=== PATIENT | male | born 1980 | race Caucasian/White ===

== ENCOUNTER 2022-09-30 13:14 | Day surgery (SDC) | payer BC, SELFPAY ==
--- NOTE | 2022-09-26 14:10 | HO.ANESPROP2 ---
Documented by User: Anabella Winston NP 09/26/22 14:11 HPI - Anesthesia Eval Consult details Narrative: 42yo M for Upper Endoscopy and Colonoscopy [facility] Past Medical History Medical History (Updated 09/26/22 @ 14:12 by Allison Barrera, JANE) Anemia Anxiety Asthma EtOH dependence GERD (gastroesophageal reflux disease) Substance abuse Social History Social History (Updated 09/26/22 @ 14:11 by Allison Barrera, JANE) Patient Tobacco Use Status: Never used Tobacco Use of substances other than those prescribed or required for medical reasons: Yes Substance Use Type: Marijuana Substance Use Type Other:: 2 days ago marijuana, years ago former cocaine Substance Use Frequency: Daily Substance Use Frequency Other:: cocaine in past last about 2 years ago Are you DNR?: No Advance Directives: No Advance Directives Information Provided: Yes Meds Allergies Allergy/AdvReac Type Severity Reaction Status Date / Time No Known Allergies Allergy Unverified 09/24/22 12:27 Home Medications Medication Instructions Recorded Confirmed Last Taken Type fluoxetine 40 mg capsule 1 cap PO DAILY 09/26/22 09/26/22 09/30/22 History naltrexone 50 mg tablet 1 tab PO DAILY 09/26/22 09/26/22 09/30/22 History omeprazole 20 mg capsule,delayed 1 cap PO DAILY 09/26/22 09/26/22 09/30/22 History release quetiapine 50 mg tablet 1 tab PO BID 09/26/22 09/26/22 09/30/22 History simvastatin 40 mg tablet 1 tab PO BEDTIME 09/26/22 09/26/22 09/30/22 History Exam Exam Date and Time: September 26, 2022 141 Assessment and Plan Assessment Anesthesia Assessment: Chart Reviewed Documented by User: Reji Ferguson MD 09/30/22 14:18 [facility] Past Medical History Medical History (Updated 09/26/22 @ 14:12 by Allison Barrera RN) Anemia Anxiety Asthma EtOH dependence GERD (gastroesophageal reflux disease) Substance abuse Family History Family history of problems with anesthesia: No Surgical History History of Problems with Anesthesia: No Social History Social History (Updated 09/26/22 @ 14:11 by Allison Barrera RN) Patient Tobacco Use Status: Never used Tobacco Use of substances other than those prescribed or required for medical reasons: Yes Substance Use Type: Marijuana Substance Use Type Other:: 2 days ago marijuana, years ago former cocaine Substance Use Frequency: Daily Substance Use Frequency Other:: cocaine in past last about 2 years ago Are you DNR?: No Advance Directives: No Advance Directives Information Provided: Yes Meds Allergies Allergy/AdvReac Type Severity Reaction Status Date / Time No Known Allergies Allergy Unverified 09/24/22 12:27 Home Medications Medication Instructions Recorded Confirmed Last Taken Type fluoxetine 40 mg capsule 1 cap PO DAILY 09/26/22 09/26/22 09/30/22 History naltrexone 50 mg tablet 1 tab PO DAILY 09/26/22 09/26/22 09/30/22 History omeprazole 20 mg capsule,delayed 1 cap PO DAILY 09/26/22 09/26/22 09/30/22 History release quetiapine 50 mg tablet 1 tab PO BID 09/26/22 09/26/22 09/30/22 History simvastatin 40 mg tablet 1 tab PO BEDTIME 09/26/22 09/26/22 09/30/22 History Exam Airway Mallampati Class: III TM Dist: >3cm Neck ROM: Full Loose/Missing/Broken Teeth: No Heart: rrr Lungs: clear Assessment and Plan Final Anesthetic Review Family History of Problems with Anesthesia: No History of Problems with Anesthesia: No NPO: Yes ASA Class: II Final Preanesthetic Review: No Changes in Pt Med Stat, Meds/Allgs Chart Reviewed, Consent Obtained/Reviewed and Anes Risks/Benef Reviewed Patient Risk: Intermediate Procedure Risk: Low Anesthetic Plan Anesthetic Plan: MAC: Disposition: Standard PACU
[2022-09-30 13:41] VITALS: BMI 40.8
[2022-09-30 13:48] VITALS: BMI 40.8
[2022-09-30 13:53] VITALS: BP 150/77; PULSE 78; RESP 18; TEMP 36.5; O2SAT 98
[2022-09-30 13:55] LABS: Phencyclidine Screen Urine Not Detected (Not Detect)
[2022-09-30 14:00] LABS: Amphetamine Screen Urine Not Detected (Not Detect); Barbiturates, Urine Not Detected (Not Detect); Benzodiazepines Screen Urine Not Detected (Not Detect); Cannabinoid Screen Urine POSITIVE (Not Detect); Cocaine Screen Urine Not Detected (Not Detect); Fentanyl, urine Not Detected (Not Detect); Opiate Screen Urine Not Detected (Not Detect)
--- NOTE | 2022-09-30 14:09 | MHC.SHP ---
Pre-Procedural Eval Section A Date of Service: 09/30/22 Section B Chief Complaint: Anemia, unspecified, Details of Present Illness: 42-year-old gentleman with previous medical history of alcohol use disorder, who was referred by his primary care provider for iron deficiency anemia. He is here for upper endoscopy and colonoscopy for evaluation. Labs not available for review. No abdominal pain, nausea, vomiting, unintentional weight loss. No melena or hematochezia. No family history of colon cancer. Patient does report chronic diarrhea which he describes as 2-3 loose bowel movements every day. Relevant Social History: Other (specify) (Marijuana) Present Medications: see Short Stay Collaborative assessment History of Previous Operations: No relevant previous surgery Allergies: Allergies Allergy/AdvReac Type Severity Reaction Status Date / Time No Known Allergies Allergy Unverified 09/24/22 12:27 Review of Systems Review of Systems Comment: Ten point ROS negative except as noted above Exam Exam Comment: Gen appear: No acute distress, well nourished HEENT: no icterus Chest: No overt resp distress Abd: soft, nontender, nondistended Psych: Stable affect, answering questions appropriately Neuro: A/Ox3 noted to move all extremities spontaneously Ext: no peripheral edema Plan I have reviewed the history and physical and performed a pertinent physical examination on my patient. No changes have occurred unless specified. Time Spent With Patient Time: Total time managing care of this patient today ____ minutes.
[2022-09-30] MEDS: Lactated Ringers 1,000 ML 100 ML IVCONT (14:12)
--- NOTE | 2022-09-30 14:16 | P.OP_ITS ---
Operative Note Operative Note Date of Service: 09/30/22 Narrative: Procedure:?Esophagogastroduodenoscopy and Colonoscopy Indication:?Iron deficiency anemia Endoscopist:?Deidre Thomas MD Anesthesia Provider:?Dr Reji Ferguson Anesthesia type:?MAC Instrument:?Olympus GIF-H190 and PCF-H190L ?? EGD Procedure:?? The procedure, indications, preparation and potential complications were reviewed with the patient, who indicated understanding and gave written informed consent to proceed. A physical exam was performed. The endoscope was introduced through the mouth, and advanced to the second part of duodenum. The mucosa was carefully examined on slow withdrawal of the endoscope. The patient tolerated the procedure well. There were no immediate complications.? ? EGD Findings:? * Esophagus:? Normal mucosa noted in the entire esophagus. The Z line was at 39 cm. * Stomach:? Normal mucosa was noted in the stomach. Random cold forceps gastric biopsies were taken to rule out H Pylori infection.? * Duodenum:? Normal mucosa was noted in the whole of the examined duodenum. Cold forceps biopsies were taken from duodenal bulb and second portion of the duodenum to rule out celiac sprue. Colonoscopy Procedure:? The patient was then turned for the colonoscopy. A digital rectal exam was performed which was normal. The colonoscope was then inserted through the anus and advanced through the colon to the cecum at 110 cm. The appendiceal orifice and ileocecal valve was identified.? Mucosa was carefully examined under high definition white light as the instrument was slowly withdrawn in a retrograde panoramic fashion. Retroflexion was performed in rectum. The procedure was not difficult. There were no immediate obvious complications. The quality of the prep was BBPS:2+2+3 = inadequate Withdrawal time 8 minutes. 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 Scope traversed beyond this to the appendiceal orifice. The ileocecal valve itself was strictured and scope could not be traversed into the terminal ileum. The terminal ileum visualised from the IC valve appeared fibrotic with blunt vili. Cold forceps biopsies were taken from the terminal ileum, ileocecal valve and around the IC valve. Random cold forceps biopsies were taken from right and left side of the colon. Protruding lesions: * Medium internal hemorrhoids stigmata of recent bleeding.? Impression:? * Normal esophagus (biopsy) * Normal stomach (biopsy) * Normal duodenum (biopsy) * Ulcerated and stenotic IC valve (biopsy) * Abnormal terminal ileum mucosa (biopsy) * Remaining colon mucosa endoscopically normal (biopsy) Recommendations:?? * Ddx include NSAID related diaphragmatic stricture vs Crohns ileitis. * Check NSAID hx * Labs ordered * Follow biopsy results. * Depending on results of biopsy, may need CTE * Follow up in GI office as scheduled * Avoid NSAIDs. Above has been reviewed with the patient. Relevant educational hand outs were provided at discharge.?
[2022-09-30 15:15] VITALS: BP 109/76; PULSE 77; RESP 14; TEMP 36.4; O2SAT 94
[2022-09-30 15:30] VITALS: BP 125/74; PULSE 70; RESP 16; TEMP 36.4; O2SAT 97
== END 2022-09-30 15:54 | disposition home or self-care (01) ==
PROVIDERS: Nurse Practitioner; PCP Internal Medicine; Visit Provider Internal Medicine
PROC: (CPT 45380; principal; 2022-09-30 15:40)
DX: D50.9 Iron deficiency anemia, unspecified (principal); K63.3 Ulcer of intestine; K52.9 Noninfective gastroenteritis and colitis, unspecified; K64.8 Other hemorrhoids; K29.50 Unspecified chronic gastritis without bleeding; K56.699 Other intestinal obstruction unspecified as to partial versus complete obstruction; K21.9 Gastro-esophageal reflux disease without esophagitis; F10.20 Alcohol dependence, uncomplicated; F12.90 Cannabis use, unspecified, uncomplicated; Z79.899 Other long term (current) drug therapy
CPT/HCPCS: 45380; 43239; 80307; 88305; 88342

== ENCOUNTER 2022-10-31 14:47 | Outpatient (REF) | payer BC, SELFPAY ==
[2022-10-31 16:15] LABS: Hematocrit 36.2 % (42.0-52.0); Hemoglobin 10.8 g/dl (14.0-18.0); Mean Corpuscular HGB Conc 29.8 g/dl (31.0-36.0); Mean Corpuscular Hemoglobin 22.8 pg (27.0-33.0); Mean Corpuscular Volume 76.5 fL (80.0-98.0); Mean Platelet Volume 8.9 fL (9.4-12.4); Platelet Count 454 X10*3/uL (160-400); Red Blood Count 4.73 X10*6/uL (4.60-5.80); Red Cell Distribution Width 15.9 % (11.0-16.0); White Blood Count 10.9 X10*3/uL (4.8-10.8)
[2022-10-31 16:20] LABS: Prothrombin Time 11.6 SEC (10.0-13.1)
[2022-10-31 17:05] LABS: Alanine Aminotransferase 13 U/L (0-40); Albumin Level 4.1 g/dL (3.5-5.0); Alkaline Phosphatase 73 U/L (39-117); Anion Gap 12 (12-20); Aspartate Amino Transferase 16 U/L (5-37); Bilirubin Total 0.3 mg/dL (0.0-1.0); Blood Urea Nitrogen 12 mg/dL (9-16); Calcium 9.5 mg/dL (8.4-10.2); Carbon Dioxide 26 mmol/L (22-29); Chloride 104 mmol/L (96-108); Estimated Glomerular Filt Rate > 60; Glucose Random 86 mg/dL (60-115); Iron 19 mcg/dL (45-160); Percent Iron Saturation 5 % (15-50); Potassium 4.2 mmol/L (3.3-5.1); Sodium 138 mmol/L (135-145); Total Iron Binding Capacity 350 mcg/dL (228-428); Unsaturated Iron Binding 331 ug/dL
[2022-10-31 17:19] LABS: Ferritin 24 ng/mL (20-250); Folate 14.3 ng/mL (> or = 4.0); Vitamin B12 500 pg/mL (200-900); Vitamin D 25-OH Total 27.9 ng/mL (>30)
[2022-11-02 19:04] LABS: TS Negative Control Passed; TS Panel A 0; TS Panel B 1; TS Positive Control Passed; TSpotTB Negative (Negative)
[2022-11-03 04:31] LABS: HBc Num1 0.06 S/CO (0.00-0.79); HBsAGNum1 0.24 S/CO (0.00-0.99); HIV AB/AG Nonreactive (Nonreactive); HIV Num 1 0.09 S/CO (0.00-0.99); Hepatitis A Antibody IgG Nonreactive (Nonreactive); Hepatitis B Core Antibody Nonreactive (Nonreactive); Hepatitis B Surface Antigen Negative (Negative); ~HepC Num1 0.14 S/CO (0.00-0.79); ~Hepatitis A Antibody IgG 0.32 S/CO (0.00-0.99); ~Hepatitis B Surface Antibody NONREACTIVE (Nonreactive); ~Hepatitis C Antibody Nonreactive (Nonreactive)
[2022-11-03 19:29] LABS: Immunoglobulin A 326 mg/dL (47-310); Immunoglobulin G 1019 mg/dL (600-1640); Immunoglobulin M 91 mg/dL (50-300)
[2022-11-03 21:19] LABS: Transglutaminase IgA <1.0 U/mL
[2022-11-05 20:48] LABS: Immunoglobulin E 262 kU/L (<OR=114)
[2022-11-09 13:43] LABS: TPMT Activity 24
== END 2022-10-31 14:48 | disposition home or self-care (01) ==
LOC: HO.LAB 14:47
PROVIDERS: PCP Internal Medicine; Visit Provider Internal Medicine
DX: Z11.4 Encounter for screening for human immunodeficiency virus [HIV] (principal); K52.9 Noninfective gastroenteritis and colitis, unspecified; R85.7 Abnormal histological findings in specimens from digestive organs and abdominal cavity
CPT/HCPCS: 36415; 80053; 82306; 82607; 82657; 82728; 82746; 82784; 82785; 83540; 85027; 85610; 86140; 86364; 86481; 86704; 86706; 86708; 86803; 87340; 87389

== ENCOUNTER 2022-11-18 15:17 | Outpatient (REF) | payer BC, SELFPAY ==
[2022-11-18 17:35] LABS: Hematocrit 37.1 % (42.0-52.0); Hemoglobin 10.9 g/dl (14.0-18.0); Mean Corpuscular HGB Conc 29.4 g/dl (31.0-36.0); Mean Corpuscular Hemoglobin 22.3 pg (27.0-33.0); Mean Platelet Volume 8.9 fL (9.4-12.4); Platelet Count 461 X10*3/uL (160-400); Red Blood Count 4.88 X10*6/uL (4.60-5.80); Red Cell Distribution Width 16.1 % (11.0-16.0); White Blood Count 10.8 X10*3/uL (4.8-10.8)
[2022-11-18 17:55] LABS: Alanine Aminotransferase 13 U/L (0-40); Albumin Level 4.1 g/dL (3.5-5.0); Alkaline Phosphatase 72 U/L (39-117); Anion Gap 16 (12-20); Aspartate Amino Transferase 17 U/L (5-37); Bilirubin Total 0.3 mg/dL (0.0-1.0); Blood Urea Nitrogen 12 mg/dL (9-16); Calcium 9.6 mg/dL (8.4-10.2); Carbon Dioxide 25 mmol/L (22-29); Chloride 102 mmol/L (96-108); Estimated Glomerular Filt Rate > 60; Glucose Random 78 mg/dL (60-115); Iron 18 mcg/dL (45-160); Percent Iron Saturation 5 % (15-50); Potassium 4.3 mmol/L (3.3-5.1); Sodium 139 mmol/L (135-145); Total Iron Binding Capacity 348 mcg/dL (228-428); Total Protein 7.1 g/dL (6.5-8.0); Unsaturated Iron Binding 330 ug/dL
== END 2022-11-18 15:18 | disposition home or self-care (01) ==
LOC: HO.LAB 15:17
PROVIDERS: PCP Internal Medicine; Visit Provider Internal Medicine
DX: K52.9 Noninfective gastroenteritis and colitis, unspecified (principal); R85.7 Abnormal histological findings in specimens from digestive organs and abdominal cavity; K64.9 Unspecified hemorrhoids
CPT/HCPCS: 36415; 80053; 81479; 82397; 83520; 83540; 85027; 86140; 88346; 88350

== ENCOUNTER 2022-12-02 08:16 | Outpatient (REF) | payer BC, SELFPAY ==
--- NOTE | ~2022-12-02 | CT_ITS ---
EXAMINATION: CT ENTEROGRAPHY ABDOMEN AND PELVIS WITH CONTRAST CLINICAL INFORMATION: K52.9 - Noninfective gastroenteritis and colitis, unspecified COMPARISON: None TECHNIQUE: Study performed with oral Breeza (1500 mL). The patient was injected with 85 mL Omnipaque 350 intravenous contrast which was administered without adverse effect. Coronal and sagittal reformatted images were obtained at the technologist's workstation. Coronal 3-D maximum intensity projection reformatted images are also generated on the CT workstation and uploaded to PACS. This CT examination was performed using dose optimization techniques as appropriate, variously including the following: *Automated exposure control *Adjustment of mA and/or kV according to patient size (this includes techniques or standardized protocols for targeted exams where dose is matched to indication/reason for exam; i.e. extremities or head) *Use of iterative reconstruction technique DLP: 783 mGy-cm FINDINGS: LUNG BASES: The visualized lung bases are unremarkable. LIVER, GALLBLADDER, AND BILIARY TREE: The liver is normal in size, shape, and attenuation. No focal hepatic lesion or biliary ductal dilatation is present. The gallbladder is unremarkable with no evidence of radiopaque gallstones, gallbladder wall thickening, or obvious pericholecystic inflammatory changes. PANCREAS: Normal in size and contour and attenuation. No ductal dilatation. SPLEEN: Upper limits of normal size, 12.6 cm. ADRENAL GLANDS: Normal. KIDNEYS AND URETERS: The kidneys are normal in size, shape, and attenuation. No hydronephrosis, hydroureter, or calculi seen. No perinephric stranding. BLADDER: Unremarkable. GASTROINTESTINAL TRACT: There is subtle mild circumferential wall thickening and accentuated submucosal fat long segment mid to distal ileum at least 20 cm in length. Loops are well . There is no pneumatosis or fistula or stricture. No proximal obstruction. There may be mild short segment mid jejunal wall thickening left abdomen. The remainder of the large and small bowel appear normal. Rectum unremarkable. Normal appendix. There is small sliding hiatal hernia. No ascites or fluid collection. ABDOMINAL WALL: There is a mesh anterior abdomen. There is a fat-containing umbilical hernia measuring approximately 3.5 cm. Borderline fat-containing inguinal hernias. LYMPH NODES: There is scattered mesenteric adenopathy central right mesentery, largest node approximately 1 cm. Enlarged portal caval node measures 1.6 cm short axis. No retroperitoneal, deep pelvic or inguinal lymphadenopathy. VASCULAR: Unremarkable. PELVIC VISCERA: Unremarkable. OSSEUS STRUCTURES: No acute bony abnormality. Scattered Schmorl's nodes thoracic and lumbar spine. There is subtle fine irregular contours of the SI joints suspicious for mild sacroiliitis. Hardware in left hip. CT/CT enterography IMPRESSION: -Mild circumferential wall thickening and accentuated submucosal fat mid to distal ileum at least 20 cm in length. Question mild short segment mid jejunal wall thickening. -No proximal obstruction, pneumatosis, fistula, or stricture. No ascites or fluid collection. -Mild right mesenteric adenopathy. Prominent portal caval node. -Fat-containing umbilical hernia 3.5 cm. -Findings suspicious for mild bilateral sacroiliitis.
[2022-12-02] MEDS: Sorbitol/Mannit/Xanth Imaging 500 ML LIQUID 1500 ML PO (09:55)
[2022-12-02] MEDS: iohexoL 350 MG/ML 100 ML INFUS..BTL IV (09:55)
== END 2022-12-02 08:17 | disposition home or self-care (01) ==
LOC: HO.CT 08:16
PROVIDERS: Visit Provider Internal Medicine
DX: K52.9 Noninfective gastroenteritis and colitis, unspecified (principal)
CPT/HCPCS: 74177; Q9967

== ENCOUNTER 2022-12-12 07:08 | Outpatient (REF) | payer BC, SELFPAY ==
[2022-12-19 19:34] LABS: Calprotectin, Fecal 1710 mcg/g
== END 2022-12-12 07:09 | disposition home or self-care (01) ==
LOC: HO.LNP 07:08
PROVIDERS: Visit Provider Internal Medicine
DX: K52.9 Noninfective gastroenteritis and colitis, unspecified (principal)
CPT/HCPCS: 83993

== ENCOUNTER → 2022-12-15 15:05 | Outpatient (BNVA) | payer BC, SELFPAY | PROVIDERS: PCP Internal Medicine; Referring Provider Internal Medicine; Visit Provider Surgery | DX: K64.9 Unspecified hemorrhoids (principal) | CPT/HCPCS: 46600 ==

== ENCOUNTER → 2023-01-02 16:13 | Outpatient (BNVA) | payer BC, SELFPAY | PROVIDERS: PCP Internal Medicine; Visit Provider Internal Medicine | DX: Z13.89 Encounter for screening for other disorder (principal) ==

== ENCOUNTER 2023-01-23 12:34 | Outpatient (REF) | payer BC, SELFPAY ==
[2023-01-23 13:21] LABS: Hematocrit 42.5 % (42.0-52.0); Hemoglobin 12.7 g/dl (14.0-18.0); Mean Corpuscular HGB Conc 29.9 g/dl (31.0-36.0); Mean Corpuscular Hemoglobin 24.6 pg (27.0-33.0); Mean Corpuscular Volume 82.2 fL (80.0-98.0); Mean Platelet Volume 9.3 fL (9.4-12.4); Platelet Count 383 X10*3/uL (160-400); Red Blood Count 5.17 X10*6/uL (4.60-5.80); Red Cell Distribution Width 16.7 % (11.0-16.0); White Blood Count 10.7 X10*3/uL (4.8-10.8)
[2023-01-23 13:43] LABS: C Reactive Protein 3.31 mg/dL (< or = 0.50); Iron 25 mcg/dL (45-160); Percent Iron Saturation 7 % (15-50); Total Iron Binding Capacity 345 mcg/dL (228-428); Unsaturated Iron Binding 320 ug/dL
[2023-01-23 14:00] LABS: Ferritin 28 ng/mL (20-250)
== END 2023-01-23 12:35 | disposition home or self-care (01) ==
LOC: HO.LAB 12:34
PROVIDERS: PCP Internal Medicine; Visit Provider Internal Medicine
DX: K52.9 Noninfective gastroenteritis and colitis, unspecified (principal); K90.9 Intestinal malabsorption, unspecified
CPT/HCPCS: 36415; 82728; 83540; 85027; 86140

== ENCOUNTER 2023-01-26 10:15 | Outpatient (REF) | payer BC, SELFPAY ==
[2023-02-01 23:48] LABS: Calprotectin, Fecal 1210 mcg/g
== END 2023-01-26 10:16 | disposition home or self-care (01) ==
LOC: HO.LNP 10:15
PROVIDERS: Visit Provider Internal Medicine
DX: K52.9 Noninfective gastroenteritis and colitis, unspecified (principal)
CPT/HCPCS: 83993

== ENCOUNTER 2023-04-09 13:05 | Day surgery (SDC) | payer BC, SELFPAY ==
[2023-02-10 10:40] VITALS: BMI 40.6
[2023-04-09 13:13] VITALS: BMI 39.5
[2023-04-09 13:17] VITALS: BMI 39.5
[2023-04-09 13:19] VITALS: BP 121/82; PULSE 82; RESP 18; TEMP 36.7; O2SAT 95
--- NOTE | 2023-04-09 13:43 | MHC.SHP ---
Pre-Procedural Eval Section A Date of Service: 04/09/23 Section B Chief Complaint: Colitis Details of Present Illness: Medical History Anemia Anxiety Asthma EtOH dependence GERD (gastroesophageal reflux disease) Morbid obesity Substance abuse Surgical History H/O colonoscopy H/O knee surgery History of carpal tunnel surgery History of esophagogastroduodenoscopy (EGD) History of hip surgery Family History Maternal Grandmother Skin cancer Maternal Grandfather Prostate cancer Paternal Grandfather Lung cancer Father Cancer Present Medications: see Short Stay Collaborative assessment Allergies: Allergies Allergy/AdvReac Type Severity Reaction Status Date / Time No Known Allergies Allergy Unverified 12/15/22 15:17 Review of Systems Review of Systems Comment: 10 point ROS negative Exam Exam Comment: Gen appear: No acute distress HEENT: no icterus Chest: No overt resp distress Abd: soft, nontender, nondistended Psych: Stable affect, answering questions appropriately Neuro: A/Ox3 noted to move all extremities spontaneously Ext: no peripheral edema Plan I have reviewed the history and physical and performed a pertinent physical examination on my patient. No changes have occurred unless specified. Time Spent With Patient Time: Total time managing care of this patient today ____ minutes.
--- NOTE | 2023-04-09 13:45 | W.PM.OPN ---
Operative Note Operative Note Date of Service: 04/09/23 Narrative: Procedure:?Esophagogastroduodenoscopy and colonoscopy Endoscopist:?Deidre Thomas MD Indication:?Anemia, enteritis r/o crohns Anesthesia Provider:?Dr Aydee Villagomez Anesthesia Type:?MAC Instrument:?Olympus GIF-H190, PCF-190L EGD Procedure:?? The procedure, indications, preparation and potential complications were reviewed with the patient, who indicated understanding and gave written informed consent to proceed. A physical exam was performed. The endoscope was introduced through the mouth, and advanced to the proximal jejunum. The mucosa was carefully examined on slow withdrawal of the endoscope. The patient tolerated the procedure well and there were no immediate complications. EGD Findings:? Esophagus:? Normal mucosa noted in the entire esophagus. The Z line is at 40 cm. Stomach:? Normal gastric mucosa. Duodenum:? Normal duodenal mucosa to the extent visualised. Cold forceps biopsies were taken from the duodenal bulb and second portion of the duodenum. Jejunum: Proximal jejunum appeared normal and no obvious narrowing or inflammation noted. Cold forceps biopsies were taken to r/o crohns. Colonoscopy Procedure:? The patient was then turned for the colonoscopy. A digital rectal exam was performed which was abnormal for external hemorrhoids and ? pramod anal fistula.?A distal attachment cap was affixed to the tip of the scope and the colonoscope was then inserted through the anus and advanced through the colon to the cecum at 75 cm. Appendiceal orifice and ileocecal valve were identified. Mucosa was carefully examined under high definition white light as the instrument was slowly withdrawn in a retrograde panoramic fashion. Retroflexion was performed in rectum. The procedure was not difficult. There were no immediate obvious complications. The quality of the prep was BBPS: 3+2+3 = adequate Withdrawal time: 25 minutes Limitations: No limitation. Findings: Mucosa: Normal mucosa to cecum. The ileocecal valve was stenosed and scope could not be traversed through it. Purulent discharge was flowing freely out of it. Using a wire guided colonic balloon, the IC valve was dilated to 8 mm. Due to significant resistance and bleeding with dilation to 8 mm, decision was made to not dilate further. Post dilation, we could peek into terminal ileum which appeared erythematous and ulcerated. Cold forceps biopsies were taken from T.I and IC valve as well as from remaining colon and rectum. Protruding lesions: Medium internal hemorrhoids without stigmata of recent bleeding. Impression: 1. Normal esophagus 2. Normal stomach 3. Normal duodenum (biopsy) 4. Normal proximal jejunum (biopsy) 5. Stenosed IC valve (biopsy, dilation) 6. Terminal ileitis (biopsy) 7. Colon mucosa normal to cecum (biopsy) 8. Internal and external hemorrhoids 9. Perianal fistula Recommendations:?? Await biopsy results As clinical appearance most consistent with crohn's disease, will start prednisone 60mg PO once daily x 14 days, followed by a taper. Pt will likely need anti-TNF therapy Repeat colo can be considered depending on response to therapy in 3 months for further dilation of ICV stenosis
--- NOTE | 2023-04-09 15:02 | HO.ANESPROP2 ---
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 (Acute) Bleeding hemorrhoid (Acute) Morbid obesity (Acute) Past Medical History Medical History Anemia Anxiety Asthma EtOH dependence GERD (gastroesophageal reflux disease) Morbid obesity Substance abuse Family History Family History Maternal Grandmother Skin cancer Maternal Grandfather Prostate cancer Paternal Grandfather Lung cancer Father Cancer Family history of problems with anesthesia: No Surgical History Surgical History (Updated 02/10/23 @ 10:35 by Sola Avalos RN) H/O colonoscopy H/O knee surgery History of carpal tunnel surgery History of esophagogastroduodenoscopy (EGD) History of hip surgery History of Problems with Anesthesia: No Social History Social History Alcohol intake: former Year quit: 2021 Patient Tobacco Use Status: Never used Tobacco Use of substances other than those prescribed or required for medical reasons: Yes Substance Use Type: Marijuana Substance Use Type Other:: daily, yesterday smoked 2 joints Are you DNR?: No Advance Directives: No Advance Directives Information Provided: Yes Meds Allergies Allergy/AdvReac Type Severity Reaction Status Date / Time No Known Allergies Allergy Unverified 12/15/22 15:17 Active Medications: Current Medications Lactated Ringer's (Lr) 1,000 mls @ 50 mls/hr IVCONT .Q20H ANNA Last Admin: 04/09/23 13:31 Dose: 50 mls/hr Home Medications Medication Instructions Recorded Confirmed Last Taken Type fluoxetine 40 mg capsule 1 cap PO DAILY 09/26/22 04/09/23 04/09/23 History naltrexone 50 mg tablet 1 tab PO DAILY 09/26/22 04/09/23 04/09/23 History omeprazole 20 mg capsule,delayed 1 cap PO DAILY 09/26/22 04/09/23 04/09/23 History release quetiapine 50 mg tablet 1 tab PO BID 09/26/22 04/09/23 04/09/23 History simvastatin 40 mg tablet 1 tab PO BEDTIME 09/26/22 04/09/23 09/30/22 History acetaminophen 650 mg 650 mg PO Q12H 10/31/22 04/09/23 Unknown History tablet,extended release (Tylenol Arthritis Pain) Exam Exam Date and Time: April 09, 2023 1502 Height,Weight and Vital Signs: Height 5 ft 10 in Weight 124.738 kg Last Vital Signs Temp 98.0 F 04/09/23 13:19 Pulse 82 04/09/23 13:19 Resp 18 04/09/23 13:19 BP 121/82 04/09/23 13:19 Pulse Ox 95 04/09/23 13:19 O2 Del Method Room Air 04/09/23 13:19 Assessment and Plan Assessment Anesthesia Assessment: Anesthesia Plan Discussed and Chart Reviewed Final Anesthetic Review Family History of Problems with Anesthesia: No History of Problems with Anesthesia: No NPO: Yes ASA Class: III Final Preanesthetic Review: No Changes in Pt Med Stat, Meds/Allgs Chart Reviewed, Consent Obtained/Reviewed and Anes Risks/Benef Reviewed Patient Risk: Intermediate Procedure Risk: Low Anesthetic Plan Anesthetic Plan: MAC: Disposition: Standard PACU
[2023-04-09 15:30] VITALS: BP 120/71; PULSE 79; RESP 16; TEMP 36.1; O2SAT 96
[2023-04-09 15:45] VITALS: BP 117/66; PULSE 74; RESP 18; TEMP 36.8; O2SAT 97
== END 2023-04-09 16:15 | disposition home or self-care (01) ==
PROVIDERS: PCP Internal Medicine; Visit Provider Internal Medicine
PROC: (CPT 45386; principal; 2023-04-09 14:50)
DX: K50.012 Crohn's disease of small intestine with intestinal obstruction (principal); D64.9 Anemia, unspecified; K64.4 Residual hemorrhoidal skin tags; K64.8 Other hemorrhoids; K60.3 Anal fistula; J45.909 Unspecified asthma, uncomplicated
CPT/HCPCS: 45386; 45380; 43239; 88305; C1726

== ENCOUNTER 2023-04-15 13:35 | Outpatient (AMB) | payer BC, SELFPAY ==
--- NOTE | 2023-04-15 13:45 | A.OFFVIS_ITS ---
Intake Vital Signs 04/15/23 13:46 Height 5 ft 10 in Weight 279 lb 15.793 oz BMI 40.2 BP 134/72 Blood Pressure Location Lt brachial Position Sitting Pulse 75 Intake Visit Reasons: S/P double; Dr. Thomas Intake Note: Cornelius presents in the office as a follow up to his procedures. CC: No concerns 0 here for the results. 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 EGD/colo 09/30/22: Impression:? * Normal esophagus (biopsy) * Normal stomach (biopsy) * Normal duodenum (biopsy) * Ulcerated and stenotic IC valve (biopsy) * Abnormal terminal ileum mucosa (biopsy) * Remaining colon mucosa endoscopically normal (biopsy) Path: A.? Duodenum, biopsy:? Duodenal mucosa with mild villous blunting and patchy increased intraepithelial lymphocytes (see comment). B.? Stomach, biopsy:? Gastric antral and body mucosa with mild chronic inactive gastritis; negative for Helicobacter pylori, intestinal metaplasia and dysplasia. C.? Ileocecal valve, biopsy:? Active ileitis with moderate activity and mucosal erosion (see comment). D.? Terminal ileum, biopsy:? Active ileitis with mild activity (see comment). E.? Colon, ascending, biopsy:? Active colitis with mild activity (see comment). F.? Colon, right side, biopsy:? Colonic mucosa within normal limits; negative for active, chronic or microscopic colitis.? G.? Colon, left side, biopsy:? Colonic mucosa within normal limits; negative for active, chronic or microscopic colitis.? H.? Rectum, biopsy:? Colonic mucosa within normal limits; negative for active, chronic or microscopic colitis. COMMENT (A): ? These findings raise the possibility of celiac disease; however other pathologic processes, ?including H. pylori gastritis, peptic duodenitis, food allergies other than celiac disease, tropical sprue, viral enteritis, injury caused by drugs, autoimmune enteropathy, immunodeficiencies and Crohn's disease can induce intraepithelial lymphocytosis with or without associated architectural changes. In many cases no definite cause is identified. Clinical and serological correlation is recommended. COMMENT (C-E):? Neither granulomas nor evidence of definitive chronic mucosal injury is seen. The differential diagnosis includes infection, drug/medication effect and early idiopathic inflammatory bowel disease. Clinical correlation is advised. 10/31/22 Today, patient reports that despite stopping naproxen almost 3 months ago, he continues to have diarrhea which is often dark/black colored. Only utilizes Tylenol for pain control now. Reports taking omeprazole. Otherwise, no abdominal pain, nausea, vomiting, changes in appetite or unintent ional weight loss. No family history of inflammatory bowel disease or autoimmune conditions. No personal history of frequent respiratory or GI infections. 11/18/22: Reports seeing rectal bleeding more frequently, every time he wipes which then continues for a while before stopping itself. Not particularly painful to defecate, but did initially have a bruising like pressure. CT was ordered at the last visit, patient has still not heard from Radiology. Promethius Panel: consistent with Crohn's. 12/02/22: CTE: -Mild circumferential wall thickening and accentuated submucosal fat mid to distal ileum at least 20 cm in length. Question mild short segment mid jejunal wall thickening. -No proximal obstruction, pneumatosis, fistula, or stricture. No ascites or fluid collection. -Mild right mesenteric adenopathy. Prominent portal caval node. -Fat-containing umbilical hernia 3.5 cm. -Findings suspicious for mild bilateral sacroiliitis. 01/02/23: Started prednisone 40mg on 12/15 and took it for 2 weeks. Currently on 30mg dosing and to go down to 20mg on Thursday. Thinks may be has 30-50% had improvement in symptoms. Diarrhea frequency has decreased from 4 BMs a day to 2BMs per day. No abdominal pain anymore. Stools are still loose but brown. Rectal pressure has improved. 02/06/23: Was seen in [facility] [place] [facility] for L sided perianal abscess for which he underwent I&D at bedside. 04/09/23: EGD/colo: 1. Normal esophagus 2. Normal stomach 3. Normal duodenum (biopsy) 4. Normal proximal jejunum (biopsy) 5. Stenosed IC valve (biopsy, dilation) 6. Terminal ileitis (biopsy) 7. Colon mucosa normal to cecum (biopsy) 8. Internal and external hemorrhoids 9. Perianal fistula Recommendations:?? * Await biopsy results * As clinical appearance most consistent with crohn's disease, will start prednisone 60mg PO once daily x 14 days, followed by a taper. * Pt will likely need anti-TNF therapy * Repeat colo can be considered depending on response to therapy in 3 months for further dilation of ICV stenosis Path: A.? Jejunum, proximal, biopsy:? Small bowel mucosa with no specific change; no enteritis, granulomas or dysplasia.? B.? Duodenum, biopsy:? Duodenal mucosa with focally blunted villi and no active inflammation or granulomas; cannot exclude a nonspecific duodenitis.? C.? Terminal ileum, biopsy:? Chronic active ileitis with focal ulcer; no granulomas or dysplasia (see comment). D.? Ileocecal valve, biopsy:? Active erosive enteritis/colitis; no granulomas or dysplasia (see comment).? E.? Colon, right, biopsy:? Colonic mucosa with minor crypt distortion, focal hyperplastic changes and lymphoid aggregate; no colitis, granulomas or dysplasia. F.? Colon, left, biopsy:? Colonic mucosa with minimal hyperplastic changes; no colitis, granulomas or dysplasia.? G.? Colon, rectum, biopsy:? Colonic mucosa with minimal hyperplastic changes and two actively inflamed crypts with adjacent mucosal microgranuloma; negative for dysplasia (see comment).? 04/15/23: Was started on prednisone 60mg PO based on endoscopic appearance which he started taking on 04/10/23. Pre-endoscopy was having up to 5 loose BMs per day. Now frequency has reduced to 2 BMs per day albeit still loose. BMs are brown without blood in it. Night time sx +. No urgency. Tenesmus + . No abd pain. Does report hip and knee pains. [facility] Medical History Anemia Anxiety Asthma EtOH dependence GERD (gastroesophageal reflux disease) Morbid obesity Substance abuse Surgical History H/O colonoscopy H/O knee surgery History of carpal tunnel surgery History of esophagogastroduodenoscopy (EGD) History of hip surgery Family History Maternal Grandmother Skin cancer Maternal Grandfather Prostate cancer Paternal Grandfather Lung cancer Father Cancer Social History Alcohol intake: former Year quit: 2021 Patient Tobacco Use Status: Never used Tobacco Substance Use Type: Marijuana Review of Systems Const All systems reviewed & are unremarkable except as noted in HPI and below Physical Exam Vital Signs: Last Vital Signs Pulse 75 04/15/23 13:46 BP 134/72 04/15/23 13:46 BMI result Body Mass Index 40.2 Gen appear: NAD HEENT: nonicteric, no cervical lymphadenopathy Chest: CTA CVS: Regular S1/S2 Abd: soft, nontender, nondistended, bowel sounds + Ext: no peripheral edema Neuro: A/Ox3, noted to move all extremities spontaneously Psych: interacting appropriately Assessment & Plan Assessment & Plan (1) Crohn's disease: Code(s): K50.90 - Crohn's disease, unspecified, without complications (2) Bilateral sacroiliitis: Code(s): M46.1 - Sacroiliitis, not elsewhere classified (3) Diarrhea: Code(s): R19.7 - Diarrhea, unspecified (4) Perianal abscess: Code(s): K61.0 - Anal abscess Plan Discussed with the patient that clinical impression consistent with crohns with ileoanal involvement. No definitive chronic injury noted in colon endoscopically or histologically. Given the penetrating and stricturing phenotype would recommend treatment with anti-TNF specifically remicade, in combination with Azathioprine as immunomodulator. Biologic discussion: I have discussed the risks and benefits of starting anti- TNF therapy specifically infliximab with the patient, including the risk of NOT using this therapy (uncontrolled disease) and possible alternative therapies that may not be as effective. Risks reviewed included slight increased risk of malignancy and infection and possibility of infusion reactions/allergies or autoimmune-like conditions triggered by infusions. Reviewed the need for up to date vaccinations (and avoidance of live vaccines), and need for annual skin exams. - Disease and therapy: Stricturing crohns diseae - Fecal calpro: 1210 from January 2023. - Cont Prednisone 60mg x 2 weeks total (i.e till 04/24/23) followed by taper of 10mg per week - Infliximab PA requested - Infliximab 10mg/kg to be given at 0,2,6 weeks followed by q8w. - TPMT ordered in anticipation of starting combination therapy with Azathioprine - Extensive counseling for biologic initiation, administration and monitoring done as above. - Nutrition: Has evidence of ileal disease. Iron and B12 check ordered. - Immunization: Reinforced need to keep up to date with vaccinations and to avoid live vaccines. - Bone Health: Check Vit D level given ongoing steroid use and small bowel involvement. - Cancer prevention: IBD dysplasia: colonoscopy due in N/A - dx last week. Sun safety discussed. ? 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 Referral to Rheum placed for evaluation of sacroiliitis. Pt was informed that infliximab will help with the arthritis as well. Close follow up in 4 weeks. Orders: Orders Calprotectin, Fecal Today K50.90 - Crohn's disease, unspecified, without complications Vitamin B12 and Folate Today K50.90 - Crohn's disease, unspecified, without complications Comprehensive Met. Panel Today K50.90 - Crohn's disease, unspecified, without complications C Reactive Protein Today K50.90 - Crohn's disease, unspecified, without complications Ferritin Today K50.90 - Crohn's disease, unspecified, without complications IRON PROFILE Today K50.90 - Crohn's disease, unspecified, without complications Thiopurine Methyltransferase Today K50.90 - Crohn's disease, unspecified, without complications Vitamin D 25-OH Total Today K50.90 - Crohn's disease, unspecified, without complications Complete Blood Count no Diff Today K50.90 - Crohn's disease, unspecified, without complications Referrals Rheumatology Referral K50.90 - Crohn's disease, unspecified, without complications, M46.1 - Sacroiliitis, not elsewhere classified Medications: New prednisone orally as directed; Take 5 pills x 1 week Take 4 pills x 1 week Take 3 pills x 1 week Take 2 pills x 1 week Take 1 pills x 1 week 105 tabs 0RF Coding Level of Care Code Est Pt Level 5 (03062) Diagnoses Crohn's disease K50.90 Bilateral sacroiliitis M46.1 Diarrhea R19.7 Perianal abscess K61.0
[2023-04-15 13:46] VITALS: BP 134/72; PULSE 75; BMI 40.2
== END 2023-04-15 15:28 | disposition home or self-care (01) ==
PROVIDERS: PCP Internal Medicine; Visit Provider Internal Medicine
DX: K50.90 Crohn's disease, unspecified, without complications (principal); M46.1 Sacroiliitis, not elsewhere classified; R19.7 Diarrhea, unspecified; K61.0 Anal abscess
CPT/HCPCS: 99214

== ENCOUNTER → 2023-04-15 13:35 | Outpatient (BNVA) | payer BC, SELFPAY | PROVIDERS: PCP Internal Medicine; Visit Provider Internal Medicine ==

== ENCOUNTER 2023-05-06 12:38 | Outpatient (REF) | payer BC, SELFPAY | END 2023-05-06 12:39 | disposition home or self-care (01) | LOC: HO.MDS 12:38 | PROVIDERS: Visit Provider Internal Medicine | DX: K50.80 Crohn's disease of both small and large intestine without complications (principal) | CPT/HCPCS: 96365; 96366; J1745 ==

== ENCOUNTER 2023-05-22 08:06 | Outpatient (REF) | payer BC, SELFPAY | END 2023-05-22 08:07 | disposition home or self-care (01) | LOC: HO.MDS 08:06 | PROVIDERS: Visit Provider Internal Medicine | DX: K50.90 Crohn's disease, unspecified, without complications (principal) | CPT/HCPCS: 96413; 96415; J1745 ==

== ENCOUNTER 2023-05-25 15:46 | Outpatient (AMB) | payer BC, SELFPAY ==
--- NOTE | 2023-05-25 15:49 | A.OFFVIS_ITS ---
Intake Vital Signs 05/25/23 15:51 Height 5 ft 10 in Weight 286 lb 9.615 oz BMI 41.1 BP 126/79 Blood Pressure Location Lt brachial Position Sitting Pulse 71 Intake Visit Reasons: 4 week follow up Intake Note: Cornelius presents in the office as a 4 week follow up. CC: He states that he is not having any concerns at this time. Store Specialist Required: No Allergies No Known Allergies Allergy (Unverified 05/25/23 15:51) HPI HPI Comments History of Present Illness Details This is a 42-year-old gentleman with arthritis for which he was on NSAIDs [facility], who is following up for iron deficiency anemia and ileitis. EGD/colo 09/30/22: Impression:? * Normal esophagus (biopsy) * Normal stomach (biopsy) * Normal duodenum (biopsy) * Ulcerated and stenotic IC valve (biopsy) * Abnormal terminal ileum mucosa (biopsy) * Remaining colon mucosa endoscopically normal (biopsy) Path: A.? Duodenum, biopsy:? Duodenal mucosa with mild villous blunting and patchy increased intraepithelial lymphocytes (see comment). B.? Stomach, biopsy:? Gastric antral and body mucosa with mild chronic inactive gastritis; negative for Helicobacter pylori, intestinal metaplasia and dysplasia. C.? Ileocecal valve, biopsy:? Active ileitis with moderate activity and mucosal erosion (see comment). D.? Terminal ileum, biopsy:? Active ileitis with mild activity (see comment). E.? Colon, ascending, biopsy:? Active colitis with mild activity (see comment). F.? Colon, right side, biopsy:? Colonic mucosa within normal limits; negative for active, chronic or microscopic colitis.? G.? Colon, left side, biopsy:? Colonic mucosa within normal limits; negative for active, chronic or microscopic colitis.? H.? Rectum, biopsy:? Colonic mucosa within normal limits; negative for active, chronic or microscopic colitis. COMMENT (A): ? These findings raise the possibility of celiac disease; however other pathologic processes, ?including H. pylori gastritis, peptic duodenitis, food allergies other than celiac disease, tropical sprue, viral enteritis, injury caused by drugs, autoimmune enteropathy, immunodeficiencies and Crohn's disease can induce intraepithelial lymphocytosis with or without associated architectural changes. In many cases no definite cause is identified. Clinical and serological correlation is recommended. COMMENT (C-E):? Neither granulomas nor evidence of definitive chronic mucosal injury is seen. The differential diagnosis includes infection, drug/medication effect and early idiopathic inflammatory bowel disease. Clinical correlation is advised. 10/31/22 Today, patient reports that despite stopping naproxen almost 3 months ago, he continues to have diarrhea which is often dark/black colored. Only utilizes Tylenol for pain control now. Reports taking omeprazole. Otherwise, no abdominal pain, nausea, vomiting, changes in appetite or unintentional weight loss. No family history of inflammatory bowel disease or autoimmune conditions. No personal history of frequent respiratory or GI infections. 11/18/22: Reports seeing rectal bleeding more frequently, every time he wipes which then continues for a while before stopping itself. Not particularly painful to defecate, but did initially have a bruising like pressure. CT was ordered at the last visit, patient has still not heard from Radiology. Promethius Panel: consistent with Crohn's. 12/02/22: CTE: -Mild circumferential wall thickening and accentuated submucosal fat mid to distal ileum at least 20 cm in length. Question mild short segment mid jejunal wall thickening. -No proximal obstruction, pneumatosis, fistula, or stricture. No ascites or fluid collection. -Mild right mesenteric adenopathy. Prominent portal caval node. -Fat-containing umbilical hernia 3.5 cm. -Findings suspicious for mild bilateral sacroiliitis. 01/02/23: Started prednisone 40mg on 12/15 and took it for 2 weeks. Currently on 30mg dosing and to go down to 20mg on Thursday. Thinks may be has 30-50% had improvement in symptoms. Diarrhea frequency has decreased from 4 BMs a day to 2BMs per day. No abdominal pain anymore. Stools are still loose but brown. Rectal pressure has improved. 02/06/23: Was [place] [facility] [place] L sided perianal abscess for which he underwent I&D at bedside. 04/09/23: EGD/colo: 1. Normal esophagus 2. Normal stomach 3. Normal duodenum (biopsy) 4. Normal proximal jejunum (biopsy) 5. Stenosed IC valve (biopsy, dilation) 6. Terminal ileitis (biopsy) 7. Colon mucosa normal to cecum (biopsy) 8. Internal and external hemorrhoids 9. Perianal fistula Recommendations:?? * Await biopsy results * As clinical appearance most consistent with crohn's disease, will start prednisone 60mg PO once daily x 14 days, followed by a taper. * Pt will likely need anti-TNF therapy * Repeat colo can be considered depending on response to therapy in 3 months for further dilation of ICV stenosis Path: A.? Jejunum, proximal, biopsy:? Small bowel mucosa with no specific change; no enteritis, granulomas or dysplasia.? B.? Duodenum, biopsy:? Duodenal mucosa with focally blunted villi and no active inflammation or granulomas; cannot exclude a nonspecific duodenitis.? C.? Terminal ileum, biopsy:? Chronic active ileitis with focal ulcer; no granul omas or dysplasia (see comment). D.? Ileocecal valve, biopsy:? Active erosive enteritis/colitis; no granulomas or dysplasia (see comment).? E.? Colon, right, biopsy:? Colonic mucosa with minor crypt distortion, focal hyperplastic changes and lymphoid aggregate; no colitis, granulomas or dysplasia. F.? Colon, left, biopsy:? Colonic mucosa with minimal hyperplastic changes; no colitis, granulomas or dysplasia.? G.? Colon, rectum, biopsy:? Colonic mucosa with minimal hyperplastic changes and two actively inflamed crypts with adjacent mucosal microgranuloma; negative for dysplasia (see comment).? 04/15/23: Was started on prednisone 60mg PO based on endoscopic appearance which he started taking on 04/10/23. Pre-endoscopy was having up to 5 loose BMs per day. Now frequency has reduced to 2 BMs per day albeit still loose. BMs are brown without blood in it. Night time sx +. No urgency. Tenesmus + . No abd pain. Does report hip and knee pains. 05/25/23: s/p x2 doses of infliximab loadin05/08/23, 05/22/23. Next dose due on 07/03. Reports some improvement in consistency of stool, now formed. However still has 3-4BMs/day. Blood intermittently, most recently over the weekend. Continues to report bilateral hip and knee pain. Seeing Rheum in Jul. Completing pred taper and on 10mg dose this week. Missed doing labs last visit so TPMT not available. [facility] Medical History Anemia Anxiety Asthma EtOH dependence GERD (gastroesophageal reflux disease) Morbid obesity Substance abuse Surgical History H/O colonoscopy H/O knee surgery History of carpal tunnel surgery History of esophagogastroduodenoscopy (EGD) History of hip surgery Family History Maternal Grandmother Skin cancer Maternal Grandfather Prostate cancer Paternal Grandfather Lung cancer Father Cancer Social History Alcohol intake: former Year quit: 2021 Patient Tobacco Use Status: Never used Tobacco Substance Use Type: Marijuana Review of Systems Const All systems reviewed & are unremarkable except as noted in HPI and below Physical Exam Vital Signs: Last Vital Signs Pulse 71 05/25/23 15:51 BP 126/79 05/25/23 15:51 BMI result Body Mass Index 41.1 Gen appear: NAD HEENT: nonicteric, no cervical lymphadenopathy Chest: CTA CVS: Regular S1/S2 Abd: soft, nontender, nondistended, bowel sounds + Ext: no peripheral edema Neuro: A/Ox3, noted to move all extremities spontaneously Psych: interacting appropriately Assessment & Plan Assessment & Plan (1) Crohn's disease: Code(s): K50.90 - Crohn's disease, unspecified, without complications (2) Bilateral sacroiliitis: Code(s): M46.1 - Sacroiliitis, not elsewhere classified (3) Diarrhea: Code(s): R19.7 - Diarrhea, unspecified (4) Perianal abscess: Code(s): K61.0 - Anal abscess Plan Discussed with the patient that clinical impression consistent with crohns with ileoanal involvement. Given the penetrating and stricturing phenotype would recommend treatment with anti-TNF specifically remicade, in combination with Azathioprine as immunomodulator. 04/15/23: Biologic discussion: I have discussed the risks and benefits of starting anti-TNF therapy specifically infliximab with the patient, including the risk of NOT using this therapy (uncontrolled disease) and possible alternative therapies that may not be as effective. Risks reviewed included slight increased risk of malignancy and infection and possibility of infusion reactions/allergies or autoimmune-like conditions triggered by infusions. Reviewed the need for up to date vaccinations (and avoidance of live vaccines), and need for annual skin exams. - Disease and therapy: Stricturing crohns diseae - Fecal calpro: 1210 from January 2023. Repeat ordered. - Cont Prednisone as per taper - Continue Infliximab 10mg/kg loading followed by maintenance as per schedule - TPMT ordered and pending - Start Azathioprine 50mg PO once daily - Check CBC and LFTs in 2 weeks and adjust as needed based on results + TPMT - Will need labs including CRP, fecal calpro, infliximab drug and Ab level BEFORE first maintenance dose i.e after completing induction (due around 09/04) - Nutrition: Has evidence of ileal disease. Iron and B12 check ordered. - Immunization: Reinforced need to keep up to date with vaccinations and to avoid live vaccines. - Bone Health: Check Vit D level given ongoing steroid use and small bowel involvement. - Cancer prevention: IBD dysplasia: colonoscopy due in N/A - dx last week. Sun safety discussed. ? 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 Referral to Rheum placed for evaluation of sacroiliitis and due to see them in Jul. Pt was informed that infliximab will help with the arthritis as well. Follow up in 6 weeks. Medications: New azathioprine 50 mg PO DAILY 90 tabs 0RF Coding Level of Care Code Est Pt Level 5 (45179) Diagnoses Crohn's disease K50.90 Bilateral sacroiliitis M46.1 Diarrhea R19.7 Perianal abscess K61.0
[2023-05-25 15:51] VITALS: BP 126/79; PULSE 71; BMI 41.1
== END 2023-05-25 16:30 | disposition home or self-care (01) ==
PROVIDERS: PCP Internal Medicine; Visit Provider Internal Medicine
DX: K50.90 Crohn's disease, unspecified, without complications (principal); M46.1 Sacroiliitis, not elsewhere classified; R19.7 Diarrhea, unspecified; K61.0 Anal abscess
CPT/HCPCS: 99214

== ENCOUNTER → 2023-05-25 15:46 | Outpatient (BNVA) | payer BC, SELFPAY | PROVIDERS: PCP Internal Medicine; Visit Provider Internal Medicine ==

== ENCOUNTER 2023-05-30 10:17 | Outpatient (REF) | payer BC, SELFPAY ==
[2023-05-30 11:04] LABS: Hematocrit 42.1 % (42.0-52.0); Hemoglobin 13.1 g/dl (14.0-18.0); Mean Corpuscular HGB Conc 31.1 g/dl (31.0-36.0); Mean Corpuscular Hemoglobin 26.6 pg (27.0-33.0); Mean Corpuscular Volume 85.4 fL (80.0-98.0); Mean Platelet Volume 9.3 fL (9.4-12.4); Platelet Count 304 X10*3/uL (160-400); Red Blood Count 4.93 X10*6/uL (4.60-5.80); Red Cell Distribution Width 15.9 % (11.0-16.0); White Blood Count 8.3 X10*3/uL (4.8-10.8)
[2023-05-30 12:09] LABS: Alanine Aminotransferase 18 U/L (0-40); Albumin Level 3.9 g/dL (3.5-5.0); Alkaline Phosphatase 54 U/L (39-117); Anion Gap 10 (12-20); Aspartate Amino Transferase 18 U/L (5-37); Bilirubin Total 0.4 mg/dL (0.0-1.0); Blood Urea Nitrogen 12 mg/dL (9-16); C Reactive Protein 0.88 mg/dL (< or = 0.50); Calcium 9.3 mg/dL (8.4-10.2); Carbon Dioxide 29 mmol/L (22-29); Chloride 106 mmol/L (96-108); Estimated Glomerular Filt Rate > 60; Glucose Random 81 mg/dL (60-115); Iron 44 mcg/dL (45-160); Percent Iron Saturation 13 % (15-50); Potassium 4.1 mmol/L (3.3-5.1); Sodium 141 mmol/L (135-145); Total Iron Binding Capacity 326 mcg/dL (228-428); Total Protein 6.7 g/dL (6.5-8.0); Unsaturated Iron Binding 282 ug/dL
[2023-05-30 12:23] LABS: Ferritin 31 ng/mL (20-250); Vitamin D 25-OH Total 27.8 ng/mL (>30)
[2023-05-30 12:37] LABS: Folate 19.9 ng/mL (> or = 4.0); Vitamin B12 549 pg/mL (200-900)
[2023-06-06 23:33] LABS: TPMT Activity 17
== END 2023-05-30 10:18 | disposition home or self-care (01) ==
LOC: HO.LAB 10:17
PROVIDERS: PCP Internal Medicine; Visit Provider Internal Medicine
DX: K50.90 Crohn's disease, unspecified, without complications (principal)
CPT/HCPCS: 36415; 80053; 82306; 82607; 82657; 82728; 82746; 83540; 85027; 86140

== ENCOUNTER 2023-06-03 08:09 | Outpatient (REF) | payer BC, SELFPAY ==
[2023-06-08 19:28] LABS: Calprotectin, Fecal 1180 mcg/g
== END 2023-06-03 08:10 | disposition home or self-care (01) ==
LOC: HO.LNP 08:09
PROVIDERS: Visit Provider Internal Medicine
DX: K50.90 Crohn's disease, unspecified, without complications (principal)
CPT/HCPCS: 83993

== ENCOUNTER 2023-07-01 12:12 | Outpatient (REF) | payer BC, SELFPAY ==
[2023-07-01 12:35] LABS: Hematocrit 43.4 % (42.0-52.0); Hemoglobin 13.9 g/dl (14.0-18.0); Mean Corpuscular Hemoglobin 27.3 pg (27.0-33.0); Mean Corpuscular Volume 85.3 fL (80.0-98.0); Mean Platelet Volume 9.6 fL (9.4-12.4); Platelet Count 353 X10*3/uL (160-400); Red Blood Count 5.09 X10*6/uL (4.60-5.80); Red Cell Distribution Width 14.4 % (11.0-16.0); White Blood Count 8.5 X10*3/uL (4.8-10.8)
[2023-07-01 13:08] LABS: Alanine Aminotransferase 13 U/L (0-40); Albumin Level 4.3 g/dL (3.5-5.0); Alkaline Phosphatase 74 U/L (39-117); Aspartate Amino Transferase 22 U/L (5-37); Bilirubin Direct 0.1 mg/dL (0.0-0.5); Bilirubin Total 0.4 mg/dL (0.0-1.0); C Reactive Protein 2.08 mg/dL (< or = 0.50); Total Protein 7.8 g/dL (6.5-8.0)
== END 2023-07-01 12:13 | disposition home or self-care (01) ==
LOC: HO.MDS 12:12
PROVIDERS: PCP Internal Medicine; Visit Provider Internal Medicine
DX: K50.90 Crohn's disease, unspecified, without complications (principal); K52.9 Noninfective gastroenteritis and colitis, unspecified
CPT/HCPCS: 36415; 80076; 85027; 86140; 96365; 96366; J1745

== ENCOUNTER 2023-07-08 08:30 | Outpatient (REF) | payer BC, SELFPAY ==
[2023-07-11 16:58] LABS: HLA B27 Negative (Negative)
== END 2023-07-08 08:31 | disposition home or self-care (01) ==
LOC: HO.XRAY 08:30
PROVIDERS: PCP Internal Medicine; Visit Provider Student in an Organized Health Care Education/Training Program
DX: K50.90 Crohn's disease, unspecified, without complications (principal); M46.1 Sacroiliitis, not elsewhere classified; R19.7 Diarrhea, unspecified; K61.0 Anal abscess; M45.0 Ankylosing spondylitis of multiple sites in spine; Z79.899 Other long term (current) drug therapy
CPT/HCPCS: 36415; 72202; 73564; 86812

== ENCOUNTER 2023-07-08 08:30 | Outpatient (AMB) | payer BC, SELFPAY ==
--- NOTE | 2023-07-08 08:41 | MHC.OFFVIS ---
Intake Vital Signs 07/08/23 08:42 Height 5 ft 10 in Weight 284 lb 9.868 oz BMI 40.8 BP 122/84 Blood Pressure Location Rt brachial Position Sitting Pulse 84 Pulse Source Pulse Oximeter Temp 98.2 F Temp Source Skin Pulse Oximetry (%) 95 Intake Visit Reasons: Sacroiliitis Intake Note: New pt presents today for consult. C/o pain in hips, knees and hands. 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 Accompanied by: Self / Same As Patient Allergies No Known Allergies Allergy (Unverified 07/08/23 08:45) Medication List - Last Reconciled 07/08/23 by Noris Paul MD acetaminophen ER (Tylenol Arthritis Pain) 650 mg PO Q12H azathioprine 50 mg PO DAILY fluoxetine 1 cap PO DAILY infliximab 10 mg IV Q8W loratadine (Claritin) 10 mg PO DAILY magnesium 250 mg PO DAILY naltrexone 1 tab PO DAILY omeprazole 20 mg PO DAILY 30 days quetiapine 1 tab PO BID simvastatin 1 tab PO BEDTIME HPI HPI Comments History of Present Illness Details This is a 43-year-old male who was referred for evaluation of sacroiliitis. Patient stated that he was found to have anemia by his PCP and was referred to Gastroenterology early in the year. Patient had a colonoscopy and was found to have Crohn's colitis and was started on Remicade. He completed the loading doses of Remicade 10 mg per kg. He will be on Remicade 10 milligrams/kg every 8 weeks. He is also on azathioprine. Incidentally his CT enterography showed bilateral sacroiliitis. Patient stated that at age 16 he had left hip surgery, (to stabilize the hip.) He was doing well for a few years however over the last 5-10 years has been having bilateral hip pain, buttock pain and knee pain. He also had bilateral ACL surgeries years ago. 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 He has been taking Aleve twice a day for at least 3 years for his joint pain. States that his hands are sore all the time but not stiff or swollen. He denies any history suggestive of uveitis. Denies any rashes. He is unaware of any family history of autoimmune rheumatic disease. Denies any history of DVT/PE [facility] Medical History Morbid obesity GERD (gastroesophageal reflux disease) Anxiety Substance abuse EtOH dependence Anemia Asthma Surgical History History of esophagogastroduodenoscopy (EGD) History of carpal tunnel surgery H/O knee surgery History of hip surgery H/O colonoscopy Family History Maternal Grandmother Skin cancer Maternal Grandfather Prostate cancer Paternal Grandfather Lung cancer Father Cancer Mother Cancer Other Family history of hepatitis Social History Alcohol intake: former Year quit: 2021 Patient Tobacco Use Status: Never used Tobacco Substance Use Type: Marijuana Current occupational status: employed 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 Review of Systems Const Reports fatigue and Reports weakness GI Reports diarrhea Musc Reports arthralgias Skin/Breast Reports system reviewed and no additional complaints, except as documented Neuro Reports weakness Endo Reports fatigue Physical Exam Vital Signs: Last Vital Signs Temp 98.2 F 07/08/23 08:42 Pulse 84 07/08/23 08:42 BP 122/84 07/08/23 08:42 Pulse Ox 95 07/08/23 08:42 BMI result Body Mass Index 40.8 Const General: cooperative, healthy appearing and comfortable Nutritional Appearance: obese morbidly obese Orientation/consciousness: patient oriented x3 Limitations: no limitations HEENT Head: Yes normocephalic and Yes atraumatic Mouth: moist mucous membranes Resp Effort & Inspection: normal respiratory effort and able to speak in complete sentences Auscultation: clear to auscultation bilaterally Cardio Rate: regular rate Rhythm: regular rhythm GI Inspection: No distended Palpation (GI): Soft to palpation and nontender Skin General skin exam: no rashes or lesions noted Neuro General: patient oriented x3 Extrem Other: No active synovitis Florinda test 10-13.5 cm Normal lateral flexion test Negative Fabere test bilaterally Negative straight leg raise test bilaterally Assessment & Plan Assessment & Plan (1) Bilateral sacroiliitis: Code(s): M46.1 - Sacroiliitis, not elsewhere classified Plan: This is a 43-year-old male recently diagnosed with Crohn's colitis presents for evaluation of bilateral sacroiliitis. Incidentally his CT enterography showed bilateral sacroiliitis. Patient just completed the loading dose of Remicade 10 mg/kg and will be on Remicade 10 mg/kg every 8 weeks prescribed by Gastroenterology. He is also on azathioprine 50 mg daily. There are no features suggestive of psoriasis, uveitis Will check bilateral SI joint x-rays, check an HLA B27. Likely treatment for Crohn's colitis will cover sacroiliitis. (2) Bilateral knee pain: Code(s): M25.561 - Pain in right knee; M25.562 - Pain in left knee Qualifiers: Chronicity: chronic Qualified Code(s): M25.561 - Pain in right knee; M25.562 - Pain in left knee; G89.29 - Other chronic pain Plan: Check bilateral knee x-rays Plan I spent 46 minutes reviewing patient's chart, evaluating patient, ordering diagnostic workup, counseling patient and documenting in the chart Orders: Orders XR knee standing BI Today M25.561 - Pain in right knee, M25.562 - Pain in left knee, M46.1 - Sacroiliitis, not elsewhere classified XR sacroiliac joint min 3V Today M46.1 - Sacroiliitis, not elsewhere classified XR knee LT 3V Today M25.561 - Pain in right knee, M25.562 - Pain in left knee, M46.1 - Sacroiliitis, not elsewhere classified XR knee RT 3V Today M25.561 - Pain in right knee, M25.562 - Pain in left knee, M46.1 - Sacroiliitis, not elsewhere classified HLA B27 Today M46.1 - Sacroiliitis, not elsewhere classified Coding Level of Care Code New Pt Level 4 (85554) Diagnoses Bilateral sacroiliitis M46.1 Chronic pain of both knees M25.561; M25.562; G89.29 Chronicity: chronic
[2023-07-08 08:42] VITALS: BP 122/84; PULSE 84; TEMP 36.8; O2SAT 95; BMI 40.8
== END 2023-07-08 09:17 | disposition home or self-care (01) ==
PROVIDERS: PCP Internal Medicine; Visit Provider Student in an Organized Health Care Education/Training Program
DX: M46.1 Sacroiliitis, not elsewhere classified (principal); M25.561 Pain in right knee; M25.562 Pain in left knee; G89.29 Other chronic pain
CPT/HCPCS: 99204

== ENCOUNTER 2023-07-08 10:21 | Outpatient (AMB) | payer BC, SELFPAY ==
--- NOTE | 2023-07-08 10:29 | A.OFFVIS_ITS ---
Intake Vital Signs 07/08/23 10:33 Height 5 ft 10 in Weight 282 lb 3.067 oz BMI 40.5 BP 118/72 Blood Pressure Location Lt brachial Position Sitting Pulse 72 Intake Visit Reasons: 6 week follow up Intake Note: Cornelius presents in the office as a 6 week follow up. CC: He states that he is not having any concerns today. 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 EGD/colo 09/30/22: Impression:? * Normal esophagus (biopsy) * Normal stomach (biopsy) * Normal duodenum (biopsy) * Ulcerated and stenotic IC valve (biopsy) * Abnormal terminal ileum mucosa (biopsy) * Remaining colon mucosa endoscopically normal (biopsy) Path: A.? Duodenum, biopsy:? Duodenal mucosa with mild villous blunting and patchy increased intraepithelial lymphocytes (see comment). B.? Stomach, biopsy:? Gastric antral and body mucosa with mild chronic inactive gastritis; negative for Helicobacter pylori, intestinal metaplasia and dysplasia. C.? Ileocecal valve, biopsy:? Active ileitis with moderate activity and mucosal erosion (see comment). D.? Terminal ileum, biopsy:? Active ileitis with mild activity (see comment). E.? Colon, ascending, biopsy:? Active colitis with mild activity (see comment). F.? Colon, right side, biopsy:? Colonic mucosa within normal limits; negative for active, chronic or microscopic colitis.? G.? Colon, left side, biopsy:? Colonic mucosa within normal limits; negative for active, chronic or microscopic colitis.? H.? Rectum, biopsy:? Colonic mucosa within normal limits; negative for active, chronic or microscopic colitis. COMMENT (A): ? These findings raise the possibility of celiac disease; however other pathologic processes, ?including H. pylori gastritis, peptic duodenitis, food allergies other than celiac disease, tropical sprue, viral enteritis, injury caused by drugs, autoimmune enteropathy, immunodeficiencies and Crohn's disease can induce intraepithelial lymphocytosis with or without associated architectural changes. In many cases no definite cause is identified. Clinical and serological correlation is recommended. COMMENT (C-E):? Neither granulomas nor evidence of definitive chronic mucosal injury is seen. The differential diagnosis includes infection, drug/medication effect and early idiopathic inflammatory bowel disease. Clinical correlation is advised. 10/31/22 Today, patient reports that despite stopping naproxen almost 3 months ago, he continues to have diarrhea which is often dark/black colored. Only utilizes Tylenol for pain control now. Reports taking omeprazole. Otherwise, no abdominal pain, nausea, vomiting, changes in appetite or unintentional weight loss. No family history of inflammatory bowel disease or autoimmune conditions. No personal history of frequent respiratory or GI infections. 11/18/22: Reports seeing rectal bleeding more frequently, every time he wipes which then continues for a while before stopping itself. Not particularly painful to defecate, but did initially have a bruising like pressure. CT was ordered at the last visit, patient has still not heard from Radiology. Promethius Panel: consistent with Crohn's. 12/02/22: CTE: -Mild circumferential wall thickening an d accentuated submucosal fat mid to distal ileum at least 20 cm in length. Question mild short segment mid jejunal wall thickening. -No proximal obstruction, pneumatosis, f istula, or stricture. No ascites or fluid collection. -Mild right mesenteric adenopathy. Promi nent portal caval node. -Fat-containing umbilical hernia 3.5 cm. -Findings suspicious for mild bilateral sacroiliitis. 01/02/23: Started prednisone 40mg on 12/15 and took it for 2 weeks. Currently on 30mg dosing and to go down to 20mg on Thursday. Thinks may be has 30-50% had improvement in symptoms. Diarrhea frequency has decreased from 4 BMs a day to 2BMs per day. No abdominal pain anymore. Stools are still loose but brown. Rectal pressure has improved. 02/06/23: Was seen in [facility] ER for L sided perianal abscess for which he underwent I&D at bedside. 04/09/23: EGD/colo: 1. Normal esophagus 2. Normal stomach 3. Normal duodenum (biopsy) 4. Normal proximal jejunum (biopsy) 5. Stenosed IC valve (biopsy, dilation) 6. Terminal ileitis (biopsy) 7. Colon mucosa normal to cecum (biopsy) 8. Internal and external hemorrhoids 9. Perianal fistula Recommendations:?? * Await biopsy results * As clinical appearance most consistent with crohn's disease, will start prednisone 60mg PO once daily x 14 days, followed by a taper. * Pt will likely need anti-TNF therapy * Repeat colo can be considered depending on response to therapy in 3 months for further dilation of ICV stenosis Path: A.? Jejunum, proximal, biopsy:? Small bowel mucosa with no specific change; no enteritis, granulomas or dysplasia.? B.? Duodenum, biopsy:? Duodenal mucosa with focally blunted villi and no active inflammation or granulomas; cannot exclude a nonspecific duodenitis.? C.? Terminal ileum, biopsy:? Chronic active ileitis with focal ulcer; no granulomas or dysplasia (see comment). D.? Ileocecal valve, biopsy:? Active erosive enteritis/colitis; no granulomas or dysplasia (see comment).? E.? Colon, right, biopsy:? Colonic mucosa with minor crypt distortion, focal hyperplastic changes and lymphoid aggregate; no colitis, granulomas or dysplasia. F.? Colon, left, biopsy:? Colonic mucosa with minimal hyperplastic changes; no colitis, granulomas or dysplasia.? G.? Colon, rectum, biopsy:? Colonic mucosa with minimal hyperplastic changes and two actively inflamed crypts with adjacent mucosal microgranuloma; negative for dysplasia (see comment).? 04/15/23: Was started on prednisone 60mg PO based on endoscopic appearance which he started taking on 04/10/23. Pre-endoscopy was having up to 5 loose BMs per day. Now frequency has reduced to 2 BMs per day albeit still loose. BMs are brown without blood in it. Night time sx +. No urgency. Tenesmus + . No abd pain. Does report hip and knee pains. 05/25/23: s/p x2 doses of infliximab loadin05/08/23, 05/22/23. Next dose due on 07/03. Reports some improvement in consistency of stool, now formed. However still has 3-4BMs/day. Blood intermittently, most recently over the weekend. Continues to report bilateral hip and knee pain. Seeing Rheum in Jul. Completing pred taper and on 10mg dose this week. Missed doing labs last visit so TPMT not available. 07/08/23: Comes in for follow up. Clinically doing much better than before. No abd pain. Stool frequency has improved to 1-2 per day and consistency now mostly Gladstone scale 5. Does not report blood in stool. No urgency. No night time sx. Pred taper was completed end of May. Infliximab loading completed 07/01. First maintenance dose due 08/26. Had planned for TDM however unfortunately infliximab drug and Ab monitoring NOT covered by his insurance. Has been seen by Rheum for sacroilitis. Will cont tx with infliximab as above. IBD summary: Type: Stricturing Crohns Location: Ileoanal Age/year of diagnosis: 2024 Previous medications: Prednisone 04/2023-05/2023 Current medications: Infliximab 10mg/kg Induction: 05/08/23-07/01/23. First maintenance dose 08/26/23. Prev surgeries: None Recent endoscopy: 04/09/23: EGD/colo: Stenosed IC valve (dilated), terminal ileitis. Normal colon mucosa except rectum. EIM: Bilateral sacroiliitis. [facility] Medical History Morbid obesity GERD (gastroesophageal reflux disease) Anxiety Substance abuse EtOH dependence Anemia Asthma Surgical History History of esophagogastroduodenoscopy (EGD) History of carpal tunnel surgery H/O knee surgery History of hip surgery H/O colonoscopy Family History Maternal Grandmother Skin cancer Maternal Grandfather Prostate cancer Paternal Grandfather Lung cancer Father Cancer Mother Cancer Other Family history of hepatitis Social History Alcohol intake: former Year quit: 2021 Patient Tobacco Use Status: Never used Tobacco Substance Use Type: Marijuana Current occupational status: employed 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 Review of Systems Const All systems reviewed & are unremarkable except as noted in HPI and below Physical Exam Vital Signs: Last Vital Signs Pulse 72 07/08/23 10:33 BP 118/72 07/08/23 10:33 BMI result Body Mass Index 40.5 Gen appear: NAD HEENT: nonicteric, no cervical lymphadenopathy Chest: CTA CVS: Regular S1/S2 Abd: soft, nontender, nondistended, bowel sounds + Ext: no peripheral edema Neuro: A/Ox3, noted to move all extremities spontaneously Psych: interacting appropriately Assessment & Plan Assessment & Plan (1) Crohn's disease: Code(s): K50.90 - Crohn's disease, unspecified, without complications (2) Bilateral sacroiliitis: Code(s): M46.1 - Sacroiliitis, not elsewhere classified (3) Diarrhea: Code(s): R19.7 - Diarrhea, unspecified (4) Perianal abscess: Code(s): K61.0 - Anal abscess Plan Discussed with the patient that clinical impression consistent with crohns with ileoanal involvement. Given the penetrating and stricturing phenotype would recommend treatment with anti-TNF specifically remicade, in combination with Azathioprine as immunomodulator. 04/15/23: Biologic discussion: I have discussed the risks and benefits of starting anti-TNF therapy specifically infliximab with the patient, including the risk of NOT using this therapy (uncontrolled disease) and possible alternative therapies that may not be as effective. Risks reviewed included slight increased risk of malignancy and infection and possibility of infusion reactions/allergies or autoimmune-like conditions triggered by infusions. Reviewed the need for up to date vaccinations (and avoidance of live vaccines), and need for annual skin exams. - Disease and therapy: Stricturing crohns disease. Fecal calpro: 1210 from January 2023. CRP back up to 2.0 - Continue Infliximab 10mg/kg maintenance as per schedule - As above, inf drug and Ab monitoring not covered by insurance so will check CRP and fecal calpro as trough 2-3 days before next dose i.e week of 08/24. >If CRP and fecal calpro high: will increase azathioprine to 100 +/- inflix to q4w and repeat levels after 2 infusions. >If CRP and fecal calpro normal: no change. - Check CBC and LFTs for monitoring on infliximab and azathiopurine - Nutrition: Has evidence of ileal disease. Ferritin and B12 normal. - Immunization: Reinforced need to keep up to date with vaccinations including Flu and covid boosters; and to avoid live vaccines. - Bone Health: Vit D supplement Rxed since levels cont to be low based on most recent labs. - Cancer prevention: IBD dysplasia: colonoscopy due in N/A. Sun safety d iscussed. ? - EIM: Bilateral sacroiliitis. Tx of crohns as above + seeing Rheum. Follow up in 4 months Orders: Orders Complete Blood Count Auto Diff 08/24/23 K50.90 - Crohn's disease, unspecified, without complications Comprehensive Met. Panel 08/24/23 K50.90 - Crohn's disease, unspecified, without complications Medications: New cholecalciferol (vitamin D3) 1,250 mcg PO QWEEK 4 caps 0RF Coding Level of Care Code Est Pt Level 5 (06630) Diagnoses Crohn's disease K50.90 Bilateral sacroiliitis M46.1 Diarrhea R19.7 Perianal abscess K61.0
[2023-07-08 10:33] VITALS: BP 118/72; PULSE 72; BMI 40.5
== END 2023-07-08 11:18 | disposition home or self-care (01) ==
PROVIDERS: PCP Internal Medicine; Visit Provider Internal Medicine
DX: K50.90 Crohn's disease, unspecified, without complications (principal); M46.1 Sacroiliitis, not elsewhere classified; R19.7 Diarrhea, unspecified; K61.0 Anal abscess
CPT/HCPCS: 99214

== ENCOUNTER 2023-08-11 08:16 | Outpatient (AMB) | payer BC, SELFPAY ==
[2023-08-11 08:21] VITALS: BP 130/76; PULSE 70; TEMP 36.4; O2SAT 96; BMI 41.1
--- NOTE | 2023-08-11 08:21 | MHC.OFFVIS ---
Intake Vital Signs 08/11/23 08:21 Height 5 ft 10 in Weight 286 lb 2.56 oz BMI 41.1 BP 130/76 Blood Pressure Location Rt brachial Position Sitting Pulse 70 Pulse Source Pulse Oximeter Temp 97.5 F Temp Source Skin Pulse Oximetry (%) 96 Intake Visit Reasons: Sacroiliitis Intake Note: Pt last seen 07/08/23, presents today for follow up and test results. 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 Accompanied by: Self / Same As Patient Allergies No Known Allergies Allergy (Unverified 08/11/23 08:22) Medication List - Last Reconciled 08/11/23 by Noris Paul MD acetaminophen ER (Tylenol Arthritis Pain) 650 mg PO Q12H azathioprine 50 mg PO DAILY cholecalciferol (vitamin D3) 1,250 mcg PO QWEEK fluoxetine 1 cap PO DAILY infliximab 10 mg IV Q8W loratadine (Claritin) 10 mg PO DAILY magnesium 250 mg PO DAILY naltrexone 1 tab PO DAILY omeprazole 20 mg PO DAILY 30 days quetiapine 1 tab PO BID simvastatin 1 tab PO BEDTIME HPI HPI Comments History of Present Illness Details 43-year-old male with Crohn's colitis and sacroiliitis returns for follow-up. On Remicade and azathioprine managed by Gastroenterology. 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 He denies any skin rashes or eye inflammation Initial history: This is a 43-year-old male who was referred for evaluation of sacroiliitis. Patient stated that he was found to have anemia by his PCP and was referred to Gastroenterology early in the year. Patient had a colonoscopy and was found to have Crohn's colitis and was started on Remicade. He completed the loading doses of Remicade 10 mg per kg. He will be on Remicade 10 milligrams/kg every 8 weeks. He is also on azathioprine. Incidentally his CT enterography showed bilateral sacroiliitis. Patient stated that at age 16 he had left hip surgery, (to stabilize the hip.) He was doing well for a few years however over the last 5-10 years has been having bilateral hip pain, buttock pain and knee pain. He also had bilateral ACL surgeries years ago. 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 He has been taking Aleve twice a day for at least 3 years for his joint pain. States that his hands are sore all the time but not stiff or swollen. He denies any history suggestive of uveitis. Denies any rashes. He is unaware of any family history of autoimmune rheumatic disease. Denies any history of DVT/PE [facility] Medical History Morbid obesity GERD (gastroesophageal reflux disease) Anxiety Substance abuse EtOH dependence Anemia Asthma Surgical History History of esophagogastroduodenoscopy (EGD) History of carpal tunnel surgery H/O knee surgery History of hip surgery H/O colonoscopy Family History Maternal Grandmother Skin cancer Maternal Grandfather Prostate cancer Paternal Grandfather Lung cancer Father Cancer Mother Cancer Other Family history of hepatitis Social History Alcohol intake: former Year quit: 2021 Patient Tobacco Use Status: Never used Tobacco Substance Use Type: Marijuana Current occupational status: employed 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 Review of Systems Musc Reports arthralgias Skin/Breast Reports system reviewed and no additional complaints, except as documented Physical Exam Vital Signs: Last Vital Signs Temp 97.5 F 08/11/23 08:21 Pulse 70 08/11/23 08:21 BP 130/76 08/11/23 08:21 Pulse Ox 96 08/11/23 08:21 BMI result Body Mass Index 41.1 Const General: cooperative, healthy appearing and comfortable Nutritional Appearance: obese morbidly obese Orientation/consciousness: patient oriented x3 Limitations: no limitations HEENT Head: Yes normocephalic and Yes atraumatic Resp Effort & Inspection: normal respiratory effort and able to speak in complete sentences Skin General skin exam: no rashes or lesions noted Neuro General: patient oriented x3 Extrem Other: No active synovitis Assessment & Plan Assessment & Plan (1) Bilateral sacroiliitis: Code(s): M46.1 - Sacroiliitis, not elsewhere classified Plan: This is a 43-year-old male recently diagnosed with Crohn's colitis presents for evaluation of bilateral sacroiliitis. Incidentally his CT enterography showed bilateral sacroiliitis. He is HLA B27 negative. He is on azathioprine 50 mg daily and Remicade 10 milligram/kilogram every 8 weeks. There are no features suggestive of psoriasis, uveitis. I do not see any active inflammatory arthritis upon my evaluation today. I explained to patient that likely did treatment for Crohn's colitis will cover sacroiliitis. Discussed with patient the symptoms and signs that should prompt a call to our office, such as swollen joints, skin rashes, eye inflammation,...etc Follow-up in 1 year (2) Bilateral knee pain: Code(s): M25.561 - Pain in right knee; M25.562 - Pain in left knee Qualifiers: Chronicity: chronic Qualified Code(s): M25.561 - Pain in right knee; M25.562 - Pain in left knee; G89.29 - Other chronic pain Plan: Mild bilateral knee OA. Not significantly symptomatic per patient Plan I spent 16 minutes reviewing patient's chart, evaluating patient, counseling patient and documenting in the chart Coding Level of Care Code Est Pt Level 3 (99420) Diagnoses Bilateral sacroiliitis M46.1 Chronic pain of both knees M25.561; M25.562; G89.29 Chronicity: chronic
== END 2023-08-11 08:34 | disposition home or self-care (01) ==
PROVIDERS: PCP Internal Medicine; Visit Provider Student in an Organized Health Care Education/Training Program
DX: M46.1 Sacroiliitis, not elsewhere classified (principal); M25.561 Pain in right knee; M25.562 Pain in left knee; G89.29 Other chronic pain
CPT/HCPCS: 99213

== ENCOUNTER → 2023-08-11 08:16 | Outpatient (BNVA) | payer BC, SELFPAY | PROVIDERS: PCP Internal Medicine; Visit Provider Student in an Organized Health Care Education/Training Program ==

== ENCOUNTER 2023-08-24 15:59 | Outpatient (REF) | payer BC, SELFPAY ==
[2023-08-24 16:13] LABS: MANUAL DIFF FLAG NO
[2023-08-24 16:35] LABS: Basophils Percent Auto 0.4 % (0-2); Eosinophils Absolute Auto 0.2 X10*3/uL (0.0-0.4); Eosinophils Percent Auto 1.7 % (0-4); Hematocrit 40.2 % (42.0-52.0); Hemoglobin 12.7 g/dl (14.0-18.0); Imm Gran Abs Auto 0.06 X10*3/uL (0.00-0.03); Imm Gran Pct Auto 0.6 % (0.0-0.4); Lymphocytes Absolute Auto 2.1 X10*3/uL (1.2-4.9); Lymphocytes Percent Auto 21.4 % (20-40); Mean Corpuscular HGB Conc 31.6 g/dl (31.0-36.0); Mean Corpuscular Volume 85.5 fL (80.0-98.0); Mean Platelet Volume 9.9 fL (9.4-12.4); Monocytes Absolute Auto 0.7 X10*3/uL (0.1-1.2); Monocytes Percent Auto 7.1 % (2-11); Neutrophils Absolute Auto 6.6 x10*3/uL (2.0-8.3); Neutrophils Percent Auto 68.8 % (45-73); Platelet Count 324 X10*3/uL (160-400); Red Cell Distribution Width 12.8 % (11.0-16.0); White Blood Count 9.6 X10*3/uL (4.8-10.8)
[2023-08-24 17:08] LABS: Alanine Aminotransferase 15 U/L (0-40); Albumin Level 4.4 g/dL (3.5-5.0); Alkaline Phosphatase 75 U/L (39-117); Anion Gap 12 (12-20); Aspartate Amino Transferase 19 U/L (5-37); Bilirubin Total 0.4 mg/dL (0.0-1.0); Blood Urea Nitrogen 10 mg/dL (9-16); C Reactive Protein 1.18 mg/dL (< or = 0.50); Calcium 9.7 mg/dL (8.4-10.2); Carbon Dioxide 30 mmol/L (22-29); Chloride 104 mmol/L (96-108); Estimated Glomerular Filt Rate > 60; Glucose Random 92 mg/dL (60-115); Potassium 4.2 mmol/L (3.3-5.1); Sodium 142 mmol/L (135-145); Total Protein 7.5 g/dL (6.5-8.0)
== END 2023-08-24 16:00 | disposition home or self-care (01) ==
LOC: HO.LAB 15:59
PROVIDERS: PCP Internal Medicine; Visit Provider Internal Medicine
DX: K50.90 Crohn's disease, unspecified, without complications (principal)
CPT/HCPCS: 36415; 80053; 80230; 82542; 85025; 86140

== ENCOUNTER 2023-08-25 08:14 | Outpatient (REF) | payer BC, SELFPAY ==
[2023-09-01 20:33] LABS: Calprotectin, Fecal 2840 mcg/g
== END 2023-08-25 08:15 | disposition home or self-care (01) ==
LOC: HO.LNP 08:14
PROVIDERS: Visit Provider Internal Medicine
DX: K50.90 Crohn's disease, unspecified, without complications (principal)
CPT/HCPCS: 83993

== ENCOUNTER 2023-08-26 06:57 | Outpatient (REF) | payer BC, SELFPAY | END 2023-08-26 06:58 | disposition home or self-care (01) | LOC: HO.MDS 06:57 | PROVIDERS: Visit Provider Internal Medicine Infectious Disease | DX: K50.80 Crohn's disease of both small and large intestine without complications (principal) | CPT/HCPCS: 96365; 96366; J1745 ==

== ENCOUNTER 2023-10-23 08:08 | Outpatient (REF) | payer BC, SELFPAY | END 2023-10-23 08:09 | disposition home or self-care (01) | LOC: HO.MDS 08:08 | PROVIDERS: Visit Provider Internal Medicine | DX: K50.90 Crohn's disease, unspecified, without complications (principal) | CPT/HCPCS: 96365; 96366; J1745 ==

== ENCOUNTER 2023-11-11 10:53 | Outpatient (REF) | payer BC, SELFPAY ==
[2023-11-11 11:41] LABS: Hematocrit 41.8 % (42.0-52.0); Hemoglobin 13.7 g/dl (14.0-18.0); Mean Corpuscular HGB Conc 32.8 g/dl (31.0-36.0); Mean Corpuscular Volume 82.4 fL (80.0-98.0); Mean Platelet Volume 9.3 fL (9.4-12.4); Platelet Count 316 X10*3/uL (160-400); Red Blood Count 5.07 X10*6/uL (4.60-5.80); Red Cell Distribution Width 13.9 % (11.0-16.0); White Blood Count 7.9 X10*3/uL (4.8-10.8)
[2023-11-11 12:49] LABS: Alanine Aminotransferase 22 U/L (0-40); Albumin Level 4.3 g/dL (3.5-5.0); Alkaline Phosphatase 67 U/L (39-117); Anion Gap 14 (12-20); Aspartate Amino Transferase 37 U/L (5-37); Bilirubin Total 0.5 mg/dL (0.0-1.0); Blood Urea Nitrogen 14 mg/dL (9-16); C Reactive Protein 0.81 mg/dL (< or = 0.50); Calcium 9.8 mg/dL (8.4-10.2); Carbon Dioxide 26 mmol/L (22-29); Chloride 104 mmol/L (96-108); Estimated Glomerular Filt Rate > 60; Glucose Random 106 mg/dL (60-115); Iron 86 mcg/dL (45-160); Percent Iron Saturation 22 % (15-50); Sodium 140 mmol/L (135-145); Total Iron Binding Capacity 387 mcg/dL (228-428); Total Protein 7.5 g/dL (6.5-8.0); Unsaturated Iron Binding 301 ug/dL
[2023-11-11 13:10] LABS: Folate 12.8 ng/mL (> or = 4.0); Vitamin B12 455 pg/mL (200-900)
[2023-11-11 14:23] LABS: Ferritin 25 ng/mL (20-250)
== END 2023-11-11 10:54 | disposition home or self-care (01) ==
LOC: HO.LAB 10:53
PROVIDERS: PCP Internal Medicine; Visit Provider Internal Medicine
DX: K50.90 Crohn's disease, unspecified, without complications (principal); M46.1 Sacroiliitis, not elsewhere classified; R19.7 Diarrhea, unspecified; K61.0 Anal abscess
CPT/HCPCS: 36415; 80053; 82306; 82607; 82728; 82746; 83540; 85027; 86140

== ENCOUNTER 2023-11-11 10:53 | Outpatient (AMB) | payer BC, SELFPAY ==
--- NOTE | 2023-11-11 10:55 | A.OFFVIS_ITS ---
Intake Vital Signs 11/11/23 10:59 Height 5 ft 10 in Weight 282 lb 3.067 oz BMI 40.5 BP 155/89 H Blood Pressure Location Lt radial Position Sitting Pulse 88 Intake Visit Reasons: 4 monht follow up Intake Note: Patient here for 4m f/u. Last visit 07-08-23. Rx for Vitamin D3 completed. 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 EGD/colo 09/30/22: Impression:? * Normal esophagus (biopsy) * Normal stomach (biopsy) * Normal duodenum (biopsy) * Ulcerated and stenotic IC valve (biopsy) * Abnormal terminal ileum mucosa (biopsy) * Remaining colon mucosa endoscopically normal (biopsy) Path: A.? Duodenum, biopsy:? Duodenal mucosa with mild villous blunting and patchy increased intraepithelial lymphocytes (see comment). B.? Stomach, biopsy:? Gastric antral and body mucosa with mild chronic inactive gastritis; negative for Helicobacter pylori, intestinal metaplasia and dysplasia. C.? Ileocecal valve, biopsy:? Active ileitis with moderate activity and mucosal erosion (see comment). D.? Terminal ileum, biopsy:? Active ileitis with mild activity (see comment). E.? Colon, ascending, biopsy:? Active colitis with mild activity (see comment). F.? Colon, right side, biopsy:? Colonic mucosa within normal limits; negative for active, chronic or microscopic colitis.? G.? Colon, left side, biopsy:? Colonic mucosa within normal limits; negative for active, chronic or microscopic colitis.? H.? Rectum, biopsy:? Colonic mucosa within normal limits; negative for active, chronic or microscopic colitis. COMMENT (A): ? These findings raise the possibility of celiac disease; however other pathologic processes, ?including H. pylori gastritis, peptic duodenitis, food allergies other than celiac disease, tropical sprue, viral enteritis, injury caused by drugs, autoimmune enteropathy, immunodeficiencies and Crohn's disease can induce intraepithelial lymphocytosis with or without associated architectural changes. In many cases no definite cause is identified. Clinical and serological correlation is recommended. COMMENT (C-E):? Neither granulomas nor evidence of definitive chronic mucosal injury is seen. The differential diagnosis includes infection, drug/medication effect and early idiopathic inflammatory bowel disease. Clinical correlation is advised. 10/31/22 Today, patient reports that despite stopping naproxen almost 3 months ago, he continues to have diarrhea which is often dark/black colored. Only utilizes Tylenol for pain control now. Reports taking omeprazole. Otherwise, no abdominal pain, nausea, vomiting, changes in appetite or unintentional weight loss. No family history of inflammatory bowel disease or autoimmune conditions. No personal history of frequent respiratory or GI infections. 11/18/22: Reports seeing rectal bleeding more frequently, every time he wipes which then continues for a while before stopping itself. Not particularly painful to defecate, but did initially have a bruising like pressure. CT was ordered at the last visit, patient has still not heard from Radiology. Promethius Panel: consistent with Crohn's. 12/02/22: CTE: -Mild circumferential wall thickening an d accentuated submucosal fat mid to distal ileum at least 20 cm in length. Question mild short segment mid jejunal wall thickening. -No proximal obstruction, pneumatosis, f istula, or stricture. No ascites or fluid collection. -Mild right mesenteric adenopathy. Promi nent portal caval node. -Fat-containing umbilical hernia 3.5 cm. -Findings suspicious for mild bilateral sacroiliitis. 01/02/23: Started prednisone 40mg on 12/15 and took it for 2 weeks. Currently on 30mg dosing and to go down to 20mg on Thursday. Thinks may be has 30-50% had improvement in symptoms. Diarrhea frequency has decreased from 4 BMs a day to 2BMs per day. No abdominal pain anymore. Stools are still loose but brown. Rectal pressure has improved. 02/06/23: Was seen in [facility] [place] [facility] for L sided perianal abscess for which he underwent I&D at bedside. 04/09/23: EGD/colo: 1. Normal esophagus 2. Normal stomach 3. Normal duodenum (biopsy) 4. Normal proximal jejunum (biopsy) 5. Stenosed IC valve (biopsy, dilation) 6. Terminal ileitis (biopsy) 7. Colon mucosa normal to cecum (biopsy) 8. Internal and external hemorrhoids 9. Perianal fistula Recommendations:?? * Await biopsy results * As clinical appearance most consistent with crohn's disease, will start prednisone 60mg PO once daily x 14 days, followed by a taper. * Pt will likely need anti-TNF therapy * Repeat colo can be considered depending on response to therapy in 3 months for further dilation of ICV stenosis Path: A.? Jejunum, proximal, biopsy:? Small bowel mucosa with no specific change; no enteritis, granulomas or dysplasia.? B.? Duodenum, biopsy:? Duodenal mucosa with focally blunted villi and no active inflammation or granulomas; cannot exclude a nonspecific duodenitis.? C.? Terminal ileum, biopsy:? Chronic active ileitis with focal ulcer; no granulomas or dysplasia (see comment). D.? Ileocecal valve, biopsy:? Active erosive enteritis/colitis; no granulomas or dysplasia (see comment).? E.? Colon, right, biopsy:? Colonic mucosa with minor crypt distortion, focal hyperplastic changes and lymphoid aggregate; no colitis, granulomas or dysplasia. F.? Colon, left, biopsy:? Colonic mucosa with minimal hyperplastic changes; no colitis, granulomas or dysplasia.? G.? Colon, rectum, biopsy:? Colonic mucosa with minimal hyperplastic changes and two actively inflamed crypts with adjacent mucosal microgranuloma; negative for dysplasia (see comment).? 04/15/23: Was started on prednisone 60mg PO based on endoscopic appearance which he started taking on 04/10/23. Pre-endoscopy was having up to 5 loose BMs per day. Now frequency has reduced to 2 BMs per day albeit still loose. BMs are brown without blood in it. Night time sx +. No urgency. Tenesmus + . No abd pain. Does report hip and knee pains. 05/25/23: s/p x2 doses of infliximab loadin05/08/23, 05/22/23. Next dose due on 07/03. Reports some improvement in consistency of stool, now formed. However still has 3-4BMs/day. Blood intermittently, most recently over the weekend. Continues to report bilateral hip and knee pain. Seeing Rheum in Jul. Completing pred taper and on 10mg dose this week. Missed doing labs last visit so TPMT not available. 07/08/23: Comes in for follow up. Clinically doing much better than before. No abd pain. Stool frequency has improved to 1-2 per day and consistency now mostly [place] scale 5. Does not report blood in stool. No urgency. No night time sx. Pred taper was completed end of May. Infliximab loading completed 07/01. First maintenance dose due 08/26. Had planned for TDM however unfortunately infliximab drug and Ab monitoring NOT covered by his insurance. Has been seen by Rheum for sacroilitis. Will cont tx with infliximab as above. 11/11/23: Does not report a lot of symptom burden, however unfortunately inflammatory markers have worsened from before. This is despite having adequate infliximab levels of 9 with 0 antibody. Patient also reports ? perianal abscess around 3 weeks ago that drained spontaneously and has now resolved. IBD summary: Type: Stricturing Crohns Location: Ileoanal Age/year of diagnosis: 2024 Previous medications: Prednisone 04/2023-05/2023 Current medications: Infliximab 10mg/kg Induction: 05/08/23-07/01/23. First maintenance dose 08/26/23. Prev surgeries: None Recent endoscopy: 04/09/23: EGD/colo: Stenosed IC valve (dilated), terminal ileitis. Normal colon mucosa except rectum. EIM: Bilateral sacroiliitis. [facility] Medical History Morbid obesity GERD (gastroesophageal reflux disease) Anxiety Substance abuse EtOH dependence Anemia Asthma Surgical History History of esophagogastroduodenoscopy (EGD) History of carpal tunnel surgery H/O knee surgery History of hip surgery H/O colonoscopy Family History Maternal Grandmother Skin cancer Maternal Grandfather Prostate cancer Paternal Grandfather Lung cancer Father Cancer Mother Cancer Other Family history of hepatitis Social History Alcohol intake: former Year quit: 2021 Patient Tobacco Use Status: Never used Tobacco Substance Use Type: Marijuana Current occupational status: employed 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 Physical Exam Vital Signs: Last Vital Signs Pulse 88 11/11/23 10:59 BP 155/89 H 11/11/23 10:59 BMI result Body Mass Index 40.5 Gen appear: NAD HEENT: nonicteric, no cervical lymphadenopathy Chest: CTA CVS: Regular S1/S2 Abd: soft, nontender, nondistended, bowel sounds + Ext: no peripheral edema Neuro: A/Ox3, noted to move all extremities spontaneously Psych: interacting appropriately Assessment & Plan Assessment & Plan (1) Crohn's disease: Code(s): K50.90 - Crohn's disease, unspecified, without complications (2) Bilateral sacroiliitis: Code(s): M46.1 - Sacroiliitis, not elsewhere classified (3) Diarrhea: Code(s): R19.7 - Diarrhea, unspecified (4) Perianal abscess: Code(s): K61.0 - Anal abscess Plan Patient's clinical symptomatology seems to be in congruent to biochemical markers, as fecal calprotectin is now >2000 despite adequate infliximab levels. Will recheck CRP and fecal caliber again today, his last ones are >3m ago. If persistently up, will favor switching out of class to Stelara or Skyrizi Will check with Rheumatology if one favored over the other given underlying bilateral sacroiliitis. Previously: Discussed with the patient that clinical impression consistent with crohns with ileoanal involvement. Given the penetrating and stricturing phenotype would recommend treatment with anti-TNF specifically remicade, in combination with Azathioprine as immunomodulator. 04/15/23: Biologic discussion: I have discussed the risks and benefits of starting anti-TNF therapy specifically infliximab with the patient, including the risk of NOT using this therapy (uncontrolled disease) and possible alternative therapies that may not be as effective. Risks reviewed included slight increased risk of malignancy and infection and possibility of infusion reactions/allergies or autoimmune-like conditions triggered by infusions. Reviewed the need for up to date vaccinations (and avoidance of live vaccines), and need for annual skin exams. - Disease and therapy: Stricturing crohns disease. Fecal calpro: 2840 from Aug 2023. IFX 9.1, ATI <3. - Continue Infliximab 10mg/kg for now - Recheck CRP and fecal franci. If high, will Rx pred until switched out of class - Msg sent to rheum for ? Stelara vs Skyrizi - Nutrition: Has evidence of ileal disease. Ferritin and B12 check ordered. - Immunization: Reinforced need to keep up to date with vaccinations including Flu and covid boosters; and to avoid live vaccines. - Bone Health: Cont Vit D supplement. Recheck levels. - Cancer prevention: IBD dysplasia: colonoscopy due in N/A. Sun safety discussed. ? - EIM: Bilateral sacroiliitis. Tx of crohns as above + seeing Rheum. Follow up in 8 weeks Orders: Orders Calprotectin, Fecal Today K50.90 - Crohn's disease, unspecified, without complications Complete Blood Count no Diff Today K50.90 - Crohn's disease, unspecified, without complications Ferritin Today K50.90 - Crohn's disease, unspecified, without complications IRON PROFILE Today K50.90 - Crohn's disease, unspecified, without complications Vitamin B12 and Folate Today K50.90 - Crohn's disease, unspecified, without complications Vitamin D 25-OH Total Today K50.90 - Crohn's disease, unspecified, without complications C Reactive Protein Today K50.90 - Crohn's disease, unspecified, without complications Comprehensive Met. Panel Today K50.90 - Crohn's disease, unspecified, without complications Coding Level of Care Code Est Pt Level 5 (35966) Diagnoses Crohn's disease K50.90 Bilateral sacroiliitis M46.1 Diarrhea R19.7 Perianal abscess K61.0
[2023-11-11 10:59] VITALS: BP 155/89; PULSE 88; BMI 40.5
== END 2023-11-11 11:19 | disposition home or self-care (01) ==
PROVIDERS: PCP Internal Medicine; Visit Provider Internal Medicine
DX: K50.90 Crohn's disease, unspecified, without complications (principal); K61.0 Anal abscess; M46.1 Sacroiliitis, not elsewhere classified
CPT/HCPCS: 99214

== ENCOUNTER 2023-11-16 08:10 | Outpatient (REF) | payer BC, SELFPAY ==
[2023-11-23 01:48] LABS: Calprotectin, Fecal 550 mcg/g
== END 2023-11-16 08:11 | disposition home or self-care (01) ==
LOC: HO.LNP 08:10
PROVIDERS: Visit Provider Internal Medicine
DX: K50.90 Crohn's disease, unspecified, without complications (principal)
CPT/HCPCS: 83993

== ENCOUNTER 2023-12-09 14:49 | Outpatient (AMB) | payer BC, SELFPAY ==
--- NOTE | 2023-12-09 15:02 | A.OFFVIS_ITS ---
Intake Vital Signs 12/09/23 15:03 Height 5 ft 10 in Weight 277 lb 12.519 oz BMI 39.9 BP 118/75 Blood Pressure Location Lt brachial Position Sitting Pulse 83 Intake Visit Reasons: Follow up Cronh's Intake Note: Cornelius presents in the office as a follow up to his Crohns. CC: He states that he is supposed to be starting a new medication but he has a few questions regarding it. 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 EGD/colo 09/30/22: Impression:? * Normal esophagus (biopsy) * Normal stomach (biopsy) * Normal duodenum (biopsy) * Ulcerated and stenotic IC valve (biopsy) * Abnormal terminal ileum mucosa (biopsy) * Remaining colon mucosa endoscopically normal (biopsy) Path: A.? Duodenum, biopsy:? Duodenal mucosa with mild villous blunting and patchy increased intraepithelial lymphocytes (see comment). B.? Stomach, biopsy:? Gastric antral and body mucosa with mild chronic inactive gastritis; negative for Helicobacter pylori, intestinal metaplasia and dysplasia. C.? Ileocecal valve, biopsy:? Active ileitis with moderate activity and mucosal erosion (see comment). D.? Terminal ileum, biopsy:? Active ileitis with mild activity (see comment). E.? Colon, ascending, biopsy:? Active colitis with mild activity (see comment). F.? Colon, right side, biopsy:? Colonic mucosa within normal limits; negative for active, chronic or microscopic colitis.? G.? Colon, left side, biopsy:? Colonic mucosa within normal limits; negative for active, chronic or microscopic colitis.? H.? Rectum, biopsy:? Colonic mucosa within normal limits; negative for active, chronic or microscopic colitis. COMMENT (A): ? These findings raise the possibility of celiac disease; however other pathologic processes, ?including H. pylori gastritis, peptic duodenitis, food allergies other than celiac disease, tropical sprue, viral enteritis, i njury caused by drugs, autoimmune enteropathy, immunodeficiencies and Crohn's disease can induce intraepithelial lymphocytosis with or without associated architectural changes. In many cases no definite cause is identified. Clinical and serological correlation is recommended. COMMENT (C-E):? Neither granulomas nor evidence of definitive chronic mucosal injury is seen. The differential diagnosis includes infection, drug/medication effect and early idiopathic inflammatory bowel disease. Clinical correlation is advised. 10/31/22 Today, patient reports that despite stopping naproxen almost 3 months ago, he continues to have diarrhea which is often dark/black colored. Only utilizes Tylenol for pain control now. Reports taking omeprazole. Otherwise, no abdominal pain, nausea, vomiting, changes in appetite or unintentional weight loss. No family history of inflammatory bowel disease or autoimmune conditions. No personal history of frequent respiratory or GI infections. 11/18/22: Reports seeing rectal bleeding more frequently, every time he wipes which then continues for a while before stopping itself. Not particularly painful to defecate, but did initially have a bruising like pressure. CT was ordered at the last visit, patient has still not heard from Radiology. Promethius Panel: consistent with Crohn's. 12/02/22: CTE: -Mild circumferential wall thickening an d accentuated submucosal fat mid to distal ileum at least 20 cm in length. Question mild short segment mid jejunal wall thickening. -No proximal obstruction, pneumatosis, f istula, or stricture. No ascites or fluid collection. -Mild right mesenteric adenopathy. Promi nent portal caval node. -Fat-containing umbilical hernia 3.5 cm. -Findings suspicious for mild bilateral sacroiliitis. 01/02/23: Started prednisone 40mg on 12/15 and took it for 2 weeks. Currently on 30mg dosing and to go down to 20mg on Thursday. Thinks may be has 30-50% had improvement in symptoms. Diarrhea frequency has decreased from 4 BMs a day to 2BMs per day. No abdominal pain anymore. Stools are still loose but brown. Rectal pressure has improved. 02/06/23: Was [place] [facility] [place] for L sided perianal abscess for which he underwent I&D at bedside. 04/09/23: EGD/colo: 1. Normal esophagus 2. Normal stomach 3. Normal duodenum (biopsy) 4. Normal proximal jejunum (biopsy) 5. Stenosed IC valve (biopsy, dilation) 6. Terminal ileitis (biopsy) 7. Colon mucosa normal to cecum (biopsy) 8. Internal and external hemorrhoids 9. Perianal fistula Recommendations:?? * Await biopsy results * As clinical appearance most consistent with crohn's disease, will start prednisone 60mg PO once daily x 14 days, followed by a taper. * Pt will likely need anti-TNF therapy * Repeat colo can be considered depending on response to therapy in 3 months for further dilation of ICV stenosis Path: A.? Jejunum, proximal, biopsy:? Small bowel mucosa with no specific change; no enteritis, granulomas or dysplasia.? B.? Duodenum, biopsy:? Duodenal mucosa with focally blunted villi and no active inflammation or granulomas; cannot exclude a nonspecific duodenitis.? C.? Terminal ileum, biopsy:? Chronic active ileitis with focal ulcer; no granulomas or dysplasia (see comment). D.? Ileocecal valve, biopsy:? Active erosive enteritis/colitis; no granulomas or dysplasia (see comment).? E.? Colon, right, biopsy:? Colonic mucosa with minor crypt distortion, focal hyperplastic changes and lymphoid aggregate; no colitis, granulomas or dysplasia. F.? Colon, left, biopsy:? Colonic mucosa with minimal hyperplastic changes; no colitis, granulomas or dysplasia.? G.? Colon, rectum, biopsy:? Colonic mucosa with minimal hyperplastic changes and two actively inflamed crypts with adjacent mucosal microgranuloma; negative for dysplasia (see comment).? 04/15/23: Was started on prednisone 60mg PO based on endoscopic appearance which he star romelia taking on 04/10/23. Pre-endoscopy was having up to 5 loose BMs per day. Now frequency has reduced to 2 BMs per day albeit still loose. BMs are brown without blood in it. Night time sx +. No urgency. Tenesmus + . No abd pain. Does report hip and knee pains. 05/25/23: s/p x2 doses of infliximab loadin05/08/23, 05/22/23. Next dose due on 07/03. Reports some improvement in consistency of stool, now formed. However still has 3-4BMs/day. Blood intermittently, most recently over the weekend. Continues to report bilateral hip and knee pain. Seeing Rheum in Jul. Completing pred taper and on 10mg dose this week. Missed doing labs last visit so TPMT not available. 07/08/23: Comes in for follow up. Clinically doing much better than before. No abd pain. Stool frequency has improved to 1-2 per day and consistency now mostly [place] scale 5. Does not report blood in stool. No urgency. No night time sx. Pred taper was completed end of May. Infliximab loading completed 07/01. First maintenance dose due 08/26. Had planned for TDM however unfortunately infliximab drug and Ab monitoring NOT covered by his insurance. Has been seen by Rheum for sacroilitis. Will cont tx with infliximab as above. 11/11/23: Does not report a lot of symptom burden, however unfortunately inflammatory markers have worsened from before. This is despite having adequate infliximab levels of 9 with 0 antibody. Patient also reports ? perianal abscess around 3 weeks ago that drained spontaneously and has now resolved. 12/09/23: Here for follow up. Does not think x1 week of pred made too much of a difference. Therapy options reviewed with her cardiograph operator and recommendation for rinvoq. Pt otherwise with unchanged sx including intermittent soft stools 1- 2 times a day. No blood or urgency. IBD summary: Type: Stricturing Crohns Location: Ileoanal Age/year of diagnosis: 2024 Previous medications: Prednisone 04/2023-05/2023 Current medications: Infliximab 10mg/kg Induction: 05/08/23-07/01/23. First maintenance dose 08/26/23. Prev surgeries: None Recent endoscopy: 04/09/23: EGD/colo: Stenosed IC valve (dilated), terminal ileitis. Normal colon mucosa except rectum. EIM: Bilateral sacroiliitis. [facility] Medical History Morbid obesity GERD (gastroesophageal reflux disease) Anxiety Substance abuse EtOH dependence Anemia Asthma Surgical History History of esophagogastroduodenoscopy (EGD) History of carpal tunnel surgery H/O knee surgery History of hip surgery H/O colonoscopy Family History Maternal Grandmother Skin cancer Maternal Grandfather Prostate cancer Paternal Grandfather Lung cancer Father Cancer Mother Cancer Other Family history of hepatitis Social History Alcohol intake: former Year quit: 2021 Patient Tobacco Use Status: Never used Tobacco Substance Use Type: Marijuana Current occupational status: employed 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 Review of Systems Const All systems reviewed & are unremarkable except as noted in HPI and below Physical Exam Vital Signs: Last Vital Signs Pulse 83 12/09/23 15:03 BP 118/75 12/09/23 15:03 BMI result Body Mass Index 39.9 Assessment & Plan Assessment & Plan (1) Crohn's disease: Code(s): K50.90 - Crohn's disease, unspecified, without complications (2) Bilateral sacroiliitis: Code(s): M46.1 - Sacroiliitis, not elsewhere classified (3) Diarrhea: Code(s): R19.7 - Diarrhea, unspecified (4) Perianal abscess: Code(s): K61.0 - Anal abscess Plan Penetrating and stricturing crohns with ileoanal involvement. Non response to infliximab despite good drug levels. Fecal calpro in 500s. Will switch to Rinvoq. Extensive counseling including risk for cardiac events, clots, infections and malignancy such as lymphoma. Reviewed the need for up to date vaccinations (and avoidance of live vaccines), and need for annual skin exams. Previously: Discussed with the patient that clinical impression consistent with crohns with ileoanal involvement. Given the penetrating and stricturing phenotype would recommend treatment with anti-TNF specifically remicade, in combination with Azathioprine as immunomodulator. 04/15/23: Biologic discussion: I have discussed the risks and benefits of starting anti-TNF therapy specifically infliximab with the patient, including the risk of NOT using this therapy (uncontrolled disease) and possible alternative therapies that may not be as effective. Risks reviewed included s light increased risk of malignancy and infection and possibility of infusion reactions/allergies or autoimmune-like conditions triggered by infusions. Reviewed the need for up to date vaccinations (and avoidance of live vaccines), and need for annual skin exams. - Disease and therapy: Stricturing crohns disease. Fecal calpro: 550 from 11/16/23. IFX 9.1, ATI <3. - Switch to Rinvoq 45mg PO x 12 weeks followed by maintenance dosing - CBC and LFTs in 4 weeks after starting rinvoq - Check CRP, fecal calpro at 12 weeks - Lipid profile at 12 weeks - STOP infliximab and azathioprine - Nutrition: Normal iron, B12 and folate - Immunization: Reinforced need to keep up to date with vaccinations including Flu and covid boosters; and to avoid live vaccines. - Bone Health: Low Vit D 11/2023. On Vit D supplements currently. - Cancer prevention: IBD dysplasia: colonoscopy due in N/A. Sun safety discussed. ? - EIM: Bilateral sacroiliitis. Tx of crohns as above + seeing Rheum. Follow up in 12 weeks ? Medications: Discontinued prednisone Discontinued Reason: Doctor's Order 40 mg (2 x 20 mg) PO DAILY 7 days 14 tabs 0RF Coding Level of Care Code Est Pt Level 5 (00204) Diagnoses Crohn's disease K50.90 Bilateral sacroiliitis M46.1 Diarrhea R19.7 Perianal abscess K61.0
[2023-12-09 15:03] VITALS: BP 118/75; PULSE 83; BMI 39.9
== END 2023-12-09 16:07 | disposition home or self-care (01) ==
PROVIDERS: PCP Internal Medicine; Visit Provider Internal Medicine
DX: K50.90 Crohn's disease, unspecified, without complications (principal); M46.1 Sacroiliitis, not elsewhere classified; R19.7 Diarrhea, unspecified; K61.0 Anal abscess
CPT/HCPCS: 99214

== ENCOUNTER → 2023-12-09 14:49 | Outpatient (BNVA) | payer BC, SELFPAY | PROVIDERS: PCP Internal Medicine; Visit Provider Internal Medicine ==

== ENCOUNTER 2024-01-11 15:19 | Outpatient (REF) | payer BC, SELFPAY ==
[2024-01-11 16:24] LABS: Hemoglobin 14.2 g/dl (14.0-18.0); Mean Corpuscular HGB Conc 35.5 g/dl (31.0-36.0); Mean Corpuscular Hemoglobin 30.6 pg (27.0-33.0); Mean Corpuscular Volume 86.2 fL (80.0-98.0); Mean Platelet Volume 9.8 fL (9.4-12.4); Platelet Count 430 X10*3/uL (160-400); Red Blood Count 4.64 X10*6/uL (4.60-5.80); Red Cell Distribution Width 14.3 % (11.0-16.0); White Blood Count 12.7 X10*3/uL (4.8-10.8)
[2024-01-11 17:02] LABS: Alanine Aminotransferase 19 U/L (0-40); Albumin Level 4.2 g/dL (3.5-5.0); Alkaline Phosphatase 65 U/L (39-117); Aspartate Amino Transferase 23 U/L (5-37); Bilirubin Direct 0.3 mg/dL (0.0-0.5); Bilirubin Total 0.4 mg/dL (0.0-1.0); Total Protein 7.2 g/dL (6.5-8.0)
== END 2024-01-11 15:20 | disposition home or self-care (01) ==
LOC: HO.LAB 15:19
PROVIDERS: PCP Internal Medicine Medical Oncology; Visit Provider Internal Medicine
DX: K50.90 Crohn's disease, unspecified, without complications (principal)
CPT/HCPCS: 36415; 80076; 85027

== ENCOUNTER 2024-03-03 10:55 | Outpatient (REF) | payer BC, SELFPAY ==
[2024-03-03 11:36] LABS: Hematocrit 37.7 % (42.0-52.0); Hemoglobin 12.6 g/dl (14.0-18.0); Mean Corpuscular HGB Conc 33.4 g/dl (31.0-36.0); Mean Corpuscular Hemoglobin 29.7 pg (27.0-33.0); Mean Corpuscular Volume 88.9 fL (80.0-98.0); Mean Platelet Volume 9.3 fL (9.4-12.4); Platelet Count 389 X10*3/uL (160-400); Red Blood Count 4.24 X10*6/uL (4.60-5.80); Red Cell Distribution Width 14.4 % (11.0-16.0); White Blood Count 7.4 X10*3/uL (4.8-10.8)
[2024-03-03 12:24] LABS: Alanine Aminotransferase 20 U/L (0-40); Albumin Level 4.1 g/dL (3.5-5.0); Alkaline Phosphatase 67 U/L (39-117); Aspartate Amino Transferase 26 U/L (5-37); Bilirubin Direct 0.1 mg/dL (0.0-0.5); Bilirubin Total 0.3 mg/dL (0.0-1.0); Cholesterol 173 mg/dL (<200); HDL Cholesterol 49 mg/dL (>40); LDL Cholesterol Calculated 91 mg/dL (<100); Total Protein 7.1 g/dL (6.5-8.0); Triglycerides 167 mg/dL (<150)
== END 2024-03-03 10:56 | disposition home or self-care (01) ==
LOC: HO.LAB 10:55
PROVIDERS: Visit Provider Internal Medicine
DX: K50.90 Crohn's disease, unspecified, without complications (principal)
CPT/HCPCS: 36415; 80061; 80076; 85027

== ENCOUNTER 2024-03-10 07:31 | Outpatient (REF) | payer BC, SELFPAY ==
[2024-03-16 20:43] LABS: Calprotectin, Fecal 2730 mcg/g
== END 2024-03-10 07:32 | disposition home or self-care (01) ==
LOC: HO.LNP 07:31
PROVIDERS: Visit Provider Internal Medicine
DX: K50.90 Crohn's disease, unspecified, without complications (principal)
CPT/HCPCS: 83993

== ENCOUNTER → 2024-03-14 12:50 | Outpatient (BNVA) | payer BC, SELFPAY | PROVIDERS: PCP Internal Medicine; Visit Provider Internal Medicine ==

== ENCOUNTER 2024-03-14 12:51 | Outpatient (AMB) | payer BC, SELFPAY ==
--- NOTE | 2024-03-14 12:51 | MHC.OFFVIS ---
Vital Signs 03/14/24 12:52 Height 5 ft 10 in Weight 268 lb 15.423 oz BMI 38.6 BP 110/69 Blood Pressure Location Lt brachial Position Sitting Pulse 81 Intake Visit Reasons: 2 month follow up crohns 30 mins Intake Note: Cornelius presents in the office as a 2 month follow up for Crohns. CC: States that he is not having any concerns at this time. Pesticide Use Medical Coordinator Required: No Allergies No Known Allergies Allergy (Unverified 03/14/24 12:55) HPI Comments Details: This is a 42-year-old gentleman with arthritis for which he was on NSAIDs intermediate, who is following up for iron deficiency anemia and ileitis. EGD/colo 09/30/22: Impression:? Normal esophagus (biopsy) Normal stomach (biopsy) Normal duodenum (biopsy) Ulcerated and stenotic IC valve (biopsy) Abnormal terminal ileum mucosa (biopsy) Remaining colon mucosa endoscopically normal (biopsy) Path: A.? Duodenum, biopsy:? Duodenal mucosa with mild villous blunting and patchy increased intraepithelial lymphocytes (see comment). B.? Stomach, biopsy:? Gastric antral and body mucosa with mild chronic inactive gastritis; negative for Helicobacter pylori, intestinal metaplasia and dysplasia. C.? Ileocecal valve, biopsy:? Active ileitis with moderate activity and mucosal erosion (see comment). D.? Terminal ileum, biopsy:? Active ileitis with mild activity (see comment). E.? Colon, ascending, biopsy:? Active colitis with mild activity (see comment). F.? Colon, right side, biopsy:? Colonic mucosa within normal limits; negative for active, chronic or microscopic colitis.? G.? Colon, left side, biopsy:? Colonic mucosa within normal limits; negative for active, chronic or microscopic colitis.? H.? Rectum, biopsy:? Colonic mucosa within normal limits; negative for active, chronic or microscopic colitis. COMMENT (A): ? These findings raise the possibility of celiac disease; however other pathologic processes, ?including H. pylori gastritis, peptic duodenitis, food allergies other than celiac disease, tropical sprue, viral enteritis, injury caused by drugs, autoimmune enteropathy, immunodeficiencies and Crohn's disease can induce intraepithelial lymphocytosis with or without associated architectural changes. In many cases no definite cause is identified. Clinical and serological correlation is recommended. COMMENT (C-E):? Neither granulomas nor evidence of definitive chronic mucosal injury is seen. The differential diagnosis includes infection, drug/medication effect and early idiopathic inflammatory bowel disease. Clinical correlation is advised. 10/31/22 Today, patient reports that despite stopping naproxen almost 3 months ago, he continues to have diarrhea which is often dark/black colored. Only utilizes Tylenol for pain control now. Reports taking omeprazole. Otherwise, no abdominal pain, nausea, vomiting, changes in appetite or unintentional weight loss. No family history of inflammatory bowel disease or autoimmune conditions. No personal history of frequent respiratory or GI infections. 11/18/22: Reports seeing rectal bleeding more frequently, every time he wipes which then continues for a while before stopping itself. Not particularly painful to defecate, but did initially have a bruising like pressure. CT was ordered at the last visit, patient has still not heard from Radiology. [facility] Panel: consistent with Crohn's. 12/02/22: CTE: -Mild circumferential wall thickening and accentuated submucosal fat mid to distal ileum at least 20 cm in length. Question mild short segment mid jejunal wall thickening. -No proximal obstruction, pneumatosis, fistula, or stricture. No ascites or fluid collection. -Mild right mesenteric adenopathy. Prominent portal caval node. -Fat-containing umbilical hernia 3.5 cm. -Findings suspicious for mild bilateral sacroiliitis. 01/02/23: Started prednisone 40mg on 12/15 and took it for 2 weeks. Currently on 30mg dosing and to go down to 20mg on Thursday. Thinks may be has 30-50% had improvement in symptoms. Diarrhea frequency has decreased from 4 BMs a day to 2BMs per day. No abdominal pain anymore. Stools are still loose but brown. Rectal pressure has improved. 02/06/23: Was seen in [facility] for L sided perianal abscess for which he underwent I&D at bedside. 04/09/23: EGD/colo: 1. Normal esophagus 2. Normal stomach 3. Normal duodenum (biopsy) 4. Normal proximal jejunum (biopsy) 5. Stenosed IC valve (biopsy, dilation) 6. Terminal ileitis (biopsy) 7. Colon mucosa normal to cecum (biopsy) 8. Internal and external hemorrhoids 9. Perianal fistula Recommendations:?? Await biopsy results As clinical appearance most consistent with crohn's disease, will start prednisone 60mg PO once daily x 14 days, followed by a taper. Pt will likely need anti-TNF therapy Repeat colo can be considered depending on response to therapy in 3 months for further dilation of ICV stenosis Path: A.? Jejunum, proximal, biopsy:? Small bowel mucosa with no specific change; no enteritis, granulomas or dysplasia.? B.? Duodenum, biopsy:? Duodenal mucosa with focally blunted villi and no active inflammation or granulomas; cannot exclude a nonspecific duodenitis.? C.? Terminal ileum, biopsy:? Chronic active ileitis with focal ulcer; no granulomas or dysplasia (see comment). D.? Ileocecal valve, biopsy:? Active erosive enteritis/colitis; no granulomas or dysplasia (see comment).? E.? Colon, right, biopsy:? Colonic mucosa with minor crypt distortion, focal hyperplastic changes and lymphoid aggregate; no colitis, granulomas or dysplasia. F.? Colon, left, biopsy:? Colonic mucosa with minimal hyperplastic changes; no colitis, granulomas or dysplasia.? G.? Colon, rectum, biopsy:? Colonic mucosa with minimal hyperplastic changes and two actively inflamed crypts with adjacent mucosal microgranuloma; negative for dysplasia (see comment).? 04/15/23: Was started on prednisone 60mg PO based on endoscopic appearance which he started taking on 04/10/23. Pre-endoscopy was having up to 5 loose BMs per day. Now frequency has reduced to 2 BMs per day albeit still loose. BMs are brown without blood in it. Night time sx +. No urgency. Tenesmus + . No abd pain. Does report hip and knee pains. 05/25/23: s/p x2 doses of infliximab loadin05/08/23, 05/22/23. Next dose due on 07/03. Reports some improvement in consistency of stool, now formed. However still has 3-4BMs/day. Blood intermittently, most recently over the weekend. Continues to report bilateral hip and knee pain. Seeing Rheum in Jul. Completing pred taper and on 10mg dose this week. Missed doing labs last visit so TPMT not available. 07/08/23: Comes in for follow up. Clinically doing much better than before. No abd pain. Stool frequency has improved to 1-2 per day and consistency now mostly [place] scale 5. Does not report blood in stool. No urgency. No night time sx. Pred taper was completed end of May. Infliximab loading completed 07/01. First maintenance dose due 08/26. Had planned for TDM however unfortunately infliximab drug and Ab monitoring NOT covered by his insurance. Has been seen by Rheum for sacroilitis. Will cont tx with infliximab as above. 11/11/23: Does not report a lot of symptom burden, however unfortunately inflammatory markers have worsened from before. This is despite having adequate infliximab levels of 9 with 0 antibody. Patient also reports ? perianal abscess around 3 weeks ago that drained spontaneously and has now resolved. 12/09/23: Here for follow up. Does not think x1 week of pred made too much of a difference. Therapy options reviewed with his business information consultant and recommendation for rinvoq. Pt otherwise with unchanged sx including intermittent soft stools 1-2 times a day. No blood or urgency. 03/14/24: Here for 3 month follow up. Pt is on 45 mg dosing. Per records obtained from pharmacy Rinvoq 45 was first dispensed on 12/08/23 and therefore should have completed induction dosing on 03/09 however pt is not sure when he actually started the 45mg dosing and may have started it towards the end of December. Has formed BMs 1-2/day. No abd pain. No blood in stool. Reports had perianal abscess last month which just spontaneously drained and resolved. Didnt need any systemic ABx for it. IBD summary: Type: Stricturing Crohns Location: Ileoanal Age/year of diagnosis: 2024 Previous medications: Prednisone 04/2023-05/2023. Infliximab 10mg/kg started May 2024 but due to primary non-response switched to Rinvoq after 2 maintenance doses in December 2023. Current medications: Rinvoq 45mg PO - due to complete induction soon and will then transition to 30mg. Prev surgeries: None Recent endoscopy: 04/09/23: EGD/colo: Stenosed IC valve (dilated), terminal ileitis. Normal colon mucosa except rectum. EIM: Bilateral sacroiliitis. [facility] Medical History Morbid obesity GERD (gastroesophageal reflux disease) Anxiety Substance abuse EtOH dependence Anemia Asthma Surgical History History of esophagogastroduodenoscopy (EGD) History of carpal tunnel surgery H/O knee surgery History of hip surgery H/O colonoscopy Family History Maternal Grandmother Skin cancer Maternal Grandfather Prostate cancer Paternal Grandfather Lung cancer Father Cancer Mother Cancer Other Family history of hepatitis Social History Alcohol intake: former Year quit: 2021 Patient Tobacco Use Status: Never used Tobacco Substance Use Type: Marijuana Current occupational status: employed 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 Review of Systems Const All systems reviewed & are unremarkable except as noted in HPI and below Physical Exam Vital Signs: Last Vital Signs Pulse 81 03/14/24 12:52 BP 110/69 03/14/24 12:52 BMI result Body Mass Index 38.6 No apparent distress Nonicteric Abdomen soft, nondistended Alert and oriented x3, normal gait Assessment & Plan Assessment & Plan (1) Crohn's disease: Code(s): K50.90 - Crohn's disease, unspecified, without complications Category: Medical (2) Bilateral sacroiliitis: Code(s): M46.1 - Sacroiliitis, not elsewhere classified Category: Medical (3) Diarrhea: Code(s): R19.7 - Diarrhea, unspecified Category: Medical (4) Perianal abscess: Code(s): K61.0 - Anal abscess Category: Medical Plan Penetrating and stricturing crohns with ileoanal involvement. Non response to infliximab despite good drug levels. Fecal calpro in 500s. Rinvoq started December 2023. Extensive counseling including risk for cardiac events, clots, infections and malignancy such as lymphoma. Reviewed the need for up to date vaccinations (and avoidance of live vaccines), and need for annual skin exams. Previously: Discussed with the patient that clinical impression consistent with crohns with ileoanal involvement. Given the penetrating and stricturing phenotype would recommend treatment with anti-TNF specifically remicade, in combination with Azathioprine as immunomodulator. 04/15/23: Biologic discussion: I have discussed the risks and benefits of starting anti-TNF therapy specifically infliximab with the patient, including the risk of NOT using this therapy (uncontrolled disease) and possible alternative therapies that may not be as effective. Risks reviewed included slight increased risk of malignancy and infection and possibility of infusion reactions/allergies or autoimmune-like conditions triggered by infusions. Reviewed the need for up to date vaccinations (and avoidance of live vaccines), and need for annual skin exams. - Disease and therapy: Stricturing crohns disease. Fecal calpro: 550 from 11/16/23. ?? pramod-anal abscess vs fistula - Pt to confirm the start date of Rinvoq 45mg PO as needs to complete 12 weeks of induction followed by maintenance 30 mg dosing. - Fecal calpro submitted 03/10 results pending. - Lipid profile satisfactory - MRI pelvis ordered for ?perianal involvement. - Nutrition: Normal iron, B12 and folate. Due for recheck, orders placed. - Immunization: Reinforced need to keep up to date with vaccinations including Flu and covid boosters; and to avoid live vaccines. - Bone Health: Low Vit D 11/2023. On Vit D supplements currently. Due for recheck, orders placed. - Cancer prevention: IBD dysplasia: colonoscopy due in N/A. Sun safety discussed. ? - EIM: Bilateral sacroiliitis. Tx of crohns as above + seeing Rheum. Follow up in 3 months Orders: Orders Complete Blood Count no Diff 3 Months K50.90 - Crohn's disease, unspecified, without complications, K52.9 - Noninfective gastroenteritis and colitis, unspecified Comprehensive Met. Panel 3 Months K50.90 - Crohn's disease, unspecified, without complications, K52.9 - Noninfective gastroenteritis and colitis, unspecified Ferritin 3 Months K50.90 - Crohn's disease, unspecified, without complications, K52.9 - Noninfective gastroenteritis and colitis, unspecified Vitamin D 25-OH Total 3 Months K50.90 - Crohn's disease, unspecified, without complications, K52.9 - Noninfective gastroenteritis and colitis, unspecified MR pelvis wo/w con 03/14/24 K61.0 - Anal abscess IRON PROFILE 3 Months K50.90 - Crohn's disease, unspecified, without complications, K52.9 - Noninfective gastroenteritis and colitis, unspecified Vitamin B12 and Folate 3 Months K50.90 - Crohn's disease, unspecified, without complications, K52.9 - Noninfective gastroenteritis and colitis, unspecified C Reactive Protein 3 Months K50.90 - Crohn's disease, unspecified, without complications, K52.9 - Noninfective gastroenteritis and colitis, unspecified Calprotectin, Fecal 3 Months K50.90 - Crohn's disease, unspecified, without complications, K52.9 - Noninfective gastroenteritis and colitis, unspecified Coding Level of Care Code Est Pt Level 5 (81495) Diagnoses Crohn's disease K50.90 Bilateral sacroiliitis M46.1 Diarrhea R19.7 Perianal abscess K61.0
[2024-03-14 12:52] VITALS: BP 110/69; PULSE 81; BMI 38.6
== END 2024-03-14 13:26 | disposition home or self-care (01) ==
PROVIDERS: PCP Internal Medicine; Visit Provider Internal Medicine
DX: K50.90 Crohn's disease, unspecified, without complications (principal); R19.7 Diarrhea, unspecified; K61.0 Anal abscess; M46.1 Sacroiliitis, not elsewhere classified
CPT/HCPCS: 99214

== ENCOUNTER 2024-04-25 14:43 | Outpatient (REF) | payer BC, SELFPAY ==
--- NOTE | ~2024-04-25 | MR_ITS ---
EXAMINATION: MRI PELVIS WITH AND WITHOUT CONTRAST CLINICAL INFORMATION: Reason for Exam K61.0 - Anal abscess COMPARISON: CT enterography 11/24/2022 TECHNIQUE: Multiple routine MRI sequences through the pelvis were obtained before and after the uneventful administration of 10 mL of Gadavist gadolinium-based IV contrast. FINDINGS: GASTROINTESTINAL TRACT: Technically limited evaluation for perianal fistula as no T2 axial spin echo sequences or fat-suppressed coronal and sagittal sequences were obtained. There is a T2 hypointense superficial perianal fistula which does not definitively appear to communicate with the anal canal originating anterior inferior to the distal aspect of the anal canal and tracking posterior medially to the medial gluteal fold with possible minimal enhancement with signal suggestive of scar. No navneet T2 bright signal or perianal abscess. VASCULAR: Unremarkable. LYMPH NODES/PERITONEUM: No lymphadenopathy. FREE FLUID: None. BLADDER: Unremarkable. PELVIC VISCERA: Unremarkable. OSSEOUS STRUCTURES: Suspect cortical erosions along the sacroiliac joints which could be seen in the setting of sacroiliitis. Susceptibility artifact from left hip ORIF which obscures evaluation of the left hemipelvis. MR/MR pelvis wo/w con IMPRESSION: 1. Technically limited evaluation. There is a T2 hypointense superficial perianal fistula which does not definitively appear to communicate with the anal canal originating anterior inferior to the distal aspect of the anal canal and tracking posterior medially to the medial gluteal fold with possible minimal enhancement with signal characteristics suggestive of scar. No navneet T2 bright signal or perianal abscess. 2. Suspect cortical erosions along the sacroiliac joints which could be seen in the setting of sacroiliitis.
[2024-04-25] MEDS: gadobutroL 10 ML VIAL IVPUSH (16:04)
== END 2024-04-25 14:44 | disposition home or self-care (01) ==
LOC: HO.MRI 14:43
PROVIDERS: PCP Internal Medicine; Visit Provider Internal Medicine
DX: K61.0 Anal abscess (principal)
CPT/HCPCS: 72197; A9585

== ENCOUNTER 2024-09-12 12:20 | Outpatient (AMB) | payer BC, SELFPAY ==
--- NOTE | 2024-09-12 12:33 | A.OFFVIS_ITS ---
Vital Signs 09/12/24 12:37 Height 5 ft 10 in Weight 263 lb BMI 37.7 BP 128/81 Blood Pressure Location Lt brachial Position Sitting Pulse 68 Intake Visit Reasons: crohns Intake Note: Patient follow up for Crohns diseases. Patient cc: diarrhea on and off, denies any other GI issues. 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 Recap: - Initially seen in Sep 2022 for EGD/colo booked directly for iron deficiency anemia and blood in stool. Had inflammed T.I and ICV on colo but bx bx negative for chronic colitis or ileitis. This was therefore presumed be to NSAID related injury in the context of naproxen overuse. - However pt then cont'd to have intermittent melena despite stopping naproxen. [facility] panel was done early 2022 which was consistent with Crohn's. - This prompted a CTE 12/02/22 for further small bowel eval that showed distal ileal and jejunal involevement. Pt was started on pred and a repeat endoscopic eval was done 04/09/23 which showed ileitis and proctitis with granuloma confirming crohns. - Pt was started on infliximab fall 2022 but unfortunately was primary non- responder based on drug and Ab testing 09/2023. 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 - Started on Rinvoq induction 12/2023 and transitioned to maintenance in summer 2023. Last seen in office 03/14/24 when he was doing well with formed BMs. Had another episode of rectal discharge which self limiting. An MRI pelvis was ordered for pramod-anal involvement. 09/12/24: Seen in follow up after a hiatus. Unfortunately lost his son earlier this year so missed a follow up with me. No abd pain, still has 2-3 loose BMs at least 50% of time. Occ bleeding. Continues on Rinvoq 30. Labs due but did not remember to do these. --- IBD summary: Type: Stricturing Crohns Location: Ileoanal Age/year of diagnosis: 2024 Previous medications: Prednisone 04/2023-05/2023. Infliximab 10mg/kg started May 2024 but due to primary non-response switched to Rinvoq after 2 maintenance doses in December 2023. Current medications: Rinvoq 45mg PO - due to complete induction soon and will then transition to 30mg. Prev surgeries: None Recent endoscopy: 04/09/23: EGD/colo: Stenosed IC valve (dilated), terminal ileitis. Normal colon mucosa except rectum. Recent imagin04/25/24: MRI pelvis: pramod-anal fistula vs sinus tract. 12/02/22: CTE: mid jejunal and distal ileum wall thickening EIM: Bilateral sacroiliitis. (sees Rheum) [facility] Medical History Morbid obesity GERD (gastroesophageal reflux disease) Anxiety Substance abuse EtOH dependence Anemia Asthma Surgical History History of esophagogastroduodenoscopy (EGD) History of carpal tunnel surgery H/O knee surgery History of hip surgery H/O colonoscopy Family History Maternal Grandmother Skin cancer Maternal Grandfather Prostate cancer Paternal Grandfather Lung cancer Father Cancer Mother Cancer Other Family history of hepatitis Social History Alcohol intake: former Year quit: 2021 Patient Tobacco Use Status: Never used Tobacco Substance Use Type: Marijuana Current occupational status: employed 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 Review of Systems Const All systems reviewed & are unremarkable except as noted in HPI and below Physical Exam Vital Signs: No apparent distress Nonicteric Abdomen soft, nondistended Alert and oriented x3, normal gait Assessment & Plan Assessment & Plan (1) Crohn's disease: Code(s): K50.90 - Crohn's disease, unspecified, without complications Category: Medical (2) Bilateral sacroiliitis: Code(s): M46.1 - Sacroiliitis, not elsewhere classified Category: Medical (3) Diarrhea: Code(s): R19.7 - Diarrhea, unspecified Category: Medical (4) Perianal abscess: Code(s): K61.0 - Anal abscess Category: Medical (5) Perianal fistula: Code(s): K60.3 - Anal fistula Category: Medical (6) Ileitis: Code(s): K52.9 - Noninfective gastroenteritis and colitis, unspecified Category: Medical (7) Ileocecal valve stenosis: Code(s): K63.89 - Other specified diseases of intestine Category: Medical Plan #Penetrating and stricturing crohns with ileoanal involvement. -Non response to infliximab despite good drug levels. Fecal calpro in 500s. -Rinvoq started December 2023. (Extensive counseling including risk for cardiac events, clots, infections and malignancy such as lymphoma. Reviewed the need for up to date vaccinations (and avoidance of live vaccines), and need for annual skin exams.) Difficult to say if current increased frequency in BMs reflects a flare of IBD vs stress related gut changes as pt still grieving his 20 y.o son. Will get repeat labs including CRP and fecal calpro; as well as CTE to help assess. Pt also due for nutrition labs. - Disease and therapy: Stricturing crohns disease. pramod-anal fistula - Cont Rinvoq 30 mg once daily - CBC, CMP, fecal calpro and CRP - Lipid profile - CT enterography - If has active inflammation based on above, will need a switch again, as already on higher dose of Rinvoq. - Will also review timing of repeat colo based on above. - Surg appt also made today (Dr Sandoval) for anal fistula - Nutrition: Iron B12 and folate orders placed. - Immunization: Reinforced need to keep up to date with vaccinations including Flu and covid boosters; and to avoid live vaccines. - Bone Health: Low Vit D 11/2023. On Vit D supplements currently. Due for recheck, orders placed. - Cancer prevention: IBD dysplasia: colonoscopy due in N/A. Sun safety discussed. ? - EIM: Bilateral sacroiliitis. Tx of crohns as above + seeing Rheum. Follow up in 3 months Orders: Orders Complete Blood Count no Diff Today K50.90 - Crohn's disease, unspecified, without complications, K60.3 - Anal fistula Calprotectin, Fecal Today K50.90 - Crohn's disease, unspecified, without complications, K60.3 - Anal fistula Vitamin B12 and Folate Today K50.90 - Crohn's disease, unspecified, without complications, K60.3 - Anal fistula Vitamin D 25-OH Total Today K50.90 - Crohn's disease, unspecified, without complications, K60.3 - Anal fistula Lipid Panel Today K50.90 - Crohn's disease, unspecified, without complications Comprehensive Met. Panel Today K50.90 - Crohn's disease, unspecified, without complications, K60.3 - Anal fistula C Reactive Protein Today K50.90 - Crohn's disease, unspecified, without complications, K60.3 - Anal fistula IRON PROFILE Today K50.90 - Crohn's disease, unspecified, without complications, K60.3 - Anal fistula Ferritin Today K50.90 - Crohn's disease, unspecified, without complications, K60.3 - Anal fistula CT enterography Today K50.90 - Crohn's disease, unspecified, without complications Medications: Changed From upadacitinib ER (Rinvoq) 45 mg PO DAILY To upadacitinib ER 30 mg PO DAILY 90 days 90 tabs 1RF Coding Level of Care Code Est Pt Level 5 (72439) Complex EM visit Add On G2211 Diagnoses Crohn's disease K50.90 Bilateral sacroiliitis M46.1 Diarrhea R19.7 Perianal abscess K61.0 Perianal fistula K60.3 Ileitis K52.9 Ileocecal valve stenosis K63.89
[2024-09-12 12:37] VITALS: BP 128/81; PULSE 68; BMI 37.7
--- OUTSIDE RECORDS SUMMARY | 2024-09-14 15:25 | XMS_ITS | Patient Health Record ---
Author Organization [facility] Address [address] [place] [address] Care Team Providers Care Iron Assorter Name Role Phone MACHELLE PEREZ Primary Care Provider [phone] Allergies No Known Allergies Reason For Referral No Information Medications Medication SIG (Take, Route, Frequency, Duration) Notes Start Date End Date Status ProAir HFA 108 (90 Base) MCG/ACT 2 puffs as needed Inhalation every 4 hrs for 90 days prn 04/26/2018 Not-Taking Phentermine HCl 37.500 1 capsule Orally Once a day for 30 Not-Taking Aleve 220 MG Oral for 0 TAKE 1 TABLET 3 TIMES DAILY NEEDED. 07/23/2015 Not-Taking ALPRAZolam 1 MG 1 tablet Orally Twice a day for 30 days 09/13/2019 Not-Taking Phentermine HCl 37.5 MG TAKE 1 TABLET BY MOUTH EVERY DAY for 60 05/19/2022 Not-Taking Losartan Potassium-HCTZ 100-12.5 MG 1 tablet Orally Once a day for 90 days Not-Taking inFLIXimab 100 MG . Intravenous EVERY 8 WEEKS Active Indomethacin 50 MG 1 capsule with food or milk Orally Twice a day for 14 days prn Not-Taking FLUoxetine HCl 40 MG 1 capsule Orally Once a day for 90 days Active ALPRAZolam 0.5 mg 330 11/10/2019 Not-Ivan ing Simvastatin 40 MG TAKE 1 TABLET BY MOUTH EVERY DAY IN THE EVENING for 90 Active ALPRAZolam 1 MG 1 tablet Orally Twice a day prn for 30 days 11/10/2019 Not-Taking Omeprazole 20 MG TAKE 1 CAPSULE BY MOUTH EVERY DAY for 90 Active Folic Acid 1 MG 1 tablet Orally Once a day for 90 Not-Taking Naltrexone HCl 50 MG TAKE 1 TABLET BY MOUTH EVERY DAY for 90 Active Venlafaxine HCl 100 MG 1 tablet with food Orally Twice a day for 30 day(s) 06/02/2019 Not-Taking Ranitidine HCl 300 MG 1 capsule at bedtime Orally Once a day for 90 days 11/05/2016 Not-Taking Levaquin 500 MG 1 tablet Orally Once a day for 10 day(s) 09/11/2020 Not-Taking Fish Oil 1000 MG Oral Daily for 0 TAKE 1 CAPSULE DAILY. 07/23/2015 Active Peterson Carbonate ER 300 MG 1 tablet at bedtime Orally Once a day for 30 day(s) 11/14/2019 Not-Taking SEROquel 50 MG 1 tablet Orally bid for 90 days Active Venlafaxine HCl ER 150 mg starte d at [facility] 11/05/2019 Not-Taking Claritin 10 MG Oral Daily for 0 TAKE 1 TABLET DAILY. 07/23/2015 Active Immunizations Vaccine Route Administration Date Status Comme nts Td (adult) preservative free IM Intramuscular 10/05/2015 Administered done in [place] [facility] about 3 years ago Social History Tobacco Use: Social History Observation Description Date Details (start date - stop date) Never Smoker NA - NA Tobacco Use/Smoking Question Answer Notes Are you a nonsmoker Additional Findings: Tobacco Non-User Current no n-smoker Alcohol Screen (Audit-C) Question Answer Notes Did you have a drink contain ing alcohol in the past year? Yes How often did you have a dri nk containing alcohol in the past year? 4 or more times a week (4 points) How many drinks did you have on a typical day when you were drinking in the past year? 3 or 4 drinks (1 point) How often did you have 6 or more drinks on one occasion in the past year? Monthly (2 points) Points 7 Interpretation Positive Tobacco use other than smoking: Question Answer Notes Are you an other tobacco user? No Section Notes: EDUCATION: [place] in 1995 FAMILY HISTORY: Born and raised in . . Father Rashad Modi dies at age 67 yr. Disabled from back pain Was in [facility] and Had metastatic small cell cancer. 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 Has one older brother Rashad Modi 41 yr Lives in [facility] with 2 kids. Sees him couple times a week Big. One older sister Betsey Modi 44 yr single. Stay at home.brenda in [place] 2 sons Jordi and Mariusz. Close to her Sees her twice a week. Happy childhood. No sports except on the streets Good childhood MARITAL HISTORY Left house at age 16 yrs Met his and lived with her for 11 years Got 10 years ago. 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 Had coccaine and percocet habits Stopped recently 2 yrs ago Went for therapy and counselling. He threatened to leave her.Has 2 children #Cornelius 16 yr good student Graduated from [employer] Wants to be an acid tank liner Now working for a [employer] company. #Abdelrahman 13 yr Plays hockey and lacrosse Goes to [employer] Lives at [address] in for 13 years Bought it 11 more years to go. Good relation with children They did know about his drugs !Oldest son now knows. Relationship with is better. 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 EDUCATION: [place] in 1995 FAMILY HISTORY: Born and raised in . . Father Rashad Modi dies at age 67 yr. Disabled from back pain Was in [place] and Had metastatic small cell cancer. 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 Has one older brother Rashad Modi 41 yr Lives in [facility] with 2 kids. Sees him couple times a week Big. One older sister Betsey Modi 44 yr single. Stay at home.brenda in [place] 2 sons Jordi and Mariusz. Close to her Sees her twice a week. Happy childhood. No sports except on the streets Good childhood MARITAL HISTORY Left house at age 16 yrs Met his and lived with her for 11 years Got 10 years ago. 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 Had coccaine and percocet habits Stopped recently 2 yrs ago Went for therapy and counselling. He threatened to leave her.Has 2 children #Cornelius 16 yr good student Graduated from [employer] Wants to be an acid tank liner Now working for a [employer] company. #Abdelrahman 13 yr Plays hockey and lacrosse Goes to [employer] [employer] Lives at [address] in for 13 years Bought it 11 more years to go. Good relation with children They did know about his drugs !Oldest son now knows. Relationship with is better. 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 EDUCATION: [place] in 1995 FAMILY HISTORY: Born and raised in . . Father Rashad Modi dies at age 67 yr. Disabled from back pain Was in [facility] and Had metastatic small cell cancer. 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 Has one older brother Rashad Modi 41 yr [facility] 2 kids. Sees him couple times a week Big. One older sister Betsey Modi 44 yr single. Stay at home.brenda in [place] 2 sons Jordi and Mariusz. Close to her Sees her twice a week. Happy childhood. No sports except on the streets Good childhood MARITAL HISTORY Left house at age 16 yrs Met his and lived with her for 11 years Got 10 years ago. 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 Had coccaine and percocet habits Stopped recently 2 yrs ago Went for therapy and counselling. 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 #Abdelrahman 13 yr Plays hockey and lacrosse Goes to [facility] [employer] Lives at [address] in for 13 years Bought it 11 more years to go. Good relation with children They did know about his drugs !Oldest son now knows. Relationship with is better. 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 EDUCATION: [place] in 1995 FAMILY HISTORY: Born and raised in . . Father Rashad Modi dies at age 67 yr. Disabled from back pain Was in [facility] and Had metastatic small cell cancer. 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 Has one older brother Rashad Modi 41 yr Lives in [facility] with 2 kids. Sees him couple times a week Big. One older sister Betsey Modi 44 yr single. Stay at home.brenda in [place] 2 sons Jordi and Mariusz. Close to her Sees her twice a week. Happy childhood. No sports except on the streets Good childhood MARITAL HISTORY Left house at age 16 yrs Met his and lived with her for 11 years Got 10 years ago. 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 Had coccaine and percocet habits Stopped recently 2 yrs ago Went for therapy and counselling. 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 #Abdelrahman 13 yr Plays hockey and lacrosse Goes to [facility] [employer] Lives at [address] in for 13 years Bought it 11 more years to go. Good relation with children They did know about his drugs !Oldest son now knows. Relationship with is better. 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 EDUCATION: [place] in 1995 FAMILY HISTORY: Born and raised in . . Father Rashad Modi dies at age 67 yr. Disabled from back pain Was in [facility] and Had metastatic small cell cancer. 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 Has one older brother Rashad Modi 41 yr Lives in [place] Artistic Director with 2 kids. Sees him couple times a week Big. One older sister Betsey Modi 44 yr single. Stay at home.brenda in [place] 2 sons Jordi and Mariusz. Close to her Sees her twice a week. Happy childhood. No sports except on the streets Good childhood MARITAL HISTORY Left house at age 16 yrs Met his and lived with her for 11 years Got 10 years ago. 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 Had coccaine and percocet habits Stopped recently 2 yrs ago Went for therapy and counselling. He threatened to leave her.Has 2 children Rubin 16 yr good student Graduated from [employer] Wants to be an acid tank liner Now working for a [employer] company. Slime 13 yr Plays hockey and lacrosse Goes to [facility] [employer] Lives at [address] in for 13 years Bought it 11 more years to go. Good relation with children They did know about his drugs !Oldest son now knows. Relationship with is better. 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 EDUCATION: [place] in 1995 FAMILY HISTORY: Born and raised in . . Father Rashad Modi dies at age 67 yr. Disabled from back pain Was in [employer] Had metastatic small cell cancer. 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 Has one older brother Rashad Modi 41 yr Lives in [place] Artistic Director with 2 kids. Sees him couple times a week Big. One older sister Betsey Modi 44 yr single. Stay at home.brenda in [place] 2 sons Jordi and Mariusz. Close to her Sees her twice a week. Happy childhood. No sports except on the streets Good childhood MARITAL HISTORY Left house at age 16 yrs Met his and lived with her for 11 years Got 10 years ago. 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 Had coccaine and percocet habits Stopped recently 2 yrs ago Went for therapy and counselling. He threatened to leave her.Has 2 children #Cornelius 16 yr good student Graduated from [employer] Wants to be an acid tank liner Now working for a [employer] company. #Abdelrahman 13 yr Plays hockey and lacrosse Goes to [facility] [employer] Lives at [address] in for 13 years Bought it 11 more years to go. Good relation with children They did know about his drugs !Oldest son now knows. Relationship with is better. 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 EDUCATION: [place] in 1995 FAMILY HISTORY: Born and raised in . . Father Rashad Modi dies at age 67 yr. Disabled from back pain Was in [employer] Had metastatic small cell cancer. 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 Has one older brother Rashad Modi 41 yr Lives in [facility] with 2 kids. Sees him couple times a week Big. One older sister Betsey Modi 44 yr single. Stay at home.brenda in [place] 2 sons Jordi and Mariusz. Close to her Sees her twice a week. Happy childhood. No sports except on the streets Good childhood MARITAL HISTORY Left house at age 16 yrs Met his and lived with her for 11 years Got 10 years ago. 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 Had coccaine and percocet habits Stopped recently 2 yrs ago Went for therapy and counselling. He threatened to leave her.Has 2 children #Cornelius 16 yr good student Graduated from [employer] Wants to be an acid tank liner Now working for a [employer] company. #Abdelrahman 13 yr Plays hockey and lacrosse Goes to [facility] Lives at [address] in for 13 years Bought it 11 more years to go. Good relation with children They did know about his drugs !Oldest son now knows. Relationship with is better. 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 EDUCATION: [place] in 1995 FAMILY HISTORY: Born and raised in . . Father Rashad Modi dies at age 67 yr. Disabled from back pain Was in [place] and Had metastatic small cell cancer. 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 Has one older brother Rashad Modi 41 yr Lives in [facility] with 2 kids. Sees him couple times a week Big. One older sister Betsey Modi 44 yr single. Stay at home.brenda in [place] 2 sons Jordi and Mariusz. Close to her Sees her twice a week. Happy childhood. No sports except on the streets Good childhood MARITAL HISTORY Left house at age 16 yrs Met his and lived with her for 11 years Got 10 years ago. 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 Had coccaine and percocet habits Stopped recently 2 yrs ago Went for therapy and counselling. He threatened to leave her.Has 2 children #Cornelius 16 yr good student Graduated from [employer] Wants to be an acid tank liner Now working for a [employer] company. #Abdelrahman 13 yr Plays hockey and lacrosse Goes to [facility] Lives at [address] in for 13 years Bought it 11 more years to go. Good relation with children They did know about his drugs !Oldest son now knows. Relationship with is better. 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 EDUCATION: [place] in 1995 FAMILY HISTORY: Born and raised in . . Father Rashad Modi dies at age 67 yr. Disabled from back pain Was in [facility] and Had metastatic small cell cancer. 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 Has one older brother Rashad Modi 41 yr Lives in [place] Artistic Director with 2 kids. Sees him couple times a week Big. One older sister Betsey Modi 44 yr single. Stay at home.brenda in [place] 2 sons Jordi and Mariusz. Close to her Sees her twice a week. Happy childhood. No sports except on the streets Good childhood MARITAL HISTORY Left house at age 16 yrs Met his and lived with her for 11 years Got 10 years ago. 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 Had coccaine and percocet habits Stopped recently 2 yrs ago Went for therapy and counselling. 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 #Abdelrahman 13 yr Plays hockey and lacrosse Goes to [facility] [employer] Lives at [address] in for 13 years Bought it 11 more years to go. Good relation with children They did know about his drugs !Oldest son now knows. Relationship with is better. 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 EDUCATION: [place] in [place] FAMILY HISTORY: Born and raised in . . Father Rashad Modi dies at age 67 yr. Disabled from back pain Was in [facility] and Had metastatic small cell cancer. 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 Has one older brother Rashad Modi 41 yr Lives in [facility] with 2 kids. Sees him couple times a week Big. One older sister Betsey Modi 44 yr single. Stay at home.brenda in [place] 2 sons Jordi and Mariusz. Close to her Sees her twice a week. Happy childhood. No sports except on the streets Good childhood MARITAL HISTORY Left house at age 16 yrs Met his and lived with her for 11 years Got 10 years ago. 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 Had coccaine and percocet habits Stopped recently 2 yrs ago Went for therapy and counselling. 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 #Abdelrahman 13 yr Plays hockey and lacrosse Goes to [facility] Lives at [address] in for 13 years Bought it 11 more years to go. Good relation with children They did know about his drugs !Oldest son now knows. Relationship with is better. 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 EDUCATION: [place] in 1995 FAMILY HISTORY: Born and raised in . . Father Rashad Modi dies at age 67 yr. Disabled from back pain Was in [facility] and Had metastatic small cell cancer. 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 Has one older brother Rashad Modi 41 yr Lives in [facility] with 2 kids. Sees him couple times a week Big. One older sister Betsey Modi 44 yr single. Stay at home.brenda in [place] 2 sons Jordi and Mariusz. Close to her Sees her twice a week. Happy childhood. No sports except on the streets Good childhood MARITAL HISTORY Left house at age 16 yrs Met his and lived with her for 11 years Got 10 years ago. 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 Had coccaine and percocet habits Stopped recently 2 yrs ago Went for therapy and counselling. 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 #Abdelrahman 13 yr Plays hockey and lacrosse Goes to [facility] [employer] Lives at [address] in for 13 years Bought it 11 more years to go. Good relation with children They did know about his drugs !Oldest son now knows. Relationship with is better. 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 EDUCATION: [place] in [place] FAMILY HISTORY: Born and raised in . . Father Rashad Modi dies at age 67 yr. Disabled from back pain Was in [facility] and Had metastatic small cell cancer. 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 Has one older brother Rashad Modi 41 yr Lives in [facility] with 2 kids. Sees him couple times a week Big. One older sister Betsey Modi 44 yr single. Stay at home.brenda in [place] 2 sons Jordi and Mariusz. Close to her Sees her twice a week. Happy childhood. No sports except on the streets Good childhood MARITAL HISTORY Left house at age 16 yrs Met his and lived with her for 11 years Got 10 years ago. 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 Had coccaine and percocet habits Stopped recently 2 yrs ago Went for therapy and counselling. He threatened to leave her.Has 2 children #Cornelius 16 yr good student Graduated from [employer] Wants to be an acid tank liner Now working for a [employer] company. #Abdelrahman 13 yr Plays hockey and lacrosse Goes to [employer] Lives at [address] [facility] in for 13 years Bought it 11 more years to go. Good relation with children They did know about his drugs !Oldest son now knows. Relationship with is better. 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 EDUCATION: [place] in 1995 FAMILY HISTORY: Born and raised in . . Father Rashad Modi dies at age 67 yr. Disabled from back pain Was in [employer] Had metastatic small cell cancer. 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 Has one older brother Rashad Modi 41 yr Lives in [place] Artistic Director with 2 kids. Sees him couple times a week Big. One older sister Betsey Modi 44 yr single. Stay at home.brenda in [place] 2 sons Jordi and Mariusz. Close to her Sees her twice a week. Happy childhood. No sports except on the streets Good childhood MARITAL HISTORY Left house at age 16 yrs Met his and lived with her for 11 years Got 10 years ago. 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 Had coccaine and percocet habits Stopped recently 2 yrs ago Went for therapy and counselling. He threatened to leave her.Has 2 children #Cornelius 16 yr good student Graduated from [employer] Wants to be an acid tank liner Now working for a [employer] company. #Abdelrahman 13 yr Plays hockey and lacrosse Goes to [employer] [employer] Lives at [address] [facility] in for 13 years Bought it 11 more years to go. Good relation with children They did know about his drugs !Oldest son now knows. Relationship with is better. 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 EDUCATION: [place] in 1995 FAMILY HISTORY: Born and raised in . . Father Rashad Modi dies at age 67 yr. Disabled from back pain Was in [employer] Had metastatic small cell cancer. 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 Has one older brother Rashad Modi 41 yr Lives in [place] Artistic Director with 2 kids. Sees him couple times a week Big. One older sister Betsey Modi 44 yr single. Stay at home.brenda in [place] 2 sons Jordi and Mariusz. Close to her Sees her twice a week. Happy childhood. No sports except on the streets Good childhood MARITAL HISTORY Left house at age 16 yrs Met his and lived with her for 11 years Got 10 years ago. 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 Had coccaine and percocet habits Stopped recently 2 yrs ago Went for therapy and counselling. He threatened to leave her.Has 2 children #Cornelius 16 yr good student Graduated from [employer] Wants to be an acid tank liner Now working for a [employer] company. #Abdelrahman 13 yr Plays hockey and lacrosse Goes to [employer] [employer] Lives at [address] [facility] in for 13 years Bought it 11 more years to go. Good relation with children They did know about his drugs !Oldest son now knows. Relationship with is better. 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 EDUCATION: [place] in 1995 FAMILY HISTORY: Born and raised in . . Father Rashad Modi 67 yr. Disabled from back pain Was in [employer] Just got 1 year to live as he has metastatic small cell cancer. 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 Has one older brother Rashad Modi 39 yr Lives in [facility] with 2 kids. Sees him couple times a week Big. One older sister Betsey Modi 41 yr single. Stay at home mother Lives in [place] 2 sons Jordi and Mariusz. Close to her Sees her twice a week. Happy childhood. No sports except on the streets Good childhood MARITAL HISTORY Left house at age 16 yrs Met his and lived with her for 11 years Got 7 years ago. 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 Had coccaine and percocet habits Stopped recently 6 months ago Goes for therapy and counselling. He threatened to leave her.Has 2 children #Cornelius 13 yr good student Plays sports Goes to [employer] #Abdelrahman 10 yr Plays hockey and lacrosse Goes to [employer]. Lives at [address] [place] [address] in for 13 years Bought it 9 more years to go. Good relation with children They did know about his drugs !Oldest son now knows. Relationship with is better. 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 EDUCATION: [place] in 1995 FAMILY HISTORY: Born and raised in . . Father Rashad Modi dies at age 67 yr. Disabled from back pain Was in [facility] and Had metastatic small cell cancer. 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 Has one older brother Rashad Modi 41 yr Lives in [facility] with 2 kids. Sees him couple times a week Big. One older sister Betsey oMdi 44 yr single. Stay at home.brenda in [place] 2 sons Jordi and Mariusz. Close to her Sees her twice a week. Happy childhood. No sports except on the streets Good childhood MARITAL HISTORY Left house at age 16 yrs Met his and lived with her for 11 years Got 10 years ago. 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 Had coccaine and percocet habits Stopped recently 2 yrs ago Went for therapy and counselling. 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 #Abdelrahman 13 yr Plays hockey and lacrosse Goes to [employer] [employer] Lives at [address] [facility] in for 13 years Bought it 11 more years to go. Good relation with children They did know about his drugs !Oldest son now knows. Relationship with is better. 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 EDUCATION: [place] in 1995 FAMILY HISTORY: Born and raised in . . Father Rashad Modi dies at age 67 yr. Disabled from back pain Was in [facility] and Had metastatic small cell cancer. 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 Has one older brother Rashad Modi 41 yr Lives in [facility] with 2 kids. Sees him couple times a week Big. One older sister Betsey Modi 44 yr single. Stay at home.brenda in [place] 2 sons Jordi and Mariusz. Close to her Sees her twice a week. Happy childhood. No sports except on the streets Good childhood MARITAL HISTORY Left house at age 16 yrs Met his and lived with her for 11 years Got 10 years ago. 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 Had coccaine and percocet habits Stopped recently 2 yrs ago Went for therapy and counselling. 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 #Abdelrahman 13 yr Plays hockey and lacrosse Goes to [facility] [employer] Lives at [address] in for 13 years Bought it 11 more years to go. Good relation with children They did know about his drugs !Oldest son now knows. Relationship with is better. 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 EDUCATION: [place] in [place] FAMILY HISTORY: Born and raised in . . Father Rashad Modi dies at age 67 yr. Disabled from back pain Was in [facility] and Had metastatic small cell cancer. 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 Has one older brother Rashad Modi 41 yr Lives in [place] Artistic Director with 2 kids. Sees him couple times a week Big. One older sister Betsey Modi 44 yr single. Stay at home.brenda in [place] 2 sons Jordi and Mariusz. Close to her Sees her twice a week. Happy childhood. No sports except on the streets Good childhood MARITAL HISTORY Left house at age 16 yrs Met his and lived with her for 11 years Got 10 years ago. 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 Had coccaine and percocet habits Stopped recently 2 yrs ago Went for therapy and counselling. 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 #Abdelrahman 13 yr Plays hockey and lacrosse Goes to [facility] [employer] [employer] Lives at [address] in for 13 years Bought it 11 more years to go. Good relation with children They did know about his drugs !Oldest son now knows. Relationship with is better. 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 EDUCATION: [place] in [place] FAMILY HISTORY: Born and raised in . . Father Rashad Modi dies at age 67 yr. Disabled from back pain Was in [employer] and Had metastatic small cell cancer. 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 Has one older brother Rashad Modi 41 yr Lives in [place] Artistic Director with 2 kids. Sees him couple times a week Big. One older sister Betsey Modi 44 yr single. Stay at home.brenda in [place] 2 sons Jordi and Mariusz. Close to her Sees her twice a week. Happy childhood. No sports except on the streets Good childhood MARITAL HISTORY Left house at age 16 yrs Met his and lived with her for 11 years Got 10 years ago. 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 Had coccaine and percocet habits Stopped recently 2 yrs ago Went for therapy and counselling. 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 #Abdelrahman 13 yr Plays hockey and lacrosse Goes to [facility] Lives at [address] [facility] in for 13 years Bought it 11 more years to go. Good relation with children They did know about his drugs !Oldest son now knows. Relationship with is better. 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 EDUCATION: [place] in 1995 FAMILY HISTORY: Born and raised in . . Father Rashad Modi dies at age 67 yr. Disabled from back pain Was in [employer] Had metastatic small cell cancer. 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 Has one older brother Rashad Modi 41 yr Lives in [place] Artistic Director with 2 kids. Sees him couple times a week Big. One older sister Betsey Modi 44 yr single. Stay at home.brenda in [place] 2 sons Jordi and Mariusz. Close to her Sees her twice a week. Happy childhood. No sports except on the streets Good childhood MARITAL HISTORY Left house at age 16 yrs Met his and lived with her for 11 years Got 10 years ago. 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 Had coccaine and percocet habits Stopped recently 2 yrs ago Went for therapy and counselling. He threatened to leave her.Has 2 children #Cornelius 16 yr good student Graduated from [employer] Wants to be an acid tank liner Now working for a [employer] company. #Abdelrahman 13 yr Plays hockey and lacrosse Goes to [facility] [employer] Lives at [address] [facility] in for 13 years Bought it 11 more years to go. Good relation with children They did know about his drugs !Oldest son now knows. Relationship with is better. 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 EDUCATION: [place] in 1995 FAMILY HISTORY: Born and raised in . . Father Rashad Modi dies at age 67 yr. Disabled from back pain Was in [employer] Had metastatic small cell cancer. 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 Has one older brother Rashad Modi 41 yr Lives in [facility] with 2 kids. Sees him couple times a week Big. One older sister Betsey Modi 44 yr single. Stay at home.brenda in [place] 2 sons Jordi and Mariusz. Close to her Sees her twice a week. Happy childhood. No sports except on the streets Good childhood MARITAL HISTORY Left house at age 16 yrs Met his and lived with her for 11 years Got 10 years ago. 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 Had coccaine and percocet habits Stopped recently 2 yrs ago Went for therapy and counselling. He threatened to leave her.Has 2 children #Cornelius 16 yr good student Graduated from [employer] Wants to be an acid tank liner Now working for a [employer] company. #Abdelrahman 13 yr Plays hockey and lacrosse Goes to [facility] Lives at [facility] in for 13 years Bought it 11 more years to go. Good relation with children They did know about his drugs !Oldest son now knows. Relationship with is better. 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 EDUCATION: [place] in [place] FAMILY HISTORY: Born and raised in . . Father Rashad Modi dies at age 67 yr. Disabled from back pain Was in [employer] and Had metastatic small cell cancer. 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 Has one older brother Rashad Modi 41 yr Lives in [facility] with 2 kids. Sees him couple times a week Big. One older sister Betsey Modi 44 yr single. Stay at home.brenda in [place] 2 sons Jordi and Mariusz. Close to her Sees her twice a week. Happy childhood. No sports except on the streets Good childhood MARITAL HISTORY Left house at age 16 yrs Met his and lived with her for 11 years Got 10 years ago. 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 Had coccaine and percocet habits Stopped recently 2 yrs ago Went for therapy and counselling. He threatened to leave her.Has 2 children #Cornelius 16 yr good student Graduated from [employer] Wants to be an acid tank liner Now working for a [employer] company. #Abdelrahman 13 yr Plays hockey and lacrosse Goes to [facility] [facility] [employer] Lives at [facility] in for 13 years Bought it 11 more years to go. Good relation with children They did know about his drugs !Oldest son now knows. Relationship with is better. 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 EDUCATION: [place] in [place] FAMILY HISTORY: Born and raised in . . Father Rashad Modi dies at age 67 yr. Disabled from back pain Was in [facility] and Had metastatic small cell cancer. 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 Has one older brother Rashad Modi 41 yr Lives in [facility] with 2 kids. Sees him couple times a week Big. One older sister Betsey Modi 44 yr single. Stay at home.brenda in [place] 2 sons Jordi and Mariusz. Close to her Sees her twice a week. Happy childhood. No sports except on the streets Good childhood MARITAL HISTORY Left house at age 16 yrs Met his and lived with her for 11 years Got 10 years ago. 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 Had coccaine and percocet habits Stopped recently 2 yrs ago Went for therapy and counselling. He threatened to leave her.Has 2 children #Cornelius 16 yr good student Graduated from [employer] Wants to be an acid tank liner Now working for a [employer] company. #Abdelrahman 13 yr Plays hockey and lacrosse Goes to [employer] [facility] [employer] Lives at [address] [facility] in for 13 years Bought it 11 more years to go. Good relation with children They did know about his drugs !Oldest son now knows. Relationship with is better. 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 EDUCATION: [place] in [place] FAMILY HISTORY: Born and raised in . . Father Rashad Modi dies at age 67 yr. Disabled from back pain Was in [facility] and Had metastatic small cell cancer. 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 Has one older brother Rashad Modi 41 yr [facility] 2 kids. Sees him couple times a week Big. One older sister Betsey Modi 44 yr single. Stay at home.brenda in [place] 2 sons Jordi and Mariusz. Close to her Sees her twice a week. Happy childhood. No sports except on the streets Good childhood MARITAL HISTORY Left house at age 16 yrs Met his and lived with her for 11 years Got 10 years ago. 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 Had coccaine and percocet habits Stopped recently 2 yrs ago Went for therapy and counselling. 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 #Abdelrahman 13 yr Plays hockey and lacrosse Goes to [employer] [facility] [employer] Lives at [address] [facility] in for 13 years Bought it 11 more years to go. Good relation with children They did know about his drugs !Oldest son now knows. Relationship with is better. 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 EDUCATION: [place] in [place] FAMILY HISTORY: Born and raised in . . Father Rashad Modi dies at age 67 yr. Disabled from back pain Was in [facility] and Had metastatic small cell cancer. 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 Has one older brother Rashad Modi 41 yr Lives in [facility] with 2 kids. Sees him couple times a week Big. One older sister Betsey Modi 44 yr single. Stay at home.brenda in [place] 2 sons Jordi and Mariusz. Close to her Sees her twice a week. Happy childhood. No sports except on the streets Good childhood MARITAL HISTORY Left house at age 16 yrs Met his and lived with her for 11 years Got 10 years ago. 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 Had coccaine and percocet habits Stopped recently 2 yrs ago Went for therapy and counselling. 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 #Abdelrahman 13 yr Plays hockey and lacrosse Goes to [employer] Lives at [address] in for 13 years Bought it 11 more years to go. Good relation with children They did know about his drugs !Oldest son now knows. Relationship with is better. 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 EDUCATION: [place] in 1995 FAMILY HISTORY: Born and raised in . . Father Rashad Modi dies at age 67 yr. Disabled from back pain Was in [facility] and Had metastatic small cell cancer. 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 Has one older brother Rashad Modi 41 yr Lives in [facility] with 2 kids. Sees him couple times a week Big. One older sister Betsey Modi 44 yr single. Stay at home.brenda in [place] 2 sons Jordi and Mariusz. Close to her Sees her twice a week. Happy childhood. No sports except on the streets Good childhood MARITAL HISTORY Left house at age 16 yrs Met his and lived with her for 11 years Got 10 years ago. 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 Had coccaine and percocet habits Stopped recently 2 yrs ago Went for therapy and counselling. He threatened to leave her.Has 2 children Rubin 16 yr good student Graduated from [employer] Wants to be an acid tank liner Now working for a [employer] company. Slime 13 yr Plays hockey and lacrosse Goes to [facility] Lives at [address] in for 13 years Bought it 11 more years to go. Good relation with children They did know about his drugs !Oldest son now knows. Relationship with is better. 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 EDUCATION: [place] in 1995 FAMILY HISTORY: Born and raised in . . Father Rashad Modi dies at age 67 yr. Disabled from back pain Was in [facility] and Had metastatic small cell cancer. 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 Has one older brother Rashad Modi 41 yr Lives in [facility] with 2 kids. Sees him couple times a week Big. One older sister Betsey Modi 44 yr single. Stay at home.brenda in [place] 2 sons Jordi and Mariusz. Close to her Sees her twice a week. Happy childhood. No sports except on the streets Good childhood MARITAL HISTORY Left house at age 16 yrs Met his and lived with her for 11 years Got 10 years ago. 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 Had coccaine and percocet habits Stopped recently 2 yrs ago Went for therapy and counselling. He threatened to leave her.Has 2 children Rubin 16 yr good student Graduated from [employer] Wants to be an acid tank liner Now working for a [employer] company. #Abdelrahman 13 yr Plays hockey and lacrosse Goes to [facility] [employer] Lives at [address] [facility] in for 13 years Bought it 11 more years to go. Good relation with children They did know about his drugs !Oldest son now knows. Relationship with is better. 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 EDUCATION: [place] in 1995 FAMILY HISTORY: Born and raised in . . Father Rashad Modi dies at age 67 yr. Disabled from back pain Was in [employer] Had metastatic small cell cancer. 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 Has one older brother Rashad Modi 41 yr Lives in [place] Artistic Director with 2 kids. Sees him couple times a week Big. One older sister Betsey Modi 44 yr single. Stay at home.brenda in [place] 2 sons Jordi and Mariusz. Close to her Sees her twice a week. Happy childhood. No sports except on the streets Good childhood MARITAL HISTORY Left house at age 16 yrs Met his and lived with her for 11 years Got 10 years ago. 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 Had coccaine and percocet habits Stopped recently 2 yrs ago Went for therapy and counselling. He threatened to leave her.Has 2 children #Cornelius 16 yr good student Graduated from [employer] Wants to be an acid tank liner Now working for a [employer] company. #Abdelrahman 13 yr Plays hockey and lacrosse Goes to [facility] Lives at [address] [facility] in for 13 years Bought it 11 more years to go. Good relation with children They did know about his drugs !Oldest son now knows. Relationship with is better. 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 EDUCATION: [place] in 1995 FAMILY HISTORY: Born and raised in . . Father Rashad Modi dies at age 67 yr. Disabled from back pain Was in [employer] Had metastatic small cell cancer. 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 Has one older brother Rashad Modi 41 yr Lives in [facility] with 2 kids. Sees him couple times a week Big. One older sister Betsey Modi 44 yr single. Stay at home.brenda in [place] 2 sons Jordi and Mariusz. Close to her Sees her twice a week. Happy childhood. No sports except on the streets Good childhood MARITAL HISTORY Left house at age 16 yrs Met his Sraah and lived with her for 11 years Got 10 years ago. 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 Had coccaine and percocet habits Stopped recently 2 yrs ago Went for therapy and counselling. He threatened to leave her.Has 2 children #Cornelius 16 yr good student Graduated from [employer] Wants to be an acid tank liner Now working for a [employer] company. #Abdelrahman 13 yr Plays hockey and lacrosse Goes to [facility] Lives at [address] [facility] in for 13 years Bought it 11 more years to go. Good relation with children They did know about his drugs !Oldest son now knows. Relationship with is better. 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 EDUCATION: [place] in 1995 FAMILY HISTORY: Born and raised in . . Father Rashad Modi dies at age 67 yr. Disabled from back pain Was in [place] and Had metastatic small cell cancer. 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 Has one older brother Rashad Modi 41 yr Lives in [facility] with 2 kids. Sees him couple times a week Big. One older sister Betsey Modi 44 yr single. Stay at home.brenda in [place] 2 sons Jordi and Mraiusz. Close to her Sees her twice a week. Happy childhood. No sports except on the streets Good childhood MARITAL HISTORY Left house at age 16 yrs Met his and lived with her for 11 years Got 10 years ago. 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 Had coccaine and percocet habits Stopped recently 2 yrs ago Went for therapy and counselling. He threatened to leave her.Has 2 children #Cornelius 16 yr good student Graduated from [employer] Wants to be an acid tank liner Now working for a [employer] company. #Abdelrahman 13 yr Plays hockey and lacrosse Goes to [facility] [employer] Lives at [address] [facility] in for 13 years Bought it 11 more years to go. Good relation with children They did know about his drugs !Oldest son now knows. Relationship with is better. 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 EDUCATION: [place] in [place] FAMILY HISTORY: Born and raised in . . Father Rashad Modi dies at age 67 yr. Disabled from back pain Was in [facility] and Had metastatic small cell cancer. 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 Has one older brother Rashad Modi 41 yr Lives in [place] Artistic Director with 2 kids. Sees him couple times a week Big. One older sister Betsey Modi 44 yr single. Stay at home.brenda in [place] 2 sons Jordi and Mariusz. Close to her Sees her twice a week. Happy childhood. No sports except on the streets Good childhood MARITAL HISTORY Left house at age 16 yrs Met his and lived with her for 11 years Got 10 years ago. 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 Had coccaine and percocet habits Stopped recently 2 yrs ago Went for therapy and counselling. 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 #Abdelrahman 13 yr Plays hockey and lacrosse Goes to [facility] [employer] Lives at [address] in for 13 years Bought it 11 more years to go. Good relation with children They did know about his drugs !Oldest son now knows. Relationship with is better. 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 EDUCATION: [place] in [place] FAMILY HISTORY: Born and raised in . . Father Rashad Modi dies at age 67 yr. Disabled from back pain Was in [facility] and Had metastatic small cell cancer. 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 Has one older brother Rashad Modi 41 yr Lives in [facility] with 2 kids. Sees him couple times a week Big. One older sister Betsey Modi 44 yr single. Stay at home.brenda in [place] 2 sons Jordi and Mariusz. Close to her Sees her twice a week. Happy childhood. No sports except on the streets Good childhood MARITAL HISTORY Left house at age 16 yrs Met his and lived with her for 11 years Got 10 years ago. 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 Had coccaine and percocet habits Stopped recently 2 yrs ago Went for therapy and counselling. 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 #Abdelrahman 13 yr Plays hockey and lacrosse Goes to [facility] Lives at [address] in for 13 years Bought it 11 more years to go. Good relation with children They did know about his drugs !Oldest son now knows. Relationship with is better. 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 EDUCATION: [place] in [place] FAMILY HISTORY: Born and raised in . . Father Rashad Modi dies at age 67 yr. Disabled from back pain Was in [facility] and Had metastatic small cell cancer. 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 Has one older brother Rashad Modi 41 yr Lives in [facility] with 2 kids. Sees him couple times a week Big. One older sister Betsey Modi 44 yr single. Stay at home.brenda in [place] 2 sons oJrdi and Mariusz. Close to her Sees her twice a week. Happy childhood. No sports except on the streets Good childhood MARITAL HISTORY Left house at age 16 yrs Met his and lived with her for 11 years Got 10 years ago. 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 Had coccaine and percocet habits Stopped recently 2 yrs ago Went for therapy and counselling. He threatened to leave her.Has 2 children #Cornelius 16 yr good student Graduated from [employer] Wants to be an acid tank liner Now working for a [employer] company. #Abdelrahman 13 yr Plays hockey and lacrosse Goes to [facility] [employer] Lives at [address] in for 13 years Bought it 11 more years to go. Good relation with children They did know about his drugs !Oldest son now knows. Relationship with is better. 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 EDUCATION: [place] in [place] FAMILY HISTORY: Born and raised in . . Father Rashad Modi dies at age 67 yr. Disabled from back pain Was in [employer] Had metastatic small cell cancer. 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 Has one older brother Rashad Modi 41 yr Lives in [place] Artistic Director with 2 kids. Sees him couple times a week Big. One older sister Betsey Modi 44 yr single. Stay at home.brenda in [place] 2 sons Jordi and Mariusz. Close to her Sees her twice a week. Happy childhood. No sports except on the streets Good childhood MARITAL HISTORY Left house at age 16 yrs Met his and lived with her for 11 years Got 10 years ago. 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 Had coccaine and percocet habits Stopped recently 2 yrs ago Went for therapy and counselling. He threatened to leave her.Has 2 children #Cornelius 16 yr good student Graduated from [employer] Wants to be an acid tank liner Now working for a [employer] company. #Abdelrahman 13 yr Plays hockey and lacrosse Goes to [facility] Lives at [address] [facility] in for 13 years Bought it 11 more years to go. Good relation with children They did know about his drugs !Oldest son now knows. Relationship with is better. 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 EDUCATION: [place] in [place] FAMILY HISTORY: Born and raised in . . Father Rashad Modi 67 yr. Disabled from back pain Was in [place] [employer] Just got 1 year to live as he has metastatic small cell cancer. 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 Has one older brother Rashad Modi 39 yr Lives in [facility] with 2 kids. Sees him couple times a week Big. One older sister Betsey Modi 41 yr single. Stay at home mother Lives in [place] 2 sons Jordi and Mariusz. Close to her Sees her twice a week. Happy childhood. No sports except on the streets Good childhood MARITAL HISTORY Left house at age 16 yrs Met his and lived with her for 11 years Got 7 years ago. 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 Had coccaine and percocet habits Stopped recently 6 months ago Goes for therapy and counselling. He threatened to leave her.Has 2 children #Cornelius 13 yr good student Plays sports Goes to [employer] #Abdelrahman 10 yr Plays hockey and lacrosse Goes to [employer]. Lives at [address] [place] [address] in for 13 years Bought it 9 more years to go. Good relation with children They did know about his drugs !Oldest son now knows. Relationship with is better. 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 EDUCATION: [place] in [place] FAMILY HISTORY: Born and raised in . . Father Rashad Modi dies at age 67 yr. Disabled from back pain Was in [facility] and Had metastatic small cell cancer. 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 Has one older brother Rashad Modi 41 yr Lives in [facility] with 2 kids. Sees him couple times a week Big. One older sister Betsey Modi 44 yr single. Stay at home.brenda in [place] 2 sons Jordi and Mariusz. Close to her Sees her twice a week. Happy childhood. No sports except on the streets Good childhood MARITAL HISTORY Left house at age 16 yrs Met his and lived with her for 11 years Got 10 years ago. 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 Had coccaine and percocet habits Stopped recently 2 yrs ago Went for therapy and counselling. He threatened to leave her.Has 2 children #Cornelius 16 yr good student Graduated from [employer] Wants to be an acid tank liner Now working for a [employer] company. #Abdelrahman 13 yr Plays hockey and lacrosse Goes to [facility] [facility] [employer] Lives at [address] [facility] in for 13 years Bought it 11 more years to go. Good relation with children They did know about his drugs !Oldest son now knows. Relationship with is better. 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 EDUCATION: [place] in [place] FAMILY HISTORY: Born and raised in . . Father Rashad Modi dies at age 67 yr. Disabled from back pain Was in [facility] and Had metastatic small cell cancer. 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 Has one older brother Rashad Modi 41 yr Lives in [place] Artistic Director with 2 kids. Sees him couple times a week Big. One older sister Betsey Modi 44 yr single. Stay at home.brenda in [place] 2 sons Jordi and Mariusz. Close to her Sees her twice a week. Happy childhood. No sports except on the streets Good childhood MARITAL HISTORY Left house at age 16 yrs Met his and lived with her for 11 years Got 10 years ago. 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 Had coccaine and percocet habits Stopped recently 2 yrs ago Went for therapy and counselling. He threatened to leave her.Has 2 children #Cornelius 16 yr good student Graduated from [employer] Wants to be an acid tank liner Now working for a [employer] company. #Abdelrahman 13 yr Plays hockey and lacrosse Goes to [facility] [employer] Lives at [address] [facility] in for 13 years Bought it 11 more years to go. Good relation with children They did know about his drugs !Oldest son now knows. Relationship with is better. 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 EDUCATION: [place] in [place] FAMILY HISTORY: Born and raised in . . Father Rashad Modi 67 yr. Disabled from back pain Was in [place] and Just got 1 year to live as he has metastatic small cell cancer. 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 Has one older brother Rashad Modi 39 yr Lives in [facility] with 2 kids. Sees him couple times a week Big. One older sister Betsey Modi 41 yr single. Stay at home mother Lives in [place] 2 sons Jordi and Mariusz. Close to her Sees her twice a week. Happy childhood. No sports except on the streets Good childhood MARITAL HISTORY Left house at age 16 yrs Met his and lived with her for 11 years Got 7 years ago. 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 Had coccaine and percocet habits Stopped recently 6 months ago Goes for therapy and counselling. He threatened to leave her.Has 2 children #Cornelius 13 yr good student Plays sports Goes to [employer] [employer] #Abdelrahman 10 yr Plays hockey and lacrosse Goes to [employer]. Lives at [address] [place] [address] in for 13 years Bought it 9 more years to go. Good relation with children They did know about his drugs !Oldest son now knows. Relationship with is better. 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 Told to restart using it and recheck , Snoring less. 06/02/19 May not need ity as states he is not snoring much woith the weight loss Will do a retrial of sleep study later 06/30/19 reports he doesnt snore much May not need the CPAP 07/23/21 not using cpap, will rerefer to sleep medicine for evaluation Problem 691604677 Ventral hernia without obstruction or gangrene (K43.9) Active confirmed 7 yrs ago [place] jean baptiste had one in same place. 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 and children noticed it Had a long discussion and counselling and will change to Venlafaxine 100 mg Will see him after 4 weeks and adjust dose as needed 06/30/19 Doing better Will increase Venlafaxine 100 mg to BID Problem 94618696 Hyperlipidemia (E78.5) Active confirmed Good control 06/02/19 Will get labs today Problem 153856009 Morbid obesity (E66.01) Active confirmed Weighs 298 lbs Weighed 322 at last visit.Sent for weight reduction to Dr Koch Did the classes, instructor private and qualified. Did not go back for surgery. Thinking about it. 01/28/19 Weight 306 lbs.Will give trial of phentertmiine 06/02/19 Lost 38 lbs because of his habit change and using phentermine Congratulated him Goal is another 20 lbs. Will continue phentermine for another3 months 06/30/19 Lost another 10 lbs. 12..23 Weighs 283 lbs Unable to lose despite portion control and proper food Will trial with phentermine and write for eze Problem Iron deficiency anemia due to chronic blood loss (819878323) Iron deficiency anemia due to chronic blood loss (D50.0) Active confirmed 09/23/22 Will need urgent Colonoscopy and EGD Will refer to Dr Anaya Martinez at [facility]. Refused LAUREL in office as he is getting a colonoscopy. Problem 73630484 HTN (hypertension) (I10) Active confirmed Was on no meds Diastolic HTN Agrees to start on Lisinopril 10/12.5 mg Doing well on it. However his tickling cough could be a sise efeect Willl stop it and start LOsartan HCTZ 100/12.5 06/02/10 Doing well Will continue 06/30/19 Lost 48 lbs getting dizzy on standing up suddenly. Will stop Losartan and see him in 6 weeks Problem 644930904 Dental abscess (K04.7) Active confirmed May have otitis media and sinusitis or dental abscess Reluctant to go to ED Will add Levaquin to cover all bases Problem 307857396 Onychomycosis (B35.1) Active confirmed Will refer to Kun Schwartz Problem 0909202 Chronic alcoholism (F10.20) Active confirmed 08/07/22 Using Naltrexone for 3 weeks Doing well Has been sober since then Will continue to refill Naltrexone Problem 31116158 Chronic obstructive pulmonary disease, unspecified COPD type (J44.9) Active confirmed Non smoker Saw Dr Delarosa Told he had asthma . Had sleep study which was positive Uses CPAP intermittently Has a hard time to use it. Had it 8 months ago Uses Symbicort in am 06/02/19 Inhaler costs $60 copay. Since he lost weight and doeasnt snore as much I told him he can stop the symbicort for now Problem Pain in left foot (613915926156049 ) Left foot pain (M79.672) Active confirmed 09/23/22 I thin k it is from flat foot Told to use insole and the see a service bar cashier if not better Saw Moise 2 yrs ago for right toe nail fungus Gave him arches Wore it Worn out Problem Rheumatoid arthritis (24533465) Rheumatoid arthritis (M06.9) Active confirmed 05/26/23 Seen on MRI abdomen s Referred to see Assembled Wood Products Repairer on Jul 06, 2023 at [facility] [place] Infiximab is helping (Remicaid) Problem 27357277 Costochondritis , acute (M94.0) Active confirmed Problem Crohn's disease of small intestine (72149714) Crohns disease of small intestine with complication (K50.019) Active confirmed 05/26/[address] Deidre Thomas after Colonoscopy and EGD ,. Put on Remicaid infusion on 05/08/23 Had 2 infusions so far Next 06/20 and then every 8 weeks Had colonoscopy and EGD again last month Saw her yesterday and gave him a new prescription to take and has to monitor after 2 weeks Problem 348829466 Balance disorder (R26.89) Active confirmed Will get an MRI . May have intracranial patholgy causing outburst of violent behaviour, fall, gait instability and change in affect noticed by his family Will plan to get an EEG after that Will hold off all medications for now and see him after 2 days 11/10/19 Waiting to get the MRI. reports he gets easily irritated. Had a fall yesterday in the dining room Didnt get hurt Told to use the alprazolam prn To be kept with . Problem 710098442 Hospital discharge follow-up (Z09) Active confirmed 10/01/20 Ad[facility] to 09/05/20 and treated with IV antibiotics for cellulitis face Meds reviewed and reconciled Problem Essential hypertension (38414151) HTN (hypertension), benign (I10) Active confirmed Problem General examination of patient (307227400) Routine medical exam (Z00.00) Active confirmed Problem 143782566 Blurred vision, bilateral (H53.8) Active confirmed Started 4 month s ago Will send to Dr Alexander Problem 277462854 Alcohol abuse counseling and surveillance (Z71.41) Active confirmed Fell off the wagon Back at the [facility] at [place] . Going to meetings Saw psychiatrist Dr Bertrand 11/21/19 Will follow up with therapist for counselling Wants to see me after a week Spent over 30 minutes in todays meeting Problem 59693920705538 Acute left ankle pain (M25.572) Active confirmed Problem 5885620 Fall, subsequent encounter (W19.XXXD) Active confirmed Problem 906802030 Grade II hemorrhoids (K64.1) Active confirmed Problem 65758405 Alcoholism in recovery (F10.21) Active confirmed Going for 20 weeks sessions at [facility] Also going to start on AA meetings after [place]. Doing well Has alprazolam on hand Taking Venlafaxine 05/23/21 Last visit with Psychiatrist PUBLIC SERVICE REPRESENTATIVE was with Denisa Banerjee 2 months ago. [facility] Missed the video call Has to make the appointment 07/22/21 drinks once in a while. can not say what causes him to increase alcohol. will call [facility] for f/u, number given 07/24/22 Unable to find a psychiatrist Will refer to Dr Patty Nicolas, Dr Loving and Dr Shira Woodward Gave him their phone numbers to contact Problem 816194289 History of violent behavior (Z87.898) Active confirmed Problem 676696813 Crohn's disease involving terminal ileum (K50.00) Active confirmed Encounters Encounter Location Date Provider Diagnosis [address] [place] [address] 09/29/2023 MACHELLE PEREZ Plan Of Treatment Pending Test Test Name Order Date Iron and TIBC 08/07/2022 Urinalysis, Complete 10/26/2017 CBC With Differential/Platelet Reticulocyte Count 09/08/2023 Lipid Panel 09/08/2023 Lipid Panel 05/26/2023 Lipid Panel 07/24/2022 Lipid Panel 10/26/2017 Chem-Comprehensive 07/24/2022 Chem-Comprehensive 09/08/2023 Chem-Comprehensive 05/26/2023 CBC 09/08/2023 CBC WITH AUTO DIFF 10/26/2017 COMPREHENSIVE METABOLIC PANEL 10/26/2017 COMPREHENSIVE METABOLIC PANEL 07/26/2018 CBC (COMPLETE BLOOD COUNT) 07/24/2022 CBC (COMPLETE BLOOD COUNT) 01/28/2023 COMPREHENSIVE METABOLIC PANEL 01/28/2023 FOLATE, RBC 01/28/2023 IRON AND TIBC 09/08/2023 IRON AND TIBC 01/28/2023 LIPID PANEL 01/28/2023 PSA, SCREEN 09/08/2023 RETICULOCYTE COUNT 01/28/2023 TSH 01/28/2023 URINALYSIS, COMPLETE 01/28/2023 VITAMIN B12 01/28/2023 Urinalysis, Complete 06/23/2017 Lipid Panel 06/23/2017 CBC 06/23/2017 Chem-Comprehensive 06/23/2017 Future Test Test Name Order Date PSA, total 09/22/2017 Insurance Providers Payer Name Payer Address Payer Phone Subscriber Number Group Number Insured Name Patient Relationship to Insured Coverage Start Date Coverage End Date [employer] and [facility] [address] [place] [address] [id number] Cornelius Modi Self - patient is the insured Medical (General) History Medical History History ICD Code , History of alcoholism Bipolar Disorder with histor y of hospitalisation . Getting counselling from Emma Dotson [facility] On Seroquel and Fluoxetine Obesity Weighs 275 lbs Obstructive Sleep Apnea Has CPAP Hx of Seizures Had EEG by Dr Jony díaz bnormality Alcohol related Facial Cellulitis Hospitalized at [facility] to 09/15/20 IV antibiotics Hypertension Observed during hospitalization in Sep 2020 Didnt come to my office for face to face follow up Iron Deficiency Anemia Crohns Ileitis Had colonosco py and biopsy by Dr Deidre Thomas Put on high dose steroid taper Hemorrhoids Saw surgeon Dr Dheeraj vazquez [place] [facility] Not a source of blood lost No surgery indicated Surgical History Surgery Date(Month/Year) Hip Surgery ORIF 1994 Right Knee Arthroscopy With Medial Meniscus Repair, Later meniscus and ACL repair July 2016 Left knee ACL reepair 2001 By Josh Or mickey 2001 Ventral Hernia Repair with mesh Dr Mohit Koch Oct 2017 EGD and Colonoscopy by Dr Deidre Thomas at [facility] Hospitalization History Reason Date(Month/Year) [facility] for facial cellulit is and HTN Failed treatment wit Azithro and Levaqui. CT face done Treated with Unasyn 09/12/20
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
--- OUTSIDE RECORDS SUMMARY | 2024-09-14 15:25 | XMS_ITS ---
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 Generated for Paul key/Arabella/eTransmitting on:?09/14/2024 03:24 PM EST
--- OUTSIDE RECORDS SUMMARY | 2024-09-14 15:25 | XMS_ITS ---
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 Supervisor Name Role Phone SHIVAM WALLACE Primary Care Provider Allergies No Known Allergies Results Component Value Reference Range Notes CBC Reviewed date:05/27/2023 11:34:58 PM Interpretation: Performing Lab: Notes/Report: Original Ordering Provider: SHIVAM WALLACE MD [employer], a member of [address] [address] Accounts Receivable Representative - Yoly Chappell MD WBC 12.0 4.8-10.8 x10-3/uL RBC 4.9 4.5-5.5 x10-6/uL HEMOGLOBIN 13.2 13.5-17.5 g/dL HEMATOCRIT 41.4 42-54 % MCV 85.2 79-98 fL MCH 27.2 27-32 pg MCHC 31.9 32-37 g/dL RDW 16.7 11-15 % PLT COUNT 379 130-400 x10-3/uL MEAN PLATELET VOLUME 9.8 7-11 fL NRBC % AUTO 0.0 <1 % NRBC # AUTO 0.00 <0.1 x10-3/uL REASON FOR VISIT 4 mo follow up, LABS DUE, EKG DUE AT ANNUAL Medications Medication SIG (Take, Route, Frequency, Duration) Notes Start Date End Date Status Phentermine HCl 37.500 1 capsule Orally Once a day for 30 Not-Taking ALPRAZolam 1 MG 1 tablet Orally Twice a day for 30 days 09/13/2019 Not-Taking ALPRAZolam 1 MG 1 tablet Orally Twice a day prn for 30 days 11/10/2019 Not-Taking Folic Acid 1 MG 1 tablet Orally Once a day for 90 Not-Taking Venlafaxine HCl 100 MG 1 tablet with food Orally Twice a day for 30 day(s) 06/02/2019 Not-Taking Indomethacin 50 MG 1 capsule with food or milk Orally Twice a day for 14 days prn Not-Taking ALPRAZolam 0.5 mg 330 11/10/2019 Not-Ivan ing [place] Carbonate ER 300 MG 1 tablet at bedtime Orally Once a day for 30 day(s) 11/14/2019 Not-Taking Venlafaxine HCl ER 150 mg starte d at [facility] 11/05/2019 Not-Taking Levaquin 500 MG 1 tablet Orally Once a day for 10 day(s) 09/11/2020 Not-Taking ProAir HFA 108 (90 Base) MCG/ACT 2 puffs as needed Inhalation every 4 hrs for 90 days prn 04/26/2018 Not-Taking Aleve 220 MG Oral for 0 TAKE 1 TABLET 3 TIMES DAILY NEEDED. 07/23/2015 Not-Taking Phentermine HCl 37.5 MG TAKE 1 TABLET BY MOUTH EVERY DAY for 60 05/19/2022 Not-Taking Naltrexone HCl 50 MG TAKE 1 TABLET BY MOUTH EVERY DAY for 90 Active Omeprazole 20 MG TAKE 1 CAPSULE BY MOUTH EVERY DAY for 90 OTC Active FLUoxetine HCl 40 MG 1 capsule Orally Once a day for 90 days Active Simvastatin 40 MG TAKE 1 TABLET BY MOUTH EVERY DAY IN THE EVENING for 90 Active SEROquel 50 MG 1 tablet Orally bid for 90 days Active Claritin 10 MG Oral Daily for 0 TAKE 1 TABLET DAILY. 07/23/2015 Active Fish Oil 1000 MG Oral Daily for 0 TAKE 1 CAPSULE DAILY. 07/23/2015 Active Losartan Potassium-HCTZ 100-12.5 MG 1 tablet Orally Once a day for 90 days Not-Taking inFLIXimab 100 MG . Intravenous EVERY 8 WEEKS Active Ranitidine HCl 300 MG 1 capsule at bedtime Orally Once a day for 90 days 11/05/2016 Not-Taking Social History Tobacco Use: Social History Observation [...] other tobacco user? No Section Notes: EDUCATION: [employer] in 1995 FAMILY HISTORY: Born and raised in . . Father Rashad Modi dies at age 67 yr. Disabled from back pain Was in [facility] and Had metastatic small cell cancer. 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 Has one older brother Rashad Modi 41 [address] in [facility] with 2 kids. Sees him couple times a week Big. One older sister Betsey Modi 44 yr single. Stay at home.brenda in [place] 2 sons Jordi and Mariusz. 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 #Abdelrahman 13 yr Plays hockey and lacrosse Goes to [employer] Lives at [address] [facility] [facility] in for 13 years Bought it 11 more years to go. Good relation with children They did know about his drugs !Oldest son now knows. Relationship with is better. 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 Problems Problem Type SNOMED Code ICD Code Onset Dates Problem Status W/U Status Risk Notes Problem Rheumatoid arthritis (10427220) Rheumatoid arthritis (M06.9) Active confirmed 05/26/23 Seen on MRI abdomen s Referred to see Fusion Analyst on Jul 06, 2023 at [facility] The infusion Infiximab is helping (Remicaid) Problem Crohn's disease of small intestine (32844480) Crohns disease of small intestine with complication [...] and has to monitor after 2 weeks Vital Signs Temperature 98.2 degrees Fahrenheit 05/26/20 23 Blood pressure systolic 142 mm Hg 05/26/20 23 Blood pressure diastolic 88 mm Hg 023 Heart Rate 86 /min 05/26/2023 Height 70.0786 in 05/26/2023 Weight 286 lbs 05/26/2023 BMI 40.94 kg/m2 05/26/2023 Oximetry 96 % 05/26/2023 Encounters Encounter Location Date Provider Diagnosis [address] [place] [address] 05/26/2023 SHIVAM WALLACE Hyperlipidemia E78.5 ; Iron deficiency anemia due to chronic blood loss D50.0 ; Alcoholism in recovery F10.21 ; Crohn's disease involving terminal ileum K50.00 ; Grade II hemorrhoids K64.1 ; Rheumatoid arthritis M06.9 and Crohns disease of small intestine with complication K50.019 Assessments Encounter Date Diagnosis (ICD Code) Assessment Notes Treatment Notes Treatment Clinical Notes Section Notes 05/26/2023 Hyperlipidemia (ICD-10 - E78.5) Good control 06/02/19 Will get labs today 05/26/2023 Iron deficiency anemia due to chronic blood loss (ICD-10 - D50.0) 09/23/22 Will need urgent Colonoscopy and EGD Will refer to Dr Anaya Martinez at [facility]. Refused LAUREL in office as he is getting a colonoscopy. 05/26/2023 Alcoholism in recovery (ICD-10 - F10.21) Going for 20 weeks sessions at [facility] Also going to start on AA meetings after . Doing well Has alprazolam on hand Taking Venlafaxine 05/23/21 Last visit with Psychiatrist [facility]ACLE HRMS CONSULTANT was with Denisa Freeman 2 months ago. [...] Gave him their phone numbers to contact 05/26/2023 Crohn's disease involving terminal ileum (ICD-10 - K50.00) 05/26/2023 Grade II hemorrhoids (ICD-10 - K64.1) 05/26/2023 Rheumatoid arthritis (ICD-10 - M06.9) 05/26/23 Seen on MRI abdomen s Referred to see Fusion Analyst on Jul 06, 2023 at [facility] The infusion Infiximab is helping (Remicaid) 05/26/2023 Crohns disease of small intestine with complication [...] and has to monitor after 2 weeks Plan Of Treatment Pending Test Test Name Order Date Lipid Panel 05/26/2023 Chem-Comprehensive 05/26/2023 Next Appt Details Follow Up: 4 Months, Reason: Progress Notes * Cornelius MODIDOB: [birth year] (43 yo M)Acc No.[id number]:05/26/2023 Progress Notes Patient:?Cornelius Modi Provider:?Shivam Wallace MD :1980???Age:43 Y???Sex:Male Ha e:05/26/2023 Address:[address], [place] Subjective: * Chief Complaints: * ???4 mo follow upLABS DUE EK G DUE AT ANNUAL * HPI: ???Interim History:? 02/18/21: ?Last contact was in September 2020. I called him on the phone. He was on his way back in a carpool with 3 other people from [place]. 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 He started working there from May 2020 till September 2020 when he got laid off. He recently got rehired 2 weeks ago. When it rains they do not work and he can come home. ?Informed me that he is taking Seroquel and fluoxetine which is given by [facility]. He has online session with the counselor Emma Dotson. I informed him about the demise of Dr. Arredondo his psychiatrist from [facility]. ?He informed me that he has gained 30 pounds weight since he was laid off currently weighs 275 pounds. He plans to lose it when he started working. He has no other complaints. His Amos delivers groceries to peoples homes. His son Abdelrahman goes to [employer] high school and delivers pizza in the evening. His other son Nasir works full-time for [employer] in security. Patient's mother Maira also lives [...] walker Less stress. Needs DOT for his [employer] policy. His first time applying for one. [...] it on. ?Was seeing Denisa Freeman at [facility] ill call to make an appointment. medication still working well. ?Son in [place] a senior now, played hockey but because of covid will not plan. not sure if he wants to go to college. 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 ?Likes his job. Spends time with family Did ice fishing with Will 21 yr He works for [employer] and lives with his Brand Director at [facility] . Lives in basement of her parents . Abdelrahman is 18 yr. Amos is fine. Mother Maira is now living with her brother as didnt get along with him Talks to her daily. Has called [facility] and has not responded. Ill write his scripts till he finds a new psychiatrist , His insurance will be changing. ?03/31/22 Came to the office. Looking well. Amos does [employer] and works for a friend at a [employer] . Son Will 22 yrs is still working at [employer] Lives in basement with [facility] production gear cutter Son Abdelrahman 18 yr graduauted from High School Working at a [employer] place for the summer. 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 ?Meds reviewed and compliants. Was at [facility] last week . Got into a [...] refill of simvastatin amos working at a [employer] in [place] for 6 months ill is working at [employer] . 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 [employer]. Started this Thursday. ?Doesnt feel motivated to [...] Told to come and see me . Angel had a drink since on Naltrexone for past 2 months. Still having pain in left foot on theouter edge Sharp pain Intermittent. Not related to activity Does a lot of driving. No hx of gout Gave indocid for 2 weeks but didnt help. ?Meds reviewed. Also takes magnesium and testosterone booster tab from [facility]. Noticed is body and joint pain is bothering him since he stopped the Aleve. ?01/28/23 Feliciano was last seen by me in September 2022 and I had referred him to see electrophysiology tech for his iron deficiency anemia. He saw Dr.Bushra Thomas at [facility] and had upper endoscopy and colonoscopy [...] see Dr. Sunil Ramirez a [facility] for [facility] a hemorrhoid which may [...] mother Maira Teran (my pt) is at [facility] with inoperable metastati brain tumor . Feliciano wants to bring her home and take care of her. I spoke to Feliciano He said he is compliant with his meds and doing well Wants to bring his mother home Told him need to do labs to check his . ?HCT. Will send to [facility]. ?05/26/23 Seen in office Mother Sahra Bishop from intestinal obstruction in hospital in Feb 09 2023 Cremated. Working for [employer] Travels all over Now in [place]. 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 Son Will works at [employer] Getting next year to [employer] for 7 years. 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 ?Has had no alcohol for 10 months. Smokes MJ daily in evening. Grows his own. * ROS:?General/Constitutional:?Denies?Change in appetite.?Denies?Chills.?Denies?Fatigue.?Denies?Fever.?Denies?Headache.?Denies?L ightheadedness.?Denies?Sleep disturbance.?Denies?Weight gain.?Denies?Weight [...] July 2016Left knee ACL reepair 2002 By [facility] 2002Ventral Hernia Repair with mesh Dr Araceli Koch Oct and Colonoscopy by Dr Deidre Thomas at [facility] * Hospitalization/Major Diagno stic Procedure:?[facility] for facial cellulitis and HTN Failed treatment wit Amado and Codi. CT face done Treated with Mayrasyn 09/12/20 * Social History:?Tobacco Use:?Tobacco Use/Smoking?Are you a?nonsmoker [...] ?Do you drink alcohol?: Yes, Daily. ???EDUCATION: [employer] in 1995 FAMILY HISTORY: Born and raised in . . Father Rashad Modi dies at age 67 yr. Disabled from back pain Was in [place] and Had metastatic small cell cancer. 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 Has one older brother Rashad Modi 41 [address] in [facility] with 2 kids. Sees him couple times a week Big. One older sister Betsey Modi 44 yr single. Stay at home.brenda in [place] 2 sons Jordi and Mariusz. 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 #Abdelrahman 13 yr Plays hockey and lacrosse Goes to [employer] Lives at [address] [facility] in for 13 years Bought it 11 more years to go. Good relation with children They did know about his drugs !Oldest son now knows. Relationship with is better. 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 * Medications:?TakinginFLIXima b 100 [...] BY MOUTH EVERY DAY IN THE EVENING Naltrexone HCl 50 MG Tablet TAKE 1 TABLET BY MOUTH EVERY DAY Omeprazole 20 MG Capsule Delayed Release TAKE 1 CAPSULE BY MOUTH EVERY DAY , Notes: OTCTaking inFLIXimab 100 MG Solution Reconstituted . Intravenous [...] MOUTH EVERY DAY IN THE EVENING Taking Naltrexone HCl 50 MG Tablet TAKE 1 TABLET BY MOUTH EVERY DAY Taking Omeprazole 20 MG Capsule Delayed Release TAKE 1 CAPSULE BY MOUTH EVERY DAY , Notes: OTCNot-TakingProAir HFA 108 (90 Base) MCG/ACT Aerosol Solution [...] ER , Notes[facility] Notes: 0.5 mg 330ALPRAZolam 1 MG [...] Tablet 1 tablet Orally Once a dayNot-Taking [place] Carbonate ER 300 MG Tablet Extended Release 1 tablet at bedtime Orally Once a dayNot-Taking Venlafaxine HCl ER , Notes: [facility] AL[facility]am , Notes: 0.5 mg 330Not-Taking [...] patient * Allergies:?N.K.D.A.no[Allerg ies Verified] Objective: * Vitals:?Temp:98.2 F, HR:86 / min, BP:142/88 mm Hg, Wt:286 lbs, BMI:40.94 Index, Ht: 70.0786 in, Oxygen sat %:96 %, Wt-k.73 kg. * ???Past Orders: ???Lab:RETICULOCYTE COUNT (O rder Date - 09/23/2022) (Collection Date - 09/23/2022) ? Value Reference Range ?IMMATURE RETIC FRACTION 20.7 H 2.3-15.9 - % ?# RETICULOCYTE COUNT 0.10 H 0.03-0.09 - x10-6/uL ?% RETICULOCYTE COUNT 2.0 H 0.7-1.7 - % ?RETIC HGB EQUIVALENT 23.5 L >29 - pg ???Lab:HEMATOCRIT (Order Ha e - 09/23/2022) (Collection Date - 09/23/2022) ? Value Reference Range ?HEMATOCRIT 39.0 L 42-54 - % ???Lab:TOTAL IRON BINDING CA PACITY (Order Date - 09/04/2022) (Collection Date - 09/04/2022) ? Value Reference Range ?% FE SATURATION 4 L 20-5 0 - % ?IRON (FE) 18 L 50-160 - u g/dL ?TOTAL IRON BINDING CAPACITY 408 250-450 - ug/dL Lab:CBC WITH AUTO DIFF * Order Date 09/04/2022 11/08/2019 06/02/2019 BASO # 0.05 (Ref Range: 0-0.2 x10-3/uL) 0.04 (Ref Range: 0-0.2 x10-3/uL) 0.06 (Ref Range: 0-0.2 x10-3/uL) BASO % 0.5 (Ref Range: %) 0.4 (Ref Range: %) 0.6 (Ref Range: %) EOS # 0.22 (Ref Range: 0-0.5 x10-3/uL) 0.24 (Ref Range: 0-0.5 x10-3/uL) 0.38 (Ref Range: 0-0.5 x10-3/uL) EOS % 2.3 (Ref Range: %) 2.1 (Ref Range: %) 3.9 (Ref Range: %) HEMATOCRIT 36.4?L (Ref Range: 42-54 %) 42.5 (Ref Range: 42-54 %) 41.8?L (Ref Range: 42-54 %) HEMOGLOBIN 10.5?L (Ref Range: 13.5-17.5 g/dL) 12.5?L (Ref Range: 13.5-17.5 g/dL) 13.1?L (Ref Range: 13.5-17.5 g/dL) IMMATURE GRANULOCYTES % 0.7 (Ref Range: %) 0.4 (Ref Range: %) 0.3 (Ref Range: %) IMMATURE GRANULOCYTES # 0.07?H (Ref Range: 0-0.03 x10-3/uL) 0.04?H (Ref Range: 0-0.03 x10-3/uL) 0.03 (Ref Range: 0-0.03 x10-3/uL) LYMPH # 1.53 (Ref Range: 1-5.0 x10-3/uL) 1.53 (Ref Range: 1-5.0 x10-3/uL) 1.38 (Ref Range: 1-5.0 x10-3/uL) LYMPH % 16.2 (Ref Range: %) 13.7 (Ref Range: %) 14.2 (Ref Range: %) MCH 23.0?L (Ref Range: 27-32 pg) 25.7?L (Ref Range: 27-32 pg) 28.3 (Ref Range: 27-32 pg) MCHC 28.8?L (Ref Range: 32-37 g/dL) 29.4?L (Ref Range: 32-37 g/dL) 31.3?L (Ref Range: 32-37 g/dL) MCV 79.6 (Ref Range: 79-98 fL) 87.4 (Ref Range: 79-98 fL) 90.3 (Ref Range: 79-98 fL) MONO # 0.83 (Ref Range: 0.2-1.0 x10-3/uL) 0.65 (Ref Range: 0.2-1.0 x10-3/uL) 0.67 (Ref Range: 0.2-1.0 x10-3/uL) MONO % 8.8 (Ref Range: %) 5.8 (Ref Range: %) 6.9 (Ref Range: %) MEAN PLATELET VOLUME 9.1 (Ref Range: 7-11 fL) 10.2 (Ref Range: 7-11 fL) 10.4 (Ref Range: 7-11 fL) ABSOLUTE NEUT 6.75 (Ref Range: 1.5-7.0 x10-3/uL) 8.69?H (Ref Range: 1.5-7.0 x10-3/uL) 7.19?H (Ref Range: 1.5-7.0 x10-3/uL) NEUT % 71.5 (Ref Range: %) 77.6 (Ref Range: %) 74.1 (Ref Range: %) NRBC # AUTO DIFF 0.00 (Ref Range: <0.1 x10-3/uL) 0.00 (Ref Range: <0.1 x10-3/uL) 0.00 (Ref Range: <0.1 x10-3/uL) NRBC % AUTO DIFF 0.0 (Ref Range: <1 %) 0.0 (Ref Range: <1 %) 0.0 (Ref Range: <1 %) PLT COUNT 405?H (Ref Range: 130-400 x10-3/uL) 367 (Ref Range: 130-400 x10-3/uL) 393 (Ref Range: 130-400 x10-3/uL) RBC 4.6 (Ref Range: 4.5-5.5 x10-6/uL) 4.9 (Ref Range: 4.5-5.5 x10-6/uL) 4.6 (Ref Range: 4.5-5.5 x10-6/uL) RDW 14.1 (Ref Range: 11-15 %) 14.4 (Ref Range: 11-15 %) 14.1 (Ref Range: 11-15 %) WBC 9.5 (Ref Range: 4.8-10.8 x10-3/uL) 11.2?H (Ref Range: 4.8-10.8 x10-3/uL) 9.7 (Ref Range: 4.8-10.8 x10-3/uL) * Lab:LIPID PROFILE * Order Date 07/24/2022 05/14/2021 09/11/2020 CHOLESTEROL 178 (Ref Range: 0-200 mg/dL) 139 (Ref Range: 0-200 mg/dL) 149 (Ref Range: 0-200 mg/dL) HDL CHOLESTEROL 53 (Ref Range: >40 mg/dL) 40 (Ref Range: >40 mg/dL) 43 (Ref Range: >40 mg/dL) LDL CALCULATED 93 (Ref Range: 0-100 mg/dL) 50 (Ref Range: 0-100 mg/dL) 64 (Ref Range: 0-100 mg/dL) TC-HDLC RATIO 3.4 (Ref Range: 0-4.4 mg/dL) 3.5 (Ref Range: 0-4.4 mg/dL) 3.5 (Ref Range: 0-4.4 mg/dL) TRIGLYCERIDES 164?H (Ref Range: 0-150 mg/dL) 247?H (Ref Range: 0-150 mg/dL) 210?H (Ref Range: 0-150 mg/dL) * Examination: ???General Examination: ?GENERAL APPEARANCE:?in no [...] Will refer to Dr Anaya Martinez at [facility]. Refused LAUREL in office as he is getting a colonoscopy.?3.?Alcoholism in recovery - F10.21, Going for 20 weeks sessions at [facility] Also going to start on AA meetings after [place]. Doing well Has alprazolam on hand Taking Venlafaxine05/23/21 Last visit with Psychiatrist [facility]AC[facility]MS CONSULTANT was with Denisa Freeman 2 months ago. ith [facility] Missed the video call Has to make the wucfvzanbor72/18/21 drinks once in a while. can not [...] on MRI abdomen s Referred to see Fusion Analyst on Jul 06, 2023 at [facility] The infusion Infiximab is helping (Remicaid)?7.?Crohns disease [...] take and has to monitor after 2 weeks? Plan: * Treatment: 2.?Hyperlipidemia?LAB: Lipid Panel * Procedure Codes:? * Follow Up:?4 Months * Billing Information: * Visit Code:? 62011 Office Visit, Est Pt., Level 4. * Procedure Codes:? * Sign off status: Completed true * [...] a carpool with 3 other people from [place]. 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 He started working there from May 2020 till September 2020 when he got laid off. He recently got rehired 2 weeks ago. When it rains they do not work and he can come home. Informed me that he is taking Seroquel and fluoxetine which is given by [facility]. He has online session with the counselor Emma Dotson. I informed him about the demise of Dr. Arredondo his psychiatrist from [facility]. He informed me that he has gained 30 pounds weight since he was laid off currently weighs 275 pounds. He plans to lose it when he started working. He has no other complaints. His Amos delivers groceries to [employer]. His son Abdelrahman goes to [employer] high school and delivers pizza in the evening. His other son Nasir works full-time for [employer] in [place]. Patient's mother Maira also lives with them [...] walker Less stress. Needs DOT for his [employer] policy. His first time applying for one. [...] it on. [facility] ill call to make an appointment. medication still working well. Son in [place] a senior now, played hockey but because of covid will not plan. not sure if he wants to go to college. 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 Likes his job. Spends time with family Did ice fishing with Will 21 yr He works for [employer] and lives with his Brand Director at [facility] . Lives in basement of her parents . Abdelrahman is 18 yr. Amos is fine. Mother Maira is now living with her brother as didnt get along with him Talks to her daily. Has called [facility] and has not responded. Ill write his scripts till he finds a new psychiatrist , His insurance will be changing. 03/31/22 Came to the office. Looking well. Amos does [employer] and works for a friend at a [employer] . Son Will 22 yrs is still working at [employer] Lives in basement with [facility] production gear cutter Son Abdelrahman 18 yr graduauted from High School Working at a [employer] for the summer. 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 Meds reviewed and compliants. Was at [facility] last week . 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 [employer]. Started this Thursday. Doesnt feel motivated to [...] Told to come and see me . Angel had a drink since on Naltrexone for past 2 months. Still having pain in left foot on theouter edge Sharp pain Intermittent. Not related to activity Does a lot of driving. No hx of gout Gave indocid for 2 weeks but didnt help. Meds reviewed. Also takes magnesium and testosterone booster tab from [facility]. Noticed is body and joint pain is bothering him since he stopped the Aleve. 01/28/23 Feliciano was last seen by me in September 2022 and I had referred him to see electrophysiology tech for his iron deficiency anemia. He saw Dr.Bushra Thomas at [facility] and had upper endoscopy and colonoscopy [...] see Dr. Sunil Ramirez a general [facility] for evaluation of a hemorrhoid which may [...] mother Maira Teran (my pt) is at [facility] with inoperable metastati brain tumor . Feliciano wants to bring her home and take care of her. I spoke to Feliciano He said he is compliant with his meds and doing well Wants to bring his mother home Told him need to do labs to check his . HCT. Will send to [facility]. 05/26/23 Seen in office Mother Sahra Bishop from intestinal obstruction in hospital in Feb 09 2023 Cremated. Working for [employer] Travels all over [place] in [place]. 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 Son Will works at [employer] Getting next year to [employer] for 7 years. 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 Has had no alcohol for 10 months. Smokes MJ daily in evening. Grows his own. Examination Category Sub-Category Detail Notes Category Not es General Examination GENERAL APPEARANCE: in no ac [place] distress, well developed, well nourished HEAD: normocephalic, [...]
== END 2024-09-12 13:04 | disposition home or self-care (01) ==
PROVIDERS: PCP Internal Medicine; Visit Provider Internal Medicine
DX: K50.90 Crohn's disease, unspecified, without complications (principal); R19.7 Diarrhea, unspecified; K60.30 Anal fistula, unspecified; K63.89 Other specified diseases of intestine
CPT/HCPCS: 99214

== ENCOUNTER 2024-09-12 12:20 | Outpatient (REF) | payer BC, SELFPAY ==
[2024-09-12 13:38] LABS: Hematocrit 39.6 % (42.0-52.0); Mean Corpuscular HGB Conc 32.8 g/dl (31.0-36.0); Mean Corpuscular Hemoglobin 29.7 pg (27.0-33.0); Mean Corpuscular Volume 90.6 fL (80.0-98.0); Mean Platelet Volume 9.1 fL (9.4-12.4); Platelet Count 381 X10*3/uL (160-400); Red Blood Count 4.37 X10*6/uL (4.60-5.80); White Blood Count 10.8 X10*3/uL (4.8-10.8)
[2024-09-12 14:14] LABS: Alanine Aminotransferase 25 U/L (0-40); Albumin Level 4.3 g/dL (3.5-5.0); Alkaline Phosphatase 69 U/L (39-117); Anion Gap 9 (12-20); Aspartate Amino Transferase 28 U/L (5-37); Bilirubin Total 0.3 mg/dL (0.0-1.0); Blood Urea Nitrogen 14 mg/dL (9-16); C Reactive Protein 0.62 mg/dL (< or = 0.50); Calcium 9.5 mg/dL (8.4-10.2); Carbon Dioxide 29 mmol/L (22-29); Chloride 105 mmol/L (96-108); Cholesterol 167 mg/dL (<200); Estimated Glomerular Filt Rate > 60; Glucose Random 99 mg/dL (60-115); HDL Cholesterol 48 mg/dL (>40); Iron 44 mcg/dL (45-160); LDL Cholesterol Calculated 72 mg/dL (<100); Percent Iron Saturation 13 % (15-50); Potassium 4.1 mmol/L (3.3-5.1); Sodium 139 mmol/L (135-145); Total Iron Binding Capacity 347 mcg/dL (228-428); Total Protein 7.4 g/dL (6.5-8.0); Triglycerides 235 mg/dL (<150); Unsaturated Iron Binding 303 ug/dL
[2024-09-12 14:31] LABS: Ferritin 48 ng/mL (20-250); Vitamin D 25-OH Total 28.8 ng/mL (>30)
[2024-09-12 14:44] LABS: Folate 13.4 ng/mL (> or = 4.0); Vitamin B12 509 pg/mL (200-900)
== END 2024-09-12 12:21 | disposition home or self-care (01) ==
LOC: HO.LAB 12:20
PROVIDERS: PCP Internal Medicine; Visit Provider Internal Medicine
DX: K50.90 Crohn's disease, unspecified, without complications (principal); K52.9 Noninfective gastroenteritis and colitis, unspecified; K60.30 Anal fistula, unspecified
CPT/HCPCS: 36415; 80053; 80061; 82306; 82607; 82728; 82746; 83540; 85027; 86140

== ENCOUNTER 2024-09-14 | Outpatient (REF) | payer BC, SELFPAY ==
--- OUTSIDE RECORDS SUMMARY | 2024-09-21 11:54 | XMS_ITS | Patient Health Record ---
Author Organization [facility] Address [address] [place] [address] Care Team Providers [employer] Name Role Phone MACHELLE PEREZ Primary Care Provider Allergies No Known Allergies Reason For Referral [...] 0 TAKE 1 CAPSULE DAILY. 07/23/2015 Active [place] Carbonate ER 300 MG 1 tablet at bedtime Orally Once a day for 30 day(s) 11/14/2019 Not-Taking SEROquel 50 MG 1 tablet Orally bid for 90 days Active Venlafaxine HCl ER 150 mg starte d at [facility] 11/05/2019 Not-Taking Claritin 10 MG Oral Daily for 0 TAKE 1 TABLET DAILY. 07/23/2015 Active Immunizations Vaccine Route Administration Date Status Comme nts Td (adult) preservative free IM Intramuscular 10/05/2015 Administered done in [place] [facility] about 3 years ago Social [...] other tobacco user? No Section Notes: EDUCATION: [place] 1995 FAMILY HISTORY: Born and raised in . . Father Rashad Modi dies at age 67 yr. Disabled from back pain Was in [facility] and Had metastatic small cell cancer. 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 Has one older brother Rashad Modi 41 [address] in [facility] with 2 kids. Sees him couple times a week Big. One older sister Betsey Modi 44 yr single. Stay at home.brenda in [place] 2 sons Jordi and Mariusz. 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 #Abdelrahman 13 yr Plays hockey and lacrosse Goes to [employer] Lives at [address] in for 13 years Bought it 11 more years to go. Good relation with children They did know about his drugs !Oldest son now knows. Relationship with is better. 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 EDUCATION: [employer] in 1995 FAMILY HISTORY: Born and raised in . . Father Rashad Modi dies at age 67 yr. Disabled from back pain Was in [place] and Had metastatic small cell cancer. 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 Has one older brother Rashad Modi [address] [facility] with 2 kids. Sees him couple times a week Big. One older sister Betsey Modi 44 yr single. Stay at home.brenda in [place] 2 sons Jordi and Mariusz. 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 #Abdelrahman 13 yr Plays hockey and lacrosse Goes to [employer] Lives at [address] in for 13 years Bought it 11 more years to go. Good relation with children They did know about his drugs !Oldest son now knows. Relationship with is better. 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 EDUCATION: [employer] in 1995 FAMILY HISTORY: Born and raised in . . Father Rashad Modi dies at age 67 yr. Disabled from back pain Was in [facility] and Had metastatic small cell cancer. 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 Has one older brother Rashad Modi 41 yr [facility]. Sees him couple times a week Big. One older sister Betsey Modi 44 yr single. Stay at home.brenda in [place] 2 sons Jordi and Mariusz. 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 #Abdelrahman 13 yr Plays hockey and lacrosse Goes to [employer] Lives at [address] in for 13 years Bought it 11 more years to go. Good relation with children They did know about his drugs !Oldest son now knows. Relationship with is better. 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 EDUCATION: [employer] in 1995 FAMILY HISTORY: Born and raised in . . Father Rashad Modi dies at age 67 yr. Disabled from back pain Was in [facility] and Had metastatic small cell cancer. 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 Has one older brother Rashad Modi [address] [facility] with 2 kids. Sees him couple times a week Big. One older sister Betsey Modi 44 yr single. Stay at home.brenda in [place] 2 sons Jordi and Mariusz. 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 #Abdelrahman 13 yr Plays hockey and lacrosse Goes to [employer] Lives at [address] in for 13 years Bought it 11 more years to go. Good relation with children They did know about his drugs !Oldest son now knows. Relationship with is better. 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 EDUCATION: [employer] in 1995 FAMILY HISTORY: Born and raised in . . Father Rashad Modi dies at age 67 yr. Disabled from back pain Was in [facility] and Had metastatic small cell cancer. 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 Has one older brother Rashad Modi [address] [facility] with 2 kids. Sees him couple times a week Big. One older sister Betsey Modi 44 yr single. Stay at home.brenda in [place] 2 sons Jordi and Mariusz. 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 Slime 13 yr Plays hockey and lacrosse Goes to [employer] [facility] [address] [facility] [address] Bought it 11 more years to go. Good relation with children They did know about his drugs !Oldest son now knows. Relationship with is better. 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 EDUCATION: [employer] in 1995 FAMILY HISTORY: Born and raised in . . Father Rashad Modi dies at age 67 yr. Disabled from back pain Was in [facility] and Had metastatic small cell cancer. 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 Has one older brother Rashad Modi [address] [facility] with 2 kids. Sees him couple times a week Big. One older sister Betsey Modi 44 yr single. Stay at home.brenda in [place] 2 sons Jordi and Mariusz. 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 #Abdelrahman 13 yr Plays hockey and lacrosse Goes to [employer] Lives at [address] in for 13 years Bought it 11 more years to go. Good relation with children They did know about his drugs !Oldest son now knows. Relationship with is better. 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 EDUCATION: [employer] in 1995 FAMILY HISTORY: Born and raised in . . Father Rashad Modi dies at age 67 yr. Disabled from back pain Was in [employer] Had metastatic small cell cancer. 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 Sees him couple times a week Big. One older sister Betsey Modi 44 yr single. Stay at home.brenda in [place] 2 sons Jordi and Mariusz. 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 Slime 13 yr Plays hockey and lacrosse Goes to [employer] Lives at [address] in for 13 years Bought it 11 more years to go. Good relation with children They did know about his drugs !Oldest son now knows. Relationship with is better. 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 EDUCATION: [employer] in 1995 FAMILY HISTORY: Born and raised in . . Father Rashad Modi dies at age 67 yr. Disabled from back pain Was in [place] Had metastatic small cell cancer. 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 Has one older brother Rashad Modi [address] [facility] with 2 kids. Sees him couple times a week Big. One older sister Betsey Modi 44 yr single. Stay at home.brenda in [place] 2 sons Jordi and Mariusz. 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 #Abdelrahman 13 yr Plays hockey and lacrosse Goes to [employer] Lives at [address] in for 13 years Bought it 11 more years to go. Good relation with children They did know about his drugs !Oldest son now knows. Relationship with is better. 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 EDUCATION: [employer] in 1995 FAMILY HISTORY: Born and raised in . . Father Rashad Modi dies at age 67 yr. Disabled from back pain Was in [facility] and Had metastatic small cell cancer. 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 Has one older brother Rashad Modi [address] [facility] with 2 kids. Sees him couple times a week Big. One older sister Betsey Modi 44 yr single. Stay at home.brenda in [place] 2 sons Jordi and Mariusz. 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 #Abdelrahman 13 yr Plays hockey and lacrosse Goes to [employer] Lives at [address] in for 13 years Bought it 11 more years to go. Good relation with children They did know about his drugs !Oldest son now knows. Relationship with is better. 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 EDUCATION: [employer] in 1995 FAMILY HISTORY: Born and raised in . . Father Rashad Modi dies at age 67 yr. Disabled from back pain Was in [facility] and Had metastatic small cell cancer. 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 Sees him couple times a week Big. One older sister Betsey Modi 44 yr single. Stay at home.brenda in [place] 2 sons Jordi and Mariusz. 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 #Abdelrahman 13 yr Plays hockey and lacrosse Goes to [employer] Lives at [address] in for 13 years Bought it 11 more years to go. Good relation with children They did know about his drugs !Oldest son now knows. Relationship with is better. 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 EDUCATION: [employer] in 1995 FAMILY HISTORY: Born and raised in . . Father Rashad Modi dies at age 67 yr. Disabled from back pain Was in [facility] and Had metastatic small cell cancer. 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 Has one older brother Rashad Modi [address] [facility] with 2 kids. Sees him couple times a week Big. One older sister Betsey Modi 44 yr single. Stay at home.brenda in [place] 2 sons Jordi and Mariusz. 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 #Abdelrahman 13 yr Plays hockey and lacrosse Goes to [employer] Lives at [address] in for 13 years Bought it 11 more years to go. Good relation with children They did know about his drugs !Oldest son now knows. Relationship with is better. 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 EDUCATION: [employer] in 1995 FAMILY HISTORY: Born and raised in . . Father Rashad Modi dies at age 67 yr. Disabled from back pain Was in [facility] and Had metastatic small cell cancer. 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 Has one older brother Rashad Modi [address] [facility] with 2 kids. Sees him couple times a week Big. One older sister Betsey Modi 44 yr single. Stay at home.brenda in [place] 2 sons Jordi and Mariusz. 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 #Abdelrahman 13 yr Plays hockey and lacrosse Goes to [employer] Lives at [address] in for 13 years Bought it 11 more years to go. Good relation with children They did know about his drugs !Oldest son now knows. Relationship with is better. 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 EDUCATION: [employer] in 1995 FAMILY HISTORY: Born and raised in . . Father Rashad Modi 67 yr. Disabled from back pain Was in [place] and Just got 1 year to live as he has metastatic small cell cancer. 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 Has one older brother Rashad Modi 39 [address] [facility] with 2 kids. Sees him couple times a week Big. One older sister Betsey Modi 41 yr single. Stay at home mother Lives in [place] 2 sons Jordi and Mariusz. Close to [...] yr good student Plays sports Goes to [employer] #Abdelrahman 12 yr Plays hockey and lacrosse Goes to [employer]. [facility] in for 13 years Bought it 9 more years to go. Good relation with children They did know about his drugs !Oldest son now knows. Relationship with is better. 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 EDUCATION: [employer] in 1995 FAMILY HISTORY: Born and raised in . . Father Rashad Modi 67 yr. Disabled from back pain Was in [employer] Just got 1 year to live as he has metastatic small cell cancer. 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 Has one older brother Rashad Modi 39 yr Lives in [place] Biodiesel Engineering Manager with 2 kids. Sees him couple times a week Big. One older sister Betsey Modi 41 yr single. Stay at home mother Lives in [place] 2 sons Jordi and Mariusz. Close to [...] yr good student Plays sports Goes to [employer] #Abdelrahman 10 yr Plays hockey and lacrosse Goes to [employer]. Lives at [address] [place] [address] in for 13 years Bought it 9 more years to go. Good relation with children They did know about his drugs !Oldest son now knows. Relationship with is better. 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 EDUCATION: [employer] in 1995 FAMILY HISTORY: Born and raised in . . Father Rashad Modi dies at age 67 yr. Disabled from back pain Was in [employer] Had metastatic small cell cancer. 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 Has one older brother Rashad Modi [address] [facility] with 2 kids. Sees him couple times a week Big. One older sister Betsey Modi 44 yr single. Stay at home.brenda in [place] 2 sons Jordi and Mariusz. 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 #Abdelrahman 13 yr Plays hockey and lacrosse Goes to [employer] Lives at [address] [facility] in for 13 years Bought it 11 more years to go. Good relation with children They did know about his drugs !Oldest son now knows. Relationship with is better. 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 EDUCATION: [employer] in 1995 FAMILY HISTORY: Born and raised in . . Father Rashad Modi dies at age 67 yr. Disabled from back pain Was in [facility] and Had metastatic small cell cancer. 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 Has one older brother Rashad Modi [address] [facility] with 2 kids. Sees him couple times a week Big. One older sister Betsey Modi 44 yr single. Stay at home.brenda in [place] 2 sons Jordi and Mariusz. 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 #Abdelrahman 13 yr Plays hockey and lacrosse Goes to [employer] Lives at [address] [facility] [facility] in for 13 years Bought it 11 more years to go. Good relation with children They did know about his drugs !Oldest son now knows. Relationship with is better. 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 EDUCATION: [employer] in 1995 FAMILY HISTORY: Born and raised in . . Father Rashad Modi dies at age 67 yr. Disabled from back pain Was in [facility] and Had metastatic small cell cancer. 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 Sees him couple times a week Big. One older sister Betsey Modi 44 yr single. Stay at home.brenda in [place] 2 sons Jordi and Mariusz. 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 #Abdelrahman 13 yr Plays hockey and lacrosse Goes to [employer] Lives at [address] in for 13 years Bought it 11 more years to go. Good relation with children They did know about his drugs !Oldest son now knows. Relationship with is better. 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 EDUCATION: [employer] in 1995 FAMILY HISTORY: Born and raised in . . Father Rashad Modi dies at age 67 yr. Disabled from back pain Was in [facility] and Had metastatic small cell cancer. 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 Has one older brother Rashad Modi 41 [address] in [facility] with 2 kids. Sees him couple times a week Big. One older sister Betsey Modi 44 yr single. Stay at home.brenda in [place] 2 sons Jordi and Mariusz. 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 #Abdelrahman 13 yr Plays hockey and lacrosse Goes to [employer] Lives at [address] in for 13 years Bought it 11 more years to go. Good relation with children They did know about his drugs !Oldest son now knows. Relationship with is better. 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 EDUCATION: [employer] in 1995 FAMILY HISTORY: Born and raised in . . Father Rashad Modi dies at age 67 yr. Disabled from back pain Was in [facility] and Had metastatic small cell cancer. 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 Has one older brother Rashad Modi 41 [address] [facility] with 2 kids. Sees him couple times a week Big. One older sister Betsey Modi 44 yr single. Stay at home.brenda in [place] 2 sons Jordi and Mariusz. 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 #Abdelrahman 15 yr Plays hockey and lacrosse Goes to [employer] Lives at [address] [facility] in for 13 years Bought it 11 more years to go. Good relation with children They did know about his drugs !Oldest son now knows. Relationship with is better. 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 EDUCATION: [employer] in 1995 FAMILY HISTORY: Born and raised in . . Father Rashad Modi dies at age 67 yr. Disabled from back pain Was in [place] Had metastatic small cell cancer. 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 Sees him couple times a week Big. One older sister Betsey Modi 44 yr single. Stay at home.brenda in [place] 2 sons Jordi and Mariusz. 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 Slime 13 yr Plays hockey and lacrosse Goes to [employer] [facility] [employer] Lives at [address] [facility] in for 13 years Bought it 11 more years to go. Good relation with children They did know about his drugs !Oldest son now knows. Relationship with is better. 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 EDUCATION: [employer] in 1995 FAMILY HISTORY: Born and raised in . . Father Rashad Modi dies at age 67 yr. Disabled from back pain Was in [place] Had metastatic small cell cancer. 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 Has one older brother Rashad Modi [address] [facility] with 2 kids. Sees him couple times a week Big. One older sister Betsey Modi 44 yr single. Stay at home.brenda in [place] 2 sons Jordi and Mariusz. 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 #Abdelrahman 13 yr Plays hockey and lacrosse Goes to [employer] Lives at [address] [facility] in for 13 years Bought it 11 more years to go. Good relation with children They did know about his drugs !Oldest son now knows. Relationship with is better. 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 EDUCATION: [employer] in 1995 FAMILY HISTORY: Born and raised in . . Father Rashad Modi dies at age 67 yr. Disabled from back pain Was in [facility] and Had metastatic small cell cancer. 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 Has one older brother Rashad Modi 41 yr Lives in [place] [employer]iod[employer] Engineering Manager with 2 kids. Sees him couple times a week Big. One older sister Betsey Modi 44 yr single. Stay at home.brenda in [place] 2 sons Jordi and Mariusz. 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 #Abdelrahman 15 yr Plays hockey and lacrosse Goes to [employer] Lives at [address] [facility] in for 13 years Bought it 11 more years to go. Good relation with children They did know about his drugs !Oldest son now knows. Relationship with is better. 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 EDUCATION: [employer] in 1995 FAMILY HISTORY: Born and raised in . . Father Rashad Modi dies at age 67 yr. Disabled from back pain Was in [facility] and Had metastatic small cell cancer. 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 Sees him couple times a week Big. One older sister Betsey Modi 44 yr single. Stay at home.brenda in [place] 2 sons Jordi and Mariusz. 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 #Abdelrahman 13 yr Plays hockey and lacrosse Goes to [employer] Lives at [address] [facility] in for 13 years Bought it 11 more years to go. Good relation with children They did know about his drugs !Oldest son now knows. Relationship with is better. 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 EDUCATION: [employer] in 1995 FAMILY HISTORY: Born and raised in . . Father Rahsad Modi dies at age 67 yr. Disabled from back pain Was in [place] and Had metastatic small cell cancer. 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 Sees him couple times a week Big. One older sister Betsey Modi 44 yr single. Stay at home.brenda in [place] 2 sons Jordi and Mariusz. 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 #Abdelrahman 13 yr Plays hockey and lacrosse Goes to [employer] Lives at [address] in for 13 years Bought it 11 more years to go. Good relation with children They did know about his drugs !Oldest son now knows. Relationship with is better. 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 EDUCATION: [employer] in 1995 FAMILY HISTORY: Born and raised in . . Father Rashad Modi dies at age 67 yr. Disabled from back pain Was in [facility] and Had metastatic small cell cancer. 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 Has one older brother Rashad Modi [address] [facility] with 2 kids. Sees him couple times a week Big. One older sister Betsey Modi 44 yr single. Stay at home.brenda in [place] 2 sons Jordi and Mariusz. 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 #Abdelrahman 13 yr Plays hockey and lacrosse Goes to [employer] Lives at [address] in for 13 years Bought it 11 more years to go. Good relation with children They did know about his drugs !Oldest son now knows. Relationship with is better. 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 EDUCATION: [employer] in 1995 FAMILY HISTORY: Born and raised in . . Father Rashad Modi dies at age 67 yr. Disabled from back pain Was in [facility] and Had metastatic small cell cancer. 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 Has one older brother [facility] Modi 41 yr [facility]. Sees him couple times a week Big. One older sister Betsey Modi 44 yr single. Stay at home.brenda in [place] 2 sons Jordi and Mariusz. 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 #Abdelrahman 13 yr Plays hockey and lacrosse Goes to [employer] Lives at [address] [facility] in for 13 years Bought it 11 more years to go. Good relation with children They did know about his drugs !Oldest son now knows. Relationship with is better. 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 EDUCATION: [employer] in 1995 FAMILY HISTORY: Born and raised in . . Father Rashad Modi dies at age 67 yr. Disabled from back pain Was in [place] Had metastatic small cell cancer. 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 Sees him couple times a week Big. One older sister Betsey Modi 44 yr single. Stay at home.brenda in [place] 2 sons Jordi and Mariusz. 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 #Abdelrahman 13 yr Plays hockey and lacrosse Goes to [employer] Lives at [address] [facility] in for 13 years Bought it 11 more years to go. Good relation with children They did know about his drugs !Oldest son now knows. Relationship with is better. 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 EDUCATION: [employer] in 1995 FAMILY HISTORY: Born and raised in . . Father Rashad Modi dies at age 67 yr. Disabled from back pain Was in [place] Had metastatic small cell cancer. 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 Has one older brother Rashad Modi [address] [facility] with 2 kids. Sees him couple times a week Big. One older sister Betsey Modi 44 yr single. Stay at home.brenda in [place] 2 sons Jordi and Mariusz. 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 #Abdelrahman 15 yr Plays hockey and lacrosse Goes to [employer] Lives at [address] [facility] in for 13 years Bought it 11 more years to go. Good relation with children They did know about his drugs !Oldest son now knows. Relationship with is better. 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 EDUCATION: [employer] in 1995 FAMILY HISTORY: Born and raised in . . Father Rashad Modi dies at age 67 yr. Disabled from back pain Was in [place] and Had metastatic small cell cancer. 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 Has one older brother Rashad Modi [address] [facility] with 2 kids. Sees him couple times a week Big. One older sister Betsey Modi 44 yr single. Stay at home.brenda in [place] 2 sons Jordi and Mariusz. 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 #Abdelrahman 15 yr Plays hockey and lacrosse Goes to [employer] Lives at [address] [facility] in for 13 years Bought it 11 more years to go. Good relation with children They did know about his drugs !Oldest son now knows. Relationship with is better. 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 EDUCATION: [employer] in 1995 FAMILY HISTORY: Born and raised in . . Father Rashad Modi dies at age 67 yr. Disabled from back pain Was in [facility] and Had metastatic small cell cancer. 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 Has one older brother Rashad Modi [address] [facility] with 2 kids. Sees him couple times a week Big. One older sister Betsey Modi 44 yr single. Stay at home.brenda in [place] 2 sons Jordi and Mariusz. 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 #Abdelrahman 15 yr Plays hockey and lacrosse Goes to [employer] Lives at [address] in for 13 years Bought it 11 more years to go. Good relation with children They did know about his drugs !Oldest son now knows. Relationship with is better. 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 EDUCATION: [employer] in 1995 FAMILY HISTORY: Born and raised in . . Father Rashad Modi dies at age 67 yr. Disabled from back pain Was in [facility] and Had metastatic small cell cancer. 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 Has one older brother Rashad Modi [address] [facility] with 2 kids. Sees him couple times a week Big. One older sister Betsey Modi 44 yr single. Stay at home.brenda in [place] 2 sons Jordi and Mariusz. 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 #Abdelrahman 13 yr Plays hockey and lacrosse Goes to [employer] Lives at [address] in for 13 years Bought it 11 more years to go. Good relation with children They did know about his drugs !Oldest son now knows. Relationship with is better. 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 EDUCATION: [employer] in 1995 FAMILY HISTORY: Born and raised in . . Father Rashad Modi dies at age 67 yr. Disabled from back pain Was in [facility] and Had metastatic small cell cancer. 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 Has one older brother Rashad Modi [address] [facility] with 2 kids. Sees him couple times a week Big. One older sister Betsey Modi 44 yr single. Stay at home.brenda in [place] 2 sons Jordi and Mariusz. 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 Slime 13 yr Plays hockey and lacrosse Goes to [employer] Lives at [address] [facility] in for 13 years Bought it 11 more years to go. Good relation with children They did know about his drugs !Oldest son now knows. Relationship with is better. 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 EDUCATION: [employer] in 1995 FAMILY HISTORY: Born and raised in . . Father Rashad Modi dies at age 67 yr. Disabled from back pain Was in [facility] and Had metastatic small cell cancer. 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 Has one older brother Rashad Modi [address] [facility] with 2 kids. Sees him couple times a week Big. One older sister Betsey Modi 44 yr single. Stay at home.brenda in [place] 2 sons Jordi and Mariusz. 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 #Abdelrahman 13 yr Plays hockey and lacrosse Goes to [employer] Lives at [address] [facility] in for 13 years Bought it 11 more years to go. Good relation with children They did know about his drugs !Oldest son now knows. Relationship with is better. 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 EDUCATION: [employer] in 1995 FAMILY HISTORY: Born and raised in . . Father Rashad Modi dies at age 67 yr. Disabled from back pain Was in [place] Had metastatic small cell cancer. 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 Sees him couple times a week Big. One older sister Betsey Modi 44 yr single. Stay at home.brenda in [place] 2 sons Jordi and Mariusz. 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 #Abdelrahman 13 yr Plays hockey and lacrosse Goes to [employer] Lives at [address] [facility] in for 13 years Bought it 11 more years to go. Good relation with children They did know about his drugs !Oldest son now knows. Relationship with is better. 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 EDUCATION: [employer] in 1995 FAMILY HISTORY: Born and raised in . . Father Rashad Modi dies at age 67 yr. Disabled from back pain Was in [place] Had metastatic small cell cancer. 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 Has one older brother Rashad Modi 41 [address] Lives in [facility] with 2 kids. Sees him couple times a week Big. One older sister Betsey Modi 44 yr single. Stay at home.brenda in [place] 2 sons Jordi and Mariusz. 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 #Abdelrahman 13 yr Plays hockey and lacrosse Goes to [employer] Lives at [address] [facility] in for 13 years Bought it 11 more years to go. Good relation with children They did know about his drugs !Oldest son now knows. Relationship with is better. 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 EDUCATION: [employer] in 1995 FAMILY HISTORY: Born and raised in . . Father Rashad Modi dies at age 67 yr. Disabled from back pain Was in [facility] and Had metastatic small cell cancer. 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 Has one older brother Rashad Modi 41 [address] in [facility] with 2 kids. Sees him couple times a week Big. One older sister Betsey Modi 44 yr single. Stay at home.brenda in [place] 2 sons Jordi and Mariusz. 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 #Abdelrahman 13 yr Plays hockey and lacrosse Goes to [employer] Lives at [address] [facility] in for 13 years Bought it 11 more years to go. Good relation with children They did know about his drugs !Oldest son now knows. Relationship with is better. 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 EDUCATION: [employer] in 1995 FAMILY HISTORY: Born and raised in . . Father Rashad Modi 67 yr. Disabled from back pain Was in [place] and Just got 1 year to live as he has metastatic small cell cancer. 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 Has one older brother Rashad Modi 39 [address] in [facility] with 2 kids. Sees him couple times a week Big. One older sister Betsey Modi 41 yr single. Stay at home mother Lives in [place] 2 sons Jordi and Mariusz. Close to [...] yr good student Plays sports Goes to [employer] #Abdelrahman 10 yr Plays hockey and lacrosse Goes to [employer]. Lives at [address] [place] [address] in for 13 years Bought it 9 more years to go. Good relation with children They did know about his drugs !Oldest son now knows. Relationship with is better. 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 EDUCATION: [employer] in 1995 FAMILY HISTORY: Born and raised in . . Father Rashad Modi dies at age 67 yr. Disabled from back pain Was in [facility] and Had metastatic small cell cancer. 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 Sees him couple times a week Big. One older sister Betsey Modi 44 yr single. Stay at home.brenda in [place] 2 sons Jordi and Mariusz. 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 #Abdelrahman 13 yr Plays hockey and lacrosse Goes to [employer] Lives at [address] in for 13 years Bought it 11 more years to go. Good relation with children They did know about his drugs !Oldest son now knows. Relationship with is better. 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 Problems Problem Type SNOMED Code ICD Code Onset Dates Problem Status W/U Status Risk Notes Problem 024604 Bipolar disorder, current episode manic without psychotic features, severe (F31.13) Active confirmed On [place] started by me and endorsed by Dr Bertrand 05/23/21 On Prozac and seroquel Sees WOOL PRESSER Denisa Banerjee with [facility] [facility] [place] was stopped by Dr Bertrand before his hospitalization Problem 84901565 Obstructive sleep apnea (adult) (pediatric) (G47.33) Active confirmed Has a CPAP since 2016 Uses it sporadically. Told to restart using it and recheck , Snoring less. 06/02/19 May not need ity as states he is not snoring much woith the weight loss Will do a retrial of sleep study later 06/30/19 reports he doesnt snore much May not need the CPAP 07/23/21 not using cpap, will rerefer to sleep medicine for evaluation Problem 351814776 Ventral hernia without obstruction or gangrene (K43.9) Active confirmed 7 yrs ago [place] jean baptiste had one in same place. 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 Did not go back for [...] deficiency anemia due to chronic blood loss (857319625) Iron deficiency anemia due to chronic blood loss (D50.0) Active confirmed 09/23/22 Will need urgent Colonoscopy and EGD Will refer to Dr Anaya Martinez at [place]. Refused LAUREL in office as he is getting a colonoscopy. Problem 65195992 HTN (hypertension) (I10) Active confirmed Was on [...] and see him in 6 weeks Problem 641474815 Dental abscess (K04.7) Active confirmed May have otitis media and sinusitis or dental abscess Reluctant to go to ED Will add Levaquin to cover all bases Problem 607974610 Onychomycosis (B35.1) Active confirmed Will refer to Kun Schwartz Problem 7795363 Chronic alcoholism (F10.20) Active confirmed 08/07/22 Using Naltrexone for 3 weeks Doing well Has been sober since then Will continue to refill Naltrexone Problem 17951556 Chronic obstructive pulmonary disease, unspecified COPD type [...] for now Problem Pain in left foot (609426280140992 ) Left foot pain (M79.672) Active confirmed 09/23/22 I thin k it is from flat foot Told to use insole and the see a medical voucher clerk if not better Saw Moise 2 yrs ago for right toe nail fungus Gave him arches Wore it Worn out Problem Rheumatoid arthritis (29536151) Rheumatoid arthritis (M06.9) Active confirmed 05/26/23 Seen on MRI abdomen s Referred to see Pediatric Physical Therapy Assistant on Jul 06, 2023 at [facility] The infusion Infiximab is helping (Remicaid) Problem 43542514 Costochondritis , acute (M94.0) Active confirmed Problem Crohn's disease of small intestine (07141561) Crohns disease of small intestine with complication [...] has to monitor after 2 weeks Problem 779444671 Balance disorder (R26.89) Active confirmed Will get [...] prn To be kept with . Problem 917786869 Hospital discharge follow-up (Z09) Active confirmed 10/01/20 Admitted to [facility] from 09/12 to 09/05/20 and treated with IV antibiotics for cellulitis face Meds reviewed and reconciled Problem Essential hypertension (24392083) HTN (hypertension), benign (I10) Active confirmed Problem General examination of patient (471033892) Routine medical exam (Z00.00) Active confirmed Problem 052199339 Blurred vision, bilateral (H53.8) Active confirmed Started 4 month s ago Will send to Dr Alexander Problem 538973407 Alcohol abuse counseling and surveillance (Z71.41) Active confirmed Fell off the wagon Back at the [facility] at [place] . Going to meetings Saw psychiatrist Dr Bertrand 11/21/19 Will follow up with therapist for counselling Wants to see me after a week Spent over 30 minutes in todays meeting Problem 48392201797547 Acute left ankle pain (M25.572) Active confirmed Problem 3281279 Fall, subsequent encounter (W19.XXXD) Active confirmed Problem 036830948 Grade II hemorrhoids (K64.1) Active confirmed Problem 03103750 Alcoholism in recovery (F10.21) Active confirmed Going for 20 weeks sessions at [facility] Also going to start on AA meetings after [place]. Doing well Has alprazolam on hand Taking Venlafaxine 05/23/21 Last visit with Psychiatrist WOOL PRESSER was with Denisa Banerjee 2 months ago. [facility] Missed the video call Has to make the appointment 07/22/21 drinks once in a while. can not say what causes him to increase alcohol. will call [facility] for f/u, number given 07/24/22 Unable to find a psychiatrist Will refer to Dr Patty Nicolas, Dr Loving and Dr Shira Woodward Gave him their phone numbers to contact Problem 667731254 History of violent behavior (Z87.898) Active confirmed Problem 631334772 Crohn's disease involving terminal ileum (K50.00) Active confirmed Encounters Encounter Location Date Provider Diagnosis [address] [place] [address] 09/29/2023 MACHELLE PEREZ Plan Of Treatment Pending [...] 01/28/2023 FOLATE, RBC 01/28/2023 IRON AND TIBC 01/28/2023 IRON AND TIBC 09/08/2023 LIPID PANEL 01/28/2023 PSA, SCREEN 09/08/2023 RETICULOCYTE COUNT 01/28/2023 TSH 01/28/2023 URINALYSIS, COMPLETE 01/28/2023 VITAMIN B12 01/28/2023 Urinalysis, Complete 06/23/2017 Lipid Panel 06/23/2017 CBC 06/23/2017 Chem-Comprehensive 06/23/2017 Future Test Test Name Order Date PSA, total 09/22/2017 Insurance Providers Payer Name Payer Address Payer Phone Subscriber Number Group Number Insured Name Patient Relationship to Insured Coverage Start Date Coverage End Date [employer] and [facility] [address] [place] [address] [id number] Cornelius Modi Self - patient is the [...] bnormality Alcohol related Facial Cellulitis Hospitalized at [facility] to 09/15/20 IV antibiotics Hypertension Observed during hospitalization in Sep 2020 Didnt come to my office for face to face follow up Iron Deficiency Anemia Crohns Ileitis Had colonosco py and biopsy by Dr Deidre Thomas Put on high dose steroid taper Hemorrhoids Saw surgeon Dr Dheeraj vazquez at [facility] Not a source of blood lost No surgery indicated Surgical History Surgery Date(Month/Year) Hip Surgery ORIF 1994 Right Knee Arthroscopy With Medial Meniscus Repair, Later meniscus and ACL repair July 2016 Left knee ACL reepair 2001 By Josh Or mickey 2001 Ventral Hernia Repair with mesh Dr Mohit Koch Oct 2017 EGD and Colonoscopy by Dr Deidre Thomas at [facility] Hospitalization History Reason Date(Month/Year) [facility] for facial cellulit is and HTN Failed treatment wit Azithro and Levaqui. CT face done Treated with Unasyn 09/12/20
--- OUTSIDE RECORDS SUMMARY | 2024-09-21 11:54 | XMS_ITS ---
Author Organization [facility] Address [address] [place] [address] Care Team Providers Care Dispensing Audiologist Name Role Phone SHIVAM WALLACE Primary Care Provider [phone] Allergies No Known Allergies Results Component Value Reference Range Notes CBC Reviewed date:05/27/2023 11:34:58 PM Interpretation: Performing Lab: Notes/Report: Original Ordering Provider: SHIVAM WALLACE MD [employer], a member of [address] [address] Efficiency Clerk - Yoly Chappell MD WBC 12.0 4.8-10.8 [...] ALPRAZolam 0.5 mg 330 11/10/2019 Not-Ivan ing Inglis Carbonate ER 300 MG 1 tablet at bedtime Orally Once a day for 30 day(s) 11/14/2019 Not-Taking Venlafaxine HCl ER 150 mg starte d at [facility] 11/05/2019 Not-Taking Levaquin 500 MG 1 tablet [...] other tobacco user? No Section Notes: EDUCATION: [place] in 1995 FAMILY HISTORY: Born and raised in . . Father Rashad Modi dies at age 67 yr. Disabled from back pain Was in [facility] and Had metastatic small cell cancer. 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 Has one older brother Rashad Modi 41 yr Lives in [facility] with 2 kids. Sees him couple times a week Big. One older sister Betsey Modi 44 yr single. Stay at home.brenda in [place] 2 sons Jordi and Mariusz. Close to [...] yr good student Graduated from [employer] Wants to be an control equipment electrician Now working for a [employer] company. #Abdelrahman 15 yr Plays hockey and lacrosse Goes to [employer] Lives at [address] in for 13 years Bought it 11 more years to go. Good relation with children They did know about his drugs !Oldest son now knows. Relationship with is better. 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 Problems Problem Type SNOMED Code ICD Code Onset Dates Problem Status W/U Status Risk Notes Problem Rheumatoid arthritis (74745496) Rheumatoid arthritis (M06.9) Active confirmed 05/26/23 Seen on MRI abdomen s Referred to see Merchandise Processor on Jul 06, 2023 at [facility] The infusion Infiximab is helping (Remicaid) Problem Crohn's disease of small intestine (87068741) Crohns disease of small intestine with complication [...] 05/26/2023 Encounters Encounter Location Date Provider Diagnosis [address] [place] [address] 05/26/2023 SHIVAM WALLACE Hyperlipidemia E78.5 ; Iron [...] Will refer to Dr Anaya Martinez at [place]. Refused LAUREL in office as he is getting a colonoscopy. 05/26/2023 Alcoholism in recovery (ICD-10 - F10.21) Going for 20 weeks sessions at [facility] Also going to start on AA meetings after . Doing well Has alprazolam on hand Taking Venlafaxine 05/23/21 Last visit with Psychiatrist TOY MAKER was with Denisa Freeman 2 months ago. [...] on MRI abdomen s Referred to see Merchandise Processor on Jul 06, 2023 at [facility] The infusion Infiximab is helping (Remicaid) 05/26/2023 [...] * Cornelius MODIDOB: [birth year] (43 yo M)Acc No.[id number]:05/26/2023 Progress Notes Patient:?Cornelius Modi Provider:?Shivam Wallace MD :1980???Age:43 Y???Sex:Male Ha e:05/26/2023 Address:[address], [place] Subjective: * Chief Complaints: * ???4 mo follow upLABS DUE EK G DUE AT ANNUAL * HPI: ???Interim History:? 02/18/21: ?Last contact was in September 2020. I called him on the phone. He was on his way back in a carpool with 3 other people from [place]. 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 He started working there from May 2020 till September 2020 when he got laid off. He recently got rehired 2 weeks ago. When it rains they do not work and he can come home. ?Informed me that he is taking Seroquel and fluoxetine which is given by [facility]. He has online session with the counselor Emma Dotson. I informed him about the demise of Dr. Arredondo his psychiatrist from [facility]. ?He informed me that he has gained 30 pounds weight since he was laid off currently weighs 275 pounds. He plans to lose it when he started working. He has no other complaints. His Amos delivers groceries to peoples homes. His son Abdelrahman goes to [employer] high school and delivers pizza in the evening. His other son Nasir works full-time for [employer] in security. Patient's mother Maira also lives [...] walker Less stress. Needs DOT for his [place] policy. His first time applying for one. [...] it on. ?[facility],w ill call to make an appointment. medication still working well. ?Son in [place] a senior now, played hockey but because of covid will not plan. not sure if he wants to go to college. 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 ?Likes his job. Spends time with family Did ice fishing with Will 21 yr He works for [employer] and lives with his Tip Tester at [facility] . Lives in basement of her parents . Abdelrahman is 18 yr. Amos is fine. Mother Maira is now living with her brother as didnt get along with him Talks to her daily. Has called [facility] and has not responded. Ill write his scripts till he finds a new psychiatrist , His insurance will be changing. ?03/31/22 Came to the office. Looking well. Amos does [employer] and works for a friend at a [employer] . Son Will 22 yrs is still working at [employer] Lives in basement with [facility] student accounts coordinator Son Abdelrahman 18 yr graduauted from High School Working at a [employer] place for the summer. 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 ?Meds reviewed and compliants. Was at [facility] ED last week . Got into a [...] refill of simvastatin amos working at a [employer] in [place] for 6 months ill is working at [employer] . 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 [employer]. Started this Thursday. ?Doesnt feel motivated to [...] takes magnesium and testosterone booster tab from [facility]. Noticed is body and joint pain is bothering him since he stopped the Aleve. ?01/28/23 Feliciano was last seen by me in September 2022 and I had referred him to see carry in worker for his iron deficiency anemia. He saw Dr.Bushra Thomas at [facility] and had upper endoscopy and colonoscopy done [...] [facility] a hemorrhoid which [...] mother Maira Teran (my pt) is at [facility] with inoperable metastati brain tumor . Feliciano wants to bring her home and take care of her. I spoke to Feliciano He said he is compliant with his meds and doing well Wants to bring his mother home Told him need to do labs to check his . ?HCT. Will send to [facility]. ?05/26/23 Seen in office Mother Sahra Bishop from intestinal obstruction in hospital in Feb 09 2023 Cremated. Working for [employer] all over Now in [place]. 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 Son Will works at [employer] Getting next year to [employer] for 7 years. 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 ?Has had no alcohol [...] July 2016Left knee ACL reepair 2002 By [facility] 2002Ventral Hernia Repair with mesh Dr Araceli Koch Oct and Colonoscopy by Dr Deidre Thomas at [facility] * Hospitalization/Major Diagno stic Procedure:?[facility] for facial cellulitis and HTN Failed [...] ?Do you drink alcohol?: Yes, Daily. ???EDUCATION: [place] in 1995 FAMILY HISTORY: Born and raised in . . Father Rashad Modi dies at age 67 yr. Disabled from back pain Was in [place] and Had metastatic small cell cancer. 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 Has one older brother Rashad Modi 41 yr Lives in [facility] with 2 kids. Sees him couple times a week Big. One older sister Betsey Modi 44 yr single. Stay at home.brenda in [place] 2 sons Jordi and Mariusz. Close to [...] yr good student Graduated from [employer] Wants to be an control equipment electrician Now working for a [employer] company. #Abdelrahman 13 yr Plays hockey and lacrosse Goes to [employer] Lives at [address] in for 13 years Bought it 11 more years to go. Good relation with children They did know about his drugs !Oldest son now knows. Relationship with is better. 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 * Medications:?TakinginFLIXima b 100 [...] ER , Notes: [facility] Notes: 0.5 mg 330ALPRAZolam 1 MG [...] Tablet 1 tablet Orally Once a dayNot-Taking Inglis Carbonate ER 300 MG Tablet Extended Release 1 tablet at bedtime Orally Once a dayNot-Taking Venlafaxine HCl ER , Notes: [facility] AL[facility]AZ[facility]am , Notes: 0.5 mg 330Not-Taking [...] Will refer to Dr Anaya Martinez at [place]. Refused LAUREL in office as he is getting a colonoscopy.?3.?Alcoholism in recovery - F10.21, Going for 20 weeks sessions at [facility] Also going to start on AA meetings after [place]. Doing well Has alprazolam on hand Taking Venlafaxine05/23/21 Last visit with Psychiatrist TOY MAKER was with Denisa Freeman 2 months ago. ith [facility] Missed the video call Has to make the [id number]/18/21 drinks once in a while. can not [...] on MRI abdomen s Referred to see Merchandise Processor on Jul 06, 2023 at [facility] The infusion Infiximab is helping (Remicaid)?7.?Crohns disease [...] Months * Billing Information: * Visit Code:? 81540 Office Visit, Est Pt., Level 4. * Procedure Codes:? * Sign off status: Completed true * Provider:?Shivam Wallace MD Date:?2022 Generated for Paul key/Arabella/Elizabetitting on:?09/21/2024 11:54 AM EST History and Physical Notes * HPI (History of Present Illness) Category Sub-Category Detail Notes Category Not es Interim History 02/18/21: Last contact was in September 2020. I called him on the phone. He was on his way back in a carpool with 3 other people from [place]. 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 He started working there from May 2020 till September 2020 when he got laid off. He recently got rehired 2 weeks ago. When it rains they do not work and he can come home. Informed me that he is taking Seroquel and fluoxetine which is given by [facility]. He has online session with the counselor Emma Dotson. I informed him about the demise of Dr. Arredondo his psychiatrist from [facility]. He informed me that he has gained 30 pounds weight since he was laid off currently weighs 275 pounds. He plans to lose it when he started working. He has no other complaints. His Amos delivers groceries to [employer]. His son Abdelrahman goes to [employer] high school and delivers pizza in the evening. His other son Nasir works full-time for [employer] in [employer]. 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 Likes his job. Spends time with family Did ice fishing with Will 21 yr He works for [employer] and lives with his Tip Tester at [facility] . Lives in basement of her parents . Abdelrahman is 18 yr. Amos is fine. Mother Maira is now living with her brother as didnt get along with him Talks to her daily. Has called [facility] and has not responded. Ill write his scripts till he finds a new psychiatrist , His insurance will be changing. 03/31/22 Came to the office. Looking well. Amos does [employer] and works for a friend at a [employer] . Son Will 22 yrs is still working at [employer] Lives in basement with [employer] [facility] student accounts coordinator Son Abdelrahman 18 yr graduauted from High School Working at a [employer] for the summer. 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 Meds reviewed and compliants. Was at [facility] ED last week . Got into a [...] of simvastatin amos working at a dog [employer] place in [place] for 6 months ill is working at [employer] . 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 [employer]. Started this Thursday. Doesnt feel motivated to [...] and I had referred him to see carry in worker for his iron deficiency anemia. He saw Dr.Bushra Thomas at [facility] and had upper endoscopy and colonoscopy done [...] [facility]. [facility]il [facility] of a hemorrhoid which [...] mother Maira Teran (my pt) is at [facility] with inoperable metastati brain tumor . Feliciano wants to bring her home and take care of her. I spoke to Feliciano He said he is compliant with his meds and doing well Wants to bring his mother home Told him need to do labs to check his . HCT. Will send to [facility]. 05/26/23 Seen in office Mother Sahra Bishop from intestinal obstruction in hospital in Feb 09 2023 Cremated. Working for [employer] Travels all over [place] in [place]. 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 Son Will works at [employer] Getting next year to [employer] for 7 years. 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 Has had no alcohol for 10 months. Smokes MJ daily in evening. Grows his own. Examination Category Sub-Category Detail Notes Category Not es General Examination GENERAL APPEARANCE: in no ac [place] distress, well developed, well nourished HEAD: normocephalic, [...]
--- OUTSIDE RECORDS SUMMARY | 2024-09-21 11:54 | XMS_ITS ---
Author Organization [facility] Address [address] [place] [address] Care Team Providers Care Slag Motor Operator Name Role Phone SHIVAM WALLACE Primary Care Provider Allergies No Known Allergies REASON FOR VISIT [...] mg starte d at [facility] 11/05/2019 Not-Taking Aleve 220 MG Oral for [...] a day for 10 day(s) 09/11/2020 Not-Taking [place] Carbonate ER 300 MG 1 tablet at [...] other tobacco user? No Section Notes: EDUCATION: [place] in 1995 FAMILY HISTORY: Born and raised in . . Father Rashad Donohue dies at age 67 yr. Disabled from back pain Was in [place] and Had metastatic small cell cancer. Lived in [place] with his (Got when patient was 16 yr Mother got remarried and when her she came back to live with her ex 5 years ago!!) Mother Maira 63 yr disabled from back pain.Was a [employer] in [place].She is now living with Cornelius for 2 years. Has one older brother Rashad Donohue 41 yr Lives in [place] Cash Application Representative with 2 kids. Sees him couple times a week Big. One older sister Betsey Donohue 44 yr single. Stay at home.brenda in [place] 2 sons Jordi and Mariusz. Close to [...] #Cornelius 16 yr good student Graduated from [employer] Wants to be an electrician locomotive Now working for a [employer] company. #Abdelrahman 13 yr Plays hockey and lacrosse Goes to [employer] Lives at [address] in for 13 years Bought it 11 more years to go. Good relation with children They did know about his drugs !Oldest son now knows. Relationship with is better. 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 Vital Signs Temperature 98.9 degrees Fahrenheit 09/08/20 23 Blood pressure systolic 130 mm Hg 09/08/20 23 Blood pressure diastolic 86 mm Hg 023 Heart Rate 77 /min 09/08/2023 Height 70.0786 in 09/08/2023 Weight 283 lbs 09/08/2023 BMI 40.51 kg/m2 09/08/2023 Encounters Encounter Location Date Provider Diagnosis [address] [place] [address] 09/08/2023 SHIVAM WALLACE Hyperlipidemia E78.5 ; Iron [...] Will refer to Dr Anaya Martinez at [facility]. Refused LAUREL in office as he is getting a colonoscopy. 09/08/2023 Alcoholism in recovery (ICD-10 - F10.21) Going for 20 weeks sessions at [facility] Also going to start on AA meetings after . Doing well Has alprazolam on hand Taking Venlafaxine 05/23/21 Last visit with Psychiatrist MASTER PILOT was with Denisa [facility] Missed the video call [...] on MRI abdomen s Referred to see Water/Wastewater Project Manager on Jul 06, 2023 at [facility] The infusion Infiximab [...] reduction to Dr Koch Did the classes, hat block bench hand and qualified. Did not go back for [...] * Cornelius DONOHUEDOB: [birth year] (43 yo M)Acc No.[id number]:09/08/2023 Progress Notes Patient:?Cornelius Donohue Provider:?Shivam Wallace MD :1980???Age:43 Y???Sex:Male Ha e:09/08/2023 Address:[address] [place] [address], [id number] Subjective: * Chief Complaints: * ???Annual Visit:Last [...] a carpool with 3 other people from [place]. 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 He started working there from May 2020 till September 2020 when he got laid off. He recently got rehired 2 weeks ago. When it rains they do not work and he can come home. ?Informed me that he is taking Seroquel and fluoxetine which is given by [facility]. He has online session with the counselor Emma Dotson. I informed him about the demise of Dr. Arredondo his psychiatrist from [facility]. ?He informed me that he has gained 30 pounds weight since he was laid off currently weighs 275 pounds. He plans to lose it when he started working. He has no other complaints. His Amos delivers groceries to peoples homes. His son Abdelrahman goes to [employer] high school and delivers pizza in the evening. His other son Nasir works full-time for [employer] in security. Patient's mother Maira also lives [...] walker Less stress. Needs DOT for his [place] policy. His first time applying for one. [...] it on. ?Was seeing Denisa Freeman at [facility], ill call to make an appointment. medication still working well. ?Son in [employer] a senior now, played hockey but because of covid will not plan. not sure if he wants to go to college. 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 ?Likes his job. Spends time with family Did ice fishing with Will 21 yr He works for [employer] and lives with his Pulling Unit Floorhand at [facility] . Lives in basement of [...] Will 22 yrs is still working at [employer] Lives in basement with [employer] [facility] [employer] student ambassador Son Abdelrahman 18 yr graduauted from High School Working at a [employer] for the summer. 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 ?Meds reviewed and compliants. Was at [facility] last week . 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 [email or web address]. Started this Thursday. ?Doesnt feel motivated to [...] takes magnesium and testosterone booster tab from [facility]. Noticed is body and joint pain is bothering him since he stopped the Aleve. ?01/28/23 Feliciano was last seen by me in September 2022 and I had referred him to see sketch maker for his iron deficiency anemia. He saw Dr.Bushra Thomas at [facility] and had upper endoscopy and colonoscopy done [...] [facility]. [facility]il [facility] a [facility] which [...] mother Maira Teran (my pt) is at [facility] with inoperable metastati brain tumor . Feliciano wants to bring her home and take care of her. I spoke to Feliciano He said he is compliant with his meds and doing well Wants to bring his mother home Told him need to do labs to check his . ?HCT. [facility] send to [facility]. ?05/26/23 Seen in office Mother Sahra Bishop from intestinal obstruction in hospital in Feb 09 2023 Cremated. Working for [employer] Travel[employer] all over Now in [place]. 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 Son Will works at [employer] Getting next year to [employer] for 7 years. 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 ?Has had no alcohol [...] July 2016Left knee ACL reepair 2002 By [facility] 2002[facility] Hernia Repair with mesh Dr Araceli Koch Oct and Colon[place] [facility] [place]idre [place] [facility] * Ocular Surgical History:? * Hospitalization/Major Diagno stic Procedure:?[facility] for facial cellulitis and HTN Failed treatment [...] ?Do you drink alcohol?: Yes, Daily. ???EDUCATION: [place] in 1995 FAMILY HISTORY: Born and raised in . . Father Rashad Donohue dies at age 67 yr. Disabled from back pain Was in [place] and Had metastatic small cell cancer. Lived in [place] with his (Got when patient was 16 yr Mother got remarried and when her she came back to live with her ex 5 years ago!!) Mother Maira 63 yr disabled from back pain.Was a [employer] in [place].She is now living with Cornelius for 2 years. Has one older brother Rashad Donohue 41 yr Lives in [place] [employer] with 2 kids. Sees him couple times a week Big. One older sister Betsey Donohue 44 yr single. Stay at home.brenda in [place] 2 sons Jordi and Mariusz. Close to [...] #Cornelius 16 yr good student Graduated from [employer] Wants to be an electrician locomotive Now working for a [employer] company. #Abdelrahman 13 yr Plays hockey and lacrosse Goes to [employer] Lives at [address] in for 13 years Bought it 11 more years to go. Good relation with children They did know about his drugs !Oldest son now knows. Relationship with is better. 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 * Medications:?TakinginFLIXima b 100 [...] ER , Notes: [facility] , Notes: 0.5 mg 330ALPRAZolam 1 MG [...] Tablet 1 tablet Orally Once a dayNot-Taking [place] Carbonate ER 300 MG Tablet Extended Release 1 tablet at bedtime Orally Once a dayNot-Taking Venlafaxine HCl ER , Notes: 150 [facility] ALPRAZolam , Notes: 0.5 mg 330Not-Taking [...] 09/23/2022) (Collection Date - 09/23/2022)?ValueReference Range?IMMATURE RETIC PEEJQJFB29.7H2.3- 15.9 - %?# RETICULOCYTE COUNT0.10H0.03-0.09 - x10-6/uL?% RETICULOCYTE COUNT2.0H0.7-1.7 - %?RETIC HGB IQCYXYHAMB66.5L>29 - pg * Examination: ???General Examination: ?GENERAL [...] Will refer to Dr Anaya Martinez at [facility]. Refused LAUREL in office as he is getting a colonoscopy.?3.?Alcoholism in recovery - F10.21, Going for 20 weeks sessions at [facility] Also going to start on AA meetings after . Doing well Has alprazolam on hand Taking Venlafaxine8/19/21 Last visit with Psychiatrist MASTER PILOT was with Denisa Freeman 2 months ago. [facility] Missed the video call Has to make the nqxultyihfh06/18/21 drinks once in a while. can not [...] on MRI abdomen s Referred to see Water/Wastewater Project Manager on Jul 06, 2023 at [facility] The infusion Infiximab [...] reduction to Dr Koch Did the classes, hat block bench hand and qualified. Did not go back for [...] Problems:? * Billing Information: * Visit Code:? 44879 Office Visit, Est Pt., Level 4. * Procedure Codes:? Care Plan Details* * Sign off status: Completed true * Provider:?Shivam Wallace MD Date:?2022 Generated for Paul key/Arabella/Elizabetitting on:?09/21/2024 11:53 AM EST History and Physical Notes * HPI (History of Present Illness) Category Sub-Category Detail Notes Category Not es Interim History 02/18/21: Last contact was in September 2020. I called him on the phone. He was on his way back in a carpool with 3 other people from [place]. 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 He started working there from May 2020 till September 2020 when he got laid off. He recently got rehired 2 weeks ago. When it rains they do not work and he can come home. Informed me that he is taking Seroquel and fluoxetine which is given by [facility]. He has online session with the counselor Emma Dotson. I informed him about the demise of Dr. Arredondo his psychiatrist from [facility]. He informed me that he has gained 30 pounds weight since he was laid off currently weighs 275 pounds. He plans to lose it when he started working. He has no other complaints. His Amos delivers groceries to peoples homes. His son Abdelrahman goes to [employer] high school and delivers pizza in the evening. His other son Nasir works full-time for [employer] in [place]. Patient's mother Maira also lives with them [...] walker Less stress. Needs DOT for his [employer] policy. His first time applying for one. [...] it on. [facility] ill call to make an appointment. medication still working well. Son in [employer] a senior now, played hockey but because of covid will not plan. not sure if he wants to go to college. 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 Likes his job. Spends time with family Did ice fishing with Will 21 yr He works for [employer] and lives with his Pulling Unit Floorhand at [facility] . Lives in basement of her parents . Abdelrahman is 18 yr. Amos is fine. Mother Maira is now living with her brother as didnt get along with him Talks to her daily. Has called [facility] and has not responded. Ill write his scripts till he finds a new psychiatrist , His insurance will be changing. 03/31/22 Came to the office. Looking well. Amos does [employer] and works for a friend at a [employer] . Son Will 22 yrs is still working at [employer] Lives in basement with [employer] [facility] [employer] student ambassador Son Abdelrahman 18 yr graduauted from High School Working at a [employer] for the summer. 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 Meds reviewed and compliants. Was at [facility] last week . Got into a [...] refill of simvastatin amos working at a [employer] in [place] for 6 months ill is working at [employer] . 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 [email or web address]. Started this Thursday. Doesnt feel motivated to [...] takes magnesium and testosterone booster tab from [facility]. Noticed is body and joint pain is bothering him since he stopped the Aleve. 01/28/23 Feliciano was last seen by me in September 2022 and I had referred him to see sketch maker for his iron deficiency anemia. He saw Dr.Bushra Thomas at [facility] and had upper endoscopy and colonoscopy done [...] see Dr. Sunil Ramirez a general [facility] for [facility] of a hemorrhoid which [...] mother Maira Teran (my pt) is at [facility] with inoperable metastati brain tumor . Feliciano wants to bring her home and take care of her. I spoke to Feliciano He said he is compliant with his meds and doing well Wants to bring his mother home Told him need to do labs to check his . HCT. Will send to [facility]. 05/26/23 Seen in office Mother Sahra Bishop from intestinal obstruction in hospital in Feb 09 2023 Cremated. Working for [employer] Travels all over Now in [place]. 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 Son Will works at [employer] Getting next year to [employer] for 7 years. 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 Has had no alcohol [...] General Examination GENERAL APPEARANCE: in no ac seminole distress, well developed, well nourished HEAD: normocephalic, [...]
--- OUTSIDE RECORDS SUMMARY | 2024-09-21 11:54 | XMS_ITS ---
Author Organization [facility] Address [address] [place] [address] Care Team Providers Care Paper Guillotine Operator Name Role Phone MACHELLE PEREZ Primary Care Provider [phone] REASON FOR VISIT Transferred Encounters Encounter Location Date Provider Diagnosis [facility] [address] [place] [address] 09/29/2023 MACHELLE PEREZ Plan Of Treatment No Information Progress Notes * Cornelius MODIDOB: [birth year] (43 yo M)Acc No.[id number]:09/29/2023 Patient:?Cornelius Modi :1980???Age:43 Y???Sex:Male Address:[address], [place], [address] * true * Date:? Generated for Paul key/Arabella/eTransmitting on:?09/21/2024 11:53 AM EST
== END 2024-09-14 00:01 | disposition home or self-care (01) ==
LOC: HO.LNP
PROVIDERS: Visit Provider Internal Medicine
DX: K50.90 Crohn's disease, unspecified, without complications (principal)
CPT/HCPCS: 83993

== ENCOUNTER 2024-09-29 10:16 | Outpatient (AMB) | payer BC, SELFPAY ==
--- NOTE | 2024-09-29 10:19 | MHC.OFFVIS ---
Vital Signs 09/29/24 10:20 Height 5 ft 10 in Weight 275 lb BMI 39.5 BP 144/84 H Blood Pressure Location Rt brachial Position Sitting Pulse 77 Intake Visit Reasons: Pramod Anal Fistula Intake Note: This patient presents for pramod anal fistula. Pt c/o; reports no changes. Feed House Supervisor Required: No Accompanied by: Spouse Allergies No Known Allergies Allergy (Verified 09/29/24 10:25) Medication List - Last Reconciled 09/29/24 by Sunil Sandoval MD acetaminophen ER (Tylenol Arthritis Pain) 650 mg PO Q12H cholecalciferol (vitamin D3) 1,250 mcg PO QWEEK fluoxetine 1 cap PO DAILY loratadine (Claritin) 10 mg PO DAILY magnesium 250 mg PO DAILY omeprazole 20 mg PO DAILY 30 days phentermine 37.5 mg PO DAILY quetiapine 1 tab PO BID semaglutide (weight loss) (Wegovy) mg subcut simvastatin 1 tab PO BEDTIME upadacitinib ER 30 mg PO DAILY 90 days HPI HPI Pramod Anal Fistula: Details: 44-year-old male referred for a possible anal fistula appeared says that last year, he had an I&D done for an anal abscess in the ER in [facility]. He says after that, he would have some occasional recurrent swelling and drainage from the same side on his left perianal region. He therefore had an MRI of the pelvis done last April, and this suggested a superficial anal fistula. However, for about 5 months now, he said that he has had no drainage and the area had been dry. He denies any swelling anymore. He does have a diagnosis of Crohn's disease of the ileum, jejunum and rectum. This seems to have been better controlled now that he has been started on Rinvoq.. He is a known smoker. [facility] Medical History (Updated 09/29/24 @ 10:50 by Sunil Sandoval MD) Anal fistula Morbid obesity GERD (gastroesophageal reflux disease) Anxiety Substance abuse EtOH dependence Anemia Asthma Surgical History History of esophagogastroduodenoscopy (EGD) History of carpal tunnel surgery H/O knee surgery History of hip surgery H/O colonoscopy Family History Maternal Grandmother Skin cancer Maternal Grandfather Prostate cancer Paternal Grandfather Lung cancer Father Cancer Mother Cancer Other Family history of hepatitis Social History Alcohol intake: former Year quit: 2021 Patient Tobacco Use Status: Never used Tobacco Substance Use Type: Marijuana Current occupational status: employed 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 Review of Systems Const Denies chills and Denies fever(s) Card Denies chest pain, Denies dyspnea and Denies dyspnea on exertion Resp Denies cough, Denies dyspnea and Denies dyspnea on exertion GI Denies hematochezia and Denies change in bowel habits Denies hematuria and Denies difficulty urinating Musc Denies back pain and Denies limited range of motion Neuro Denies focal weakness and Denies convulsions Psych Denies depression and Denies mood swings Physical Exam Vital Signs: Last Vital Signs Pulse 77 09/29/24 10:20 BP 144/84 H 09/29/24 10:20 BMI result Body Mass Index 39.5 Const General: comfortable and no acute distress Nutritional Appearance: obese Resp Effort & Inspection: normal respiratory effort Cardio Rate: regular rate GI Other: Rectal exam shows what appears to be an dry scar on the left perianal area about 3 cm from the verge likely representing an old external fistulous tract with no induration, no redness, no tenderness Palpation (GI): Soft to palpation, not firm and nontender Assessment & Plan Assessment & Plan (1) Anal fistula: Code(s): K60.30 - Anal fistula, unspecified Category: Medical Plan: He does have a history of recurrent swelling and discharge on the left perianal area. This has been dry for about 5 months now and he has had no recurrence Current exam does show a scar without any induration or any discharge. This appears to be a healed tract. His fistula may have healed after he had been started on ring Rinvoq. It appears that the control of the fistula is concurrent with control of his Crohn's disease I explained this to him. I also explained to him that with recurrent swelling and drainage, 1 option is to proceed with exam under anesthesia and likely seton placement wants to identify the tract. I explained the technique of this procedure to him He does understand and he says he will come back to the office on a p.r.n. basis. His was with him during the visit. Coding Level of Care Code Est Pt Level 3 (14039) Diagnoses Anal fistula K60.30
--- OUTSIDE RECORDS SUMMARY | 2024-09-29 10:19 | XMS_ITS ---
[facility] Organization [facility] Address [address] [place] [address] Care Team Providers Care Sonography Technician Name Role Phone SHIVAM WALLACE Primary Care Provider [phone] Allergies No Known Allergies Results Component Value Reference Range Notes CBC Reviewed date:05/27/2023 11:34:58 PM Interpretation: Performing Lab: Notes/Report: Original Ordering Provider: SHIVAM WALLACE MD [employer], a member of [address] [address] Nut Steamer - Yoly Chappell MD WBC 12.0 4.8-10.8 [...] ALPRAZolam 0.5 mg 330 11/10/2019 Not-Ivan ing Wide Ruins Carbonate ER 300 MG 1 tablet at bedtime Orally Once a day for 30 day(s) 11/14/2019 Not-Taking Venlafaxine HCl ER 150 mg starte d at [facility] 11/05/2019 Not-Taking Levaquin 500 MG 1 [...] other tobacco user? No Section Notes: EDUCATION: [place] in 1995 FAMILY HISTORY: Born and raised in . . Father Rashad Modi dies at age 67 yr. Disabled from back pain Was in [facility] and Had metastatic small cell cancer. Lived in [place] with his (Got when patient was 16 yr Mother got remarried and when her she came back to live with her ex 5 years ago!!) Mother Maira 63 yr disabled from back pain.Was a [employer] in [place].She is now living with Cornelius for 2 years. Has one older brother Rashad Modi 41 yr Lives in [facility] with 2 kids. Sees him couple times a week Big. One older sister Betsey Modi 44 yr single. Stay at home.brenda in [place] 2 sons Jordi and Mariusz. Close to [...] #Cornelius 16 yr good student Graduated from [employer] Wants to be an electricians top helper Now working for a [employer] company. #Abdelrahman 13 yr Plays hockey and lacrosse Goes to [employer] Lives at [address] in for 13 years Bought it 11 more years to go. Good relation with children They did know about his drugs !Oldest son now knows. Relationship with is better. 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 Problems Problem Type SNOMED Code ICD Code Onset Dates Problem Status W/U Status Risk Notes Problem Rheumatoid arthritis (13650405) Rheumatoid arthritis (M06.9) Active confirmed 05/26/23 Seen on MRI abdomen s Referred to see Display Trimmer on Jul 06, 2023 at [facility] The infusion Infiximab is helping (Remicaid) Problem Crohn's disease of small intestine (37744373) Crohns disease of small intestine with complication [...] 05/26/2023 Encounters Encounter Location Date Provider Diagnosis [address] [place] [address] 05/26/2023 SHIVAM WALLACE Hyperlipidemia E78.5 ; Iron [...] Will refer to Dr Anaya Martinez at [facility]. Refused LAUREL in office as he is getting a colonoscopy. 05/26/2023 Alcoholism in recovery (ICD-10 - F10.21) Going for 20 weeks sessions at [facility] Also going to start on AA meetings after . Doing well Has alprazolam on hand Taking Venlafaxine 05/23/21 Last visit with Psychiatrist INSURANCE SALES ASSISTANT was with Denisa Freeman 2 months ago. [...] on MRI abdomen s Referred to see Display Trimmer on Jul 06, 2023 at [facility] The infusion Infiximab is helping (Remicaid) 05/26/2023 [...] * Cornelius MODIDOB: [birth year] (43 yo M)Acc No.[id number]:05/26/2023 Progress Notes Patient:?Cornelius Modi Provider:?Shivam Wallace MD :1980???Age:43 Y???Sex:Male Ha e:05/26/2023 Address:[address], [id number] Subjective: * Chief Complaints: * ???4 mo follow upLABS DUE EK G DUE AT ANNUAL * HPI: ???Interim History:? 02/18/21: ?Last contact was in September 2020. I called him on the phone. He was on his way back in a carpool with 3 other people from [place]. 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 He started working there from May 2020 till September 2020 when he got laid off. He recently got rehired 2 weeks ago. When it rains they do not work and he can come home. ?Informed me that he is taking Seroquel and fluoxetine which is given by [facility]. He has online session with the counselor Emma Dotson. I informed him about the demise of Dr. Arredondo his psychiatrist from [facility]. ?He informed me that he has gained 30 pounds weight since he was laid off currently weighs 275 pounds. He plans to lose it when he started working. He has no other complaints. His Amos delivers groceries to peoples homes. His son Abdelrahman goes to [employer] high school and delivers pizza in the evening. His other son Nasir works full-time for [employer] in security. Patient's mother Maira also lives [...] walker Less stress. Needs DOT for his [place] policy. His first time applying for one. [...] it on. ?Was seeing Denisa Freeman at [facility],w ill call to make an appointment. medication still working well. ?Son in [place] a senior now, played hockey but because of covid will not plan. not sure if he wants to go to college. 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 ?Likes his job. Spends time with family Did ice fishing with Will 21 yr He works for [employer] and lives with his [employer] at [facility] . Lives in basement of her parents . Abdelrahman is 18 yr. Amos is fine. Mother Maira is now living with her brother as didnt get along with him Talks to her daily. Has called [employer] [facility] and has not responded. Ill write his scripts till he finds a new psychiatrist , His insurance will be changing. ?03/31/22 Came to the office. Looking well. Amos does [employer] and works for a friend at a [employer] . Son Will 22 yrs is still working at [employer] Lives in basement with [facility] student records coordinator Son Abdelrahman 18 yr graduauted from High School Working at a [employer] place for the summer. 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 ?Meds reviewed and compliants. Was at [facility] ED last week . Got into a [...] refill of simvastatin amos working at a [employer] in [place] for 6 months ill is working at [employer] . 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 [employer]. Started this Thursday. ?Doesnt feel motivated [...] takes magnesium and testosterone booster tab from [facility]. Noticed is body and joint pain is bothering him since he stopped the Aleve. ?01/28/23 Feliciano was last seen by me in September 2022 and I had referred him to see bill checker for his iron deficiency anemia. He saw Dr.Bushra Thomas at [facility] and had upper endoscopy and colonoscopy done [...] [facility]. Sunil [facility] of a hemorrh[facility] which [...] mother Maira Teran (my pt) is at [facility] with inoperable metastati brain tumor . Feliciano wants to bring her home and take care of her. I spoke to Feliciano He said he is compliant with his meds and doing well Wants to bring his mother home Told him need to do labs to check his . ?HCT. Will send to [facility]. ?05/26/23 Seen in office Mother Sahra Bishop from intestinal obstruction in hospital in Feb 09 2023 Cremated. Working for [employer] Travels all over Now in [place]. 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 Son Will works at [employer] Getting next year to [employer] for 7 years. 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 ?Has had no alcohol [...] July 2016Left knee ACL reepair 2002 By [facility] 2002[facility]entral Hernia Repair with mesh Dr Araceli Koch Oct and Colon[place] [facility]idre [place] [facility] * Hospitalization/Major Diagno stic Procedure:?[facility] for facial cellulitis and HTN [...] ?Do you drink alcohol?: Yes, Daily. ???EDUCATION: [place] in 1995 FAMILY HISTORY: Born and raised in . . Father Rashad Modi dies at age 67 yr. Disabled from back pain Was in [place] and Had metastatic small cell cancer. Lived in [place] with his (Got when patient was 16 yr Mother got remarried and when her she came back to live with her ex 5 years ago!!) Mother Maira 63 yr disabled from back pain.Was a [employer]ARD/[employer] in [place].She is now living with Cornelius for 2 years. Has one older brother Rashad Modi 41 yr Lives in [place] [facility] with 2 kids. Sees him couple times a week Big. One older sister Betsey Modi 44 yr single. Stay at home.brenda in [place] 2 sons Jordi and Mariusz. Close to [...] #Cornelius 16 yr good student Graduated from [employer] Wants to be an electricians top helper Now working for a [employer] company. #Abdelrahman 13 yr Plays hockey and lacrosse Goes to [employer] Lives at [address] in for 13 years Bought it 11 more years to go. Good relation with children They did know about his drugs !Oldest son now knows. Relationship with is better. 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 * Medications:?TakinginFLIXima b 100 [...] ER , Notes[facility] Notes: 0.5 mg 330ALPRAZolam 1 [...] Tablet 1 tablet Orally Once a dayNot-Taking Wide Ruins Carbonate ER 300 MG Tablet Extended Release 1 tablet at bedtime Orally Once a dayNot-Taking Venlafaxine HCl ER , Notes: [facility]am , Notes: 0.5 mg [...] Will refer to Dr Anaya Martinez at [facility]. Refused LAUREL in office as he is getting a colonoscopy.?3.?Alcoholism in recovery - F10.21, Going for 20 weeks sessions at [facility] Also going to start on AA meetings after [place]. Doing well Has alprazolam on hand Taking Venlafaxine05/23/21 Last visit with Psychiatrist INSURANCE SALES ASSISTANT was with Denisa Freeman 2 months ago. ith [facility] Missed the video call Has to make the xanxjgdacvn14/18/21 drinks once in a while. can not [...] on MRI abdomen s Referred to see Display Trimmer on Jul 06, 2023 at [facility] The infusion Infiximab is helping (Remicaid)?7.?Crohns disease [...] Months * Billing Information: * Visit Code:? 14075 Office Visit, Est Pt., Level 4. * Procedure Codes:? * Sign off status: Completed true * Provider:?Shivam Wallace MD Date:?2022 Generated for Paul key/Arabella/Elizabetitting on:?09/29/2024 10:18 AM EST History and Physical Notes * HPI (History of Present Illness) Category Sub-Category Detail Notes Category Not es Interim History 02/18/21: Last contact was in September 2020. I called him on the phone. He was on his way back in a carpool with 3 other people from [place]. 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 He started working there from May 2020 till September 2020 when he got laid off. He recently got rehired 2 weeks ago. When it rains they do not work and he can come home. Informed me that he is taking Seroquel and fluoxetine which is given by [facility]. He has online session with the counselor Emma Dotson. I informed him about the demise of Dr. Arredondo his psychiatrist from [facility]. He informed me that he has gained 30 pounds weight since he was laid off currently weighs 275 pounds. He plans to lose it when he started working. He has no other complaints. His Amos delivers groceries to [employer]. His son Abdelrahman goes to [employer] high school and delivers pizza in the evening. His other son Nasir works full-time for [employer] in [employer]. 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 Likes his job. Spends time with family Did ice fishing with Will 21 yr He works for [employer] and lives with his [employer] at [facility] . Lives in basement of her parents . Abdelrahman is 18 yr. Amos is fine. Mother Maira is now living with her brother as didnt get along with him Talks to her daily. Has called [employer] [facility] and has not responded. Ill write his scripts till he finds a new psychiatrist , His insurance will be changing. 03/31/22 Came to the office. Looking well. Amos does [employer] and works for a friend at a [employer] . Son Will 22 yrs is still working at [employer] Lives in basement with [facility] student records coordinator Son Abdelrahman 18 yr graduauted from High School Working at a [employer] for the summer. 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 Meds reviewed and compliants. Was at [facility] ED last week . Got into a [...] of simvastatin amos working at a [employer] place in [place] for 6 months ill is working at [employer] . 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 [employer]. Started this Thursday. Doesnt feel motivated [...] and I had referred him to see bill checker for his iron deficiency anemia. He saw Dr.Bushra Thomas at [facility] and had upper endoscopy and colonoscopy done [...] see Dr. Sunil Ramirez [facility] of a hemorrhoid which [...] mother Maira Teran (my pt) is at [facility] with inoperable metastati brain tumor . Feliciano wants to bring her home and take care of her. I spoke to Feliciano He said he is compliant with his meds and doing well Wants to bring his mother home Told him need to do labs to check his . HCT. Will send to [facility]. 05/26/23 Seen in office Mother Sahra Bishop from intestinal obstruction in hospital in Feb 09 2023 Cremated. Working for [employer] Travels all over Now in [place]. 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 Son Will works at [employer] Getting next year to [employer] for 7 years. 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 Has had no alcohol for 10 months. Smokes MJ daily in evening. Grows his own. Examination Category Sub-Category Detail Notes Category Not es General Examination GENERAL APPEARANCE: in no ac [place] distress, well developed, well nourished HEAD: normocephalic, [...]
--- OUTSIDE RECORDS SUMMARY | 2024-09-29 10:19 | XMS_ITS | Patient Health Record ---
Author Organization [facility] Address [address] [place] [address] Care Team Providers Care Sketch Artist Name Role Phone MACHELLE PEREZ Primary Care Provider [phone] Allergies No Known Allergies Reason For Referral [...] 0 TAKE 1 CAPSULE DAILY. 07/23/2015 Active Lordship Carbonate ER 300 MG 1 tablet at bedtime Orally Once a day for 30 day(s) 11/14/2019 Not-Taking SEROquel 50 MG 1 tablet Orally bid for 90 days Active Venlafaxine HCl ER 150 mg starte d at [facility] 11/05/2019 Not-Taking Claritin 10 MG Oral Daily for 0 TAKE 1 TABLET DAILY. 07/23/2015 Active Immunizations Vaccine Route Administration Date Status Comme nts Td (adult) preservative free IM Intramuscular 10/05/2015 Administered done in [place] [facility] about 3 years ago Social [...] other tobacco user? No Section Notes: EDUCATION: [place] in 1995 FAMILY HISTORY: Born and raised in . . Father Rashad Modi 67 yr. Disabled from back pain Was in [place] and Just got 1 year to live as he has metastatic small cell cancer. Lives in [place] with his (Got when patient was 16 yr Mother got remarried and when her she came back to live with her ex 5 years ago!!) Mother Maira 61 yr disabled from back pain.Was a [employer] in [place]. Has one older brother Rashad Modi 39 yr Lives in [facility] with 2 kids. Sees him couple times a week Big. One older sister Betsey Modi 41 yr single. Stay at home mother Lives in [place] 2 sons Jordi and Mariusz. Close to [...] yr good student Plays sports Goes to [employer] #Abdelrahman 12 yr Plays hockey and lacrosse Goes to [employer]. Lives at [address] [place] [address] in for 13 years Bought it 9 more years to go. Good relation with children They did know about his drugs !Oldest son now knows. Relationship with is better. 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 EDUCATION: [place] in 1995 FAMILY HISTORY: Born and raised in . . Father Rashad Modi 67 yr. Disabled from back pain Was in [place] and Just got 1 year to live as he has metastatic small cell cancer. Lives in [place] with his (Got when patient was 16 yr Mother got remarried and when her she came back to live with her ex 5 years ago!!) Mother Maira 61 yr disabled from back pain.Was a [employer] in [place]. Has one older brother Rashad Modi 39 yr Lives in [facility] with 2 kids. Sees him couple times a week Big. One older sister Betsey Modi 41 yr single. Stay at home mother Lives in [place] 2 sons Jordi and Mariusz. Close to [...] yr good student Plays sports Goes to [employer] #Abdelrahman 12 yr Plays hockey and lacrosse Goes to [employer]. Lives at [address] in for 13 years Bought it 9 more years to go. Good relation with children They did know about his drugs !Oldest son now knows. Relationship with is better. 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 EDUCATION: [place] in 1995 FAMILY HISTORY: Born and raised in . . Father Rashad Modi 67 yr. Disabled from back pain Was in [place] and Just got 1 year to live as he has metastatic small cell cancer. Lives in [place] with his (Got when patient was 16 yr Mother got remarried and when her she came back to live with her ex 5 years ago!!) Mother Maira 61 yr disabled from back pain.Was a [employer] in [place]. Has one older brother Rashad Modi 39 yr Lives in [place] with 2 kids. Sees him couple times a week Big. One older sister Betsey Modi 41 yr single. Stay at home mother Lives in [place] 2 sons Jordi and Mariusz. Close to [...] yr good student Plays sports Goes to [employer] #Abdelrahman 12 yr Plays hockey and lacrosse Goes to [employer]. Lives at [address] in for 13 years Bought it 9 more years to go. Good relation with children They did know about his drugs !Oldest son now knows. Relationship with is better. 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 EDUCATION: [place] in 1995 FAMILY HISTORY: Born and raised in . . Father Rashad Modi dies at age 67 yr. Disabled from back pain Was in [facility] and Had metastatic small cell cancer. Lived in [place] with his (Got when patient was 16 yr Mother got remarried and when her she came back to live with her ex 5 years ago!!) Mother Maira 63 yr disabled from back pain.Was a [employer] in [place].She is now living with Cornelius for 2 years. Has one older brother Rashad Modi 41 yr Lives in [facility] with 2 kids. Sees him couple times a week Big. One older sister Betsey Modi 44 yr single. Stay at home.brenda in [place] 2 sons Jordi and Mariusz. 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 #Abdelrahman 13 yr Plays hockey and lacrosse Goes to [employer] Lives at [address] in for 13 years Bought it 11 more years to go. Good relation with children They did know about his drugs !Oldest son now knows. Relationship with is better. 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 EDUCATION: [place] in 1995 FAMILY HISTORY: Born and raised in . . Father Rashad Modi dies at age 67 yr. Disabled from back pain Was in [employer] Had metastatic small cell cancer. Lived in [place] with his (Got when patient was 16 yr Mother got remarried and when her she came back to live with her ex 5 years ago!!) Mother Maira 63 yr disabled from back pain.Was a [employer] in [place].She is now living with Cornelius for 2 years. Has one older brother Rashad Modi 41 yr Lives in [place] with 2 kids. Sees him couple times a week Big. One older sister Betsey Modi 44 yr single. Stay at home.brenda in [place] 2 sons Jordi and Mariusz. 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 #Abdelrahman 13 yr Plays hockey and lacrosse Goes to [employer] Lives at [address] in for 13 years Bought it 11 more years to go. Good relation with children They did know about his drugs !Oldest son now knows. Relationship with is better. 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 EDUCATION: [place] in 1995 FAMILY HISTORY: Born and raised in . . Father Rashad Modi dies at age 67 yr. Disabled from back pain Was in [employer] Had metastatic small cell cancer. Lived in [place] with his (Got when patient was 16 yr Mother got remarried and when her she came back to live with her ex 5 years ago!!) Mother Maira 63 yr disabled from back pain.Was a [employer] in [place].She is now living with Cornelius for 2 years. Has one older brother Rashad Modi 41 yr Lives in [facility] with 2 kids. Sees him couple times a week Big. One older sister Betsey Modi 44 yr single. Stay at home.brenda in [place] 2 sons Jordi and Mariusz. 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 #Abdelrahman 13 yr Plays hockey and lacrosse Goes to [employer] Lives at [address] in for 13 years Bought it 11 more years to go. Good relation with children They did know about his drugs !Oldest son now knows. Relationship with is better. 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 EDUCATION: [place] in 1995 FAMILY HISTORY: Born and raised in . . Father Rashad Modi dies at age 67 yr. Disabled from back pain Was in [facility] and Had metastatic small cell cancer. Lived in [place] with his (Got when patient was 16 yr Mother got remarried and when her she came back to live with her ex 5 years ago!!) Mother Maira 63 yr disabled from back pain.Was a [employer] in [place].She is now living with Cornelius for 2 years. Has one older brother Rashad Modi 41 yr Lives in [facility] with 2 kids. Sees him couple times a week Big. One older sister Betsey Modi 44 yr single. Stay at home.brenda in [place] 2 sons Jordi and Mariusz. 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 #Abdelrahman 13 yr Plays hockey and lacrosse Goes to [employer] Lives at [address] in for 13 years Bought it 11 more years to go. Good relation with children They did know about his drugs !Oldest son now knows. Relationship with is better. 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 EDUCATION: [place] in 1995 FAMILY HISTORY: Born and raised in . . Father Rashad Modi dies at age 67 yr. Disabled from back pain Was in [facility] and Had metastatic small cell cancer. Lived in [place] with his (Got when patient was 16 yr Mother got remarried and when her she came back to live with her ex 5 years ago!!) Mother Maira 63 yr disabled from back pain.Was a [employer] [place].She is now living with Cornelius for 2 years. Has one older brother Rashad Modi 41 yr Lives in [facility] with 2 kids. Sees him couple times a week Big. One older sister Betsey Modi 44 yr single. Stay at home.brenda in [place] 2 sons Jordi and Mariusz. 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 #Abdelrahman 13 yr Plays hockey and lacrosse Goes to [employer] Lives at [address] in for 13 years Bought it 11 more years to go. Good relation with children They did know about his drugs !Oldest son now knows. Relationship with is better. 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 EDUCATION: [place] in 1995 FAMILY HISTORY: Born and raised in . . Father Rashad Modi dies at age 67 yr. Disabled from back pain Was in [place] and Had metastatic small cell cancer. Lived in [place] with his (Got when patient was 16 yr Mother got remarried and when her she came back to live with her ex 5 years ago!!) Mother Maira 63 yr disabled from back pain.Was a [employer] [place].She is now living with Cornelius for 2 years. Has one older brother Rashad Modi 41 yr Lives in [facility] with 2 kids. Sees him couple times a week Big. One older sister Betsey Modi 44 yr single. Stay at home.brenda in [place] 2 sons Jordi and Mariusz. 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 #Abdelrahman 13 yr Plays hockey and lacrosse Goes to [employer] Lives at [address] in for 13 years Bought it 11 more years to go. Good relation with children They did know about his drugs !Oldest son now knows. Relationship with is better. 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 EDUCATION: [place] in 1995 FAMILY HISTORY: Born and raised in . . Father Rashad Modi dies at age 67 yr. Disabled from back pain Was in [facility] and Had metastatic small cell cancer. Lived in [place] with his (Got when patient was 16 yr Mother got remarried and when her she came back to live with her ex 5 years ago!!) Mother Maira 63 yr disabled from back pain.Was a [employer] in [place].She is now living with Cornelius for 2 years. Has one older brother Rashad Modi 41 yr Lives in [place] with 2 kids. Sees him couple times a week Big. One older sister Betsey Modi 44 yr single. Stay at home.brenda in [place] 2 sons Jordi and Mariusz. 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 #Abdelrahman 13 yr Plays hockey and lacrosse Goes to [employer] Lives at [address] in for 13 years Bought it 11 more years to go. Good relation with children They did know about his drugs !Oldest son now knows. Relationship with is better. 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 EDUCATION: [place] in 1995 FAMILY HISTORY: Born and raised in . . Father Rashad Modi dies at age 67 yr. Disabled from back pain Was in [facility] and Had metastatic small cell cancer. Lived in [place] with his (Got when patient was 16 yr Mother got remarried and when her she came back to live with her ex 5 years ago!!) Mother Maira 63 yr disabled from back pain.Was a [employer] [place].She is now living with Cornelius for 2 years. Has one older brother Rashad Modi 41 yr Lives in [place] with 2 kids. Sees him couple times a week Big. One older sister eBtsey Modi 44 yr single. Stay at home.brenda in [place] 2 sons Jordi and Mariusz. 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 #Abdelrahman 13 yr Plays hockey and lacrosse Goes to [employer] Lives at [address] in for 13 years Bought it 11 more years to go. Good relation with children They did know about his drugs !Oldest son now knows. Relationship with is better. 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 EDUCATION: [place] in 1995 FAMILY HISTORY: Born and raised in . . Father Rashad Modi dies at age 67 yr. Disabled from back pain Was in [employer] Had metastatic small cell cancer. Lived in [place] with his (Got when patient was 16 yr Mother got remarried and when her she came back to live with her ex 5 years ago!!) Mother Maira 63 yr disabled from back pain.Was a [employer] in [place].She is now living with Cornelius for 2 years. Has one older brother Rashad Modi 41 yr Lives in [place] with 2 kids. Sees him couple times a week Big. One older sister Betsey Modi 44 yr single. Stay at home.brenda in [place] 2 sons Jordi and Mariusz. 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 #Abdelrahman 13 yr Plays hockey and lacrosse Goes to [employer] Lives at [address] in for 13 years Bought it 11 more years to go. Good relation with children They did know about his drugs !Oldest son now knows. Relationship with is better. 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 EDUCATION: [place] in 1995 FAMILY HISTORY: Born and raised in . . Father Rashad Modi dies at age 67 yr. Disabled from back pain Was in [employer] Had metastatic small cell cancer. Lived in [place] with his (Got when patient was 16 yr Mother got remarried and when her she came back to live with her ex 5 years ago!!) Mother Maira 63 yr disabled from back pain.Was a [employer] [place].She is now living with Cornelius for 2 years. Has one older brother Rashad Modi 41 yr Lives in [facility] with 2 kids. Sees him couple times a week Big. One older sister Betsey Modi 44 yr single. Stay at home.brenda in [place] 2 sons Jordi and Mariusz. 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 #Abdelrahman 13 yr Plays hockey and lacrosse Goes to [employer] Lives at [address] in for 13 years Bought it 11 more years to go. Good relation with children They did know about his drugs !Oldest son now knows. Relationship with is better. 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 EDUCATION: [place] in 1995 FAMILY HISTORY: Born and raised in . . Father Rashad Modi dies at age 67 yr. Disabled from back pain Was in [facility] and Had metastatic small cell cancer. Lived in [place] with his (Got when patient was 16 yr Mother got remarried and when her she came back to live with her ex 5 years ago!!) Mother Maira 63 yr disabled from back pain.Was a [employer] in [place].She is now living with Cornelius for 2 years. Has one older brother Rashad Modi 41 yr Lives in [facility] with 2 kids. Sees him couple times a week Big. One older sister Betsey Modi 44 yr single. Stay at home.brenda in [place] 2 sons Jordi and Mariusz. 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 #Abdelrahman 13 yr Plays hockey and lacrosse Goes to [employer] Lives at [address] in for 13 years Bought it 11 more years to go. Good relation with children They did know about his drugs !Oldest son now knows. Relationship with is better. 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 EDUCATION: [place] in 1995 FAMILY HISTORY: Born and raised in . . Father Rashad Modi dies at age 67 yr. Disabled from back pain Was in [facility] and Had metastatic small cell cancer. Lived in [place] with his (Got when patient was 16 yr Mother got remarried and when her she came back to live with her ex 5 years ago!!) Mother Maira 63 yr disabled from back pain.Was a [employer] [place].She is now living with Cornelius for 2 years. Has one older brother Rashad Modi 41 yr [facility] 2 kids. Sees him couple times a week Big. One older sister Betsey Modi 44 yr single. Stay at home.brenda in [place] 2 sons Jordi and Mariusz. 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 #Abdelrahman 13 yr Plays hockey and lacrosse Goes to [employer] Lives at [address] in for 13 years Bought it 11 more years to go. Good relation with children They did know about his drugs !Oldest son now knows. Relationship with is better. 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 EDUCATION: [place] in 1995 FAMILY HISTORY: Born and raised in . . Father Rashad Modi dies at age 67 yr. Disabled from back pain Was in [facility] and Had metastatic small cell cancer. Lived in [place] with his (Got when patient was 16 yr Mother got remarried and when her she came back to live with her ex 5 years ago!!) Mother Maira 63 yr disabled from back pain.Was a [employer] [place].She is now living with Cornelius for 2 years. Has one older brother Rashad Modi 41 yr Lives in [facility] with 2 kids. Sees him couple times a week Big. One older sister Betsey Modi 44 yr single. Stay at home.brenda in [place] 2 sons Jordi and Mariusz. 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 #Abdelrahman 13 yr Plays hockey and lacrosse Goes to [employer] Lives at [address] in for 13 years Bought it 11 more years to go. Good relation with children They did know about his drugs !Oldest son now knows. Relationship with is better. 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 EDUCATION: [place] in 1995 FAMILY HISTORY: Born and raised in . . Father Rashad Modi dies at age 67 yr. Disabled from back pain Was in [facility] and Had metastatic small cell cancer. Lived in [place] with his (Got when patient was 16 yr Mother got remarried and when her she came back to live with her ex 5 years ago!!) Mother Maira 63 yr disabled from back pain.Was a [employer] in [place].She is now living with Cornelius for 2 years. Has one older brother Rashad Modi 41 yr Lives in [place] with 2 kids. Sees him couple times a week Big. One older sister Betsey Modi 44 yr single. Stay at home.brenda in [place] 2 sons Jordi and Mariusz. 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 Slime 13 yr Plays hockey and lacrosse Goes to [employer] Lives at [address] in for 13 years Bought it 11 more years to go. Good relation with children They did know about his drugs !Oldest son now knows. Relationship with is better. 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 EDUCATION: [place] in 1995 FAMILY HISTORY: Born and raised in . . Father Rashad Modi dies at age 65 yr. Disabled from back pain Was in [employer] Had metastatic small cell cancer. Lived in [place] with his (Got when patient was 16 yr Mother got remarried and when her she came back to live with her ex 5 years ago!!) Mother Maira 63 yr disabled from back pain.Was a [employer] in [place].She is now living with Cornelius for 2 years. Has one older brother Rashad Modi 41 yr Lives in [place] with 2 kids. Sees him couple times a week Big. One older sister Betsey Modi 44 yr single. Stay at home.brenda in [place] 2 sons Jordi and Mariusz. 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 #Abdelrahman 13 yr Plays hockey and lacrosse Goes to [employer] Lives at [address] in for 13 years Bought it 11 more years to go. Good relation with children They did know about his drugs !Oldest son now knows. Relationship with is better. 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 EDUCATION: [place] in 1995 FAMILY HISTORY: Born and raised in . . Father Rashad Modi dies at age 67 yr. Disabled from back pain Was in [employer] Had metastatic small cell cancer. Lived in [place] with his (Got when patient was 16 yr Mother got remarried and when her she came back to live with her ex 5 years ago!!) Mother Maira 63 yr disabled from back pain.Was a [employer] in [place].She is now living with Cornelius for 2 years. Has one older brother Rashad Modi 41 yr Lives in [facility] with 2 kids. Sees him couple times a week Big. One older sister Betsey Modi 44 yr single. Stay at home.brenda in [place] 2 sons Jordi and Mariusz. 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 #Abdelrahman 13 yr Plays hockey and lacrosse Goes to [employer] Lives at [address] in for 13 years Bought it 11 more years to go. Good relation with children They did know about his drugs !Oldest son now knows. Relationship with is better. 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 EDUCATION: [place] in 1995 FAMILY HISTORY: Born and raised in . . Father Rashad Modi dies at age 67 yr. Disabled from back pain Was in [place] and Had metastatic small cell cancer. Lived in [place] with his (Got when patient was 16 yr Mother got remarried and when her she came back to live with her ex 5 years ago!!) Mother Maira 63 yr disabled from back pain.Was a [employer] in [place].She is now living with Cornelius for 2 years. Has one older brother Rashad Modi 41 yr Lives in [facility] with 2 kids. Sees him couple times a week Big. One older sister Betsey Modi 44 yr single. Stay at home.brenda in [place] 2 sons Jordi and Mariusz. 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 #Abdelrahman 13 yr Plays hockey and lacrosse Goes to [employer] Lives at [address] [facility] in for 13 years Bought it 11 more years to go. Good relation with children They did know about his drugs !Oldest son now knows. Relationship with is better. 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 EDUCATION: [place] in 1995 FAMILY HISTORY: Born and raised in . . Father Rashad Modi dies at age 65 yr. Disabled from back pain Was in [facility] and Had metastatic small cell cancer. Lived in [place] with his (Got when patient was 16 yr Mother got remarried and when her she came back to live with her ex 5 years ago!!) Mother Maira 63 yr disabled from back pain.Was a [employer] in [place].She is now living with Cornelius for 2 years. Has one older brother Rashad Modi 41 yr Lives in [place] with 2 kids. Sees him couple times a week Big. One older sister Betsey Modi 44 yr single. Stay at home.brenda in [place] 2 sons Jordi and Mariusz. 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 #Abdelrahman 13 yr Plays hockey and lacrosse Goes to [employer] Lives at [address] in for 13 years Bought it 11 more years to go. Good relation with children They did know about his drugs !Oldest son now knows. Relationship with is better. 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 EDUCATION: [place] in 1995 FAMILY HISTORY: Born and raised in . . Father Rashad Modi dies at age 67 yr. Disabled from back pain Was in [facility] and Had metastatic small cell cancer. Lived in [place] with his (Got when patient was 16 yr Mother got remarried and when her she came back to live with her ex 5 years ago!!) Mother Maira 63 yr disabled from back pain.Was a [employer] in [place].She is now living with Cornelius for 2 years. Has one older brother Rashad Modi 41 yr Lives in [facility] with 2 kids. Sees him couple times a week Big. One older sister Betsey Modi 44 yr single. Stay at home.brenda in [place] 2 sons Jordi and Mariusz. 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 #Abdelrahman 13 yr Plays hockey and lacrosse Goes to [employer] Lives at [address] in for 13 years Bought it 11 more years to go. Good relation with children They did know about his drugs !Oldest son now knows. Relationship with is better. 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 EDUCATION: [place] in 1995 FAMILY HISTORY: Born and raised in . . Father Rashad Modi dies at age 67 yr. Disabled from back pain Was in [facility] and Had metastatic small cell cancer. Lived in [place] with his (Got when patient was 16 yr Mother got remarried and when her she came back to live with her ex 5 years ago!!) Mother Maira 63 yr disabled from back pain.Was a [employer] in [place].She is now living with Cornelius for 2 years. Has one older brother Rashad Modi 41 yr Lives in [facility] with 2 kids. Sees him couple times a week Big. One older sister Betsey Modi 44 yr single. Stay at home.brenda in [place] 2 sons Jordi and Mariusz. 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 #Abdelrahman 13 yr Plays hockey and lacrosse Goes to [employer] Lives at [address] in for 13 years Bought it 11 more years to go. Good relation with children They did know about his drugs !Oldest son now knows. Relationship with is better. 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 EDUCATION: [place] in 1995 FAMILY HISTORY: Born and raised in . . Father Rashad Modi dies at age 67 yr. Disabled from back pain Was in [employer] Had metastatic small cell cancer. Lived in [place] with his (Got when patient was 16 yr Mother got remarried and when her she came back to live with her ex 5 years ago!!) Mother Maiar 63 yr disabled from back pain.Was a [employer] in [place].She is now living with Cornelius for 2 years. Has one older brother Rashad Modi 41 yr Lives in [place] with 2 kids. Sees him couple times a week Big. One older sister Betsey Modi 44 yr single. Stay at home.brenda in [place] 2 sons Jordi and Mariusz. 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 #Abdelrahman 13 yr Plays hockey and lacrosse Goes to [employer] [facility] [employer] Lives at [address] in for 13 years Bought it 11 more years to go. Good relation with children They did know about his drugs !Oldest son now knows. Relationship with is better. 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 EDUCATION: [place] in 1995 FAMILY HISTORY: Born and raised in . . Father Rashad Modi dies at age 67 yr. Disabled from back pain Was in [employer] Had metastatic small cell cancer. Lived in [place] with his (Got when patient was 16 yr Mother got remarried and when her she came back to live with her ex 5 years ago!!) Mother Maira 63 yr disabled from back pain.Was a [employer] in [place].She is now living with Cornelius for 2 years. Has one older brother Rashad Modi 41 yr Lives in [facility] with 2 kids. Sees him couple times a week Big. One older sister Betsey Modi 44 yr single. Stay at home.brenda in [place] 2 sons Jordi and Mariusz. 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 #Abdelrahman 13 yr Plays hockey and lacrosse Goes to [employer] Lives at [address] in for 13 years Bought it 11 more years to go. Good relation with children They did know about his drugs !Oldest son now knows. Relationship with is better. 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 EDUCATION: [place] in 1995 FAMILY HISTORY: Born and raised in . . Father Rashad Modi dies at age 67 yr. Disabled from back pain Was in [facility] and Had metastatic small cell cancer. Lived in [place] with his (Got when patient was 16 yr Mother got remarried and when her she came back to live with her ex 5 years ago!!) Mother Maira 63 yr disabled from back pain.Was a [employer] in [place].She is now living with Cornelius for 2 years. Has one older brother Rashad Modi 41 yr Lives in [facility] with 2 kids. Sees him couple times a week Big. One older sister Betsey Modi 44 yr single. Stay at home.brenda in [place] 2 sons Jordi and Mariusz. 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 #Abdelrahman 13 yr Plays hockey and lacrosse Goes to [employer] Lives at [address] in for 13 years Bought it 11 more years to go. Good relation with children They did know about his drugs !Oldest son now knows. Relationship with is better. 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 EDUCATION: [place] in 1995 FAMILY HISTORY: Born and raised in . . Father Rashad Modi dies at age 67 yr. Disabled from back pain Was in [facility] and Had metastatic small cell cancer. Lived in [place] with his (Got when patient was 16 yr Mother got remarried and when her she came back to live with her ex 5 years ago!!) Mother Maira 63 yr disabled from back pain.Was a [employer] in [place].She is now living with Cornelius for 2 years. Has one older brother Rashad Modi 41 yr Lives in [facility] with 2 kids. Sees him couple times a week Big. One older sister Betsey Modi 44 yr single. Stay at home.brenda in [place] 2 sons Jordi and Mariusz. 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 #Abdelrahman 13 yr Plays hockey and lacrosse Goes to [employer] [facility] [employer] Lives at [address] in for 13 years Bought it 11 more years to go. Good relation with children They did know about his drugs !Oldest son now knows. Relationship with is better. 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 EDUCATION: [place] in 1995 FAMILY HISTORY: Born and raised in . . Father Rashad Modi dies at age 67 yr. Disabled from back pain Was in [facility] and Had metastatic small cell cancer. Lived in [place] with his (Got when patient was 16 yr Mother got remarried and when her she came back to live with her ex 5 years ago!!) Mother Maira 63 yr disabled from back pain.Was a [employer] in [place].She is now living with Cornelius for 2 years. Has one older brother Rashad Modi 41 yr Lives in [facility] with 2 kids. Sees him couple times a week Big. One older sister Betsey Modi 44 yr single. Stay at home.brenda in [place] 2 sons Jordi and Mariusz. 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 #Abdelrahman 13 yr Plays hockey and lacrosse Goes to [employer] Lives at [address] in for 13 years Bought it 11 more years to go. Good relation with children They did know about his drugs !Oldest son now knows. Relationship with is better. 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 EDUCATION: [place] in 1995 FAMILY HISTORY: Born and raised in . . Father Rashad Modi dies at age 67 yr. Disabled from back pain Was in [facility] and Had metastatic small cell cancer. Lived in [place] with his (Got when patient was 16 yr Mother got remarried and when her she came back to live with her ex 5 years ago!!) Mother Maira 63 yr disabled from back pain.Was a [employer] in [place].She is now living with Cornelius for 2 years. Has one older brother Rashad Modi 41 yr Lives in [facility] with 2 kids. Sees him couple times a week Big. One older sister Betsey Modi 44 yr single. Stay at home.brenda in [place] 2 sons Jordi and Mariusz. 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 #Abdelrahman 13 yr Plays hockey and lacrosse Goes to [facility] [facility] [employer] Lives at [address] in for 13 years Bought it 11 more years to go. Good relation with children They did know about his drugs !Oldest son now knows. Relationship with is better. 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 EDUCATION: [place] in 1995 FAMILY HISTORY: Born and raised in . . Father Rashad Modi dies at age 67 yr. Disabled from back pain Was in [facility] and Had metastatic small cell cancer. Lived in [place] with his (Got when patient was 16 yr Mother got remarried and when her she came back to live with her ex 5 years ago!!) Mother Maira 63 yr disabled from back pain.Was a [employer] in [place].She is now living with Cornelius for 2 years. Has one older brother Rashad Modi 41 yr Lives in [facility] with 2 kids. Sees him couple times a week Big. One older sister Betsey Modi 44 yr single. Stay at home.brenda in [place] 2 sons Jordi and Mariusz. 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 #Abdelrahman 13 yr Plays hockey and lacrosse Goes to [employer] [facility] [employer] Lives at [address] in for 13 years Bought it 11 more years to go. Good relation with children They did know about his drugs !Oldest son now knows. Relationship with is better. 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 EDUCATION: [place] in 1995 FAMILY HISTORY: Born and raised in . . Father Rashad Modi dies at age 67 yr. Disabled from back pain Was in [facility] and Had metastatic small cell cancer. Lived in [place] with his (Got when patient was 16 yr Mother got remarried and when her she came back to live with her ex 5 years ago!!) Mother Maira 63 yr disabled from back pain.Was a [employer] in [place].She is now living with Cornelius for 2 years. Has one older brother Rashad Modi 41 yr Lives in [facility] with 2 kids. Sees him couple times a week Big. One older sister Betsey Modi 44 yr single. Stay at home.brenda in [place] 2 sons Jordi and Mariusz. Close to her Sees her twice a week. Happy childhood. No sports except on the streets Good childhood MARITAL HISTORY Left house at age 16 yrs Met his Sarha and lived with her for 11 years Got 10 years ago. 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 Had coccaine and percocet habits Stopped recently 2 yrs ago Went for therapy and counselling. 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 #Abdelrahman 13 yr Plays hockey and lacrosse Goes to [employer] [facility] [employer] Lives at [address] in for 13 years Bought it 11 more years to go. Good relation with children They did know about his drugs !Oldest son now knows. Relationship with is better. 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 EDUCATION: [place] in 1995 FAMILY HISTORY: Born and raised in . . Father Rashad Modi dies at age 67 yr. Disabled from back pain Was in [place] and Had metastatic small cell cancer. Lived in [place] with his (Got when patient was 16 yr Mother got remarried and when her she came back to live with her ex 5 years ago!!) Mother Maira 63 yr disabled from back pain.Was a [employer] in [place].She is now living with Cornelius for 2 years. Has one older brother Rashad Modi 41 yr Lives in [facility] with 2 kids. Sees him couple times a week Big. One older sister Betsey Modi 44 yr single. Stay at home.brenda in [place] 2 sons Jordi and Mariusz. 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 #Abdelrahman 13 yr Plays hockey and lacrosse Goes to [employer] [facility] [employer] Lives at [address] in for 13 years Bought it 11 more years to go. Good relation with children They did know about his drugs !Oldest son now knows. Relationship with is better. 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 EDUCATION: [place] in 1995 FAMILY HISTORY: Born and raised in . . Father Rashad Modi dies at age 67 yr. Disabled from back pain Was in [employer] Had metastatic small cell cancer. Lived in [place] with his (Got when patient was 16 yr Mother got remarried and when her she came back to live with her ex 5 years ago!!) Mother Maira 63 yr disabled from back pain.Was a [employer] in [place].She is now living with Cornelius for 2 years. Has one older brother Rashad Modi 41 yr Lives in [place] with 2 kids. Sees him couple times a week Big. One older sister Betsey Modi 44 yr single. Stay at home.brenda in [place] 2 sons Jordi and Mariusz. 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 #Abdelrahman 13 yr Plays hockey and lacrosse Goes to [employer] Lives at [address] in for 13 years Bought it 11 more years to go. Good relation with children They did know about his drugs !Oldest son now knows. Relationship with is better. 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 EDUCATION: [place] in 1995 FAMILY HISTORY: Born and raised in . . Father Rashad Modi dies at age 67 yr. Disabled from back pain Was in [employer] Had metastatic small cell cancer. Lived in [place] with his (Got when patient was 16 yr Mother got remarried and when her she came back to live with her ex 5 years ago!!) Mother Maira 63 yr disabled from back pain.Was a [employer] in [place].She is now living with Cornelius for 2 years. Has one older brother Rashad Modi 41 yr Lives in [facility] with 2 kids. Sees him couple times a week Big. One older sister Betsey Modi 44 yr single. Stay at home.brenda in [place] 2 sons Jordi and Mariusz. 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 #Abdelrahman 13 yr Plays hockey and lacrosse Goes to [employer] Lives at [facility] in for 13 years Bought it 11 more years to go. Good relation with children They did know about his drugs !Oldest son now knows. Relationship with is better. 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 EDUCATION: [place] in 1995 FAMILY HISTORY: Born and raised in . . Father Rashad Modi dies at age 67 yr. Disabled from back pain Was in [facility] and Had metastatic small cell cancer. Lived in [place] with his (Got when patient was 16 yr Mother got remarried and when her she came back to live with her ex 5 years ago!!) Mother Maira 63 yr disabled from back pain.Was a [employer] in [place].She is now living with Cornelius for 2 years. Has one older brother Rashad Modi 41 yr Lives in [facility] with 2 kids. Sees him couple times a week Big. One older sister Betsey Modi 44 yr single. Stay at home.brenda in [place] 2 sons Jordi and Mariusz. 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 #Abdelrahman 13 yr Plays hockey and lacrosse Goes to [employer] Lives at [address] in for 13 years Bought it 11 more years to go. Good relation with children They did know about his drugs !Oldest son now knows. Relationship with is better. 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 EDUCATION: [place] in 1995 FAMILY HISTORY: Born and raised in . . Father Rashad Modi dies at age 67 yr. Disabled from back pain Was in [place] and Had metastatic small cell cancer. Lived in [place] with his (Got when patient was 16 yr Mother got remarried and when her she came back to live with her ex 5 years ago!!) Mother Maira 63 yr disabled from back pain.Was a [employer] in [place].She is now living with Cornelius for 2 years. Has one older brother Rashad Modi 41 yr Lives in [place] with 2 kids. Sees him couple times a week Big. One older sister Betsey Modi 44 yr single. Stay at home.brenda in [place] 2 sons Jordi and Mariusz. 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 #Abdelrahman 13 yr Plays hockey and lacrosse Goes to [employer] Lives at [address] [facility] in for 13 years Bought it 11 more years to go. Good relation with children They did know about his drugs !Oldest son now knows. Relationship with is better. 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 EDUCATION: [place] in 1995 FAMILY HISTORY: Born and raised in . . Father Rashad Modi dies at age 67 yr. Disabled from back pain Was in [facility] and Had metastatic small cell cancer. Lived in [place] with his (Got when patient was 16 yr Mother got remarried and when her she came back to live with her ex 5 years ago!!) Mother Maira 63 yr disabled from back pain.Was a [employer] in [place].She is now living with Cornelius for 2 years. Has one older brother Rashad Modi 41 yr Lives in [facility] with 2 kids. Sees him couple times a week Big. One older sister Betsey Modi 44 yr single. Stay at home.brenda in [place] 2 sons Jordi and Mariusz. 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 #Abdelrahman 13 yr Plays hockey and lacrosse Goes to [employer] Lives at [address] [facility] in for 13 years Bought it 11 more years to go. Good relation with children They did know about his drugs !Oldest son now knows. Relationship with is better. 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 EDUCATION: [place] in 1995 FAMILY HISTORY: Born and raised in . . Father Rashad Modi dies at age 67 yr. Disabled from back pain Was in [facility] and Had metastatic small cell cancer. Lived in [place] with his (Got when patient was 16 yr Mother got remarried and when her she came back to live with her ex 5 years ago!!) Mother Maira 63 yr disabled from back pain.Was a [employer] in [place].She is now living with Cornelius for 2 years. Has one older brother Rashad Modi 41 yr Lives in [facility] with 2 kids. Sees him couple times a week Big. One older sister Betsey Modi 44 yr single. Stay at home.brenda in [place] 2 sons Jordi and Mariusz. 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 #Abdelrahman 13 yr Plays hockey and lacrosse Goes to [employer] Lives at [address] in for 13 years Bought it 11 more years to go. Good relation with children They did know about his drugs !Oldest son now knows. Relationship with is better. 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 Problems Problem Type SNOMED Code ICD Code Onset Dates Problem Status W/U Status Risk Notes Problem 053402 Bipolar disorder, current episode manic without psychotic features, severe (F31.13) Active confirmed On [place] started by me and endorsed by Dr Bertrand 05/23/21 On Prozac and seroquel Sees URINALYSIS TECHNICIAN Denisa Banerjee with [facility] was stopped by Dr Bertrand before his hospitalization Problem 45181168 Obstructive sleep apnea (adult) (pediatric) (G47.33) Active [...] rerefer to sleep medicine for evaluation Problem 481641977 Ventral hernia without obstruction or gangrene (K43.9) Active confirmed 7 yrs ago [place] jean baptiste had one in same place. 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 Did not go back for [...] deficiency anemia due to chronic blood loss (309709715) Iron deficiency anemia due to chronic blood loss (D50.0) Active confirmed 09/23/22 Will need urgent Colonoscopy and EGD Will refer to Dr Anaya Martinez at [place]. Refused LAUREL in office as he is getting a colonoscopy. Problem 04533264 HTN (hypertension) (I10) Active confirmed Was on [...] and see him in 6 weeks Problem 583464207 Dental abscess (K04.7) Active confirmed May have otitis media and sinusitis or dental abscess Reluctant to go to ED Will add Levaquin to cover all bases Problem 987944928 Onychomycosis (B35.1) Active confirmed Will refer to Kun Schwartz Problem 3104012 Chronic alcoholism (F10.20) Active confirmed 08/07/22 Using Naltrexone for 3 weeks Doing well Has been sober since then Will continue to refill Naltrexone Problem 66871593 Chronic obstructive pulmonary disease, unspecified COPD type [...] for now Problem Pain in left foot (023112096979614 ) Left foot pain (M79.672) Active confirmed 09/23/22 I thin k it is from flat foot Told to use insole and the see a melter loader if not better Saw Moise 2 yrs ago for right toe nail fungus Gave him arches Wore it Worn out Problem Rheumatoid arthritis (56580164) Rheumatoid arthritis (M06.9) Active confirmed 05/26/23 Seen on MRI abdomen s Referred to see Gas Distribution Plant Operator on Jul 06, 2023 at [facility] The infusion Infiximab is helping (Remicaid) Problem 26797796 Costochondritis , acute (M94.0) Active confirmed Problem Crohn's disease of small intestine (62782303) Crohns disease of small intestine with complication [...] has to monitor after 2 weeks Problem 307698590 Balance disorder (R26.89) Active confirmed Will get [...] prn To be kept with . Problem 547346515 Hospital discharge follow-up (Z09) Active confirmed 10/01/20 Admitted to [facility] from 09/12 to 09/05/20 and treated with IV antibiotics for cellulitis face Meds reviewed and reconciled Problem Essential hypertension (95162768) HTN (hypertension), benign (I10) Active confirmed Problem General examination of patient (948807539) Routine medical exam (Z00.00) Active confirmed Problem 697049643 Blurred vision, bilateral (H53.8) Active confirmed Started 4 month s ago Will send to Dr Alexander Problem 695134663 Alcohol abuse counseling and surveillance (Z71.41) Active confirmed Fell off the wagon Back at the [facility] at [place] . Going to meetings Saw psychiatrist Dr Bertrand 11/21/19 Will follow up with therapist for counselling Wants to see me after a week Spent over 30 minutes in todays meeting Problem 51433712355657 Acute left ankle pain (M25.572) Active confirmed Problem 1200717 Fall, subsequent encounter (W19.XXXD) Active confirmed Problem 647040908 Grade II hemorrhoids (K64.1) Active confirmed Problem 03359380 Alcoholism in recovery (F10.21) Active confirmed Going for [address] [facility] Also going to start on AA meetings after [place]. Doing well Has alprazolam on hand Taking Venlafaxine 05/23/21 Last visit with Psychiatrist URINALYSIS TECHNICIAN was with Denisa Banerjee 2 months ago. [facility] Missed the [...] him their phone numbers to contact Problem 917245098 History of violent behavior (Z87.898) Active confirmed Problem 425140203 Crohn's disease involving terminal ileum (K50.00) Active confirmed Encounters Encounter Location Date Provider Diagnosis [address] [place] [address] 09/29/2023 MACHELLE PEREZ Plan Of Treatment Pending [...] Date Coverage End Date [employer] and [facility] [address] [place] [address] [id number] Cornelius Modi Self - patient is the [...] bnormality Alcohol related Facial Cellulitis Hospitalized at [facility] to 09/15/20 IV antibiotics Hypertension Observed during hospitalization in Sep 2020 Didnt come to my office for face to face follow up Iron Deficiency Anemia Crohns Ileitis Had colonosco py and biopsy by Dr Deidre Thomas Put on high dose steroid taper Hemorrhoids Saw surgeon Dr Dheeraj vazquez at [facility] Not a source of blood lost No surgery indicated Surgical History Surgery Date(Month/Year) Hip Surgery ORIF 1994 Right Knee Arthroscopy With Medial Meniscus Repair, Later meniscus and ACL repair July 2016 Left knee ACL reepair 2001 By Josh Or mickey 2001 Ventral Hernia Repair with mesh Dr Mohit Koch Oct 2017 EGD and Colonoscopy by Dr Deidre Thomas at [facility] Hospitalization History Reason Date(Month/Year) [facility] for facial cellulit is and HTN Failed treatment wit Azithro and Levaqui. CT face done Treated with Unasyn 09/12/20
--- OUTSIDE RECORDS SUMMARY | 2024-09-29 10:19 | XMS_ITS ---
Author Organization [facility] Address [address] [place] [address] Care Team Providers Care Assembler And Tester Electronics Name Role Phone SHIVAM WALLACE Primary Care Provider [phone] Allergies No Known Allergies REASON FOR VISIT [...] 150 mg starte d at [facility] 11/05/2019 Not-Taking Aleve 220 MG Oral for [...] a day for 10 day(s) 09/11/2020 Not-Taking Corsica Carbonate ER 300 MG 1 tablet at [...] other tobacco user? No Section Notes: EDUCATION: [place] in 1995 FAMILY HISTORY: Born and raised in . . Father Rashad Donohue dies at age 67 yr. Disabled from back pain Was in [place] and Had metastatic small cell cancer. 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 Has one older brother Rashad Donohue 41 yr Lives in [place] Land[place] Worker with 2 kids. Sees him couple times a week Big. One older sister Betsey Donohue 44 yr single. Stay at home.brenda in [place] 2 sons Jordi and Mariusz. 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 #Abdelrahman 13 yr Plays hockey and lacrosse Goes to [employer] Lives at [address] in for 13 years Bought it 11 more years to go. Good relation with children They did know about his drugs !Oldest son now knows. Relationship with is better. 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 Vital Signs Temperature 98.9 degrees Fahrenheit 09/08/20 23 Blood pressure systolic 130 mm Hg 09/08/20 23 Blood pressure diastolic 86 mm Hg 023 Heart Rate 77 /min 09/08/2023 Height 70.0786 in 09/08/2023 Weight 283 lbs 09/08/2023 BMI 40.51 kg/m2 09/08/2023 Encounters Encounter Location Date Provider Diagnosis [address] [place] [address] 09/08/2023 SHIVAM WALLACE Hyperlipidemia E78.5 ; Iron [...] Will refer to Dr Anaya Martinez at [facility]. Refused LAUREL in office as he is getting a colonoscopy. 09/08/2023 Alcoholism in recovery (ICD-10 - F10.21) Going for 20 weeks sessions at [facility] Also going to start on AA meetings after . Doing well Has alprazolam on hand Taking Venlafaxine 05/23/21 Last visit with Psychiatrist WANT AD RECEIVER was with Denisa Freeman 2 months ago. [facility] Missed the video [...] on MRI abdomen s Referred to [place] Commercial Photographer [place] [facility] [place] infusion Infiximab is helping (Remicaid) [...] reduction to Dr Koch Did the classes, newspaper photo editor and qualified. Did not go back for [...] * Cornelius DONOHUEDOB: [birth year] (43 yo M)Acc No.[id number]:09/08/2023 Progress Notes Patient:?Cornelius Donohue Provider:?Shivam Wallace MD :1980???Age:43 Y???Sex:Male Ha e:09/08/2023 Address:[address] [place] [address], [facility] Subjective: * Chief Complaints: * ???Annual Visit:Last [...] a carpool with 3 other people from [place]. 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 He started working there from May 2020 till September 2020 when he got laid off. He recently got rehired 2 weeks ago. When it rains they do not work and he can come home. ?Informed me that he is taking Seroquel and fluoxetine which is given by [facility]. He has online session with the counselor Emma Dotson. I informed him about the demise of Dr. Arredondo his psychiatrist from [facility]. ?He informed me that he has gained 30 pounds weight since he was laid off currently weighs 275 pounds. He plans to lose it when he started working. He has no other complaints. His Amos delivers groceries to peoples homes. His son Abdelrahman goes to [employer] high school and delivers pizza in the evening. His other son Nasir works full-time for [employer] in security. Patient's mother Maira also lives [...] walker Less stress. Needs DOT for his [employer] policy. His first time applying for one. [...] it on. ?Was seeing Denisa [facility] at [facility], ill call to make an appointment. medication still working well. ?Son in [facility] a senior now, played hockey but because of covid will not plan. not sure if he wants to go to college. 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 ?Likes his job. Spends time with family Did ice fishing with Will 21 yr He works for [employer] and lives with his Diesel Crane Operator at [facility] . 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 ?Meds reviewed and compliants. Was at [facility] last week . Got into a [...] all his meds. 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 [employer]. Started this Thursday. ?Doesnt feel motivated to [...] takes magnesium and testosterone booster tab from [facility]. Noticed is body and joint pain is bothering him since he stopped the Aleve. ?01/28/23 Feliciano was last seen by me in September 2022 and I had referred him to see assistant at surgery for his iron deficiency anemia. He saw Dr.Bushra Thomas at [employer] and had upper endoscopy and colonoscopy [...] [facility]. [facility]il [facility] a hemorrh[facility] which [...] mother Maira Teran (my pt) is at [facility] with inoperable metastati brain tumor . Feliciano wants to bring her home and take care of her. I spoke to Feliciano He said he is compliant with his meds and doing well Wants to bring his mother home Told him need to do labs to check his . ?HCT. Will send to [facility]. ?05/26/23 Seen in office Mother Sahra Bishop from intestinal obstruction in hospital in Feb 09 2023 Cremated. Working for [employer] Travels all over Now in [place]. 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 Son Will works at [employer] Getting next year to [employer] for 7 years. 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 ?Has had no alcohol [...] July 2016Left knee ACL reepair 2002 By [facility] 2002Ventral Hernia Repair with mesh Dr Araceli Koch Oct and Colonoscopy by Dr Deidre Thomas at [facility] * Ocular Surgical History:? * Hospitalization/Major Diagno stic Procedure:?[facility] for facial cellulitis and HTN [...] ?Do you drink alcohol?: Yes, Daily. ???EDUCATION: [place] in 1995 FAMILY HISTORY: Born and raised in . . Father Rashad Donohue dies at age 67 yr. Disabled from back pain Was in [place] and Had metastatic small cell cancer. 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 Has one older brother Rashad Donohue 41 yr Lives in [place] Work[place] with 2 kids. Sees him couple times a week Big. One older sister Betsey Donohue 44 yr single. Stay at home.brenda in [place] 2 sons Jordi and Mariusz. 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 #Abdelrahman 13 yr Plays hockey and lacrosse Goes to [employer] Lives at [address] in for 13 years Bought it 11 more years to go. Good relation with children They did know about his drugs !Oldest son now knows. Relationship with is better. 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 * Medications:?TakinginFLIXima b 100 [...] Notes: [facility] Notes: 0.5 mg 330ALPRAZolam 1 MG [...] Tablet 1 tablet Orally Once a dayNot-Taking Corsica Carbonate ER 300 MG Tablet Extended Release 1 tablet at bedtime Orally Once a dayNot-Taking Venlafaxine HCl ER , Notes: [facility] , Notes: 0.5 mg 330Not-Taking [...] 09/23/2022) (Collection Date - 09/23/2022)?ValueReference Range?IMMATURE RETIC WSFXETAH33.7H2.3- 15.9 - %?# RETICULOCYTE COUNT0.10H0.03-0.09 - x10-6/uL?% RETICULOCYTE COUNT2.0H0.7-1.7 - %?RETIC HGB PRZOHXMANU82.5L>29 - pg * Examination: ???General Examination: ?GENERAL [...] Will refer to Dr Anaya Martinez at [facility]. Refused LAUREL in office as he is getting a colonoscopy.?3.?Alcoholism in recovery - F10.21, Going for 20 weeks sessions at [facility] Also going to start on AA meetings after . Doing well Has alprazolam on hand Taking Venlafaxine8/19/21 Last visit with Psychiatrist WANT AD RECEIVER was with Denisa Freeman 2 months ago. ith [facility] Missed the video call Has to make the mmnzcidnhot91/18/21 drinks once in a while. can not [...] on MRI abdomen s Referred to see Commercial Photographer [place] [facility] The infusion Infiximab is helping (Remicaid)?7.?Crohns [...] reduction to Dr Koch Did the classes, newspaper photo editor and qualified. Did not go back for [...] Problems:? * Billing Information: * Visit Code:? 96767 Office Visit, Est Pt., Level 4. * [...] a carpool with 3 other people from [place]. 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 He started working there from May 2020 till September 2020 when he got laid off. He recently got rehired 2 weeks ago. When it rains they do not work and he can come home. Informed me that he is taking Seroquel and fluoxetine which is given by [facility]. He has online session with the counselor Emma Dotson. I informed him about the demise of Dr. Arredondo his psychiatrist from [facility]. He informed me that he has gained 30 pounds weight since he was laid off currently weighs 275 pounds. He plans to lose it when he started working. He has no other complaints. His Amos delivers groceries to peoples homes. His son Abdelrahman goes to [employer] high school and delivers pizza in the evening. His other son Nasir works full-time for [employer] in [place]. Patient's mother Maira also lives with them [...] walker Less stress. Needs DOT for his [employer] policy. His first time applying for one. [...] it on. Was seeing Denisa Freeman at [facility],[place] ill call to make an appointment. medication still working well. Son in [facility] a senior now, played hockey but because of covid will not plan. not sure if he wants to go to college. 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 Likes his job. Spends time with family Did ice fishing with Will 21 yr He works for [employer] and lives with his Diesel Crane Operator at [facility] . Lives in basement of her parents . Abdelrahman is 18 yr. Amos is fine. Mother Maira is now living with her brother as didnt get along with him Talks to her daily. Has called [facility] and has not responded. Ill write his scripts till he finds a new psychiatrist , His insurance will be changing. 03/31/22 Came to the office. Looking well. Amos does [employer] and works for a friend at a [employer] . Son Will 22 yrs is still working at [employer] Lives in basement with [employer] graduate student instructor Son Abdelrahman 18 yr graduauted from High School Working at a [employer] for the summer. 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 Meds reviewed and compliants. Was at [facility] last week . Got into a [...] refill of simvastatin amos working at a [employer] in [place] for 6 months ill is working at [employer] . 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 [employer]. Started this Thursday. Doesnt feel motivated to [...] takes magnesium and testosterone booster tab from [facility]. Noticed is body and joint pain is bothering him since he stopped the Aleve. 01/28/23 Feliciano was last seen by me in September 2022 and I had referred him to see assistant at surgery for his iron deficiency anemia. He saw Dr.Bushra Thomas at [employer] and had upper endoscopy and colonoscopy [...] see Dr. Sunil Ramirez [facility] for evaluation of a hemorrhoid which [...] mother Maira Teran (my pt) is at [facility] with inoperable metastati brain tumor . Feliciano wants to bring her home and take care of her. I spoke to Feliciano He said he is compliant with his meds and doing well Wants to bring his mother home Told him need to do labs to check his . HCT. Will send to [facility]. 05/26/23 Seen in office Mother Sahra Bishop from intestinal obstruction in hospital in Feb 09 2023 Cremated. Working for [employer] Travels all over Now in [place]. 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 Son Will works at [employer] Getting next year to [employer] for 7 years. 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 Has had no alcohol [...] General Examination GENERAL APPEARANCE: in no ac [place] distress, well developed, well nourished HEAD: normocephalic, [...]
--- OUTSIDE RECORDS SUMMARY | 2024-09-29 10:19 | XMS_ITS ---
Author Organization [facility] Address [address] [place] [address] Care Team Providers Care Review Appraiser Name Role Phone MACHELLE PEREZ Primary Care Provider [phone] REASON FOR VISIT Transferred Encounters Encounter Location Date Provider Diagnosis [facility] [address] [place] [address] 09/29/2023 MACHELLE PEREZ Plan Of Treatment No Information Progress Notes * Cornelius MODIDOB: [birth year] (43 yo M)Acc No.[id number]:09/29/2023 Patient:?Cornelius Modi :1980???Age:43 Y???Sex:Male Address:[address] [address], [place], [address] * true * Date:? Generated for Paul key/Arabella/eTransmitting on:?09/29/2024 10:18 AM EST
[2024-09-29 10:20] VITALS: BP 144/84; PULSE 77; BMI 39.5
== END 2024-09-29 10:45 | disposition home or self-care (01) ==
PROVIDERS: PCP Internal Medicine; Visit Provider Surgery
DX: K60.30 Anal fistula, unspecified (principal)
CPT/HCPCS: 99213

== ENCOUNTER → 2024-09-29 10:16 | Outpatient (BNVA) | payer BC, SELFPAY | PROVIDERS: PCP Internal Medicine; Visit Provider Surgery ==

== ENCOUNTER 2025-02-09 15:15 | Outpatient (REF) | payer BC, SELFPAY ==
--- NOTE | ~2025-02-09 | CT_ITS ---
CLINICAL HISTORY: K50.90 - Crohns disease, unspecified, without complications CT abdomen and pelvis with and without contrast Comparison: CT/AR/SR - CT ENTEROGRAPHY - 12/02/22 09:20 EST Findings: The lung bases are clear. The gallbladder and solid organs are within normal limits. No renal stones. No bowel obstruction, pneumoperitoneum, or pneumatosis. There are areas of wall thickening and mucosal enhancement of the distal ileum coronal image 45, 27 and 20. Questionable mild wall thickening of a short segment of the jejunum coronal image 26. The descending colon and sigmoid colon are nondistended with mild wall thickening. Probably reactive lymph nodes of the right side of the mesentery. Pelvic contents unremarkable. Status post mesh repair of ventral hernia. The bones are intact. Unchanged sclerosis of the SI joint. IMPRESSION: Areas of wall thickening and mucosal enhancement of the distal ileum likely represent patient's known inflammatory bowel disease. Questionable mild wall thickening of a short segment of the jejunum. No evidence of bowel obstruction, pneumatosis, fistula or severe stricture. Possible reactive right mesenteric lymph nodes. This document has been electronically signed by: Mary Cohn MD on 02/10/2025 14:47:33
--- OUTSIDE RECORDS SUMMARY | 2025-02-09 15:48 | XMS_ITS | Continuity of Care Document ---
Author Organization [facility] Primary Car e Reyes Address [address] [place] [address]- Care Team Providers Care It Manager Name Role Phone Rodrigo TAVARES, Shivam Primary Care Physician [phone] Encounter [facility] Date(s): 01/09/25 - 02/08/25 [facility] [place] [address], [place] [address] Encounter Type: Triage Allergies, Adverse Reactions, Alerts No Known Allergies Immunizations Given and Recorded Vaccine Date Status Refusal Reason influenza virus vaccine, inactivated 09/14/20 Give n influenza virus vaccine, inactivated 1 10/30/19 Gi shanita influenza virus vaccine, inactivated 08/23/14 Give n tetanus/diphtheria/pertussis, acel(Tdap) 08/22/14 Given pneumococcal 23-valent vaccine 05/07/11 Given 1Result Comment: Afluria Medications Allergy (Loratadine) 10 mg oral tablet 1 tablet = 10 mg, By Mouth, Daily, # 30 tablet, 0 Refills, Maintenance, 09/12/20 11:58:00 PM EST, Tablet, Partial fill upon patient request if the prescription is for a schedule II opioid drug. Start Date: 09/12/20 Status: Ordered Quantity: 30.0 Unit: tablet Repeat number: 1 Centrum 1 tablet, By Mouth, Daily, 0 Refills, Maintenance, 11/30/19 10:01:00 AM EST Start Date: 11/30/19 Status: Ordered Repeat number: 1 Fish Oil 1000 mg oral capsule 1 capsule = 1,000 mg, By Mouth, Daily, 0 Refills, Maintenance, 09/12/20 11:55:00 PM EST, Partial fill upon patient request if the prescription is for a schedule II opioid drug. Start Date: 09/12/20 Status: Ordered Repeat number: 1 magnesium aspartate 250, By Mouth, Daily, 0 Refills, Maintenance, 09/12/20 11:54:00 PM EST, Partial fill upon patient request if the prescription is for a schedule II opioid drug. Start Date: 09/12/20 Status: Ordered Repeat number: 1 omeprazole 20 mg oral enteric coated capsule 1 capsule = 20 mg, By Mouth, Daily, 0 Refills, Maintenance, 10/14/23 3:12:00 PM EST, Partial fill upon patient request if the prescription is for a schedule II opioid drug. Start Date: 10/14/23 Status: Ordered Repeat number: 1 PROzac 40 mg oral capsule 1 capsule = 40 mg, By Mouth, Daily, # 30 capsule, 0 Refills, Maintenance, 01/06/24 5:17:00 PM EDT, Capsule, [facility] #[id number], Partial fill upon patient request if the prescription is for a schedule II opioid drug., 179, cm, 01/06/24 16:09:00 EDT, Height, 128.6, kg, 03/22/23 13:23:00 EDT, Dry Weight Start Date: 01/06/24 Status: Ordered Quantity: 30.0 Unit: capsule Repeat number: 1 Rinvoq = 45 mg, By Mouth, Daily, 0 Refills, Maintenance, 01/06/24 4:05:00 PM EDT, Partial fill upon patient request if the prescription is for a schedule II opioid drug. Start Date: 01/06/24 Status: Ordered Repeat number: 1 semaglutide 1 mg/0.5 mL (1 mg dose) subcutaneous solution = 1 mg, Subcutaneous Injection, Every week, in the abdomen, thigh, or upper arm, # 2 mL, 1 Refills,Maintenance, 01/10/25 8:22:00 AM EDT, Solution, [facility] #[id number], Partial fill upon patient request if the prescription is for a schedule II opioid drug., 178, cm, 11/08/24 15:59:00 EST, Height, 118.2, kg, 05/24/24 11:33:00 EDT, Dry Weight Start Date: 01/10/25 Stop Date: 03/07/25 Status: Ordered Quantity: 2.0 Unit: mL Repeat number: 2 SEROquel 50 mg oral tablet 1 tablet = 50 mg, By Mouth, 2 times a day, # 180 tablet, 4 Refills, Maintenance, 01/06/24 5:17:00 PM EDT, Tablet, [facility] #[id number], Partial fill upon patient request if the prescription is for a schedule II opioid drug., 179, cm, 01/06/24 16:09:00 EDT, Height, 128.6, kg, 03/22/23 13:23:00 EDT, Dry Weight Start Date: 01/06/24 Stop Date: 03/31/25 Status: Ordered Quantity: 180.0 Unit: tablet Repeat number: 5 simvastatin 40 mg oral tablet 40 mg, 1, tablet, By Mouth, Daily before dinner, TAKE 1 TABLET BY MOUTH EVERY DAY IN THE EVENING, #90 tablet, Refills 4, Tot. Refills 4, Maintenance, 05/10/24 11:25:00 AM EDT, Route to Pharmacy Electronically, [facility] #[id number], Partial fill upon patient request if the prescription is for a schedule II opioid drug., 179, cm, 05/10/24 10:17:00 EDT, Height, 128.6, kg, 03/22/23 13:23:00 EDT, Dry Weight Start Date: 05/10/24 Stop Date: 08/03/25 Status: Ordered Quantity: 90.0 Unit: tablet Repeat number: 5 Problem List Condition Confirmation Course Effective Dates Status H ealth Status Informant Alcohol dependence Confirmed Active Alcoholism Confirmed Active Bereavement Confirmed Active Bipolar disorder Confirmed Active Obesity (BMI 35.0-39.9 without comorbidity) Confirmed Active Cannabis abuse Confirmed Active Carpal tunnel syndrome, bilateral Confirmed Active Chronic obstructive lung disease Confirmed Active Cocaine abuse Confirmed Active Crohn's ileitis Confirmed Active Dental abscess Confirmed Active Depression Confirmed Active Hip weakness 1 Confirmed Active Dyslipidemia (high LDL; low HDL) Confirmed Active Fall Confirmed Active GERD (gastroesophageal reflux disease) Confirmed Active Generalized anxiety disorder Confirmed Active History of alcoholism Confirmed Active History of iron deficiency anemia Confirmed Active Hernia, hiatal 2 Confirmed Active History of cocaine abuse Confirmed Active History of meniscectomy of right knee Confirmed Active History of violent behavior toward others Confirmed Active Obstructive sleep apnea syndrome Confirmed Active MIROSLAVA (obstructive sleep apnea) Confirmed Active Onychomycosis Confirmed Active Pain in left foot Confirmed Active Rheumatoid arthritis Confirmed Active Severe manic bipolar I disorder without psychotic features Confirmed Active Severe obesity (BMI 35.0-39.9) with comorbidity Confirmed Active 1left hip was seperating from leg and plate put in 2repaired Oct 2018 Social History Social History Type Response Smoking Status Never smoker; Tobacc o user in household: No; Previous treatment: None entered on: 08/23/14 Sex Sex Representation Male (finding) Patient Care team information Care Team Personnel Name: Madeline Saleh RN Position: [facility] RN Supv Member Role: Primary Care Nurse Name: Shivam Wallace MD Position: [facility] Physician - Primary Care Member Role: PCP Address: [address] [place] [id number] Telecom: Care Team Related Persons Name: MATT BLACK Insurance Providers Guarantor name: MARITZA Health Plan Information #: 1 Payer: [employer] Member Number: MARITZA Policy Number: MARITZA Group Number: [id number]
--- OUTSIDE RECORDS SUMMARY | 2025-02-09 15:48 | XMS_ITS | Encounter Summary ---
Author Organization [facility] Address [address] [place] [address] Care Team Providers Care Elementary School Teacher Name Role Phone Shivam Wallace MD Primary Care Provider [phone] Encounter Details Date Type Department Care Team (Late st Contact Info) Description 08/28/2021 Orders Only [facility] [address] [facility] [address] [place] [address] Toro Sweeney MD [address] [facility] [address] [place] [address] Social History Tobacco Use Types Packs/Day Years Used Date Smoking Tobacco: Never Smokeless Tobacco: Never Sex and Gender Information Value Date Recorded Sex Assigned at Not on file Legal Sex Male 9:11 AM EDT Gender Identity Not on file Sexual Orientation Not on file documented as of this encounter Plan of Treatment Not on file documented as of this encounter Results * Due to [place] state law, this organization might not be sharing negative HIV tests. * XRAY WRIST COMPLETE MIN 3 VWS - RIGHT FC (09/03/2021 9:39 AM EST) Anatomical Region Laterality Modality UPPER EXTREMITY Radiographic Shante ging 09/04/2021 1:25 PM EST Narrative 09/04/2021 1:25 PM EST CONTRAST: EXAM: X-ray right wrist Comparison: [facility] [place] ??- XRAY WRIST COMPLETE MIN 3 VWS - RIGHT FC ??- 08/06/2021 07:34 AM EDT [facility] ??- XRAY WRIST COMPLETE MIN 3 VWS - RIGHT FC ??- 07/22/2021 09:42 AM EDT FINDINGS: 3 views of the right wrist demonstrate a transverse, nondisplaced fracture of the distal radius with progressive sclerosis and bony bridging. ??No additional significant osseous, articular, or soft tissue abnormality. ??Carpal bones are anatomically aligned. IMPRESSION: ? Healing distal radial fracture as detailed. Procedure Note Pauline Henriquez MD - 09/04/2021 CONTRAST: EXAM: X-ray right wrist Comparison: [facility] [place] - XRAY WRIST COMPLETE MIN 3 VWS - RIGHT FC - 08/06/2021 07:34 AMEDT [facility] - XRAY WRIST COMPLETE MIN 3 VWS - RIGHT FC - 07/22/2021 09:42 AMEDT FINDINGS: 3 views of the right wrist demonstrate a transverse, nondisplaced fractureof the distal radius with progressive sclerosis and bony bridging. Noadditional significant osseous, articular, or soft tissue abnormality. Carpal bonesare anatomically aligned. IMPRESSION: Healing distal radial fracture as detailed. Toro Sweeney MD IMG XRAY NO CONTRAST ORDERABLES Final Result documented in this encounter Visit Diagnoses Diagnosis Other closed extra-articular fracture of distal end of right radius, initial encounter Other closed extra-articular fracture of distal end of right radius, initial encounter documented in this encounter Care Teams Elementary School Teacher Relationship Specialty Start Date End Date Shivam Wallace MD [facility] Physician Asso [address] [place] [address] PCP - General Internal Medicine 07/22/21 documented as of this encounter
--- OUTSIDE RECORDS SUMMARY | 2025-02-09 15:48 | XMS_ITS | Clinical Summary ---
Author Organization [facility] Address [address] [place] [address] Care Team Providers Care Track Supervisor Name Role Phone Shivam Wallace MD Primary Care Provider [phone] Medications FLUoxetine HCl (PROzac) 40 MG capsule TAKE 1 CAPSULE BY MOUTH EVERY DAY DIRECTED 07/12/2021 Active Omeprazole (PriLOSEC) [address] capsule Take 1 capsule by mouth 1 (one) time each day Active QUEtiapine Fumarate (SEROquel) 50 MG tablet 1 tablet every night Active Simvastatin (ZOCOR) 40 MG tablet Take 40 mg by mouth 1 (one) time each day in the evening 05/12/2021 Active Immunizations Name Administration Dates Next Due Influenza,injectable,quad,Prsrv Fr 09/14/2020 Social History Tobacco Use Types Packs/Day Years Used Date Smoking Tobacco: Never Smokeless Tobacco: Never Intimate Partner Violence Answer Date R ecorded Fear of Current or Ex-Partner Not on file Emotionally Abused Not on file 05/28/2023 Physically Abused Not on file 05/28/2023 Sexually Abused Not on file 05/28/2023 Feel Safe at Home Not on file 05/28/2023 Sex and Gender Information Value Date Recorded Sex Assigned at Not on file Legal Sex Male 9:11 AM EDT Gender Identity Not on file Sexual Orientation Not on file Last Filed Vital Signs Vital Sign Reading Time Taken Comments Blood Pressure 138/78 07/22/2021 9:19 AM EDT Pulse 65 07/22/2021 9:19 AM EDT Temperature 35.6 ??C (96 ??F) 07/22/2021 9:19 AM EDT Respiratory Rate 16 07/22/2021 9:19 AM EDT Oxygen Saturation 98% 07/22/2021 9:19 AM EDT Inhaled Oxygen Concentration - - Weight - - Height - - Body Mass Index - - Plan of Treatment Health Maintenance Due Date Last Done Comments Hepatitis C Screening 1978 DTaP/Tdap/Td (1 - Tdap) 1996 Hep B (1 of 3 - 19+ 3-dose series) 1997 Colon Cancer Screening 2023 COVID-19 Vaccine (1 - 2023-2 5 season) 2024 Influenza (#1) 2024 09/14/2020 Zoster (Shingrix) (1 of 2) 2028 HPV Vaccine Aged Out No longer eligi ble based on patient's age to complete this topic Hep A Aged Out No longer eligi ble based on patient's age to complete this topic Hib Aged Out No longer eligi ble based on patient's age to complete this topic Meningococcal ACWY Aged Out No longer eligible based on patient's age to complete this topic Pneumococcal Aged Out No longer eligi ble based on patient's age to complete this topic Insurance WORKERS COMPENSATION attn: [place] [address] Care Teams Track Supervisor Relationship Specialty Start Date End Date Shivam Wallace MD [facility] Physician Asso [address] [place] [address] [place] [address] PCP - General Internal Medicine 07/22/21
--- OUTSIDE RECORDS SUMMARY | 2025-02-09 15:48 | XMS_ITS | Encounter Summary ---
Author Organization [facility] Address [address] [place] [address] Care Team Providers Care Paving Contractor Name Role Phone Shivam Wallace MD Primary Care Provider Encounter Details Date Type Department Care Team (Late st Contact Info) Description 10/18/2021 Orders Only [facility] Orthopedic Surgery [address] [facility] [address] [place] [address] Jose Fountain NP [address] [facility] [address] [place] [address] Social History Tobacco Use Types Packs/Day Years Used Date Smoking Tobacco: Never Smokeless Tobacco: Never Sex and Gender Information Value Date Recorded Sex Assigned at Not on file Legal Sex Male 9:11 AM EDT Gender Identity Not on file Sexual Orientation Not on file documented as of this encounter Plan of Treatment Scheduled Orders Name Type Priority Associated Diagnoses Orde r Schedule XRAY WRIST COMPLETE MIN 3 VWS - RIGHT FC Imaging Routine Other closed extra-articular fracture of distal end of right radius with routine healing, subsequent encounter Expected: 10/18/2021, Expires: 10/18/2024 documented as of this encounter Visit Diagnoses Diagnosis Other closed extra-articular fracture of distal end of right radius with routine healing, subsequent encounter- Primary documented in this encounter Care Teams Paving Contractor Relationship Specialty Start Date End Date Shivam Wallace MD [facility] Physician Asso [address] [place] [address] PCP - General Internal Medicine 07/22/21 documented as of this encounter
--- OUTSIDE RECORDS SUMMARY | 2025-02-09 15:48 | XMS_ITS | Encounter Summary ---
Author Organization [facility] Address [address] [place] [address] Care Team Providers Care Public Welfare Worker Name Role Phone Shivam Wallace MD Primary Care Provider [phone] Encounter Details Date Type Department Care Team (Late st Contact Info) Description 08/05/2021 Orders Only [facility] Orthopedic Surgery [address] [facility] [address] [place] [address] Jose Fountain NP [address] [facility] [address] [place] [address] Social History Tobacco Use Types Packs/Day Years [...] of this encounter Results * Due to [place] state law, this organization might not be sharing negative HIV tests. * XRAY WRIST COMPLETE MIN 3 VWS - RIGHT FC (08/06/2021 7:38 AM EDT) Anatomical Region Laterality Modality UPPER EXTREMITY Radiographic Shante ging 08/06/2021 8:11 PM EDT Narrative 08/06/2021 8:11 PM EDT CONTRAST: 3 views right wrist Comparison: 07/22/21 Findings: There is a nearly nondisplaced fracture involving the distal radial metaphysis. No definable fracture lines extending to the distal radioarticular surface are appreciated. ??No other fractures are appreciated.. No significant arthritic change. No radiopaque foreign body. Impression: 1. ??Distal radial fracture described above. Procedure Note Waldo Bo MD - 08/06/2021 CONTRAST: 3 views right wrist Comparison: 07/22/21 Findings: There is a nearly nondisplaced fracture involving the distal radialmetaphysis. No definable fracture lines extending to the distal radioarticularsurface are appreciated. No other fractures are appreciated.. No significantarthritic change. No radiopaque foreign body. Impression: 1. Distal radial fracture described above. Jose Fountain ARTIFICIAL SNOW MAKING MACHINE OPERATOR IMG XRAY NO CONTRAST ORDERABLE S Final Result documented in this encounter Visit Diagnoses Diagnosis Closed fracture of distal end of right radius with routine healing, unspecified fracture morphology, subsequent encounter- Primary Closed fracture of distal end of right radius with routine healing, unspecified fracture morphology, subsequent encounter documented in this encounter Care Teams Public Welfare Worker Relationship Specialty Start Date End Date Shivam Wallace MD [facility] Physician Asso [address] [place] [address] [place] [address] PCP - General Internal Medicine 07/22/21 documented as of this encounter
[2025-02-09] MEDS: iohexoL 350 MG/ML 100 ML INFUS..BTL IV (17:13)
[2025-02-09] MEDS: Sorbitol/Mannit/Xanth Imaging 500 ML LIQUID 1500 ML PO (17:16)
[2025-02-10 08:21] LABS: Creatinine POC 0.8 mg/dL (0.5-1.4); GFR POC > 60
== END 2025-02-09 15:16 | disposition home or self-care (01) ==
LOC: HO.CT 15:15
PROVIDERS: PCP Internal Medicine; Visit Provider Internal Medicine
DX: K50.90 Crohn's disease, unspecified, without complications (principal)
CPT/HCPCS: 74177; 82565; Q9967

== ENCOUNTER → 2025-02-09 15:17 | Outpatient (BNV) | payer BC, SELFPAY | PROVIDERS: PCP Internal Medicine; Visit Provider Nuclear Medicine | DX: K50.90 Crohn's disease, unspecified, without complications (principal) | CPT/HCPCS: 74177 ==

== ENCOUNTER 2025-02-20 15:12 | Outpatient (REF) | payer BC, SELFPAY ==
--- OUTSIDE RECORDS SUMMARY | 2025-02-20 15:15 | XMS_ITS | Encounter Summary ---
Author Organization [facility] Address [address] [place] [address] Care Team Providers Care Service Car Driver Name Role Phone Shivam Wallace MD Primary Care Provider [phone] Encounter Details Date Type Department Care Team (Late st Contact Info) Description 10/18/2021 Orders Only [facility] Orthopedic Surgery [address] [facility] [address] [place] [address] oJse Fountain NP [address] [facility] [address] [place] [address] Social History Tobacco Use Types Packs/Day Years [...] Primary documented in this encounter Care Teams Service Car Driver Relationship Specialty Start Date End Date Shivam Wallace MD [facility] Physician Asso [address] [place] [address] PCP - General Internal Medicine 07/22/21 documented as of this encounter
--- OUTSIDE RECORDS SUMMARY | 2025-02-20 15:15 | XMS_ITS | Encounter Summary ---
Author Organization [facility] Address [address] [place] [address] Care Team Providers Care Breaker Mechanic Name Role Phone Shivam Wallace MD Primary Care Provider [phone] Encounter Details Date Type Department Care Team (Late st Contact Info) Description 08/28/2021 Orders Only [facility] Orthopedics [address] [facility] [address] [place] [address] Toro Sweeney MD [address] [facility] [address] [place] [address] Social History Tobacco Use Types Packs/Day Years [...] of this encounter Results * Due to [place] state law, this organization might not be sharing negative HIV tests. * XRAY WRIST COMPLETE MIN 3 VWS - RIGHT FC (09/03/2021 9:39 AM EST) Anatomical Region Laterality Modality UPPER EXTREMITY Radiographic Shante ging 09/04/2021 1:25 PM EST Narrative 09/04/2021 1:25 PM EST CONTRAST: EXAM: X-ray right wrist Comparison: [place] ??- XRAY WRIST COMPLETE MIN 3 VWS - RIGHT FC ??- 08/06/2021 07:34 AM EDT [facility] [place] ??- XRAY WRIST COMPLETE MIN 3 VWS [...] CONTRAST: EXAM: X-ray right wrist Comparison: [place] - XRAY WRIST COMPLETE MIN 3 VWS - RIGHT FC - 08/06/2021 07:34 AMEDT [place] - XRAY WRIST COMPLETE MIN 3 VWS [...] encounter documented in this encounter Care Teams Breaker Mechanic Relationship Specialty Start Date End Date Shivam Wallace MD [facility] Physician Asso [address] [place] [address] PCP - General Internal Medicine 07/22/21 documented as of this encounter
--- OUTSIDE RECORDS SUMMARY | 2025-02-20 15:15 | XMS_ITS | Clinical Summary ---
Author Organization [facility] Address [address] [place] [address] Care Team Providers Care Technician Name Role Phone Shivam Wallace MD Primary Care Provider [phone] Medications FLUoxetine HCl (PROzac) 40 MG capsule [...] topic Insurance WORKERS COMPENSATION attn: [place] [address] Care Teams Technician Relationship Specialty Start Date End Date Shivam Wallace MD [facility] Physician Asso [address] [place] [address] [place] [address] PCP - General Internal Medicine 07/22/21
--- OUTSIDE RECORDS SUMMARY | 2025-02-20 15:15 | XMS_ITS | Encounter Summary ---
Author Organization [facility] Address [address] [place] [address] Care Team Providers Care Geologist Petroleum Name Role Phone Shivam Wallace MD Primary Care Provider [phone] Encounter Details Date Type Department Care Team (Late st Contact Info) Description 08/05/2021 Orders Only [facility] Orthopedic Surgery [address] [facility] [address] [place] [address] Jose Fountain NP [address] [facility] [address] [place] [address] Social History Tobacco Use Types Packs/Day Years [...] of this encounter Results * Due to [place] state law, this organization might not be [...] Distal radial fracture described above. Jose Fountain MANAGER COMMERCIAL REAL ESTATE IMG XRAY NO CONTRAST ORDERABLE S Final Result documented in this encounter Visit Diagnoses Diagnosis Closed fracture of distal end of right radius with routine healing, unspecified fracture morphology, subsequent encounter- Primary Closed fracture of distal end of right radius with routine healing, unspecified fracture morphology, subsequent encounter documented in this encounter Care Teams Geologist Petroleum Relationship Specialty Start Date End Date Shivam Wallace MD [facility] Physician Asso [address] [place] [address] [place] [address] PCP - General Internal Medicine 07/22/21 documented as of this encounter
[2025-02-20 17:25] LABS: Hematocrit 37.7 % (42.0-52.0); Hemoglobin 12.9 g/dl (14.0-18.0); Mean Corpuscular HGB Conc 34.2 g/dl (31.0-36.0); Mean Corpuscular Hemoglobin 30.4 pg (27.0-33.0); Mean Corpuscular Volume 88.9 fL (80.0-98.0); Mean Platelet Volume 9.2 fL (9.4-12.4); Platelet Count 460 X10*3/uL (160-400); Red Blood Count 4.24 X10*6/uL (4.60-5.80); Red Cell Distribution Width 14.3 % (11.0-16.0); White Blood Count 8.3 X10*3/uL (4.8-10.8)
[2025-02-20 17:57] LABS: Alanine Aminotransferase 22 U/L (0-40); Albumin Level 4.4 g/dL (3.5-5.0); Alkaline Phosphatase 60 U/L (39-117); Anion Gap 14 (12-20); Aspartate Amino Transferase 34 U/L (5-37); Bilirubin Total 0.4 mg/dL (0.0-1.0); Blood Urea Nitrogen 9 mg/dL (9-16); Calcium 9.5 mg/dL (8.4-10.2); Carbon Dioxide 28 mmol/L (22-29); Chloride 102 mmol/L (96-108); Estimated Glomerular Filt Rate > 60; Glucose Random 72 mg/dL (60-115); Iron 41 mcg/dL (45-160); Percent Iron Saturation 12 % (15-50); Sodium 140 mmol/L (135-145); Total Iron Binding Capacity 338 mcg/dL (228-428); Total Protein 7.4 g/dL (6.5-8.0); Unsaturated Iron Binding 297 ug/dL
[2025-02-20 18:03] LABS: Ferritin 42 ng/mL (20-250); Vitamin D 25-OH Total 27.5 ng/mL (>30)
[2025-02-20 18:21] LABS: Folate 13.7 ng/mL (> or = 4.0); Vitamin B12 355 pg/mL (200-900)
== END 2025-02-20 15:13 | disposition home or self-care (01) ==
LOC: HO.LAB 15:12
PROVIDERS: PCP Internal Medicine; Visit Provider Internal Medicine
DX: K50.90 Crohn's disease, unspecified, without complications (principal)
CPT/HCPCS: 36415; 80053; 82306; 82607; 82728; 82746; 83540; 85027; 86140

== ENCOUNTER 2025-02-23 11:51 | Outpatient (REF) | payer BC, SELFPAY ==
--- OUTSIDE RECORDS SUMMARY | 2025-02-23 12:20 | XMS_ITS | Encounter Summary ---
Author Organization [facility] Address [address] [place] [address] Care Team Providers Care Technology Strategist Name Role Phone Shivam Wallace MD Primary Care Provider [phone] Encounter Details Date Type Department Care Team (Late st Contact Info) Description 08/28/2021 Orders Only [facility] Orthopedics [address] [facility] [address] [place] [address] Toro Sweeney MD [address] [facility] [address] [place] [address] Social History Tobacco Use Types Packs/Day Years [...] of this encounter Results * Due to [place] state law, this organization might not be sharing negative HIV tests. * XRAY WRIST COMPLETE MIN 3 VWS - RIGHT FC (09/03/2021 9:39 AM EST) Anatomical Region Laterality Modality UPPER EXTREMITY Radiographic Shante ging 09/04/2021 1:25 PM EST Narrative 09/04/2021 1:25 PM EST CONTRAST: EXAM: X-ray right wrist Comparison: CR [place] ??- XRAY WRIST COMPLETE MIN 3 VWS - RIGHT FC ??- 08/06/2021 07:34 AM EDT [place] ??- XRAY WRIST COMPLETE MIN 3 VWS [...] CONTRAST: EXAM: X-ray right wrist Comparison: [place] - XRAY WRIST COMPLETE MIN 3 VWS - RIGHT FC - 08/06/2021 07:34 AMEDT [facility] [place] - XRAY WRIST COMPLETE MIN 3 VWS [...] encounter documented in this encounter Care Teams Technology Strategist Relationship Specialty Start Date End Date Shivam Wallace MD [facility] Physician Asso [address] [place] [address] PCP - General Internal Medicine 07/22/21 documented as of this encounter
--- OUTSIDE RECORDS SUMMARY | 2025-02-23 12:20 | XMS_ITS | Encounter Summary ---
Author Organization [facility] Address [address] [place] [address] Care Team Providers Care Rate Clerk Name Role Phone Shivam Wallace MD Primary Care Provider [phone] Encounter Details Date Type Department Care Team (Late st Contact Info) Description 10/18/2021 Orders Only [facility] Orthopedic Surgery [address] [facility] [address] [place] [address] Jose Fountain NP [address] [facility] [address] [place] [address] Social History Tobacco Use Types Packs/Day Years [...] Primary documented in this encounter Care Teams Rate Clerk Relationship Specialty Start Date End Date Shivam Wallace MD [facility] Physician Asso [address] [place] [address] PCP - General Internal Medicine 07/22/21 documented as of this encounter
--- OUTSIDE RECORDS SUMMARY | 2025-02-23 12:20 | XMS_ITS | Clinical Summary ---
Author Organization [facility] Address [address] [place] [address] Care Team Providers Care Liquor Bridge Operator Helper Name Role Phone Shivam Wallace MD Primary Care Provider [phone] Medications FLUoxetine HCl (PROzac) 40 MG capsule [...] topic Insurance WORKERS COMPENSATION [place]: [place] [address] Care Teams Liquor Bridge Operator Helper Relationship Specialty Start Date End Date Shivam Wallace MD [facility] Physician Asso [address] [place] [address] [place] [address] PCP - General Internal Medicine 07/22/21
--- OUTSIDE RECORDS SUMMARY | 2025-02-23 12:20 | XMS_ITS | Encounter Summary ---
Author Organization [facility] Address [address] [place] [address] Care Team Providers Care Gun Fertilizer Name Role Phone Shivam Wallace MD Primary Care Provider [phone] Encounter Details Date Type Department Care Team (Late st Contact Info) Description 08/05/2021 Orders Only [facility] Orthopedic Surgery [address] [facility] [address] [place] [address] Jose Fountain NP [address] [facility] [address] [place] [address] Social History Tobacco Use Types Packs/Day Years [...] of this encounter Results * Due to [place] state law, this organization might not be [...] Distal radial fracture described above. Jose Fountain CUSTOMER EXPERIENCE CONSULTANT IMG XRAY NO CONTRAST ORDERABLE S Final Result documented in this encounter Visit Diagnoses Diagnosis Closed fracture of distal end of right radius with routine healing, unspecified fracture morphology, subsequent encounter- Primary Closed fracture of distal end of right radius with routine healing, unspecified fracture morphology, subsequent encounter documented in this encounter Care Teams Gun Fertilizer Relationship Specialty Start Date End Date Shivam Wallace MD [facility] Physician Asso [address] [place] [address] [place] [address] PCP - General Internal Medicine 07/22/21 documented as of this encounter
== END 2025-02-23 11:52 | disposition home or self-care (01) ==
LOC: HO.LNP 11:51
PROVIDERS: Visit Provider Internal Medicine
DX: K50.90 Crohn's disease, unspecified, without complications (principal)
CPT/HCPCS: 83993

== ENCOUNTER 2025-03-06 15:24 | Outpatient (AMB) | payer BC, SELFPAY ==
[2025-03-06 15:28] VITALS: BP 125/83; PULSE 77; BMI 36.4
--- NOTE | 2025-03-06 15:28 | A.OFFVIS_ITS ---
Vital Signs 03/06/25 15:28 Height 5 ft 10 in Weight 253 lb 8.505 oz BMI 36.4 BP 125/83 Blood Pressure Location Lt brachial Position Sitting Pulse 77 Intake Visit Reasons: crohns Intake Note: Cornelius presents in the office as a follow up for Crohn's. CC: States that he is feeling okay and not having any concerns. Licensed And Certified Midwife Required: No Allergies No Known Allergies Allergy (Verified 09/29/24 10:25) HPI Comments Details: This is a 42-year-old gentleman with ileoanal crohns and anal fistula, who is here for follow up. Recap: - Initially seen in Sep 2022 for EGD/colo booked directly for iron deficiency anemia and blood in stool. Had inflammed T.I and ICV on colo but bx bx negative for chronic colitis or ileitis. This was therefore presumed be to NSAID related injury in the context of naproxen overuse. - However pt then cont'd to have intermittent melena despite stopping naproxen. Prometheus panel was done early 2022 which was consistent with Crohn's. - This prompted a CTE 12/02/22 for further small bowel eval that showed distal ileal and jejunal involevement. Pt was started on pred and a repeat endoscopic eval was done 04/09/23 which showed ileitis and proctitis with granuloma confirming crohns. - Pt was started on infliximab fall 2022 but unfortunately was primary non- responder based on drug and Ab testing 09/2023. 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 - Started on Rinvoq induction 12/2023 and transitioned to maintenance in summer 2023. - Last seen in office 09/12/24 - was doing ok but also grieving from loss of his son. CTE 02/2025: Areas of wall thickening and mucosal enhancement of the distal ileum likely represent patient's known inflammatory bowel disease. Questionable mild wall thickening of a short segment of the jejunum. No evidence of bowel obstruction, pneumatosis, fistula or severe stricture. Possible reactive right mesenteric lymph nodes. 03/06/25: Here for follow up. Feels ok despite persistently up inflamamtory markers and CTE findings. No abd pain. 1-2 BMs per day. No blood in stool reported. Cont to have b/l hip pain 2/2 sacroilitis. --- IBD summary: Type: Stricturing Crohns Location: Ileoanal Age/year of diagnosis: 2024 Previous medications: Prednisone 04/2023-05/2023. Infliximab 10mg/kg started May 2024 but due to primary non-response switched to Rinvoq after 2 maintenance doses in December 2023. Current medications: Rinvoq 30mg PO Prev surgeries: None Recent endoscopy: 04/09/23: EGD/colo: Stenosed IC valve (dilated), terminal ileitis. Normal colon mucosa except rectum. Recent imagin04/25/24: MRI pelvis: pramod-anal fistula vs sinus tract. 12/02/22: CTE: mid jejunal and distal ileum wall thickening EIM: Bilateral sacroiliitis. (sees Rheum) [facility] Medical History Anal fistula Morbid obesity GERD (gastroesophageal reflux disease) Anxiety Substance abuse EtOH dependence Anemia Asthma Surgical History History of esophagogastroduodenoscopy (EGD) History of carpal tunnel surgery H/O knee surgery History of hip surgery H/O colonoscopy Family History Maternal Grandmother Skin cancer Maternal Grandfather Prostate cancer Paternal Grandfather Lung cancer Father Cancer Mother Cancer Other Family history of hepatitis Social History Alcohol intake: former Year quit: 2021 Patient Tobacco Use Status: Never used Tobacco Substance Use Type: Marijuana Current occupational status: employed 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 Review of Systems Const All systems reviewed & are unremarkable except as noted in HPI and below Physical Exam Vital Signs: Last Vital Signs Pulse 77 03/06/25 15:28 BP 125/83 03/06/25 15:28 BMI result Body Mass Index 36.4 No apparent distress Nonicteric Abdomen soft, nondistended Alert and oriented x3, normal gait Results Reviewed Results Reviewed: Laboratory Tests 11/11/23 09/12/24 02/20/25 11:38 13:20 15:45 Hgb 12.9 L Hct 37.7 L Plt Count 460 H BUN 9 Creatinine 0.90 Iron 41 L TIBC 338 % Saturation 12 L Ferritin 42 C-Reactive Protein 0.81 H 0.62 H 1.20 H 25-OH Vitamin D Total 27.5 L Stool Calprotectin 02/23/25 07:35 Hgb Hct Plt Count BUN Creatinine Iron TIBC % Saturation Ferritin C-Reactive Protein 25-OH Vitamin D Total Stool Calprotectin 3080 H Assessment & Plan Assessment & Plan (1) Crohn's disease: Code(s): K50.90 - Crohn's disease, unspecified, without complications Category: Medical (2) Bilateral sacroiliitis: Code(s): M46.1 - Sacroiliitis, not elsewhere classified Category: Medical (3) Diarrhea: Code(s): R19.7 - Diarrhea, unspecified Category: Medical (4) Ileitis: Code(s): K52.9 - Noninfective gastroenteritis and colitis, unspecified Category: Medical (5) Ileocecal valve stenosis: Code(s): K63.89 - Other specified diseases of intestine Category: Medical (6) Iron deficiency anemia: Code(s): D50.9 - Iron deficiency anemia, unspecified Category: Medical (7) Low vitamin D level: Code(s): R79.89 - Other specified abnormal findings of blood chemistry Category: Medical Plan #Penetrating and stricturing crohns with ileoanal involvement. -Non response to infliximab despite good drug levels. Fecal calpro in 500s. -Rinvoq started December 2023. (Extensive counseling including risk for cardiac events, clots, infections and malignancy such as lymphoma. Reviewed the need for up to date vaccinations (and avoidance of live vaccines), and need for annual skin exams.) Unfortunately, appears not responding to rinvoq either, despite staying on 30 mg dose. Fecal calpro in 3000s. CTE with persistent T.I and jejunal wall thickening. Discussed switching to a biologic, ustekinumab preferred due to stricturing nature of CD. Indications and potential side effects of this therapy reviewed including slightly increased relative risk of common colds, URIs; noninfectious pneumonia, infusion site reactions etc. - Disease and therapy: Stricturing crohns disease. - Non response to Rinvoq - will switch to ustekinumab - For now, bump up Rinvoq to 45 mg once daily x 2 weeks - For UST, weight based induction is 520 mg IV , followed by 90 mg s/c q8w - Will check CBC, CMP, CRP and fecal calpro BEFORE 2nd maintenance dose. - Nutrition: Low iron - supplement Rxed. - Immunization: Reinforced need to keep up to date with vaccinations including Flu and covid boosters; and to avoid live vaccines. - Bone Health: Low Vit. Vit D qweekly Rxed. - Cancer prevention: IBD dysplasia: colonoscopy due in N/A. Sun safety discussed. ? - EIM: Bilateral sacroiliitis. Tx of crohns as above + seeing Rheum. Follow up in 3 months Medications: New ferric maltol (Accrufer) 30 mg PO BID 90 days 180 caps 2RF cholecalciferol (vitamin D3) 1,250 mcg PO QWEEK 90 days 13 caps 1RF Coding Level of Care Code Est Pt Level 5 (86731) Complex EM visit Add On G2211 Diagnoses Crohn's disease K50.90 Bilateral sacroiliitis M46.1 Diarrhea R19.7 Ileitis K52.9 Ileocecal valve stenosis K63.89 Iron deficiency anemia D50.9 Low vitamin D level R79.89
--- OUTSIDE RECORDS SUMMARY | 2025-03-06 16:35 | XMS_ITS | Clinical Summary ---
Author Organization [facility] Address [address] [place] [address] Care Team Providers Care E Learning Designer Name Role Phone Shivam Wallace MD Primary Care Provider [phone] Medications FLUoxetine HCl (PROzac) 40 MG capsule [...] day in the evening 05/12/2021 Active Immunizations Immunization Administration Dates Next Due Influenza,injectable,quad,Prsrv Fr 09/14/2020 [...] (1 - 2023-2 5 season) 2024 Influenza (Season Ended) 2025 09/14/2020 Zoster (Shingrix) (1 of 2) 2028 [...] topic Insurance WORKERS COMPENSATION attn: [place] [address] Care Teams E Learning Designer Relationship Specialty Start Date End Date Shivam Wallace MD [facility] Physician Asso [address] [place] [address] [place] [address] PCP - General Internal Medicine 07/22/21
== END 2025-03-06 16:01 | disposition home or self-care (01) ==
LOC: HO.HGI 15:25
PROVIDERS: PCP Internal Medicine; Visit Provider Internal Medicine
DX: K50.90 Crohn's disease, unspecified, without complications (principal); M46.1 Sacroiliitis, not elsewhere classified; K52.9 Noninfective gastroenteritis and colitis, unspecified; K63.89 Other specified diseases of intestine; D50.9 Iron deficiency anemia, unspecified; R79.89 Other specified abnormal findings of blood chemistry
CPT/HCPCS: 99214

== ENCOUNTER → 2025-03-06 15:24 | Outpatient (BNVA) | payer BC, SELFPAY | PROVIDERS: PCP Internal Medicine; Visit Provider Internal Medicine ==

== ENCOUNTER 2025-04-13 12:02 | Outpatient (RCR) | payer BC, SELFPAY ==
[2025-04-13 12:35] VITALS: BP 122/78; PULSE 74; RESP 16; TEMP 36.1; O2SAT 97
[2025-04-13] MEDS: Ustekinumab 520 MG in 0.9 % Sodium Chloride 146 ML 250 MG IV (13:12)
== END 2025-04-13 14:20 | disposition home or self-care (01) ==
LOC: HO.INF 12:02
PROVIDERS: Visit Provider Internal Medicine
DX: K50.90 Crohn's disease, unspecified, without complications (principal)
CPT/HCPCS: 96365; J3358

== ENCOUNTER 2025-06-12 14:38 | Outpatient (AMB) | payer BC, SELFPAY ==
--- NOTE | 2025-06-12 14:41 | MHC.OFFVIS ---
Vital Signs 06/12/25 14:43 Height 5 ft 10 in Weight 244 lb 11.41 oz BMI 35.1 BP 117/74 Blood Pressure Location Lt brachial Position Sitting Pulse 87 Intake Visit Reasons: crohns Intake Note: Cornelius presents in the office as a follow up for Crohns. CC: States that he is not having any concerns at this time. Digital Account Executive Required: No Allergies No Known Allergies Allergy (Verified 06/12/25 14:43) HPI Comments Details: This is a 42-year-old gentleman with ileoanal crohns and anal fistula, who is here for follow up. Recap: - Initially seen in Sep 2022 for EGD/colo booked directly for iron deficiency anemia and blood in stool. Had inflammed T.I and ICV on colo but bx bx negative for chronic colitis or ileitis. This was therefore presumed be to NSAID related injury in the context of naproxen overuse. - However pt then cont'd to have intermittent melena despite stopping naproxen. Prometheus panel was done early 2022 which was consistent with Crohn's. - This prompted a CTE 12/02/22 for further small bowel eval that showed distal ileal and jejunal involevement. Pt was started on pred and a repeat endoscopic eval was done 04/09/23 which showed ileitis and proctitis with granuloma confirming crohns. - Pt was started on infliximab fall 2022 but unfortunately was primary non-responder based on drug and Ab testing 09/2023. 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 - Started on Rinvoq induction 12/2023 and transitioned to maintenance in summer 2023. - Last seen in office 09/12/24 - was doing ok but also grieving from loss of his son. CTE 02/2025: Areas of wall thickening and mucosal enhancement of the distal ileum likely represent patient's known inflammatory bowel disease. Questionable mild wall thickening of a short segment of the jejunum. No evidence of bowel obstruction, pneumatosis, fistula or severe stricture. Possible reactive right mesenteric lymph nodes. 03/06/25: Here for follow up. Feels ok despite persistently up inflammatory markers and CTE findings. No abd pain. 1-2 BMs per day. No blood in stool reported. Cont to have b/l hip pain 2/2 sacroilitis. 06/12/25: Here for follow up after Stelara induction. Received induction 520 mg IV on 04/13. Took first maintenance Stelara 90 mg s/c TODAY. Reports no signficant change in sx in fact in anything, the joint pains are worse on Stelara. Also has increase in frequency of BMs 3-4 BMs per day without blood. IBD summary: Type: Stricturing Crohns Location: Ileoanal Age/year of diagnosis: 2024 Previous medications: Prednisone 04/2023-05/2023. Infliximab 10mg/kg started May 2024 but due to primary non-response switched to Rinvoq after 2 maintenance doses in December 2023. Rinvoq discontinued March 2025 due to secondary non response. Current medications: UST induction 04/13. First maintenance dose 06/12. Prev surgeries: None Recent endoscopy: 04/09/23: EGD/colo: Stenosed IC valve (dilated), terminal ileitis. Normal colon mucosa except rectum. Recent imagin04/25/24: MRI pelvis: pramod-anal fistula vs sinus tract. 12/02/22: CTE: mid jejunal and distal ileum wall thickening EIM: Bilateral sacroiliitis. (sees Rheum) [facility] Medical History Anal fistula Morbid obesity GERD (gastroesophageal reflux disease) Anxiety Substance abuse EtOH dependence Anemia Asthma Surgical History History of esophagogastroduodenoscopy (EGD) History of carpal tunnel surgery H/O knee surgery History of hip surgery H/O colonoscopy Family History Maternal Grandmother Skin cancer Maternal Grandfather Prostate cancer Paternal Grandfather Lung cancer Father Cancer Mother Cancer Other Family history of hepatitis Social History Alcohol intake: former Year quit: 2021 Patient Tobacco Use Status: Never used Tobacco Substance Use Type: Marijuana Current occupational status: employed 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 Review of Systems Const All systems reviewed & are unremarkable except as noted in HPI and below Physical Exam Exam Exam: No apparent distress Nonicteric Abdomen soft, nondistended Alert and oriented x3, normal gait Vital Signs: Last Vital Signs Pulse 87 06/12/25 14:43 BP 117/74 06/12/25 14:43 BMI result Body Mass Index 35.1 Assessment & Plan Assessment & Plan (1) Crohn's disease: Code(s): K50.90 - Crohn's disease, unspecified, without complications Category: Medical (2) Bilateral sacroiliitis: Code(s): M46.1 - Sacroiliitis, not elsewhere classified Category: Medical (3) Diarrhea: Code(s): R19.7 - Diarrhea, unspecified Category: Medical (4) Ileitis: Code(s): K52.9 - Noninfective gastroenteritis and colitis, unspecified Category: Medical (5) Ileocecal valve stenosis: Code(s): K63.89 - Other specified diseases of intestine Category: Medical (6) Iron deficiency anemia: Code(s): D50.9 - Iron deficiency anemia, unspecified Category: Medical (7) Low vitamin D level: Code(s): R79.89 - Other specified abnormal findings of blood chemistry Category: Medical Plan #Penetrating and stricturing crohns with ileoanal involvement. -Non response to infliximab despite good drug levels. Fecal calpro in 500s. -Rinvoq started December 2023 with secondary non-response. Fecal calpro 2200 --> 700 -->3000. Discontinued March 2025. -Stelara induction 04/13/2025. First maintenance dose 06/12. (Extensive counseling including risk for cardiac events, clots, infections and malignancy such as lymphoma. Reviewed the need for up to date vaccinations (and avoidance of live vaccines), and need for annual skin exams.) Reviewed with the pt that too early to ascertain if pt with primary non-response. Will wait on labs due before 2nd maintenance dose. - Disease and therapy: Stricturing crohns disease. - Cont UST 90 mg s/c q8w - Will check CBC, CMP, CRP and fecal calpro BEFORE 2nd maintenance dose. - Depending on response to UST may need repeat colo over the next 3-6 months for reassessment of disease - Nutrition: Low iron - supplement Rxed. Needs to be rechecked - Immunization: Reinforced need to keep up to date with vaccinations including Flu and covid boosters; and to avoid live vaccines. - Bone Health: Low Vit. Vit D qweekly Rxed. Rechecked ordered. - Cancer prevention: IBD dysplasia: colonoscopy due in N/A. Sun safety discussed. ?Also advised to see Derm for skin checks. - EIM: Bilateral sacroiliitis. Tx of crohns as above + seeing Rheum. Follow up in 3 months Orders: Orders Complete Blood Count no Diff 08/03/25 K50.90 - Crohn's disease, unspecified, without complications IRON PROFILE 08/03/25 K50.90 - Crohn's disease, unspecified, without complications Vitamin D 25-OH Total 08/03/25 K50. - Crohn's disease, unspecified, without complications Ferritin 08/03/25 K50.90 - Crohn's disease, unspecified, without complications Lipid Panel 08/03/25 K50.90 - Crohn's disease, unspecified, without complications C Reactive Protein 08/03/25 K50.90 - Crohn's disease, unspecified, without complications Comprehensive Met. Panel 08/03/25 K50.90 - Crohn's disease, unspecified, without complications Calprotectin, Fecal 08/03/25 K50.90 - Crohn's disease, unspecified, without complications Promethlonis Anser UST 08/03/25 K50 - Crohn's disease, unspecified, without complications Coding Level of Care Code Est Pt Level 4 (57537) Complex EM visit Add On G2211 Diagnoses Crohn's disease K50.90 Bilateral sacroiliitis M46.1 Diarrhea R19.7 Ileitis K52.9 Ileocecal valve stenosis K63.89 Iron deficiency anemia D50.9 Low vitamin D level R79.89
[2025-06-12 14:43] VITALS: BP 117/74; PULSE 87; BMI 35.1
--- OUTSIDE RECORDS SUMMARY | 2025-06-12 17:00 | XMS_ITS | Encounter Summary ---
Author Organization [facility] Address [address] [place] [address] Care Team Providers Care Insurance Claims Specialist Name Role Phone Shivam Wallace MD Primary Care Provider [phone] Encounter Details Date Type Department Care Team (Late st Contact Info) Description 10/18/2021 Orders Only [facility] Orthopedic Surgery [address] [facility] [address] [place] [address] Jose Fountain NP [address] [facility] [address] [place] [address] Social History Tobacco Use Types Packs/Day Years [...] Primary documented in this encounter Care Teams Insurance Claims Specialist Relationship Specialty Start Date End Date Shivam Wallace MD [facility] Physician Asso [address] [place] [address] PCP - General Internal Medicine 07/22/21 documented as of this encounter
--- OUTSIDE RECORDS SUMMARY | 2025-06-12 17:00 | XMS_ITS | Clinical Summary ---
Author Organization [facility] Address [address] [place] [address] Care Team Providers Care Ukrainian Folk Arts Instructor Name Role Phone Shivam Wallace MD Primary Care Provider [phone] Medications FLUoxetine HCl (PROzac) 40 MG capsule [...] 65 07/22/2021 9:19 AM EDT Temperature 35.6 C (96 F) 07/22/2021 9:19 AM EDT Respiratory Rate 16 [...] COVID-19 Vaccine (1 - 2023-2 5 season) 2025 Influenza (#1) 2025 09/14/2020 Zoster (Shingrix) (1 of 2) 2028 HPV Vaccine (No Doses Required) Completed Hep A Aged Out No longer eligi [...] topic Insurance WORKERS COMPENSATION [place] [address] Care Teams Ukrainian Folk Arts Instructor Relationship Specialty Start Date End Date Shivam Wallace MD [facility] Physician Asso [address] [place] [address] [place] [address] PCP - General Internal Medicine 07/22/21
--- OUTSIDE RECORDS SUMMARY | 2025-06-12 17:00 | XMS_ITS | Encounter Summary ---
Author Organization [facility] Address [address] [place] [address] Care Team Providers Care Marketing Traffic Manager Name Role Phone Shivam Wallace MD Primary Care Provider [phone] Encounter Details Date Type Department Care Team (Late st Contact Info) Description 08/28/2021 Orders Only [facility] Orthopedics [address] [facility] [address] [place] [address] Toro Sweeney MD [address] [facility] [address] [place] [address] Social History Tobacco Use Types Packs/Day Years [...] of this encounter Results * Due to [place] state law, this organization might not be [...] VWS - RIGHT FC - 08/06/2021 07:34 AM EDT CR [place] - XRAY WRIST COMPLETE MIN 3 VWS - RIGHT FC - 07/22/2021 09:42 AM EDT FINDINGS: 3 views of the right wrist demonstrate a transverse, nondisplaced fracture of the distal radius with progressive sclerosis and bony bridging. No additional significant osseous, articular, or soft tissue abnormality. Carpal bones are anatomically aligned. IMPRESSION: Healing distal radial fracture as detailed. Procedure [...] encounter documented in this encounter Care Teams Marketing Traffic Manager Relationship Specialty Start Date End Date Shivam Wallace MD [facility] Physician Asso [address] [place] [address] [place] [address] PCP - General Internal Medicine 07/22/21 documented as of this encounter
--- OUTSIDE RECORDS SUMMARY | 2025-06-12 17:00 | XMS_ITS | Encounter Summary ---
Author Organization [facility] Address [address] [place] [address] Care Team Providers Care Automotive Software Engineer Name Role Phone Shivam Wallace MD Primary Care Provider [phone] Encounter Details Date Type Department Care Team (Late st Contact Info) Description 08/05/2021 Orders Only [facility] Orthopedic Surgery [address] [facility] [address] [place] [address] Jose Fountain NP 123 [facility] [address] [place] [address] Social History Tobacco Use Types Packs/Day Years [...] of this encounter Results * Due to [place] state law, this organization might not be [...] to the distal radioarticular surface are appreciated. No other fractures are appreciated.. No significant arthritic change. No radiopaque foreign body. Impression: 1. Distal radial fracture described above. Procedure Note Waldo Bo MD - 08/06/2021 CONTRAST: 3 views right wrist Comparison: 07/22/21 Findings: There is a nearly nondisplaced fracture involving the distal radialmetaphysis. No definable fracture lines extending to the distal radioarticularsurface are appreciated. No other fractures are appreciated.. No significantarthritic change. No radiopaque foreign body. Impression: 1. Distal radial fracture described above. Jose Fountain SLD TEACHER IMG XRAY NO CONTRAST ORDERABLE S Final Result documented in this encounter Visit Diagnoses Diagnosis Closed fracture of distal end of right radius with routine healing, unspecified fracture morphology, subsequent encounter- Primary Closed fracture of distal end of right radius with routine healing, unspecified fracture morphology, subsequent encounter documented in this encounter Care Teams Automotive Software Engineer Relationship Specialty Start Date End Date Shivam Wallace MD [facility] Physician Asso [address] [place] [address] [place] [address] PCP - General Internal Medicine 07/22/21 documented as of this encounter
== END 2025-06-12 15:09 | disposition home or self-care (01) ==
LOC: HO.HGI 14:38
PROVIDERS: PCP Internal Medicine; Visit Provider Internal Medicine
DX: K50.90 Crohn's disease, unspecified, without complications (principal); M46.1 Sacroiliitis, not elsewhere classified; K52.9 Noninfective gastroenteritis and colitis, unspecified; K63.89 Other specified diseases of intestine; D50.9 Iron deficiency anemia, unspecified; R79.89 Other specified abnormal findings of blood chemistry
CPT/HCPCS: 99214

== ENCOUNTER → 2025-06-12 14:38 | Outpatient (BNVA) | payer BC, SELFPAY | PROVIDERS: PCP Internal Medicine; Visit Provider Internal Medicine | DX: K50.00 Crohn's disease of small intestine without complications (principal); K60.30 Anal fistula, unspecified; M46.1 Sacroiliitis, not elsewhere classified; K52.9 Noninfective gastroenteritis and colitis, unspecified; K63.89 Other specified diseases of intestine; D50.9 Iron deficiency anemia, unspecified; R79.89 Other specified abnormal findings of blood chemistry; F10.11 Alcohol abuse, in remission; Z13.89 Encounter for screening for other disorder ==

== ENCOUNTER 2025-07-11 08:00 | Outpatient (REF) | payer BC, SELFPAY | END 2025-07-11 08:01 | disposition home or self-care (01) | LOC: HO.RHESR 08:00 | PROVIDERS: Visit Provider Student in an Organized Health Care Education/Training Program | DX: M71.21 Synovial cyst of popliteal space [Baker], right knee (principal) | CPT/HCPCS: 76882 ==

== ENCOUNTER 2025-07-11 13:05 | Outpatient (REF) | payer BC, SELFPAY ==
[2025-07-11 18:22] LABS: MN% 89.7 %; PMN% 10.3 %
[2025-07-11 18:51] LABS: RBC Synovial Fluid < 0.002 X10*6/uL
[2025-07-11 18:52] LABS: BF Shift QC OK YES; Lymphocytes Synovial Fluid 14 %; Monocytes Synovial Fluid 9 %; Neutrophils Synovial Fluid 4 %; Other Cells Synovial Fluid 73; Source Synovial Fluid RIGHT KNEE
== END 2025-07-11 13:06 | disposition home or self-care (01) ==
LOC: HO.LNP 13:05
PROVIDERS: Visit Provider Student in an Organized Health Care Education/Training Program
DX: M71.21 Synovial cyst of popliteal space [Baker], right knee (principal); M46.1 Sacroiliitis, not elsewhere classified; Z79.899 Other long term (current) drug therapy
CPT/HCPCS: 20611; 87070; 87073; 87205; 89051; 89060; J3301

== ENCOUNTER 2025-07-11 13:05 | Outpatient (AMB) | payer BC, SELFPAY ==
--- NOTE | 2025-07-11 13:13 | MHC.OFFVIS ---
Vital Signs 07/11/25 13:24 Height 5 ft 10 in Weight 248 lb 14.43 oz BMI 35.7 BP 134/80 Blood Pressure Location Lt brachial Position Sitting Pulse 76 Pulse Source Pulse Oximeter Pulse Oximetry (%) 98 Oxygen Delivery Method Room Air Intake Visit Reasons: Sacroiliitis Intake Note: Patient presents for Sacroiliitis follow up. Allergies No Known Allergies Allergy (Verified 07/11/25 13:21) Medication List - Last Reconciled 07/11/25 by Nohemy Martinez MD acetaminophen ER (Tylenol Arthritis Pain) 650 mg PO Q12H cholecalciferol (vitamin D3) 1,250 mcg PO QWEEK 90 days ferric maltol (Accrufer) 30 mg PO BID 90 days fluoxetine 1 cap PO DAILY fluoxetine 20 mg PO DAILY loratadine (Claritin) 10 mg PO DAILY magnesium 250 mg PO DAILY omeprazole 20 mg PO DAILY 30 days semaglutide (weight loss) (Wegovy) 1.7 mg subcut simvastatin 1 tab PO BEDTIME ustekinumab (Stelara) 90 mg subcut Q8W 90 days ustekinumab (Stelara) 520 mg (104 mL) IV ONCE HPI Comments Details: Patient is a 45-year-old male with depression, hyperlipidemia, GERD, Crohn's disease complicated by colitis and sacroiliitis here today for follow up Interval History: Patient last seen 08/11/[address] 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 - He denies any skin rashes or eye inflammation - No synovitis noted Today, - Not on any rheum medications - On Stelara from GI for Crohn's disease - Notes that about 2-3 months ago he woke with right leg swelling and ecchymosis - No antecedent trauma - Had US of the leg which ruled out DVT, but showed Zheng's cyst and told to follow up with rheumatology Rheumatologic History: Initial history: This is a 43-year-old male who was referred for evaluation of sacroiliitis. Patient stated that he was found to have anemia by his PCP and was referred to Gastroenterology early in the year. Patient had a colonoscopy and was found to have Crohn's colitis and was started on Remicade. He completed the loading doses of Remicade 10 mg per kg. He will be on Remicade 10 milligrams/kg every 8 weeks. He is also on azathioprine. Incidentally his CT enterography showed bilateral sacroiliitis. Patient stated that at age 16 he had left hip surgery, (to stabilize the hip.) He was doing well for a few years however over the last 5-10 years has been having bilateral hip pain, buttock pain and knee pain. He also had bilateral ACL surgeries years ago. 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 He has been taking Aleve twice a day for at least 3 years for his joint pain. States that his hands are sore all the time but not stiff or swollen. He denies any history suggestive of uveitis. Denies any rashes. He is unaware of any family history of autoimmune rheumatic disease. Denies any history of DVT/PE Current Rheumatology Medication(s): COUNTS INCLUDE 234 BEDS AT THE [facility] Medical History Anal fistula Morbid obesity GERD (gastroesophageal reflux disease) Anxiety Substance abuse EtOH dependence Anemia Asthma Surgical History History of esophagogastroduodenoscopy (EGD) History of carpal tunnel surgery H/O knee surgery History of hip surgery H/O colonoscopy Family History Maternal Grandmother Skin cancer Maternal Grandfather Prostate cancer Paternal Grandfather Lung cancer Father Cancer Mother Cancer Other Family history of hepatitis Social History Alcohol intake: former Year quit: 2021 Patient Tobacco Use Status: Never used Tobacco Substance Use Type: Marijuana Current occupational status: employed 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 Well appearing and in no apparent painful distress MSK Hands Right Hand: Able to make a fist. No swelling or tenderness to palpation of the MCPs, PIPs or DIPs. Left Hand: Able to make a fist. No swelling or tenderness to palpation of the MCPs, PIPs or DIPs. Herbedens nodes noted bilaterally Wrists Right Wrist: Full ROM to flexion and extension. No swelling or TTP Left Wrist: Full ROM to flexion and extension. No swelling or TTP Elbows Right Elbow: Full ROM. No swelling or TTP. No TTP of the medial epicondyle. No TTP of the lateral epicondyle Left Elbow: Full ROM. No swelling or TTP. No TTP of the medial epicondyle. No TTP of the lateral epicondyle Shoulders Right shoulder: Full ROM. No swelling noted. No TTP of the AC joint. No TTP of the subacromial bursa. No TTP of the posterior shoulder Left shoulder: Full ROM. No swelling noted. No TTP of the AC joint. No TTP of the subacromial bursa. No TTP of the posterior shoulder Knees Right knee: Full ROM. No swelling noted. No TTP of the knee joint line. No TTP of pes anserine bursa. Fullness fellt in the posterior knee Left knee: Full ROM. No swelling noted. No TTP of the knee joint line. No TTP of pes anserine bursa. Crepitations felt bilaterally Ankles Right ankle: Good ankle dorsiflexion and plantar flexion. No swelling. No TTP of the ankle joint Left ankle: Good ankle dorsiflexion and plantar flexion. No swelling. No TTP of the ankle joint Feet Right foot: Negative squeeze test Left foot: Negative squeeze test Tender points? No tenderness to palpation of the bilateral trapezius, supraspinatus, anterior costochondral junctions, bilateral suboccipital muscle insertions SKIN No rashes Vital Signs: Last Vital Signs Pulse 76 07/11/25 13:24 BP 134/80 07/11/25 13:24 Pulse Ox 98 07/11/25 13:24 Oxygen Delivery Method Room Air 07/11/25 13:24 BMI result Body Mass Index 35.7 Office Procedures AMB Joint Injection/Aspiration Joint Injection/Aspiration Details: Date: 07/11/2025 Study Type: Limited Ultrasound with Guidance of needle placement Indication: Right posterior knee swelling Study Site: Right Posterior Knee Equipment: [employer] Reality Findings: Orthogonal views of the posterior aspect of the right knee were obtained in grayscale and Doppler. Posterior trans view of the right knee revealed a large cystic structure noted in the popliteal fossa in the region of the medial head of the gastrocnemius and the semimembranosus tendon by visual estimation (machine unable to give numerical diameters). Septations were noted as well consistent with loculated fluid collection Procedure: Procedure was explained to the patient and informed consent was obtained for ultrasound-guided glucocorticoid injection of the right posterior knee Risks associated with the procedure were discussed with the patient including but not limited to bleeding, infection, drug reactions and reactions to the topical anesthetic. Patient made aware of signs to look out for infectious complications. The right posterior knee was sterilely prepped with chlorhexidine and anesthetized with lidocaine spray. A 22 gauge 1.5 in needle was advanced into the cyst under direct ultrasound visualization using in plane technique. 16cc viscous straw colored fluired removed, and 80 mg of Kenalog was injected. The procedure was well tolerated. Impressions: Right knee Zheng's cyst Successful aspiration and injection of the right posterior knee using ultrasound guidance Primary Site: right knee Prep: site was prepped using sterile technique and ethochloride spray was applied Injected: 80 mg of and Kenalog Procedure: The patient tolerated the procedure well Coding 99900 - Large joint Additional procedure code (CPT) needed (31747) Office Meds Kenalog 40 mg/mL suspension for injection Performing Provider: Nohemy Martinez MD Performing Location: [facility] Administered by: Irma Babin RN on 07/11/25 14:40 Dose Route Admin Location Dispensed Lot Number Expiration Date [facility] Cinema Or Theatre Manager 80 mg intra-articular 2 mL [id number] 04/03/27 [address]-3 [employer] Total Dispensed Waste 2 mL 0 % Results Reviewed Results Reviewed: Laboratory Tests 02/20/25 15:45 WBC 8.3 RBC 4.24 L Hgb 12.9 L Hct 37.7 L Plt Count 460 H Sodium 140 Potassium 4.0 Chloride 102 Carbon Dioxide 28 BUN 9 Creatinine 0.90 AST 34 ALT 22 C-Reactive Protein 1.20 H 25-OH Vitamin D Total 27.5 L Laboratory Tests 07/08/23 10:16 HLA-B27 [address] CT Enterography 02/10/25 Findings: The lung bases are clear. The gallbladder and solid organs are within normal limits. No renal stones. No bowel obstruction, pneumoperitoneum, or pneumatosis. There are areas of wall thickening and mucosal enhancement of the distal ileum coronal image 45, 27 and 20. Questionable mild wall thickening of a short segment of the jejunum coronal image 26. The descending colon and sigmoid colon are nondistended with mild wall thickening. Probably reactive lymph nodes of the right side of the mesentery. Pelvic contents unremarkable. Status post mesh repair of ventral hernia. The bones are intact. Unchanged sclerosis of the SI joint. IMPRESSION: Areas of wall thickening and mucosal enhancement of the distal ileum likely represent patient's known inflammatory bowel disease. Questionable mild wall thickening of a short segment of the jejunum. No evidence of bowel obstruction, pneumatosis, fistula or severe stricture. Possible reactive right mesenteric lymph nodes. Assessment & Plan Assessment & Plan (1) Sacroiliitis: Code(s): M46.1 - Sacroiliitis, not elsewhere classified Plan: #Sacroiliitis Patient is a 45 y.o. male with Crohn's disease here today for evaluation of right Zheng's cyst and follow up of sacroiliitis Most recent CT 02/2025 showed stable sclerosis of the SI joints Currently on Stelara for Crohn's disease which will also cover his sacroiliitis No evidence of synovitis on exam of the joints Plan - No indication for increased immunosuppression - Continue immunosuppression as per GI (2) Synovial cyst of right popliteal space: Code(s): M71.21 - Synovial cyst of popliteal space [Zheng], right knee Plan: #Zheng's cyst of the right knee Zheng's cyst identified in right popliteal fossa Plan - S/p aspiration and steroid injection - Fluid sent for analysis: cells, crystals and culture Plan I spent 30 minutes reviewing the record and labs, taking a history, examining the patient, discussing the treatment plan, ordering diagnostic work up and documenting in the medical record Orders: Orders AMB Joint Injection/Aspiration Today M71.20 - Synovial cyst of popliteal space [Zheng], unspecified knee Cell Ct wDiff Synovial Fl Today M71.21 - Synovial cyst of popliteal space [Zheng], right knee Synov Fld Cult + Crystals Today M71.21 - Synovial cyst of popliteal space [Zheng], right knee Coding Level of Care Code Est Pt Level 4 (94482) Complex EM visit Add On G2211 Diagnoses Sacroiliitis M46.1 Synovial cyst of right popliteal space M71.21 CPT Codes Coding - 39460 Large joint: 04061 - Large joint ([id number])
[2025-07-11 13:24] VITALS: BP 134/80; PULSE 76; O2SAT 98; BMI 35.7
--- OUTSIDE RECORDS SUMMARY | 2025-07-11 16:03 | XMS_ITS | Encounter Summary ---
Author Organization [facility] Address [address] [place] [address] Care Team Providers Care Pcb Design Engineer Name Role Phone Shivam Wallace MD Primary Care Provider [phone] Encounter Details Date Type Department Care Team (Late st Contact Info) Description 08/28/2021 Orders Only [facility] Orthopedics [address] [facility] [address] [place] [address] Toro Sweeney MD [address] [facility] [address] [place] [address] Social History Tobacco Use Types Packs/Day Years [...] of this encounter Results * Due to [place] state law, this organization might not be sharing negative HIV tests. * XRAY WRIST COMPLETE MIN 3 VWS - RIGHT FC (09/03/2021 9:39 AM EST) Anatomical Region Laterality Modality UPPER EXTREMITY Radiographic Shante ging 09/04/2021 1:25 PM EST Narrative 09/04/2021 1:25 PM EST CONTRAST: EXAM: X-ray right wrist Comparison: CR HI - XRAY WRIST COMPLETE MIN 3 VWS - RIGHT FC - 08/06/2021 07:34 AM EDT CR HI - XRAY WRIST COMPLETE MIN 3 VWS [...] CONTRAST: EXAM: X-ray right wrist Comparison: CR HI - XRAY WRIST COMPLETE MIN 3 VWS - RIGHT FC - 08/06/2021 07:34 AMEDT CR HI - XRAY WRIST COMPLETE MIN 3 VWS [...] encounter documented in this encounter Care Teams Pcb Design Engineer Relationship Specialty Start Date End Date Shivam Wallace MD [facility] Physician Asso [address] [place] [address] [place] [address] PCP - General Internal Medicine 07/22/21 documented as of this encounter
--- OUTSIDE RECORDS SUMMARY | 2025-07-11 16:03 | XMS_ITS | Clinical Summary ---
Author Organization [facility] Address [address] [place] [address] Care Team Providers Care Import Dispatcher Name Role Phone Shivam Wallace MD Primary Care Provider [phone] Medications FLUoxetine HCl (PROzac) 40 MG capsule [...] Cancer Screening 2023 COVID-19 Vaccine (1 - 2024-2 6 season) 2025 Influenza (#1) 2025 09/14/2020 Zoster [...] topic Insurance WORKERS COMPENSATION attn: [place] [address] Care Teams Import Dispatcher Relationship Specialty Start Date End Date Shivam Wallace MD [facility] Physician Asso [address] [place] [address] [place] [address] PCP - General Internal Medicine 07/22/21
--- OUTSIDE RECORDS SUMMARY | 2025-07-11 16:03 | XMS_ITS | Encounter Summary ---
Author Organization [facility] Address [address] [place] [address] Care Team Providers Care Cuff Turner Machine Operator Name Role Phone Shivam Wallace MD Primary Care Provider [phone] Encounter Details Date Type Department Care Team (Late st Contact Info) Description 10/18/2021 Orders Only [facility] Orthopedic Surgery [address] [facility] [address] [place] [address] Jose Fountain NP [address] [facility] [address] [place] [address] Social History Tobacco Use Types Packs/Day Years [...] Primary documented in this encounter Care Teams Cuff Turner Machine Operator Relationship Specialty Start Date End Date Shivam Wallace MD [facility] Physician Asso [address] [place] [address] PCP - General Internal Medicine 07/22/21 documented as of this encounter
--- OUTSIDE RECORDS SUMMARY | 2025-07-11 16:03 | XMS_ITS | Encounter Summary ---
Author Organization [facility] Address [address] [place] [address] Care Team Providers Care Theatre Arts Professor Name Role Phone Shivam Wallace MD Primary Care Provider [phone] Encounter Details Date Type Department Care Team (Late st Contact Info) Description 08/05/2021 Orders Only [facility] Orthopedic Surgery [address] [facility] [address] [place] [address] Jose Fountain NP [address] [facility] [address] [place] [address] Social History Tobacco Use Types Packs/Day Years [...] Distal radial fracture described above. Jose Fountain BUILDING AND GROUNDS SUPERVISOR IMG XRAY NO CONTRAST ORDERABLE S Final Result documented in this encounter Visit Diagnoses Diagnosis Closed fracture of distal end of right radius with routine healing, unspecified fracture morphology, subsequent encounter- Primary Closed fracture of distal end of right radius with routine healing, unspecified fracture morphology, subsequent encounter documented in this encounter Care Teams Theatre Arts Professor Relationship Specialty Start Date End Date Shivam Wallace MD [facility] Physician Asso [address] [place] [address] [place] [address] PCP - General Internal Medicine 07/22/21 documented as of this encounter
== END 2025-07-11 14:28 | disposition home or self-care (01) ==
LOC: HO.RHES 13:06
PROVIDERS: PCP Internal Medicine; Visit Provider Student in an Organized Health Care Education/Training Program
DX: M46.1 Sacroiliitis, not elsewhere classified (principal); M71.21 Synovial cyst of popliteal space [Baker], right knee; M71.20 Synovial cyst of popliteal space [Baker], unspecified knee
CPT/HCPCS: 20611; 99214

== ENCOUNTER 2025-08-03 12:07 | Outpatient (REF) | payer BC, SELFPAY ==
[2025-08-03 13:07] LABS: Hematocrit 41.5 % (42.0-52.0); Hemoglobin 12.7 g/dl (14.0-18.0); Mean Corpuscular HGB Conc 30.6 g/dl (31.0-36.0); Mean Corpuscular Hemoglobin 26.3 pg (27.0-33.0); Mean Corpuscular Volume 86.1 fL (80.0-98.0); NRBC Abs Auto 0.000 X10*3/uL (0.0-0.012); NRBC Pct Auto 0.0 /100WBC (0.0-0.2); Platelet Count 373 X10*3/uL (160-400); Red Blood Count 4.82 X10*6/uL (4.60-5.80); White Blood Count 7.4 X10*3/uL (4.8-10.8)
[2025-08-03 13:43] LABS: Alanine Aminotransferase 23 U/L (0-40); Albumin Level 4.0 g/dL (3.5-5.0); Alkaline Phosphatase 71 U/L (39-117); Anion Gap 11 (12-20); Aspartate Amino Transferase 39 U/L (5-37); Blood Urea Nitrogen 12 mg/dL (9-16); Calcium 9.5 mg/dL (8.4-10.2); Carbon Dioxide 29 mmol/L (22-29); Chloride 105 mmol/L (96-108); Cholesterol 209 mg/dL (<200); Estimated Glomerular Filt Rate > 60; HDL Cholesterol 50 mg/dL (>40); Iron 67 mcg/dL (45-160); Percent Iron Saturation 21 % (15-50); Potassium 4.2 mmol/L (3.3-5.1); Sodium 141 mmol/L (135-145); Total Iron Binding Capacity 312 mcg/dL (228-428); Total Protein 7.0 g/dL (6.5-8.0); Triglycerides 151 mg/dL (<150); Unsaturated Iron Binding 245 ug/dL
[2025-08-03 14:06] LABS: Ferritin 34 ng/mL (20-250)
--- OUTSIDE RECORDS SUMMARY | 2025-08-03 15:03 | XMS_ITS | Encounter Summary ---
Author Organization [facility] Address [address] [place] [address] Care Team Providers Care Dining Service Supervisor Name Role Phone Shivam Wallace MD Primary Care Provider [phone] Encounter Details Date Type Department Care Team (Late st Contact Info) Description 08/05/2021 Orders Only [facility] Orthopedic Surgery [address] [facility] [address] [place] [address] Jose Fountain NP [address] [facility] [address] [place] [address] Social History Tobacco Use Types Packs/Day Years [...] of this encounter Results * Due to [place] state law, this organization might not be [...] Distal radial fracture described above. Jose Fountain CHEMICAL EQUIPMENT REPAIRER IMG XRAY NO CONTRAST ORDERABLE S Final Result documented in this encounter Visit Diagnoses Diagnosis Closed fracture of distal end of right radius with routine healing, unspecified fracture morphology, subsequent encounter- Primary Closed fracture of distal end of right radius with routine healing, unspecified fracture morphology, subsequent encounter documented in this encounter Care Teams Dining Service Supervisor Relationship Specialty Start Date End Date Shivam Wallace MD [facility] Physician Asso [address] [place] [address] [place] [address] PCP - General Internal Medicine 07/22/21 documented as of this encounter
--- OUTSIDE RECORDS SUMMARY | 2025-08-03 15:03 | XMS_ITS | Encounter Summary ---
Author Organization [facility] Address [address] [place] [address] Care Team Providers Care Gauger Delivery Name Role Phone Shivam Wallace MD Primary Care Provider [phone] Encounter Details Date Type Department Care Team (Late st Contact Info) Description 08/28/2021 Orders Only [facility] Orthopedics [address] [facility] [address] [place] [address] Toro Sweeney MD [address] [facility] [address] [place] [address] Social History Tobacco Use Types Packs/Day Years [...] of this encounter Results * Due to [place] state law, this organization might not be sharing negative HIV tests. * XRAY WRIST COMPLETE MIN 3 VWS - RIGHT FC (09/03/2021 9:39 AM EST) Anatomical Region Laterality Modality UPPER EXTREMITY Radiographic Shante ging 09/04/2021 1:25 PM EST Narrative 09/04/2021 1:25 PM EST CONTRAST: EXAM: X-ray right wrist Comparison: CR [place] - XRAY WRIST COMPLETE MIN 3 VWS - RIGHT FC - 08/06/2021 07:34 AM EDT CR MI - XRAY WRIST COMPLETE MIN 3 VWS [...] CONTRAST: EXAM: X-ray right wrist Comparison: CR MI - XRAY WRIST COMPLETE MIN 3 VWS - RIGHT FC - 08/06/2021 07:34 AMEDT CR MI - XRAY WRIST COMPLETE MIN 3 VWS [...] encounter documented in this encounter Care Teams Gauger Delivery Relationship Specialty Start Date End Date Shivam Wallace MD [facility] Physician Asso [address] [place] [address] [place] [address] PCP - General Internal Medicine 07/22/21 documented as of this encounter
--- OUTSIDE RECORDS SUMMARY | 2025-08-03 15:04 | XMS_ITS | Clinical Summary ---
Author Organization [facility] Address [address] [place] [address] Care Team Providers Care Fiscal Assistant Name Role Phone Shivam Wallace MD Primary Care Provider [phone] Medications FLUoxetine HCl (PROzac) 40 MG capsule [...] topic Insurance WORKERS COMPENSATION attn: [place] [address] Care Teams Fiscal Assistant Relationship Specialty Start Date End Date Shivam Wallace MD [facility] Physician Asso [address] [place] [address] [place] [address] PCP - General Internal Medicine 07/22/21
--- OUTSIDE RECORDS SUMMARY | 2025-08-03 15:04 | XMS_ITS | Encounter Summary ---
Author Organization [facility] Address [address] [place] [address] Care Team Providers Care Appointment Coordinator Name Role Phone Shivam Wallace MD Primary Care Provider [phone] Encounter Details Date Type Department Care Team (Late st Contact Info) Description 10/18/2021 Orders Only [facility] Orthopedic Surgery [address] [facility] [address] [place] [address] Jose Fountain NP [address] [facility] [address] [place] [address] Social History Tobacco Use Types Packs/Day Years [...] Primary documented in this encounter Care Teams Appointment Coordinator Relationship Specialty Start Date End Date Shivam Wallace MD [facility] Physician Asso [address] [place] [address] PCP - General Internal Medicine 07/22/21 documented as of this encounter
== END 2025-08-03 12:08 | disposition home or self-care (01) ==
LOC: HO.LAB 12:07
PROVIDERS: PCP Internal Medicine; Visit Provider Internal Medicine
DX: K50.90 Crohn's disease, unspecified, without complications (principal); Z13.6 Encounter for screening for cardiovascular disorders
CPT/HCPCS: 36415; 80053; 80061; 80299; 82306; 82542; 82728; 83540; 85027; 86140

== ENCOUNTER 2025-09-11 08:49 | Outpatient (AMB) | payer BC, SELFPAY ==
[2025-09-11 08:59] VITALS: BP 129/78; PULSE 73; BMI 34.5
--- NOTE | 2025-09-11 08:59 | A.OFFVIS_ITS ---
Vital Signs 09/11/25 08:59 Height 5 ft 10 in Weight 240 lb 4.862 oz BMI 34.5 BP 129/78 Blood Pressure Location Lt brachial Position Sitting Pulse 73 Intake Visit Reasons: 3m crohns Intake Note: Cornelius presents in the office as a 3 month follow up. CC: HE states he has no concerns today! Cider Maker Required: No Allergies No Known Allergies Allergy (Verified 07/11/25 13:21) HPI Comments Details: This is a 42-year-old gentleman with ileoanal crohns and anal fistula, who is here for follow up. Recap: - Initially seen in Sep 2022 for EGD/colo booked directly for iron deficiency anemia and blood in stool. Had inflammed T.I and ICV on colo but bx bx negative for chronic colitis or ileitis. This was therefore presumed be to NSAID related injury in the context of naproxen overuse. - However pt then cont'd to have intermittent melena despite stopping naproxen. [facility] panel was done early 2022 which was consistent with Crohn's. - This prompted a CTE 12/02/22 for further small bowel eval that showed distal ileal and jejunal involevement. Pt was started on pred and a repeat endoscopic eval was done 04/09/23 which showed ileitis and proctitis with granuloma confirming crohns. - Pt was started on infliximab fall 2022 but unfortunately was primary non- responder based on drug and Ab testing 09/2023. 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 - Started on Rinvoq induction 12/2023 and transitioned to maintenance in summer 2023. - Last seen in office 09/12/24 - was doing ok but also grieving from loss of his son. - CTE 02/2025: Areas of wall thickening and mucosal enhancement of the distal ileum likely represent patient's known inflammatory bowel disease. Questionable mild wall thickening of a short segment of the jejunum. No evidence of bowel obstruction, pneumatosis, fistula or severe stricture. Possible reactive right mesenteric lymph nodes. - Seen in March 2025 for fecal calpro >3000 and CTE findings as above. Decision made to switch rinvoq to Stelara due to primary non- - Started Stelara induction 520 mg IV on 04/13. Took first maintenance Stelara 90 mg s/c 06/12/25. However reported no signficant change in sx in fact in anything, the joint pains are worse on Stelara. Also has increase in frequency of BMs 3-4 BMs per day without blood. - Aug 03 stelara levels 0.9 (post induction). Fecal calpro not done as not covered by insurance. 09/11/25: Primary non-response to Stelara based on sx and therapeutic drug monitoring. Attempted to INCREASE stelara dose which was not approved by insurance. SEAN approved for Skyrizi. Med delivery to [facility] for 09/15. Pt awaiting to hear re infusion date. In terms of sx, actually feels better now than he did back in Jun. Has no abd pain. Has 1 BM per day no blood. Last stelara shot was Jun 12 2025. Stelara levels were 0.9 post induction. IBD summary: Type: Stricturing Crohns Location: Ileoanal Age/year of diagnosis: 2024 Previous medications: Prednisone 04/2023-05/2023. Infliximab 10mg/kg started May 2024 but due to primary non-response switched to Rinvoq after 2 maintenance doses in December 2023. Rinvoq discontinued March 2025 due to secondary non response. UST 04/13 to 06/12/25. Discontinued due to primary non-response. Dose escalation not approved by insurance. Current medications: Skyrizi to start. Prev surgeries: None Recent endoscopy: 04/09/23: EGD/colo: Stenosed IC valve (dilated), terminal ileitis. Normal colon mucosa except rectum. Recent imagin04/25/24: MRI pelvis: pramod-anal fistula vs sinus tract. 12/02/22: CTE: mid jejunal and distal ileum wall thickening EIM: Bilateral sacroiliitis. (sees Rheum) [facility] Medical History Anal fistula Morbid obesity GERD (gastroesophageal reflux disease) Anxiety Substance abuse EtOH dependence Anemia Asthma Surgical History History of esophagogastroduodenoscopy (EGD) History of carpal tunnel surgery H/O knee surgery History of hip surgery H/O colonoscopy Family History Maternal Grandmother Skin cancer Maternal Grandfather Prostate cancer Paternal Grandfather Lung cancer Father Cancer Mother Cancer Other Family history of hepatitis Social History Alcohol intake: former Year quit: 2021 Patient Tobacco Use Status: Never used Tobacco Substance Use Type: Marijuana Current occupational status: employed 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 Physical Exam Exam Exam: No apparent distress Nonicteric Abdomen soft, nondistended Alert and oriented x3, normal gait Vital Signs: Last Vital Signs Pulse 73 09/11/25 08:59 BP 129/78 09/11/25 08:59 BMI result Body Mass Index 34.5 Assessment & Plan Assessment & Plan (1) Ileitis: Code(s): K52.9 - Noninfective gastroenteritis and colitis, unspecified Category: Medical (2) Crohn's disease: Code(s): K50.90 - Crohn's disease, unspecified, without complications Category: Medical (3) Bilateral sacroiliitis: Code(s): M46.1 - Sacroiliitis, not elsewhere classified Category: Medical (4) Ileocecal valve stenosis: Code(s): K63.89 - Other specified diseases of intestine Category: Medical Plan #Penetrating and stricturing crohns with ileoanal involvement. -Non response to infliximab despite good drug levels. Fecal calpro in 500s. -Rinvoq started December 2023 with secondary non-response. Fecal calpro 2200 --> 700 -->3000. Discontinued March 2025. -Stelara 04/13/2025 to 06/12/2025 with primary non-response. Dose escalation not covered by insurance. (Extensive counseling including risk for cardiac events, clots, infections and malignancy such as lymphoma. Reviewed the need for up to date vaccinations (and avoidance of live vaccines), and need for annual skin exams.) Plan is to switch to Skyrizi. Approved by insurance, awaiting appt from infusion suite for first induction dose. - Disease and therapy: Stricturing crohns disease. - Start RZB induction 600 IV q4w x 3 doses - Check CBC, CMP, CRP in 4 weeks after induction - Follow up in 8 weeks to assess clinical response. Will also agustin him for repeat colo at that time. - Nutrition: Ferritin normal now. - Immunization: Reinforced need to keep up to date with vaccinations including Flu and covid boosters; and to avoid live vaccines. - Bone Health: Vit D level normal. - Cancer prevention: IBD dysplasia: colonoscopy nto due for CRC screening but will need for disease monitoring as well. Sun safety discussed. ?Also advised to see Derm for skin checks. - EIM: Bilateral sacroiliitis. Seeing rheum. Follow up 8 weeks Orders: Orders C Reactive Protein Today K50.90 - Crohn's disease, unspecified, without complications, K52.9 - Noninfective gastroenteritis and colitis, unspecified Complete Blood Count no Diff Today K50.90 - Crohn's disease, unspecified, without complications, K52.9 - Noninfective gastroenteritis and colitis, unspecified Comprehensive Met. Panel Today K50.90 - Crohn's disease, unspecified, without complications, K52.9 - Noninfective gastroenteritis and colitis, unspecified Coding Level of Care Code Complex visit Add On G2211 Diagnoses Ileitis K52.9 Crohn's disease K50.90 Bilateral sacroiliitis M46.1 Ileocecal valve stenosis K63.89
== END 2025-09-11 09:48 | disposition home or self-care (01) ==
LOC: HO.HGI 08:50
PROVIDERS: PCP Internal Medicine; Visit Provider Internal Medicine
DX: K52.9 Noninfective gastroenteritis and colitis, unspecified (principal); K50.90 Crohn's disease, unspecified, without complications; M46.1 Sacroiliitis, not elsewhere classified; K63.89 Other specified diseases of intestine
CPT/HCPCS: 99214

== ENCOUNTER 2025-09-19 15:24 | Outpatient (REF) | payer BC, SELFPAY ==
[2025-09-19 16:18] LABS: Hematocrit 43.5 % (42.0-52.0); Hemoglobin 13.4 g/dl (14.0-18.0); Mean Corpuscular HGB Conc 30.8 g/dl (31.0-36.0); Mean Corpuscular Hemoglobin 26.4 pg (27.0-33.0); Mean Corpuscular Volume 85.8 fL (80.0-98.0); NRBC Abs Auto 0.000 X10*3/uL (0.0-0.012); NRBC Pct Auto 0.0 /100WBC (0.0-0.2); Platelet Count 437 X10*3/uL (160-400); Red Blood Count 5.07 X10*6/uL (4.60-5.80); White Blood Count 11.8 X10*3/uL (4.8-10.8)
--- OUTSIDE RECORDS SUMMARY | 2025-09-19 19:37 | XMS_ITS | Clinical Summary ---
Author Organization [facility] Address [address] [place] [address] Care Team Providers Care Machinist Bench Name Role Phone Shivam Wallace MD Primary Care Provider [phone] Medications FLUoxetine HCl (PROzac) 40 MG capsule [...] topic Insurance WORKERS COMPENSATION attn: [place] [address] Care Teams Machinist Bench Relationship Specialty Start Date End Date Shivam Wallace MD [facility] Physician Asso [address] [place] [address] [place] [address] PCP - General Internal Medicine 07/22/21
--- OUTSIDE RECORDS SUMMARY | 2025-09-19 19:37 | XMS_ITS | Encounter Summary ---
Author Organization [facility] Address [address] [place] [address] Care Team Providers Care Nutrition Therapist Name Role Phone Shivam Wallace MD Primary Care Provider [phone] Encounter Details Date Type Department Care Team (Late st Contact Info) Description 08/28/2021 Orders Only [facility] [address] [facility] [address] [place] [address] Toro Sweeney MD [address] [facility] [address] [place] [address] Social History Tobacco Use Types Packs/Day Years [...] CONTRAST: EXAM: X-ray right wrist Comparison: CR [place] - XRAY WRIST COMPLETE MIN 3 VWS - RIGHT FC - 08/06/2021 07:34 AM EDT [place] - XRAY WRIST COMPLETE MIN 3 VWS [...] CONTRAST: EXAM: X-ray right wrist Comparison: [place] - XRAY WRIST COMPLETE MIN 3 VWS - RIGHT FC - 08/06/2021 07:34 AMEDT CR [place] - XRAY WRIST COMPLETE MIN 3 VWS [...] encounter documented in this encounter Care Teams Nutrition Therapist Relationship Specialty Start Date End Date Shivam Wallace MD [facility] Physician Asso [address] [place] [address] [place] [address] PCP - General Internal Medicine 07/22/21 documented as of this encounter
--- OUTSIDE RECORDS SUMMARY | 2025-09-19 19:37 | XMS_ITS | Encounter Summary ---
Author Organization [facility] Address [address] [place] [address] Care Team Providers Care Nurse Liaison Name Role Phone Shivam Wallace MD Primary Care Provider [phone] Encounter Details Date Type Department Care Team (Late st Contact Info) Description 08/05/2021 Orders Only [facility] Orthopedic Surgery [address] [facility] [address] [place] [address] Jose Fountain NP [address] [facility] [address] [place] [address] Social History Tobacco Use Types Packs/Day Years [...] Distal radial fracture described above. Jose Fountain BUS PERSON IMG XRAY NO CONTRAST ORDERABLE S Final Result documented in this encounter Visit Diagnoses Diagnosis Closed fracture of distal end of right radius with routine healing, unspecified fracture morphology, subsequent encounter- Primary Closed fracture of distal end of right radius with routine healing, unspecified fracture morphology, subsequent encounter documented in this encounter Care Teams Nurse Liaison Relationship Specialty Start Date End Date Shivam Wallace MD [facility] Physician Asso [address] [place] [address] [place] [address] PCP - General Internal Medicine 07/22/21 documented as of this encounter
--- OUTSIDE RECORDS SUMMARY | 2025-09-19 19:37 | XMS_ITS | Encounter Summary ---
Author Organization [facility] Address [address] [place] [address] Care Team Providers Care Geodetic Computator Name Role Phone Shivam Wallace MD Primary Care Provider [phone] Encounter Details Date Type Department Care Team (Late st Contact Info) Description 10/18/2021 Orders Only [facility] Orthopedic Surgery [address] [facility] [address] [place] [address] Jose Fountain NP [address] [facility] [address] [place] [address] Social History Tobacco Use Types Packs/Day Years [...] Primary documented in this encounter Care Teams Geodetic Computator Relationship Specialty Start Date End Date Shivam Wallace MD [facility] Physician Asso [address] [place] [address] PCP - General Internal Medicine 07/22/21 documented as of this encounter
[2025-09-19 21:31] LABS: Alanine Aminotransferase 18 U/L (0-40); Albumin Level 4.2 g/dL (3.5-5.0); Alkaline Phosphatase 74 U/L (39-117); Anion Gap 16 (12-20); Aspartate Amino Transferase 19 U/L (5-37); Blood Urea Nitrogen 16 mg/dL (9-16); Calcium 9.6 mg/dL (8.4-10.2); Carbon Dioxide 27 mmol/L (22-29); Chloride 103 mmol/L (96-108); Estimated Glomerular Filt Rate > 60; Potassium 4.2 mmol/L (3.3-5.1); Sodium 142 mmol/L (135-145); Total Protein 7.4 g/dL (6.5-8.0)
== END 2025-09-19 15:25 | disposition home or self-care (01) ==
LOC: HO.LAB 15:24
PROVIDERS: Visit Provider Internal Medicine
DX: K50.90 Crohn's disease, unspecified, without complications (principal); K52.9 Noninfective gastroenteritis and colitis, unspecified
CPT/HCPCS: 36415; 80053; 85027; 86140

== ENCOUNTER 2025-09-20 07:21 | Outpatient (REF) | payer BC, SELFPAY ==
--- OUTSIDE RECORDS SUMMARY | 2025-09-20 07:23 | XMS_ITS | Clinical Summary ---
Author Organization [facility] Address [address] [place] [address] Care Team Providers Care Forming Process Line Worker Name Role Phone Shivam Wallace MD Primary Care Provider [phone] Medications FLUoxetine HCl (PROzac) 40 MG capsule [...] topic Insurance WORKERS COMPENSATION [place]: [place] [address] Care Teams Forming Process Line Worker Relationship Specialty Start Date End Date Shivam Wallace MD [facility] Physician Asso [address] [place] [address] [place] [address] PCP - General Internal Medicine 07/22/21
--- OUTSIDE RECORDS SUMMARY | 2025-09-20 07:23 | XMS_ITS | Encounter Summary ---
Author Organization [facility] Address [address] [place] [address] Care Team Providers Care Platform Beater Name Role Phone Shivam Wallace MD Primary Care Provider [phone] Encounter Details Date Type Department Care Team (Late st Contact Info) Description 08/05/2021 Orders Only [facility] Orthopedic Surgery [address] [facility] [address] [place] [address] Jose Fountain NP [address] [facility] [address] [place] [address] Social History Tobacco Use Types Packs/Day Years [...] of this encounter Results * Due to [place] state law, this organization might not be [...] Distal radial fracture described above. Jose Fountain ELECTRICIAN ASSISTANT IMG XRAY NO CONTRAST ORDERABLE S Final Result documented in this encounter Visit Diagnoses Diagnosis Closed fracture of distal end of right radius with routine healing, unspecified fracture morphology, subsequent encounter- Primary Closed fracture of distal end of right radius with routine healing, unspecified fracture morphology, subsequent encounter documented in this encounter Care Teams Platform Beater Relationship Specialty Start Date End Date Shivam Wallace MD [facility] Physician Asso [address] [place] [address] [place] [address] PCP - General Internal Medicine 07/22/21 documented as of this encounter
--- OUTSIDE RECORDS SUMMARY | 2025-09-20 07:23 | XMS_ITS | Encounter Summary ---
Author Organization [facility] Address [address] [place] [address] Care Team Providers Care Edi Architect Name Role Phone Shivam Wallace MD Primary Care Provider [phone] Encounter Details Date Type Department Care Team ([facility] st Contact Info) Description 08/28/2021 Orders Only [facility] [address] [facility] [address] [place] [address] Toro Sweeney MD [address] [facility] [address] [place] [address] Social History Tobacco Use Types Packs/Day Years [...] of this encounter Results * Due to [place] state law, this organization might not be [...] FC - 08/06/2021 07:34 AM EDT CR [place] - XRAY WRIST COMPLETE MIN [...] encounter documented in this encounter Care Teams Edi Architect Relationship Specialty Start Date End Date Shivam Wallace MD [facility] Physician Asso [address] [place] [address] [place] [address] PCP - General Internal Medicine 07/22/21 documented as of this encounter
--- OUTSIDE RECORDS SUMMARY | 2025-09-20 07:23 | XMS_ITS | Encounter Summary ---
Author Organization [facility] Address [address] [place] [address] Care Team Providers Care Waiter Waitress Name Role Phone Shivam Wallace MD Primary Care Provider [phone] Encounter Details Date Type Department Care Team (Late st Contact Info) Description 10/18/2021 Orders Only [facility] Orthopedic Surgery [address] [facility] [address] [place] [address] Jose Fountain NP [address] [facility] [address] [place] [address] Social History Tobacco Use Types Packs/Day Years [...] Primary documented in this encounter Care Teams Waiter Waitress Relationship Specialty Start Date End Date Shivam Wallace MD [facility] Physician Asso [address] [place] [address] PCP - General Internal Medicine 07/22/21 documented as of this encounter
== END 2025-09-20 07:22 | disposition home or self-care (01) ==
LOC: HO.LNP 07:21
PROVIDERS: Visit Provider Internal Medicine
DX: K50.90 Crohn's disease, unspecified, without complications (principal)
CPT/HCPCS: 83993